=== PATIENT | female | born 1990 | race Caucasian/White ===

== ENCOUNTER 2021-04-03 17:01 | Emergency (ER) | payer OTHER, SELFPAY ==
[2021-04-03 17:04] VITALS: BP 151/86; PULSE 100; RESP 18; TEMP 36.7; O2SAT 99; BMI 49.9
--- NOTE | 2021-04-03 17:24 | ED.DENTAL ---
HPI - Dental/Oral General Chief complaint: Dental/Oral Stated complaint: dental pain Time Seen by Provider: 04/03/21 17:24 Source: patient Mode of arrival: ambulatory Limitations: no limitations History of Present Illness HPI Narrative: right lower dental pain for past 2 days states history of dental caries was advised for extraction awaiting appointment. Denies any jaw swelling, fever, rash, difficulty swallowing but does hurt to chew on the right side. No recent antibiotics or hospitalization. MD Complaint: tooth pain Location: Tooth # (30/31) Onset (ago): day(s) Duration: constant Severity: moderate Severity scale (1-10): 8 Exacerbating factors: nothing Treatment prior to arrival: none Related Data Previous Rx's Medication Instructions Recorded ibuprofen 800 mg PO Q8H PRN #30 tab 04/03/21 penicillin V potassium 1,000 mg PO BID 10 Days #40 tab 04/03/21 Allergies Allergy/AdvReac Type Severity Reaction Status Date / Time No Known Allergies Allergy Verified 04/03/21 17:06 Review of Systems Review of Systems: Constitutional: No Weight loss, No Fever, No Chills, No Night Sweats, No Fatigue, No Malaise ENT/Mouth: No Hearing loss, No Ear Pain, No Nasal Congestion, No Sinus Pain, No Hoarseness, No sore throat, No Rhinorrhea, No Swallowing Difficulty , positive dental pain as noted per HPI Eyes: No Eye Pain, No Swelling, No Redness, No Foreign Body, No Discharge, No Vision Changes Cardiovascular: No Chest Pain, No SOB, No Dyspnea on Exertion, No Orthopnea, No Edema, No Palpitations Respiratory: No Cough, No Sputum, No Wheezing, No Smoke Exposure, No Dyspnea Gastrointestinal: No Nausea, No Vomiting, No Diarrhea, No Constipation, No abdominal Pain, No Hematochezia, No Melena Genitourinary: no irregular bleeding, No Dysuria, No Urinary Frequency, No Hematuria, No Urinary Incontinence, No Urgency, No Flank Pain, No Urinary Flow Changes, No Hesitancy Musculoskeletal: No joint pain, No Myalgias, No Joint Swelling Skin: No Skin Lesions, No rash Neuro: No Weakness, No Numbness, No Paresthesias, No Loss of Consciousness, No Dizziness, No Headache Psych: No Social Issues Heme/Lymph: No Bruising, No Bleeding,No Lymphadenopathy Endocrine: No Polyuria, No Polydipsia, No Temperature Intolerance Yes all other systems are reviewed and are negative [facility] Past Medical History Medical History No known health problems Social History Social History Advance Directives: No Advance Directives Information Provided: No Patient : No Physical Exam Vital Signs: Vital Signs: Last Vital Signs Temp 98.1 F 04/03/21 17:04 Pulse 100 04/03/21 17:04 Resp 18 04/03/21 17:04 BP 151/86 H 04/03/21 17:04 Pulse Ox 99 04/03/21 17:04 Body Mass Index 49.9 reviewed Const: General: cooperative and healthy appearing; No acute distress or intoxicated appearing Nutritional Appearance: average body habitus Orientation/consciousness: patient oriented x3 HENMT: Head: Yes normal to inspection Ears: hearing grossly normal bilaterally Teeth image: 1. tender palpation, no obvious periodontal abscess, mild gingivitis. Eyes: General: appearance normal, both eyes and all related structures Visual Cleaning: normal visual cleaning by confrontation Neck: Neck: Yes normal visual inspection, No positive Brudzinski's sign, No positive Kernig's sign and No tender Thyroid: Thyroid normal Resp: Effort & Inspection: normal respiratory effort Cardio: Jugular venous distension: no JVD : General: Yes no CVA tenderness Back/Spine/Pelvis: Back: no CVA tenderness Skin: General skin exam: no rashes or lesions noted Neuro: General: patient oriented x3 Extrem: General: Yes normal to inspection Discharge Plan Discharge Clinical Impression: Toothache Patient Disposition: Home, Self-Care Instructions: Toothache (ED) Additional Instructions: [place] diet Push fluids Oral mouth rinse Dental care as instructed Topical Orajel as instructed Follow-up with Dental for further evaluation and treatment and follow the recommendation for extraction take her antibiotic for the acute infection that you have Ibuprofen for pain as prescribed Return if any concerns or worsening symptoms Otherwise follow-up as instructed Thank you Prescriptions: New penicillin V potassium 500 mg tablet 1,000 mg PO BID 10 Days Qty: 40 RF: 0 ibuprofen 800 mg tablet 800 mg PO Q8H PRN (Reason: pain) Qty: 30 RF: 0 Referrals: Physician,None [Primary Care Provider] - 1 week
== END 2021-04-03 17:55 | disposition home or self-care (01) ==
PROVIDERS: Emergency Provider Emergency Medicine
DX: K08.89 Other specified disorders of teeth and supporting structures (principal)
CPT/HCPCS: 99283

== ENCOUNTER 2021-04-28 23:04 | Emergency (ER) | payer OTHER, SELFPAY ==
[2021-04-28 23:07] VITALS: BP 152/101; PULSE 110; RESP 18; TEMP 36.9; O2SAT 97; BMI 27.9
[2021-04-28] MEDS: Ibuprofen 600 MG TABLET PO (23:12)
--- NOTE | 2021-04-28 23:30 | ED_ITS ---
HPI - Dental/Oral General Chief complaint: Dental/Oral Stated complaint: tooth pain Time Seen by Provider: 04/28/21 23:30 Source: patient Mode of arrival: ambulatory Limitations: no limitations History of Present Illness HPI Narrative: Tooth pain since January now with increased pain. she is currently seeing her dentist. Onset (ago): month(s) Duration: constant Severity: mild Relieving factors: NSAIDs Exacerbating factors: chewing Related Data Previous Rx's Medication Instructions Recorded ibuprofen 800 mg PO Q8H PRN #30 tab 04/03/21 penicillin V potassium 1,000 mg PO BID 10 Days #40 tab 04/03/21 amoxicillin 875 mg PO BID #20 tab 04/28/21 naproxen [Naprosyn] 500 mg PO BID #20 tab 04/28/21 Allergies Allergy/AdvReac Type Severity Reaction Status Date / Time No Known Allergies Allergy Verified 04/03/21 17:06 Review of Systems Constitutional: Constitutional: Reports no additional constitutional complaints Eyes: Eyes: Reports no additional eye complaints ENT: Denies dizziness Cardiovascular: Cardiovascular: Reports no additional cardiovascular c omplaints Respiratory: Respiratory: Reports as per HPI Gastrointestinal: Gastrointestinal: Reports no additional gastrointestinal complaints Genitourinary: Genitourinary: Reports no additional female genitourinary complaints Musculoskeletal: Musculoskeletal: Reports no additional musculoskeletal complaints Integumentary/Breasts: Skin/Breast: Denies rash Neurologic: Reports system reviewed and no additional complaints, except as documented, Denies dizziness and Denies Sensory deficit (Neuro) Psychiatric: Psychiatric: Denies anxiety PMFSH Past Medical History Medical History No known health problems Social History Social History Advance Directives: No Advance Directives Information Provided: Yes Physical Exam Vital Signs: Vital Signs: Last Vital Signs Temp 98.5 F 04/28/21 23:07 Pulse 110 H 04/28/21 23:07 Resp 18 04/28/21 23:07 BP 152/101 H 04/28/21 23:07 Pulse Ox 97 04/28/21 23:07 Body Mass Index 27.9 Const: Other: anxious screaming Nutritional Appearance: obese Orientation/consciousness: oriented to person and patient oriented x3 Limitations: no limitations HENMT: Other: diffuse dental caries no obvious abscess Head: Yes normal to inspection Ears: external ears normal General nose exam: Normal external nose present Mouth: Normal oral and palatal mucosa present and oropharynx normal Throat: Yes posterior oropharynx normal Eyes: General: appearance normal, both eyes and all related structures Neck: Other: supple Neck: Yes normal visual inspection Chest: Chest palpation & inspection: normal inspection of the chest Resp: Auscultation: clear to auscultation bilaterally Cardio: Jugular venous distension: no JVD Rate: regular rate Rhythm: regular rhythm Heart sounds: S1 normal heart sound present and S2 normal heart sound present GI: Inspection: Yes normal to inspection Palpation (GI): Soft to palpation, nontender and No hepatosplenomegaly present Auscultation: normal bowel sounds : General: Yes no CVA tenderness Back/Spine/Pelvis: Back: no CVA tenderness Skin: General skin exam: no rashes or lesions noted Neuro: General: oriented to person and patient oriented x3 Cranial nerves: Yes CN's II-XII intact bilaterally Motor exam (neuro): 5/5 motor strength present throughout Sensory Exam: No Sensory deficit (Neuro) Extrem: General: Yes normal to inspection Psych: Appearance: grossly normal Course Reevaluation(s) Reevaluation #1: patient with chronic dental caries, very poor dentition will dc on NSAIDS and antibiotics Time: 23:36 Discharge Plan Discharge Clinical Impression: Dental caries Patient Disposition: Home, Self-Care Instructions: Toothache (ED) Prescriptions: New naproxen [Naprosyn] 500 mg tablet 500 mg PO BID Qty: 20 RF: 0 amoxicillin 875 mg tablet 875 mg PO BID Qty: 20 RF: 0 No Action penicillin V potassium 500 mg tablet 1,000 mg PO BID 10 Days Qty: 40 RF: 0 ibuprofen 800 mg tablet 800 mg PO Q8H PRN (Reason: pain) Qty: 30 RF: 0 Referrals: Arron Carr MD [Primary Care Provider] - 1 week
--- NOTE | 2021-04-28 23:49 | PC.NURSE ---
Pt yelling from bed and crying out for a doctor and pain medicine. This RN at bedside multiple times explaining to pt that she cannot be yelling in the ED. Pt advised a provider will see her when able. MD at bedside, plan for Toradol and ABX. When this RN returned to medicate pt and provide her with DC paperwork, pt had fled ED. drying can worker aware.
--- NOTE | 2021-04-28 23:51 | PC.NURSE ---
Unable to medicate pt or provide pt with DC paperwork as she fled ED.
[2021-04-28] MEDS: Amoxicillin 500 MG CAPSULE 1000 MG PO (23:58)
--- NOTE | 2021-04-29 00:03 | PC.NURSE ---
Pt found in Triage, provided with DC paperwork, medicated with ABX.
== END 2021-04-29 00:05 | disposition home or self-care (01) ==
PROVIDERS: Emergency Provider Emergency Medicine; PCP Internal Medicine
DX: K02.9 Dental caries, unspecified (principal)
CPT/HCPCS: 96372; 99283; 99284

== ENCOUNTER 2021-06-08 10:37 | Emergency (ER) | payer OTHER, SELFPAY ==
[2021-06-08 10:52] VITALS: BP 132/66; BP 150/90; PULSE 65; PULSE 80; RESP 16; TEMP 36.9; O2SAT 97; BMI 37.4
--- NOTE | 2021-06-08 10:52 | ECG_ITS ---
Test Reason : ABDOMINAL PAIN Blood Pressure : / mmHG Vent. Rate : 075 BPM Atrial Rate : 075 BPM P-R Int : 176 ms QRS Dur : 092 ms QT Int : 402 ms P-R-T Axes : 008 034 -09 degrees QTc Int : 448 ms Normal sinus rhythm Normal ECG No previous ECGs available Referred By: Nikole Miller Electronically Signed By:GIA GARCIA
--- NOTE | 2021-06-08 10:53 | ED_ITS ---
HPI - Nausea/Vomiting/Diarrhea General Chief complaint: Abdominal Pain Stated complaint: N/V s/p tramadol Time Seen by Provider: 06/08/21 10:52 Source: patient and EMS Mode of arrival: ambulatory Limitations: no limitations History of Present Illness MD elicited complaint: nausea, vomiting and other (dizziness) Pertinent past history: other (took tramadol for dental pain on empty stomach today) Onset (ago): hour(s) Description of vomiting: food contents Associated nausea: Yes Associated abdominal pain: No Location of pain: none Severity: mild Exacerbating factors: eating Relieving factors: none Context: new medication (tramadol on empty stomach) Associated symptoms: nausea/vomiting and other (dizziness) Related Data Previous Rx's Medication Instructions Recorded ibuprofen 800 mg tablet 800 mg PO Q8H PRN #30 tab 04/03/21 penicillin V potassium 500 mg 1,000 mg PO BID 10 Days #40 tab 04/03/21 tablet amoxicillin 875 mg tablet 875 mg PO BID #20 tab 04/28/21 naproxen 500 mg tablet (Naprosyn) 500 mg PO BID #20 tab 04/28/21 Allergies Allergy/AdvReac Type Severity Reaction Status Date / Time No Known Allergies Allergy Verified 04/03/21 17:06 Review of Systems Review of Systems: Constitutional : No Weight loss, No Fever, No Chills ENT/Mouth : No sore throat, No Rhinorrhea Eyes: No Swelling, No Redness Cardiovascular : No Chest Pain, No SOB, NoEdema Respiratory : No Cough, No Sputum, No Wheezing Gastrointestinal : Positive Nausea, Positive Vomiting, no Diarrhea, no abdominal Pain, No Hematochezia, No Melena Genitourinary : No Dysuria, No Urinary Frequency, No Hematuria, No Urgency Musculoskeletal : No joint pain, No Myalgias, No Joint Swelling Skin : No Skin Lesions, No rash Neuro : No Weakness, No Numbness, pos Dizziness, No Headache Psych : No Anxiety/Panic, No Depression Heme/Lymph: No Bruising, No Lymphadenopathy Endocrine : No Polyuria, No Polydipsia All other systems reviewed and are negative. Gastrointestinal: Gastrointestinal: Reports nausea PMFSH Past Medical History Attestation statement: The following information was validated with the patient. Medical History No known health problems Surgical History No history of previous surgery Social History Social History (Updated 06/08/21 @ 11:11 by Nikole Miller DO) Patient Tobacco Use Status: Never used Tobacco Use of substances other than those prescribed or required for medical reasons: No Advance Directives: No Advance Directives Information Provided: No Patient : No (UNKNOWN) Physical Exam Vital Signs: Vital Signs: Last Vital Signs Temp 98.5 F 06/08/21 10:52 Pulse 65 06/08/21 10:52 Resp 16 06/08/21 10:52 BP 132/66 06/08/21 10:52 Pulse Ox 97 06/08/21 10:52 Body Mass Index 37.4 Appearance: Alert. Oriented X3. No acute distress. Eyes: Pupils equal, round and reactive to light. ENT: Pharynx normal. Neck: Normal inspection. Neck supple. CVS: Normal heart rate and rhythm. Pulses normal. Respiratory: No respiratory distress. Breath sounds normal. Abdomen: Soft and non-tender. Skin: Skin warm and dry. Normal skin color. Normal skin turgor. Extremities: No lower extremity edema. No calf ttp Neuro: Oriented X 3. No motor deficit. No sensory deficit. Course Course Course Narrative: EKG has inverted t waves but no CP/SOB if trop negative stable for DC negative chest pain/ sob trop negative, likely persistent juvenile t wave pattern PERC negative, only receives the depo shot MDM - Nausea/Vomiting/Diarrhea MDM Narrative Medical decision making narrative: 31 yo female here with c/o nausea and dizziness after taking prescribed tramadol on an empty stomach for dental pain this AM - she is not toxic appearing will obtain qtc, UA and UPT, treat with zofran and discussed not taking the medication or to take it with food Lab Data Labs: Lab Results 06/08/21 06/08/21 06/08/21 Range/Units 11:13 11:15 11:16 Troponin I High Sens (<3.5-17.0) ng/L Urine Color YELLOW Urine Appearance HAZY Urine pH 5.5 (5.0-8.0) Ur Specific [place] >= 1.030 H (1.005-1.025) Urine Protein 1+ H (NEG-TRACE) MG/DL Urine Glucose (UA) NEG (NEG) MG/DL Urine Ketones NEG (NEG) MG/DL Urine Blood NEG (NEG) Urine Nitrite NEG (NEG) Ur Leukocyte Esterase NEG (NEG) Urine RBC 0-2 (0) /HPF Urine WBC 1-4 (0-4) /HPF Ur Squamous Epith Cells 2+ /LPF Urine Bacteria TRACE /LPF Urine Mucus 1+ /LPF Urine Test NEGATIVE (NEGATIVE) COVID-19 (IQRA) Negative (Negative) COVID-19 [employer] See Note 06/08/21 Range/Units 11:57 Troponin I High Sens < 3.5 (<3.5-17.0) ng/L Urine Color Urine Appearance Urine pH (5.0-8.0) Ur Specific [place] (1.005-1.025) Urine Protein (NEG-TRACE) MG/DL Urine Glucose (UA) (NEG) MG/DL Urine Ketones (NEG) MG/DL Urine Blood (NEG) Urine Nitrite (NEG) Ur Leukocyte Esterase (NEG) Urine RBC (0) /HPF Urine WBC (0-4) /HPF Ur Squamous Epith Cells /LPF Urine Bacteria /LPF Urine Mucus /LPF Urine Test (NEGATIVE) COVID-19 (IQRA) (Negative) COVID-19 [employer] ECG Data Attestation: I personally reviewed and interpreted this ECG as follows: ECG interpretation date: 06/08/21 ECG interpretation time: 11:14 Interpretation: Rate: 75 Rhythm: NSR [place]: normal Normal P waves. Normal KAT. Normal QRS complex. ST T wave : inverted in III, aVF, V1-V3 qTC: normal prior studies: no priors The study has been interpreted contemporaneously by me. . Discharge Plan Discharge Clinical Impression: Adverse effect of tramadol Qualifiers: Encounter type: initial encounter Qualified Code(s): T40.425A - Adverse effect of tramadol, initial encounter Vomiting Qualifiers: Vomiting type: unspecified Vomiting Intractability: non-intractable Nausea presence: with nausea Qualified Code(s): R11.2 - Nausea with vomiting, unspecified Patient Disposition: Home, Self-Care Instructions: Acute Nausea and Vomiting (ED), Adverse Drug Reaction (ED) Additional Instructions: return to ED for any worsening symptoms or concerns never take pain medications on empty stomach i would not take tramadol anymore negative test Prescriptions: No Action penicillin V potassium 500 mg tablet 1,000 mg PO BID 10 Days Qty: 40 RF: 0 ibuprofen 800 mg tablet 800 mg PO Q8H PRN (Reason: pain) Qty: 30 RF: 0 naproxen [Naprosyn] 500 mg tablet 500 mg PO BID Qty: 20 RF: 0 amoxicillin 875 mg tablet 875 mg PO BID Qty: 20 RF: 0 Interventions: ED Discharge Assessment Last Done: 06/08/21 12:51 Discharge Date/Time: 06/08/21 12:52
[2021-06-08] MEDS: Ondansetron ODT 4 MG TAB.RAPDIS TRANSLINGU (10:57)
[2021-06-08 11:26] LABS: Glucose Urine UA NEG (NEG); Leukocyte Esterase Urine NEG (NEG); Nitrite Urine NEG (NEG); PH 5.5 (5.0-8.0); Specific Gravity - Urine >= 1.030 (1.005-1.025); UACC Culture Trigger NO; Urine Blood NEG (NEG); Urine Ketones NEG (NEG); Urine Protein 1+ MG/DL (NEG-TRACE)
[2021-06-08 11:28] LABS: UPreg QC Valid YES; Urine Pregnancy NEGATIVE (NEGATIVE)
[2021-06-08 11:28] LABS: Appearance Urine HAZY; Color Urine YELLOW
[2021-06-08 11:35] LABS: Bacteria Urine TRACE /LPF; Mucus Urine 1+ /LPF; RBC Urine 0-2 /HPF (0); Squamous Epithelial Cell Urine 2+ /LPF
[2021-06-08 11:36] LABS: COVID-19 Test Negative (Negative)
[2021-06-08 12:29] LABS: Troponin-I High Sensitivity < 3.5 ng/L (<3.5-17.0)
== END 2021-06-08 12:52 | disposition home or self-care (01) ==
PROVIDERS: Emergency Provider Emergency Medicine
DX: R11.2 Nausea with vomiting, unspecified (principal); T40.425A Adverse effect of tramadol, initial encounter; Y92.009 Unspecified place in unspecified non-institutional (private) residence as the place of occurrence of the external cause; Z20.822 Contact with and (suspected) exposure to COVID-19
CPT/HCPCS: 36415; 81001; 81025; 84484; 87635; 93005; 99283

== ENCOUNTER 2021-10-19 13:45 | Emergency (ER) | payer OTHER, SELFPAY ==
--- NOTE | ~2021-10-19 | XR_ITS ---
EXAMINATION: XR CHEST CLINICAL INFORMATION: Coughing. COMPARISON: None TECHNIQUE: 2 views of the chest were obtained. FINDINGS: No significant abnormality is noted involving the heart, lungs, mediastinum, bony thorax or soft tissues. XR/XR chest 2V IMPRESSION: Unremarkable chest examination.
[2021-10-19 15:02] VITALS: BP 125/75; PULSE 64; RESP 18; TEMP 36.3; O2SAT 97; BMI 29.9
--- NOTE | 2021-10-19 15:18 | ED.GENADULT ---
HPI - General Adult General Chief complaint: General Medical Stated complaint: sore throat tooth pain Time Seen by Provider: 10/19/21 15:10 Source: patient History of Present Illness HPI narrative: Patient with several complaints. 1. Right posterior molar pain. She states this has been ongoing for months. Worse recently. Also now with a cough and a sore throat. Positive sputum, green. No shortness of breath She has been seen in the past for the dental pain and treated with antibiotics. She has not yet followed up with a dentist. She is requesting ibuprofen for the pain. No fevers or chills. No difficulty swallowing. Related Data Previous Rx's Medication Instructions Recorded ibuprofen 800 mg tablet 800 mg PO Q8H PRN #30 tab 04/03/21 penicillin V potassium 500 mg 1,000 mg PO BID 10 Days #40 tab 04/03/21 tablet amoxicillin 875 mg tablet 875 mg PO BID #20 tab 04/28/21 naproxen 500 mg tablet (Naprosyn) 500 mg PO BID #20 tab 04/28/21 ibuprofen 800 mg tablet 800 mg PO TID PRN #30 tab 10/19/21 penicillin V potassium 500 mg 1,000 mg PO BID #40 tab 10/19/21 tablet Allergies Allergy/AdvReac Type Severity Reaction Status Date / Time No Known Allergies Allergy Verified 04/03/21 17:06 Review of Systems Constitutional: Comments: No fevers or chills ENT: Comments: Dental pain sore throat Respiratory: Comments: Cough with sputum which she states is green and occasionally red Integumentary/Breasts: Comments: Denies rash PMFSH Past Medical History Medical History No known health problems Surgical History No history of previous surgery Social History Social History (Updated 06/08/21 @ 11:11 by Nikole Miller DO) Patient Tobacco Use Status: Never used Tobacco Advance Directives: No Advance Directives Information Provided: Yes Patient : No Physical Exam Vital Signs: Vital Signs: Last Vital Signs Temp 97.4 F 10/19/21 15:02 Pulse 64 10/19/21 15:02 Resp 18 10/19/21 15:02 BP 125/75 10/19/21 15:02 Pulse Ox 97 10/19/21 15:02 BMI result Body Mass Index 29.9 Const: Other: Awake alert no acute distress HENMT: Other: Poor dentition overall. Extensive decay of right posterior lower molar. Tender but no obvious swelling or evidence of abscess. No pharyngeal erythema or exudate. Neck: Other: No meningismus Resp: Other: Clear and equal bilaterally without wheezes rales or rhonchi Cardio: Other: Regular rate and rhythm without murmurs rubs or gallops GI: Other: Soft nontender Skin: Other: Warm pink and dry without rash Neuro: Other: Alert and oriented ambulates without difficulty Course Course Course Narrative: Dental infection without abscess Viral sore throat COVID-19 infection Bronchitis Pneumonia Patient with Pfizer vaccine x2 with her last dose in July. 3:55 p.m.. Chest x-ray is unremarkable. Still awaiting COVID-19 and strep results. 4:20 p.m.. Strep test is negative. COVID test is positive Will treat with antibiotics for dental infection. She is working on getting a dentist for follow-up Medical Decision Making Lab Data Labs: Lab Results 10/19/21 10/19/21 Range/Units 15:57 16:02 COVID-19 (IQRA) Positive A (Negative) COVID-19 Clin Com See Note S. pyogenes GrpA DINAH Negative (Negative) Discharge Plan Discharge Clinical Impression: Dental abscess, COVID-19 Patient Disposition: Home, Self-Care Instructions: Dental Abscess (ED), COVID-19 (Coronavirus Disease 2019) (ED) Additional Instructions: You have COVID-19. I am referring you to [facility] for monoclonal antibodies as you have risk factor for severe disease. Prescriptions: New penicillin V potassium 500 mg tablet 1,000 mg PO BID Qty: 40 RF: 0 ibuprofen 800 mg tablet 800 mg PO TID PRN (Reason: pain) Qty: 30 RF: 0 No Action penicillin V potassium 500 mg tablet 1,000 mg PO BID 10 Days Qty: 40 RF: 0 ibuprofen 800 mg tablet 800 mg PO Q8H PRN (Reason: pain) Qty: 30 RF: 0 naproxen [Naprosyn] 500 mg tablet 500 mg PO BID Qty: 20 RF: 0 amoxicillin 875 mg tablet 875 mg PO BID Qty: 20 RF: 0
[2021-10-19 16:16] LABS: COVID-19 Test Positive (Negative)
[2021-10-19 16:18] LABS: Strep A Nucleic Acid Negative (Negative)
== END 2021-10-19 16:58 | disposition home or self-care (01) ==
PROVIDERS: Emergency Provider Emergency Medicine
DX: U07.1 COVID-19 (principal); K04.7 Periapical abscess without sinus; R05.9 Cough, unspecified; Z79.899 Other long term (current) drug therapy
CPT/HCPCS: 36415; 71046; 87635; 87651; 99283

== ENCOUNTER 2024-05-16 15:14 | Emergency (ER) | payer MEDICAID, SELFPAY ==
[2024-05-16 15:17] VITALS: BP 182/65; PULSE 70; RESP 16; TEMP 36.4; O2SAT 98; BMI 42.6
--- NOTE | 2024-05-16 15:21 | ED_ITS ---
HPI - Dental/Oral General Chief complaint: Dental/Oral Stated complaint: tooth pain Time Seen by Provider: 05/16/24 15:18 Source: patient, RN notes reviewed and old records reviewed Mode of arrival: ambulatory Limitations: no limitations History of Present Illness ED Provider: TYRONE KAYE PA-C HPI Narrative: 54-year-old female with no significant past medical history presents to the ED today for evaluation of dental pain times 24 hours. Reports taking Tylenol/ibuprofen at home without relief. Last dose of this was 2 hours prior to arrival in ED. denies fever, chills, drainage from the area, neck pain or jaw pain, your pain. Receive she did not call her dentist as she does not want to wait for an appointment. MD Complaint: tooth pain Teeth map: 2 1. Onset (ago): day(s) (1) Duration: constant Related Data Previous Rx's ?Medication ?Instructions ?Recorded ibuprofen 800 mg tablet 800 mg PO Q8H PRN pain #30 tabs 04/03/21 penicillin V potassium 500 mg 1,000 mg (2 x 500 mg) PO BID 10 04/03/21 tablet days #40 tabs amoxicillin 875 mg tablet 875 mg PO BID #20 tabs 04/28/21 naproxen 500 mg tablet (Naprosyn) 500 mg PO BID #20 tabs 04/28/21 ibuprofen 800 mg tablet 800 mg PO TID PRN pain #30 tabs 10/19/21 penicillin V potassium 500 mg 1,000 mg (2 x 500 mg) PO BID #40 10/19/21 tablet tabs amoxicillin 875 mg-potassium 1 tab PO BID 7 days #14 tabs 05/16/24 clavulanate 125 mg tablet morphine 15 mg immediate release 15 mg PO Q6H PRN pain (scale score 05/16/24 tablet 4-6) #10 tabs ondansetron 4 mg disintegrating 4 mg PO DAILY PRN nausea and 05/16/24 tablet vomiting 5 days #7 tabs Allergies Allergy/AdvReac Type Severity Reaction Status Date / Time tramadol Allergy Dizziness Verified 05/16/24 15:19 Review of Systems 2 Review of Systems: Constitutional: No fever, chills, fatigue, night sweats, weight changes ENT/Mouth: No ear pain, hearing loss, nasal congestion, sinus pain, rhinorrhea, sore throat, +dental pain Eyes: No eye pain, swelling, redness, vision changes, discharge Cardio: No chest pain, palpitations, PICKETT, orthopnea, peripheral edema Pulm: No SOB, cough, sputum, wheezing, dyspnea, hemoptysis GI: No nausea, vomiting, hematemesis, abdominal pain, diarrhea, constipation, hematochezia, melena : No irregular bleeding, dysuria, frequency, urgency, hesitancy, hematuria, flank pain, urinary flow changes, urinary incontinence or retention MSK: No back pain, neck pain, joint pain, myalgias Skin: No lesions, rashes Neuro: No weakness, numbness, paresthesias, LOC, dizziness, headache Psych: No anxiety/panic, depression, SI/HI, AH/VH All other systems reviewed and are negative. [facility] Past Medical History Attestation statement: The following information was validated with the patient. Source: old records reviewed and nursing notes reviewed Medical History No known health problems Surgical History No history of previous surgery Social History Social History Patient Tobacco Use Status: Never used Tobacco Physical Exam 2 Vital Signs: Vital Signs: Last Vital Signs Temp 97.6 F 05/16/24 15:17 Pulse 70 05/16/24 15:17 Resp 16 05/16/24 15:17 BP 182/65 H 05/16/24 15:17 Pulse Ox 98 05/16/24 15:17 O2 Del Method Room Air 05/16/24 15:17 BMI result Body Mass Index 42.6 Vital signs stable, afebrile. Const: General: cooperative, healthy appearing, comfortable and no acute distress Orientation/consciousness: patient oriented x3 Limitations: no limitations HEENT: Other: + No facial edema. Tongue and lips wnl + multiple dental caries and poor dentit ion. left lower molars with localized periapical swelling to the buccal ginginva. No pointing. No active bleeding/ discharge. TTP. No palpable fluctuance. + No edema to buccal mucosa + Posterior oropharynx without erythema/ edema. Uvula midline. Controlling secretions and speaking in complete sentences + No submandublar or submental LAD + No cervical LAD. no anterior neck swel ling. Head: Yes normal to inspection, Yes No palpable skull fracture present, Yes normocephalic and Yes atraumatic Ears: hearing grossly normal bilaterally, external ears normal, TM's normal bilaterally, EAC's normal, mastoids normal and no periauricular adenopathy Eyes: General: appearance normal, both eyes and all related structures C onjunctivae: conjunctivae normal Sclerae: sclerae normal Pupils: Equal, round and reactive pupils present Neck: Neck: Yes normal visual inspection and Yes no lymphadenopathy Resp: Effort & Inspection: normal respiratory effort and no stridor A uscultation: clear to auscultation bilaterally Cardio: Rate: regular rate Rhythm: regular rhythm Skin: General skin exam: no rashes or lesions noted Neuro: General: patient oriented x3 and gait normal Cranial nerves: Yes Equal, round and reactive pupils present Course Course Course Narrative: 1529-- Patient noted to have dental infection. There is no evidence of abscess that warrants drainage at this time. Will treat patient's pain and patient will be discharged home on Augmentin to ensure there is no worsening infection for follow-up with dentist. Patient advised to follow up with dentist this week. A referral has been provided. Patient has remained stable throughout ED visit today. I discussed worrisome signs and symptoms and when to return to the ED. All questions answered at this time. Patient is agreeable with disposition and stable for discharge. Medical Decision Making Medical Decision Making [facility] Narrative: 54-year-old female with no significant past medical history presents to the ED today for evaluation of dental pain times 24 hours. Patient hypertensive, vitals otherwise WNL. Afebrile. Nontoxic appearing and in no acute distress. On exam, No facial edema. Tongue and lips wnl. multiple dental caries and poor dentition. left lower molars with localized periapical swelling to the buccal ginginva. No pointing. No active bleeding/ discharge. TTP. No palpable fluctuance. No edema to buccal mucosa. Posterior oropharynx without erythema/edema. Uvula midline. Controlling secretions and speaking in complete sentences. No submandublar or submental LAD. No cervical LAD. no anterior neck swelling. b/l EACs and TMs wnl. Differential includes dental/ periapical abscess/infection. Unlikely mono, herpes, sialadenitis, sialolithiasis, MINING SUPPORT WORKER, retropharyngeal abscess, deep neck infection, osteomyelitis, facial cellulitis/ abscess, lymphoma, ludwigs angina. Plan for pain control and discharge home with antibiotics and dentist follow up. Differential Diagnosis Differential Diagnoses: The differential diagnosis associated with the presentation includes as above. Admission/Observation Not indicated. Tests considered The following testing was considered but not selected: I considered obtaining a CT of the soft tissues neck however these is no evidence of ludwigs angina or concern for deep tissue infection. Not warranted at this time. Prescription Management I considered prescription management with: Pain Medication (Morphine) and Antibiotic (Augmentin) Social Determinants Patient?s care significantly limited by Social Determinants of Health including: Other Social Determinant of Health Critical Care Time Critical Care Time Critical Care Time: No Discharge Plan Discharge Clinical Impression: Toothache Patient Disposition: Home, Self-Care Instructions: Toothache (ED) Additional Instructions: You were evaluated in ED today for dental pain. You have a dental infection. Augmentin is an antibiotic that has been sent to your pharmacy for treatment. Take this as prescribed and do not skip any doses. Take this to completion or the infection may persist or worsen. On Augmentin, softer bowel movements are to be expected. Call your provider if you move your bowels more than 4 times a day, your bowel movements are almost all liquid, or you get a rash.? Take tylenol/ motrin at home as needed for pain. Morphine is a pain medication that has been sent to your pharmacy for you to take for break-through pain. Use this with caution. YOU NEED TO FOLLOW UP WITH A DENTIST. You have been provided with a referral to [facility]. They are currently taking new clients. Call them to make an appointment. They will not call you. Return with new or worsening symptoms. In the case of an emergency call [phone]. [facility]: [phone] [facility] [address] Prescriptions: New amoxicillin-pot clavulanate 875-125 mg tablet 1 tab PO BID 7 Days Qty: 14 0RF morphine 15 mg tablet 15 mg PO Q6H PRN (Reason: pain (scale score 4-6)) Qty: 10 0RF Rx Instructions: Partial Fill upon patient request. ondansetron 4 mg tablet,disintegrating 4 mg PO DAILY PRN (Reason: nausea and vomiting) 5 Days Qty: 7 0RF No Action penicillin V potassium 500 mg tablet 1,000 mg PO BID 10 Days Qty: 40 0RF ibuprofen 800 mg tablet 800 mg PO Q8H PRN (Reason: pain) Qty: 30 0RF naproxen [Naprosyn] 500 mg tablet 500 mg PO BID Qty: 20 0RF amoxicillin 875 mg tablet 875 mg PO BID Qty: 20 0RF penicillin V potassium 500 mg tablet 1,000 mg PO BID Qty: 40 0RF ibuprofen 800 mg tablet 800 mg PO TID PRN (Reason: pain) Qty: 30 0RF Stand Alone Forms: Work/School Release Print Language: Togolese
--- OUTSIDE RECORDS SUMMARY | 2024-05-16 15:30 | XMS_ITS | Continuity of Care Document ---
Author Organization [facility] Address [address] [place] [address]- Care Team Providers Care Yarn Comber Name Role Phone Not on Staff, PCP Primary Care Physician Unavail able Encounter [facility] Date(s): 05/18/22 - 05/18/[address] [address]- Discharge Disposition: A-D/C Walkout Attending Physician: Not on Staff, Attending MD Admitting Physician: Not on Staff, Admitting MD Referring Physician: Not on Staff, Referring MD Allergies, Adverse Reactions, Alerts Substance Reaction Severity Status traMADol Active Immunizations Given and Recorded Vaccine Date Status Refusal Reason SARS-CoV-2 (COVID-19) mRNA BNT-162b2 vac 08/02/21 Recorded SARS-CoV-2 (COVID-19) mRNA BNT-162b2 vac 07/12/21 Recorded influenza virus vaccine, inactivated 07/16/20 Give n influenza virus vaccine, inactivated 12/13/17 Give n influenza virus vaccine, inactivated 09/02/13 Give n tetanus/diphtheria/pertussis, acel(Tdap) 03/22/18 Given tetanus/diphtheria/pertussis, acel(Tdap) 02/21/17 Given tetanus/diphtheria/pertussis, acel(Tdap) 02/10/14 Given tetanus/diphtheria/pertussis, acel(Tdap) 1 08/28/12 Given Fluzone (oldterm) 2 07/18/12 Given Human Papillomavirus Vaccine 3 11/13/09 Given Influenza Vaccine (oldterm) 07/15/09 Given 1Admin Note: 11/01/11 VIS Given. 2Admin Note: 04/09/12 VIS Given. 3Admin Note: 11/15/06 VIS Given. Medications acetaminophen 325 mg oral tablet 650 mg, By Mouth, Every 4 hours, PRN, (1-3), may give 325mg per patient preference and re-dose [id number] within 4 hours, if needed. Patient should only receive a total of 650mg of Acetaminophen every 4 hours., # 30 tablet, Refills 0, Tot. Refills 0... Start Date: 10/14/20 Status: Ordered aspirin 81 mg oral delayed release tablet See Instructions, 2 tablet By Mouth Daily at bedtime, # 60 tablet, Refills 8, Tot. Refills 8, Maintenance, 03/03/22 10:23:00 EDT, Instructions Replace Required Details, Route to Pharmacy Electronically, [facility]/pharmacy #[id number], Partial fill upon patient re... Start Date: 03/03/22 Status: Ordered docusate sodium 100 mg oral capsule 100 mg, 1, capsule, By Mouth, 2 times a day, PRN, # 30 capsule, Refills 0, Tot. Refills 0, Maintenance, Constipation, 10/14/20 8:26:00 EST, Route to Pharmacy Electronically, [facility]/pharmacy #[id number], Partial fill upon patient request if the prescription is... Start Date: 10/14/20 Status: Ordered ferrous sulfate 325 mg oral tablet 1 tablet = 325 mg, By Mouth, Daily, # 90 tablet, 3 Refills, Maintenance, 02/10/22 14:01:00 EDT, Tablet, [facility]/pharmacy #[id number], Partial fill upon patient request if the prescription is for a schedule II opioid drug., 162, cm, 02/08/22 20:06:00 EDT, Height... Start Date: 02/10/22 Status: Ordered Heartburn Relief 10 mg oral tablet 1 tablet, By Mouth, 2 times a day, # 60 tablet, 6 Refills, Soft Stop, 05/09/22 11:09:00 EDT, [facility]/pharmacy #[id number], 162, cm, 03/03/22 10:00:00 EDT, Height, 115.5, kg, 02/08/22 19:58:00 EDT, Dry Weight Start Date: 05/09/22 Status: Ordered metoclopramide 5 mg oral tablet 1 tablet, By Mouth, 2 times a day, for 30 days, # 60 tablet, 0 Refills, Physician Stop, [id number], 162, cm, 03/03/22 10:00:00 EDT, Height, 115.5, kg, 02/08/22 19:58:00 EDT, Dry Weight Start Date: 04/25/22 Stop Date: 05/25/22 Status: Ordered metoclopramide 5 mg oral tablet 1 tablet, By Mouth, 2 times a day, for 30 days, # 60 tablet, 0 Refills, Physician Stop 06/08/22 11:09:00 EDT, 05/09/22 11:09:00 EDT, [facility]/pharmacy #[id number], 162, cm, 03/03/22 10:00:00 EDT, Height, 115.5,kg, 02/08/22 19:58:00 EDT, Dry Weight Start Date: 05/09/22 Stop Date: 06/08/22 Status: Ordered Multivitamins with Folic Acid 1 mg oral tablet 1 tablet, By Mouth, Daily, # 90 tablet, 3 Refills, Maintenance, 01/25/22 15:06:00 EDT, Tablet, [facility]/pharmacy #[id number], Partial fill upon patient request if the prescription is for a schedule II opioid drug., 1 tablet By Mouth Daily, 162, cm, 01/20/22 0:10... Start Date: 01/25/22 Status: Ordered Tums 500 mg oral tablet, chewable 500 mg, 1, tablet, Chew, 3 times a day, PRN, # 30 tablet, Refills 0, Tot. Refills 0, Maintenance, for control of stomach acid, 09/16/20 19:17:00 EST, Route to Pharmacy Electronically, [facility]/pharmacy #[id number], Partial fill upon patient request if the prescr... Start Date: 09/16/20 Status: Ordered Unisom 25 mg oral tablet 1 tablet = 25 mg, By Mouth, Daily at bedtime, PRN for sleep, # 32 tablet, 0 Refills, Maintenance, 01/29/22 21:21:00 EDT, Tablet, [facility]/pharmacy #[id number], 162, cm, 01/20/22 0:10:00 EDT, Height, 127.5, kg, 10/11/20 21:21:00 EST, Dry Weight Start Date: 01/29/22 Status: Ordered Vitamin B6 50 mg oral tablet See Instructions, TAKE 3 TIMES PER DAY TO PREVENT NAUSEA IN ., # 90 tablet, Refills 0, Instructions Replace Required Details, Route to Pharmacy Electronically, [id number], 162, cm, 03/03/22 10:00:00 EDT, Height, 115.5, kg, 02/08/22 19:58... Start Date: 05/06/22 Status: Ordered Problem List Condition Effective Dates Status Health Status Inform ant History of suicidal ideation(Confirmed) Active Learning disability(Confirmed) Active Morbid obesity(Confirmed) Active Obesity, Morbid - BMI 47(Confirmed) Active Personality disorder(Confirmed) Active Severe obesity(Confirmed) Active Other social stressor(Confirmed) Active Vital Signs Most recent to oldest [Reference Range]: 1 2 3 Height 165 cm (05/18/22 12:53 PM) 165 cm (05/18/22 12:18 PM) Oxygen Saturation [94-100 %] 100 % (05/18/22:24 PM) 100 % (05/18/22 12:53 PM) 99 % (05/18/22 12:09 PM) Pulse Rate [55-90 bpm] 78 bpm (05/18/22:24 PM) 77 bpm (05/18/22 12:53 PM) 98 bpm *H* (05/18/22 12:09 PM) Blood Pressure [90-138/55-84 mm Hg] 116/57mm Hg (05/18/22 5:24 PM) 118/62mm Hg (05/18/22 12:53 PM) 115/64mm Hg (05/18/22 12:09 PM) Respiratory Rate [16-30 br/min] 18 br/min (05/18/22 12:53 PM) 20 br/min (05/18/22 12:09 PM) Temperature [96.8-100.4 DegF] 98.3 DegF (05/18/22 5:24 PM) 97.6 DegF (05/18/22 12:53 PM) 98.0 DegF (05/18/22 12:09 PM) Mode of Delivery (Oxygen) Room air (05/18/22 5:24 PM) Room air (05/18/22 12:53 PM) Room air (05/18/22 12:09 PM) Blood pressure sites Arm, right (05/18/22 5:24 PM) Arm, right (05/18/22 12:53 PM) Arm, left (05/18/22 12:09 PM) Temperature Route Oral (05/18/22 5:24 PM) Oral (05/18/22 12:53 PM) Oral (05/18/22 12:09 PM) Social History Social History Type Response Smoking Status Never (less than 100 in lifetime) entered on: 04/08/20 Sex
--- OUTSIDE RECORDS SUMMARY | 2024-05-16 15:30 | XMS_ITS | Continuity of Care Document ---
Author Organization [facility] ter Address [address] [place] [id number]- Care Team Providers Care Receivables Specialist Name Role Phone Bruno DOS SANTOS, Arron Dash Primary Care Physician Encounter [facility] Date(s): 08/16/22 - 09/21/[address] [address] Attending Physician: Annmarie Augustin DO Admitting Physician: Annmarie Augustin DO Referring Physician: Sarah Beth Pimentel DO Allergies, Adverse Reactions, Alerts Substance Reaction Severity Status traMADol Active Immunizations Given and Recorded Vaccine Date Status Refusal Reason tetanus/diphtheria/pertussis, acel(Tdap) 08/04/22 Given tetanus/diphtheria/pertussis, acel(Tdap) 03/22/18 Given tetanus/diphtheria/pertussis, acel(Tdap) 02/21/17 Given tetanus/diphtheria/pertussis, acel(Tdap) 02/10/14 Given tetanus/diphtheria/pertussis, acel(Tdap) 1 08/28/12 Given SARS-CoV-2 (COVID-19) mRNA BNT-162b2 vac 08/02/21 Recorded SARS-CoV-2 (COVID-19) mRNA BNT-162b2 vac 07/12/21 Recorded influenza virus vaccine, inactivated 07/16/20 Give n influenza virus vaccine, inactivated 12/13/17 Give n influenza virus vaccine, inactivated 09/02/13 Give n Fluzone (oldterm) 2 07/18/12 Given Human Papillomavirus Vaccine 3 11/13/09 Given Influenza Vaccine (oldterm) 07/15/09 Given 1Admin Note: 11/01/11 VIS Given. 2Admin Note: 04/09/12 VIS Given. 3Admin Note: 11/15/06 VIS Given. Medications docusate sodium 100 mg oral tablet 1 tablet = 100 mg, By Mouth, 3 times a day, PRN for constipation, # 60 tablet, 0 Refills, Maintenance, 08/23/22 19:44:00 EST, Tablet, [facility]/pharmacy #[id number], Partial fill upon patient request if the prescription is for a schedule II opioid drug., 165, cm,... Start Date: 08/23/22 Status: Ordered ibuprofen 600 mg oral tablet 600 mg, 1, tablet, By Mouth, Every 6 hours, # 50 tablet, Refills 0, Tot. Refills 0, Maintenance, 09/07/22 16:36:00 EST, Route to Pharmacy Electronically, [facility]/pharmacy #[id number], Partial fill upon patientrequest if the prescription is for a schedule II op... Start Date: 09/07/22 Status: Ordered MiraLax oral powder for reconstitution = 17 Gm, By Mouth, Daily, dissolve in water before taking, # 255 Gm, 0 Refills, Maintenance, 08/23/22 19:45:00 EST, REC Powder, [facility]/pharmacy #[id number], Partial fill upon patient request if the prescription is for a schedule II opioid drug., 17 Gm By Mouth... Start Date: 08/23/22 Status: Ordered Nexplanon 68 mg subcutaneous implant 1 each = 68 mg, Subcutaneous Infusion, Once, Inserted 08/23/22 Lot [id number] Exp 07/28/24, 0 Refills,Maintenance, 08/23/22 19:16:00 EST, Partial fill upon patient request if the prescription is for a schedule II opioid drug. Start Date: 08/23/22 Status: Ordered oxyCODONE 5 mg oral tablet 5 mg, 1, tablet, By Mouth, Every 6 hours, PRN, # 10 tablet, Refills 0, Tot. Refills 0, Maintenance,as needed for pain, 08/23/22 19:48:00 EST, Route to Pharmacy Electronically, [facility]/pharmacy #[id number], Partial fill upon patient request if the prescription... Start Date: 08/23/22 Status: Ordered simethicone 80 mg oral tablet, chewable 80 mg, 1, tablet, Chew, 4 times a day, PRN, # 36 tablet, Refills 0, Tot. Refills 0, Maintenance, asneeded for gas, 08/23/22 19:44:00 EST, Route to Pharmacy Electronically, [facility]/pharmacy #[id number], Partial fill upon patient request if the prescription is f... Start Date: 08/23/22 Status: Ordered Tylenol 325 mg oral capsule 2 capsule = 650 mg, By Mouth, Every 6 hours, PRN as needed for fever, # 50 capsule, 0 Refills, Maintenance, 09/07/22 16:37:00 EST, Capsule, [facility]/pharmacy #[id number], Partial fill upon patient request if the prescription is for a schedule II opioid drug., 16... Start Date: 09/07/22 Status: Ordered Problem List Condition Confirmation Course Effective Dates Status H ealth Status Informant H/O Anemia in Confirmed Active Dichorionic diamniotic twin gestation Confirmed Active History of suicidal ideation Confirmed Active Learning disability Confirmed Active Morbid obesity Confirmed Active Personality disorder Confirmed Active Severe obesity Confirmed Active Other social stressor Confirmed Active Request for sterilization Confirmed Active Social History Social History Type Response Smoking Status Never (less than 100 in lifetime) entered on: 04/08/20 Sex Patient Care team information Care Team Personnel Name: Triny Son RN Position: [facility] PCO RN Member Role: Primary Care Nurse Name: Jennifer Penny RN Position: [facility] RN Member Role: Primary Care Nurse Name: Wanda Man RN Position: [facility] OB RN Member Role: Primary Care Nurse Name: Aurelio Ravi DO Position: [facility] WOOD FENCE ERECTOR MD Member Role: [employer]etime WOOD FENCE ERECTOR Physician Address: Address: [address] [place] [address] [employer] [place] [address]- Name: Sisi Interiano RN Position: [facility] RN Member Role: Primary Care Nurse Name: Arron Carr MD Position: [facility] Outreach Member Role: PCP Address: Address: [address] [place] [address]- Name: Emeka Chong RN Position: [facility] RN Member Role: Primary Care Nurse Name: Jasmin Mosqueda RN Position: [facility] OB RN Member Role: Primary Care Nurse Name: Jane Palomares RN Position: [facility] OB RN Member Role: Primary Care Nurse Name: Leena Friend RN Position: [facility] OB RN Member Role: Primary Care Nurse Care Team Related Persons Name: FRANCISCA REYES Address: home [address] [place] [address] Name: BERKLEY REYES Address: home [place] Name: LEVAR ZARATE Address: home [address] [place] [address] Name: JUNIOR ELIANA Address: [place] [address] Name: CAROLE CHUNG Address: [address] Address: home [address] [place] [address] [place] Name: TRACY CHUNG Address: [address] Address: home [address] [address] [place] Name: LIS JAMA Address: [address] Address: home [address] [address] [place] Name: AKIRA JAMA Address: [address] Address: home [address] [place] [address] [place] Name: BERKLEY AVENDANO Address: home [address] [address] Name: JENNIFER BEARDEN
--- OUTSIDE RECORDS SUMMARY | 2024-05-16 15:30 | XMS_ITS | Continuity of Care Document ---
Author Organization [facility] Address [address] [place] [address]- Care Team Providers Care Director Speech And Hearing Name Role Phone Not on Staff, PCP Primary Care Physician Unavail able [facility] Date[facility]): [facility] - 05/13/[facility] [address] [place] [address]- [facility] Attending Physician: Rikki Rodriguez Admitting Physician: Rikki Rodriguez Referring Physician: Rikki Rodriguez Allergies, Adverse Reactions, Alerts Substance Reaction Severity Status NKA Active Immunizations Given and Recorded Vaccine Date Status Refusal Reason tetanus/diphtheria/pertussis, acel(Tdap) 03/22/18 Given tetanus/diphtheria/pertussis, acel(Tdap) 02/21/17 Given tetanus/diphtheria/pertussis, acel(Tdap) 02/10/14 Given tetanus/diphtheria/pertussis, acel(Tdap) 1 08/28/12 Given influenza virus vaccine, inactivated 12/13/17 Give n influenza virus vaccine, inactivated 09/02/13 Give n Fluzone (oldterm) 2 07/18/12 Given Human Papillomavirus Vaccine 3 11/13/09 Given Influenza Vaccine (oldterm) 07/15/09 Given 1Admin Note: 11/01/11 VIS Given. 2Admin Note: 04/09/12 VIS Given. 3Admin Note: 11/15/06 VIS Given. Medications doxylamine 25 mg oral tablet 1 tablet = 25 mg, By Mouth, Daily at bedtime, PRN for sleep, # 30 tablet, 1 Refills, Maintenance, 05/03/20 17:34:00 EDT, Tablet, [id number], 165, cm, 04/08/20 8:05:00 EDT, Height, 117, kg, 10/14/19 23:49:00 EST, Dry Weight Start Date: 05/03/20 Status: Ordered metoclopramide 10 mg oral tablet See Instructions, TAKE 1 TABLET 4 TIMES A DAY NEEDED FOR NAUSEA AND VOMITING 30 MINUTES BEFORE MEALS & BEDTIME, # 84 tablet, 0 Refills, Acute, [id number], 165, cm, 04/08/20 8:05:00 EDT, Height, 117, kg, 10/14/19 23:49:00 EST, Dry Weight Start Date: 05/04/20 Status: Ordered Multivitamins with Folic Acid 1 mg oral tablet 1 tablet, By Mouth, Daily, # 30 tablet, 8 Refills, Maintenance, 03/05/20 16:59:00 EDT, Tablet, [facility]/pharmacy #[id number], 1 tablet By Mouth Daily, 165, cm, 02/27/19 7:33:00 EDT, Height, 117, kg, 10/14/19 23:49:00 EST, Dry Weight Start Date: 03/05/20 Status: Ordered promethazine 12.5 mg oral tablet 1 tablet = 12.5 mg, By Mouth, Every 4 hours, PRN for nausea/vomiting, # 30 tablet, 0 Refills, Maintenance, 05/03/20 17:36:00 EDT, Tablet, [facility]/pharmacy #[id number], 165, cm, 04/08/20 8:05:00 EDT, Height, 117, kg, 10/14/19 23:49:00 EST, Dry Weight Start Date: 05/03/20 Status: Ordered Vitamin B6 25 mg oral tablet See Instructions, 1 tablet By Mouth up to 3 times Daily for nausea, # 90 tablet, 1 Refills, Maintenance, 05/03/20 17:34:00 EDT, [facility]/pharmacy #[id number], 165, cm, 04/08/20 8:05:00 EDT, Height, 117, kg, 10/14/19 23:49:00 EST, Dry Weight Start Date: 05/03/20 Status: Ordered Problem List Condition Effective Dates Status Health Status Inform ant Abnormal first trimester screen(Confirmed) Active H/O Anemia in (Confirmed) Active Behavior problem of childhoo d and adolescence(Confirmed)(Stable) 1994 Active Learning disability(Confirmed) Active H/O Lice infestation(Confirmed) Active H/O Noncompliance(Confirmed) Active Obesity, Morbid - BMI 47(Confirmed) Active Recurrent UTI(Confirmed) Active Social History Social History Type Response Smoking Status Never (less than 100 in lifetime) entered on: 04/08/20 Sex
--- OUTSIDE RECORDS SUMMARY | 2024-05-16 15:30 | XMS_ITS | Continuity of Care Document ---
Author Organization [facility] Address [address] [place] [address], [address] [place] [address]- Care Team Providers Care Direct Marketing Analyst Name Role Phone Bruno DOS SANTOS, Arron Dash Primary Care Physician [facility] Date[facility]s): 11/22/22 - 12/22/22 [facility] [address] [facility], [address] [place] [id number] Allergies, Adverse Reactions, Alerts Substance Reaction Severity [...] Given. 3Admin Note: 11/15/06 VIS Given. Medications Nexplanon 68 mg subcutaneous implant 1 each = 68 mg, Subcutaneous Infusion, Once, Inserted 08/23/22 Lot [id number] 07/28/24, 0 Refills,Maintenance, 08/23/22 19:16:00 EST, Partial fill upon patient request if the prescription is for a schedule II opioid drug. Start Date: 08/23/22 Status: Ordered Problem List Condition Confirmation Course Effective Dates Status H ealth Status Informant History of suicidal ideation Confirmed Active Learning disability Confirmed Active Morbid obesity Confirmed Active Personality disorder Confirmed Active Severe obesity Confirmed Active Other social stressor Confirmed Active Request for sterilization Confirmed Active Social History Social History Type Response Smoking Status Never (less than 100 in lifetime) entered on: 04/08/20 Sex Patient Care team information Care Team Personnel Name: Triny Son RN Position: [facility] AMB Nurse Member Role: Primary Care Nurse Name: Jennifer Penny RN Position: [facility] RN Member Role: Primary Care Nurse Name: Wanda Man RN Position: [facility] OB RN Member Role: Primary Care Nurse Name: Aurelio Ravi DO Position: [facility] SAP BW ARCHITECT MD Member Role: Lifetime SAP BW ARCHITECT Physician Address: Address: [address] [place] [address] D[place], [place] [address] Name: Sisi Interiano RN Position: [facility] RN Member Role: Primary Care Nurse Name: Arron Carr MD Position: [facility] Outreach Member Role: PCP Address: Address: [address] [place] [address]- Name: Emeka Chong RN Position: [facility] RN Member Role: Primary Care Nurse Name: Jasmin Mosqueda RN Position: [facility] OB RN Member Role: Primary Care Nurse Name: Jane Palomares RN Position: [facility] OB RN Member Role: Primary Care Nurse Name: Leena Friend RN Position: [facility] OB RN Member Role: Primary Care Nurse Care Team Related Persons Name: FRANCISCA REYES Address: home [address] [place] [address] Name: BERKLEY REYES Address: home [place] Name: SAVITA GIRON Address: Address: home [address] [place] [address] [place] Name: TRACY GIRON Address: Address: home [address] [place] [address] [place] Name: LEVAR ZARATE Address: home [address] [place] [address] Name: JUNIOR ELIANA Address: [place] [address] Name: LIS JAAM Address: [address] Address: home [address] [place] [address] [place] Name: AKIRA JAMA Address: [address] Address: home [address] [place] [address] [place] Name: BERKLEY AVENDANO Address: home [address] [address] Name: JENNIFER BEARDEN
--- OUTSIDE RECORDS SUMMARY | 2024-05-16 15:30 | XMS_ITS | Continuity of Care Document ---
Author Organization [facility] Address [address] [place] [address]- Care Team Providers Care Embroidery Patternmaker Name Role Phone Bruno DOS SANTOS, Arron Dash Primary Care Physician [phone] Encounter [facility] Date(s): 03/14/24 - 04/13/[address] [address] Attending Physician: Rikki Rodriguez Admitting Physician: Rikki Rodriguez Referring Physician: Rikki Rodriguez Referring Physician: Dusty Fajardo MD Allergies, Adverse Reactions, Alerts Substance Reaction [...] mg, Subcutaneous Infusion, Once, Inserted 08/23/22 Lot [id number] Exp 07/28/24, 0 Refills,Maintenance, 08/23/22 19:16:00 EST, [...] 100 in lifetime) entered on: 04/08/20 Sex History and physical note * Felicity Chirinos DO: PERFORM, SIGN, VERIFY Ha DOS SANTOS, Carol Ann Perez: SIGN, MODIFY Ha DOS SANTOS, Carol Ann Perez: MODIFY Event Display: History and Physical Hospital Authored Date: [id number] Patient: JUNIOR MARQUES Age: 28 years Sex: Female : 1990 Associated Diagnoses: None Author: Felicity Chirinos DO Basic Information Summary (Date of Report: 03/20/18) G 6 P 4 (4,0,1,4) Gestation: -- LMP (from pt. history): -- LAZ: 06/14/2018 LAZ/EGA Method: Ultrasound EGA: 27 weeks 5 days History of Present Illness Junior Marques is a 28yo at 27+5wks EGA who presents [facility] with complaint of vaginal itching and discharge. Reports her symptoms began >1 week ago and seem to be worse this evening prompting her presentation to [facility]. She was last seen in [facility] on 02/20 with similar complaints, was diagnosed with BV at that time, reports she did not take the prescribed treatment. She denies vaginal bleeding, cramping/contractions, dysuria, leakage of fluid. She denies any new sexual partners. Reports good movement. Patient has not been seen in [facility] since 12/26, states she has an appointment on 03/22. Histories History (4,0,1,4) # 1 Baby 1 Outcome Date: 04/13/2009 Outcome: Live Outcome or Result: Vaginal Gender: Female Gest Age: 40 weeks Wt: 2977 g Hospital: [facility] Zack Labor: -- Child's Name: Latanya Baby's Father: -- # 2 Baby 1 Outcome Date: 12/29/2012 Outcome: Live Outcome or Result: Vaginal Gender: Male Gest Age: 40 weeks 3 days Wt: 4305 g Hospital: [facility] Zack Labor: -- Child's Name: -- Baby's Father: -- # 3 Baby 1 Outcome Date: 05/04/2014 Outcome: Live Outcome or Result: Vaginal Gender: Male Gest Age: 40 weeks Wt: 3779 g Hospital: -- [facility] Labor: -- Child's Name: -- Baby's Father: -- Anesthesia Type: Epidural # 4 Baby 1 Outcome Date: 05/2016 Outcome: Outcome or Result: Spontaneous Gender: -- Gest Age: 8 weeks Wt: -- Hospital: -- [facility] Labor: -- Child's Name: -- Baby's Father: -- # 5 Baby 1 Outcome Date: 04/20/2017 Outcome: Live Outcome or Result: Vaginal Gender: Male Gest Age: 37 weeks 3 days Wt: 3442 g Hospital: -- [facility] Labor: -- Child's Name: -- Baby's Father: -- . Active and Resolved Problem List Anemia in : (Medical) At risk of sexually transmitted infection: (Medical) Behavior problem of childhood and adolescence: (Medical) (10/09/94) DCF Involvement: (Freetext) Learning disability: (Medical) Obesity, Morbid - BMI 47: (Medical) : (Obstetric) (10/05/17) Home Medications: Home Medications (9) Active ferrous gluconate 325 mg oral tablet 325 mg = 1 tablet, By Mouth, 2 times a day ferrous sulfate 325 mg oral tablet 325 mg = 1 tablet, By Mouth, 2 times a day MetroGel-Vaginal 0.75% vaginal gel with applicator 1 application, Vaginally, Once metroNIDAZOLE 500 mg oral tablet 2,000 mg = 4 tablet, By Mouth, Once metroNIDAZOLE 500 mg oral tablet 500 mg = 1 tablet, By Mouth, Every 12 hours ondansetron 4 mg oral tablet, disintegrating 4 mg = 1 tablet, PRN, By Mouth, Every 8 hours Multivitamins with Folic Acid 1 mg oral tablet 1 tablet, By Mouth, Daily Multivitamins with Folic Acid 1 mg oral tablet 1 tablet, By Mouth, Daily Tylenol 325 mg oral tablet 325 mg = 1 tablet, PRN, By Mouth, Every 4 hours Review of Systems Constitutional: No Fever, No Fatigue. Urinary: No Hematuria, No Dysuria. Gynecology: Symptoms: Vaginal discharge, Itching, Odor. Gastrointestinal: No Diarrhea, No Nausea, No Vomiting, No Constipation. Physical Examination Vital Signs: Vital Signs 03/20/2018 20:58 EDT Temperature 98.1 DegF Temperature Route Oral Respiratory Rate 18 br/min . OB Exam: Cervix: Cervix dilation: 0 cm. Effacement: Cervix effacement: 0 %. Station: -5. Cervical Position: Posterior. Cervical Consistency: Firm. Baby Exam: heart rate: 140 bpm. Variability: Moderate. Contractions: None. Pelvic Exam: Vulva: No erythema or lesions. Vagina: Moderate amount of thin white discharge. Cervix: Within normal limits, Visually closed, L/T/C on exam. Wet mount: Positive whiff test. Clue cells: >20%. Trichamonads: Absent. Yeast: Absent. General: General Assessment: Level of Consciousness ( Alert ), Affect/Behavior ( Calm ). Cardiovascular: Within normal limits. Abdomen/GI: Abdomen Description: Gravid, Soft, Non-tender, Obese. Respiratory: Within normal limits. Impression and Plan Junior Marques is a 28yo at 27+5wks EGA who presents [facility] with complaint of vaginal discharge and vulvar itching. On evaluation vulva is without evidence of erythema or lesions, wet prep consistent with bacterial vaginosis. Cervix is L/T/C, no contractions, and status reassuring. Marlin ent counseled on diagnosis, she prefers pills for treatment. Plan: -Discharge to home with plan for f/u [facility]22 as scheduled -PO Metronidazole sent to patient pharmacy -PTL precautions reviewed -GC/CT collected, will follow up results and treat as clinically indicated -Urine culture sent, will follow up results and treat as clinically indicated d/w Dr Bonner * Ha DOS SANTOSCarol Ann B: PERFORM Event Display: History and Physical Hospital Authored Date: [id number] Attending Attestation: I have seen and evaluated this patient. I have discussed the case and its management with the resident and agree with the findings and plan as documented in the resident???s note. -Carol Ann Bonner MD Patient Care team information Care Team Personnel Name: Triny Son RN Position: [facility] AMB Nurse Member Role: Primary Care Nurse Name: Jennifer Penny RN Position: [facility] RN Member Role: Primary Care Nurse Name: Wanda Man RN Position: [facility] SN RN Member Role: Primary Care Nurse Name: Aurelio Ravi DO Position: [facility] WASTE HANDLING TECHNICIAN MD Member Role: Lifetime WASTE HANDLING TECHNICIAN Physician Address: Address: [address] [place] [address]- [place] Name: Gregory Hassan MD Position: [facility] Outreach Member Role: Lifetime Consulting Physician Address: Address: [address] [place] [address]- [place] Name: Arron Carr MD Position: [facility] Outreach Member Role: PCP Address: Address: [address] [place] [address]- [place] Name: Emeka Chong RN Position: [facility] RN Member Role: Primary Care Nurse Name: Jane Palomares RN Position: [facility] OB RN Member Role: Primary Care Nurse Name: Leena Friend RN Position: [facility] OB RN Member Role: Primary Care Nurse Care Team Related Persons Name: FRANCISCA REYES Address: home [address] [place] [address] Name: BERKLEY REYES Address: home [place] Name: SAVITA GIRON Address: Address: home [address] [place] [address] [place] Name: TRACY GIRON Address: [address] Address: home [address] [place] [address] [place] Name: LEVAR ZARATE Address: home [address] [place] [address] Name: JUNIOR ELIANA Address: [place] [address] Name: LIS JAMA Address: [address] Address: home [address] [address] [place] Name: AKIRA JAMA Address: [address] Address: home [address] [place] [address] [place] Name: BERKLEY AVENDANO Address: [address] [address] Name: JENNIFER BEARDEN
--- OUTSIDE RECORDS SUMMARY | 2024-05-16 15:30 | XMS_ITS | Continuity of Care Document ---
Author Organization [facility] Address [address] [place] [address]- Care Team Providers Care Pit Inspector Name Role Phone Not on Staff, PCP Primary Care Physician Unavail able [facility] Date[facility]): 07/[facility]/20 - 08/14/[address] [address] Allergies, Adverse Reactions, Alerts Substance Reaction Severity Status NKA Active Immunizations Given and Recorded Vaccine Date Status Refusal Reason influenza virus vaccine, inactivated 07/16/20 Give n [...] Given. 3Admin Note: 11/15/06 VIS Given. Medications famotidine 20 mg oral tablet 20 mg, 1, tablet, By Mouth, 2 times a day, # 60 tablet, Refills 0, Tot. Refills 0, Maintenance, 06/17/20 15:15:00 EDT, Route to Pharmacy Electronically, [facility]/pharmacy #[id number], 165, cm, 06/17/20 15:10:00EDT, Height, 117, kg, 10/14/19 23:49:00 EST, Dry We... Start Date: 06/17/20 Stop Date: 07/17/20 Status: Ordered Multivitamins with Folic Acid 1 mg oral tablet 1 tablet, By Mouth, Daily, # 30 tablet, 8 Refills, Maintenance, 03/05/20 16:59:00 EDT, [facility]t, [id number], 1 tablet By Mouth Daily, 165, cm, 02/27/19 7:33:00 EDT, Height, 117, kg, 10/14/19 23:49:00 EST, Dry Weight Start Date: 03/05/20 Status: Ordered Vitamin B6 25 mg oral tablet See Instructions, 1 tablet By Mouth up to 3 times Daily for nausea, # 90 tablet, 1 Refills, Maintenance, 05/20/20 16:24:00 EDT, [id number], 165, cm, 05/20/20 15:09:00 EDT, Height, 117, kg, 10/14/19 23:49:00 EST, Dry Weight Start Date: 05/20/20 Status: Ordered Problem List Condition Effective Dates Status Health Status Inform ant Abnormal first trimester screen(Confirmed) Active History of suicidal ideation(Confirmed) Active Learning disability(Confirmed) Active Morbid obesity(Confirmed) Active Obesity, Morbid - BMI 47(Confirmed) Active Personality disorder(Confirmed) Active Other social stressor(Confirmed) Active Social History Social History Type Response Smoking Status Never (less than 100 in lifetime) entered on: 04/08/20 Sex
--- OUTSIDE RECORDS SUMMARY | 2024-05-16 15:30 | XMS_ITS | Continuity of Care Document ---
Author Organization [facility] Address [address] [place] [address]- Care Team Providers Care Wheel Inspector Name Role Phone Not on Staff, PCP Primary Care Physician Unavail able Encounter [facility] Date(s): 09/04/19 - 11/16/[address] [address]- [facility] Attending Physician: Not on Staff, Attending MD Allergies, Adverse Reactions, Alerts Substance Reaction [...] Given. 3Admin Note: 11/15/06 VIS Given. Medications Ativan 1 mg oral tablet = 1 mg, By Mouth, 3 times a day, PRN Anxiety, 0 Refills, Maintenance, 02/27/19 11:08:31 EDT, Tablet Start Date: 02/27/19 Status: Ordered Benadryl 25 mg oral capsule 1 capsule = 25 mg, By Mouth, 3 times a day, PRN as needed for itching, # 15 capsule, 0 Refills, Maintenance, 09/01/18 2:23:40 EST, Capsule Start Date: 09/01/18 Status: Ordered Calcium Citrate 315 mg + Vitamin D 250IU Tablet 1 tablet = 315 mg, By Mouth, Every 6 hours, 0 Refills, Maintenance, 02/20/19 11:10:35 EDT, Tablet Start Date: 02/20/19 Status: Ordered docusate sodium 100 mg oral capsule 100 mg, 1, capsule, By Mouth, 2 times a day, # 20 capsule, Refills 0, Tot. Refills 0, Maintenance, 02/20/19 10:27:42 EDT, Print Requisition Start Date: 02/20/19 Stop Date: 03/02/19 Status: Ordered Problem List Condition Effective Dates Status Health Status Inform ant Anemia in (Confirmed) Active Behavior problem of childhoo d and adolescence(Confirmed)(Stable) 1994 Active Learning disability(Confirmed) Active Lice infestation(Confirmed) Active Noncompliance(Confirmed) Active Obesity, Morbid - BMI 47(Confirmed) Active Recurrent UTI(Confirmed) Active Social History Social History Type Response Smoking Status Never smoker entered on: 12/08/14 Sex
--- OUTSIDE RECORDS SUMMARY | 2024-05-16 15:30 | XMS_ITS | Continuity of Care Document ---
Author Organization [facility] Address [address] [place] [address]- Care Team Providers Care Beverage Specialist Name Role Phone Not on Staff, PCP Primary Care Physician Unavail able Encounter [facility] Date(s): 09/23/20 - 10/28/20 [facility] [address] [address]- Attending Physician: Not on Staff, Attending MD [...] give 325mg per patient preference and re-dose [id number] within 4 hours, if needed. Patient should only receive a total of 650mg of Acetaminophen every 4 hours., # 30 tablet, Refills 0, Tot. Refills 0... Start Date: 10/14/20 Status: Ordered docusate sodium 100 mg oral capsule 100 mg, 1, capsule, By Mouth, 2 times a day, PRN, # 30 capsule, Refills 0, Tot. Refills 0, Maintenance, Constipation, 10/14/20 8:26:00 EST, Route to Pharmacy Electronically, [facility]/pharmacy #[id number], Partial fill upon patient request if the prescription is... Start Date: 10/14/20 Status: Ordered famotidine 20 mg oral tablet 20 mg, 1, tablet, By Mouth, 2 times a day, # 60 tablet, Refills 0, Tot. Refills 0, Maintenance, 06/17/20 15:15:00 EDT, Route to Pharmacy Electronically, [facility]/pharmacy #[id number], 165, cm, 06/17/20 15:10:00EDT, Height, 117, kg, 10/14/19 23:49:00 EST, Dry We... Start Date: 06/17/20 Stop Date: 07/17/20 Status: Ordered ibuprofen 800 mg oral tablet 800 mg, 1, tablet, By Mouth, Every 8 hours, PRN, (4-6), may give 400mg per patient preference and re-dose with 400mg within 8 hours if needed. Patient should only receive a total of 800mg of Ibuprofen every 8 hours., # 30 tablet, Refills 0, Tot. Ref... Start Date: 10/14/20 Status: Ordered Multivitamins with Folic Acid 1 mg oral tablet 1 tablet, By Mouth, Daily, # 30 tablet, 8 Refills, Maintenance, 03/05/20 16:59:00 EDT, Tablet, [facility]/pharmacy #[id number], 1 tablet By Mouth Daily, 165, cm, 02/27/19 7:33:00 EDT, Height, 117, kg, 10/14/19 23:49:00 EST, Dry Weight Start Date: 03/05/20 Status: Ordered Tums 500 mg oral tablet, chewable 500 mg, 1, tablet, Chew, 3 times a day, PRN, # 30 tablet, Refills 0, Tot. Refills 0, Maintenance, for control of stomach acid, 09/16/20 19:17:00 EST, Route to Pharmacy Electronically, [facility]/pharmacy #[id number], Partial fill upon patient request if the prescr... Start Date: 09/16/20 Status: Ordered Vitamin B6 25 mg oral [...]
--- OUTSIDE RECORDS SUMMARY | 2024-05-16 15:30 | XMS_ITS | Continuity of Care Document ---
Author Organization [facility] Address [address] [place] [address]- Care Team Providers Care Or Director Name Role Phone Not on Staff, PCP Primary Care Physician Unavail able [facility] Date(s): 02/17/21 - 03/19/[address] [address] Attending Physician: Rikki Rodriguez Admitting Physician: AdmtrRikki Referring Physician: Admtr, Rikki Allergies, Adverse Reactions, Alerts Substance Reaction Severity [...] give 325mg per patient preference and re-dose [id number] within 4 hours, if needed. Patient should [...] 10/14/20 8:26:00 EST, [id number] Partial fill upon patient request if the prescription is... Start Date: 10/14/20 Status: Ordered famotidine 20 mg oral tablet 20 mg, 1, tablet, By Mouth, 2 times a day, # 60 tablet, Refills 0, Tot. Refills 0, Maintenance, 06/17/20 15:15:00 EDT, Route to Pharmacy Electronically, [facility]/pharmacy #[id number], 165, cm, 06/17/20 15:10:00EDT, [...] 8 Refills, Maintenance, 03/05/20 16:59:00 EDT, Tablet, [facility]/pharmacy #[id number], 1 tablet By Mouth Daily, 165, cm, 02/27/19 7:33:00 EDT, Height, 117, kg, 10/14/19 23:49:00 EST, Dry Weight Start Date: 03/05/20 Status: Ordered Tums 500 mg oral tablet, chewable 500 mg, 1, tablet, Chew, 3 times a day, PRN, # 30 tablet, Refills 0, Tot. Refills 0, Maintenance, for control of stomach acid, 09/16/20 19:17:00 EST, Route to Pharmacy Electronically, [facility]/pharmacy #[id number], Partial fill upon patient request if the prescr... Start Date: 09/16/20 Status: Ordered Vitamin B6 25 mg oral tablet See Instructions, 1 tablet By Mouth up to 3 times Daily for nausea, # 90 tablet, 1 Refills, Maintenance, 05/20/20 16:24:00 EDT, [facility]/pharmacy #[id number], 165, cm, 05/20/20 15:09:00 EDT, Height, [...]
--- OUTSIDE RECORDS SUMMARY | 2024-05-16 15:30 | XMS_ITS | Continuity of Care Document ---
Author Organization [facility] Address [address] [place] [id number]- Care Team Providers Care Coater Brake Linings Name Role Phone Not on Staff, PCP Primary Care Physician Unavail able Encounter [facility] [place] Date(s): 04/28/22 - 05/28/22 [facility] [address] [address]- Allergies, Adverse Reactions, Alerts Substance Reaction Severity [...] give 325mg per patient preference and re-dose [id number] within 4 hours, if needed. Patient should [...] Replace Required Details, [id number] upon patient re... Start Date: 03/03/22 Status: Ordered docusate sodium 100 mg oral capsule 100 mg, 1, capsule, By Mouth, 2 times a day, PRN, # 30 capsule, Refills 0, Tot. Refills 0, Maintenance, Constipation, 10/14/20 8:26:00 EST, Route to Pharmacy Electronically, [facility]/pharmacy #[id number], Partial fill upon patient request if the prescription is... Start Date: 10/14/20 Status: Ordered ferrous sulfate 325 mg oral tablet 1 tablet = 325 mg, By Mouth, Daily, # 90 tablet, 3 Refills, Maintenance, 02/10/22 14:01:00 EDT, Tablet, [facility]/pharmacy #[id number], Partial fill upon patient request if the prescription is for a schedule II opioid drug., 162, cm, 02/08/22 20:06:00 EDT, Height... Start Date: 02/10/22 Status: Ordered Heartburn Relief 10 mg oral tablet 1 tablet, By Mouth, 2 times a day, # 60 tablet, 6 Refills, Soft Stop, 05/09/22 11:09:00 EDT, [facility]/pharmacy #[id number], 162, cm, 03/03/22 10:00:00 EDT, Height, 115.5, kg, 02/08/22 19:58:00 EDT, Dry Weight Start Date: 05/09/22 Status: Ordered metoclopramide 5 mg oral tablet 1 tablet, By Mouth, 2 times a day, for 30 days, # 60 tablet, 0 Refills, Physician Stop 06/08/22 11:09:00 EDT, 05/09/22 11:09:00 EDT, [facility]/pharmacy #[id number], 162, cm, 03/03/22 10:00:00 EDT, Height, 115.5,kg, 02/08/22 19:58:00 EDT, Dry Weight Start Date: 05/09/22 Stop Date: 06/08/22 Status: Ordered Multivitamins with Folic Acid 1 mg oral tablet 1 tablet, By Mouth, Daily, # 90 tablet, 3 Refills, Maintenance, 01/25/22 15:06:00 EDT, Tablet, [facility]/pharmacy #[id number], Partial fill upon patient request if [...] 09/16/20 19:17:00 EST, [id number] fill upon patient request if the prescr... Start Date: 09/16/20 Status: Ordered Unisom 25 mg oral tablet 1 tablet = 25 mg, By Mouth, Daily at bedtime, PRN for sleep, # 32 tablet, 0 Refills, Maintenance, 01/29/22 21:21:00 EDT, Tablet, [facility]/pharmacy #[id number], 162, cm, 01/20/22 0:10:00 EDT, Height, 127.5, kg, 10/11/20 21:21:00 EST, Dry Weight Start Date: 01/29/22 Status: Ordered Vitamin B6 50 mg oral tablet See Instructions, TAKE 3 TIMES PER DAY TO PREVENT NAUSEA IN ., # 90 tablet, Refills 0, Instructions Replace Required Details, Route to Pharmacy Electronically, [facility] STORE [id number], 162, cm, 03/03/22 10:00:00 EDT, Height, 115.5, kg, 02/08/22 19:58... Start Date: 05/06/22 Status: Ordered Problem List Condition Effective Dates Status Health Status Inform ant History of suicidal ideation(Confirmed) Active Learning disability(Confirmed) Active Morbid obesity(Confirmed) Active Obesity, Morbid - BMI 47(Confirmed) Active Personality disorder(Confirmed) Active Severe obesity(Confirmed) Active Other social stressor(Confirmed) Active Social History Social History Type Response Smoking Status Never (less than 100 in lifetime) entered on: 04/08/20 Sex
--- OUTSIDE RECORDS SUMMARY | 2024-05-16 15:30 | XMS_ITS | Continuity of Care Document ---
Author Organization [facility] Address [address] [place] [address]- Care Team Providers Care Property Staff Accountant Name Role Phone Bruno DOS SANTOS, Arron Dash Primary Care Physician Encounter [facility] [place] Date(s): 08/01/22 - 08/31/[address] [address] Allergies, Adverse Reactions, Alerts Substance Reaction Severity [...] 0 Refills, Maintenance, 08/23/22 19:44:00 EST, Tablet, [facility]/pharmacy #[id number], Partial fill upon patient request if the prescription is for a schedule II opioid drug., 165, cm,... Start Date: 08/23/22 Status: Ordered ibuprofen 600 mg oral tablet 600 mg, 1, tablet, By Mouth, Every 6 hours, # 50 tablet, Refills 0, Tot. Refills 0, Maintenance, 08/23/22 19:48:00 EST, Route to Pharmacy Electronically, [facility]/pharmacy #[id number], Partial fill upon patientrequest if the prescription is for a schedule II op... Start Date: 08/23/22 Status: Ordered MiraLax oral powder for reconstitution = 17 Gm, By Mouth, Daily, dissolve in water before taking, # 255 Gm, 0 Refills, Maintenance, 08/23/22 19:45:00 EST, REC Powder, [facility]/pharmacy #[id number], Partial fill upon patient request if the prescription is for a schedule II opioid drug., 17 Gm By Mouth... Start Date: 08/23/22 Status: Ordered Nexplanon 68 mg subcutaneous implant 1 each = 68 mg, Subcutaneous Infusion, Once, Inserted 08/23/22 Lot [id number] Exp 07/28/24, 0 Refills,Maintenance, 08/23/22 19:16:00 EST, Partial fill upon patient request if the prescription is for a schedule II opioid drug. Start Date: 08/23/22 Status: Ordered oxyCODONE 5 mg oral tablet 5 mg, 1, tablet, By Mouth, Every 6 hours, PRN, # 10 tablet, Refills 0, Tot. Refills 0, Maintenance,as needed for pain, 08/23/22 19:48:00 EST, Route to Pharmacy Electronically, [facility]/pharmacy #[id number], Partial fill upon patient request if the prescription... Start Date: 08/23/22 Status: Ordered simethicone 80 mg oral tablet, chewable 80 mg, 1, tablet, Chew, 4 times a day, PRN, # 36 tablet, Refills 0, Tot. Refills 0, Maintenance, asneeded for gas, 08/23/22 19:44:00 EST, Route to Pharmacy Electronically, [facility]/pharmacy #[id number], Partial fill upon patient request if the prescription is f... Start Date: 08/23/22 Status: Ordered Tylenol 325 mg oral capsule 3 capsule = 975 mg, By Mouth, Every 8 hours, PRN Pain , Moderate, # 50 capsule, 0 Refills, Maintenance, 08/23/22 19:48:00 EST, Capsule, [facility]acy [id number], Partial fill upon patient request if the prescription is for a schedule II opioid drug., 165, c... Start Date: 08/23/22 Status: Ordered Problem List [...] Team Personnel Name: Triny Son RN Position: [facility] PCO RN Member Role: Primary Care Nurse Name: Jennifer Penny RN Position: [facility] RN Member Role: Primary Care Nurse Name: Wanda Man RN Position: [facility] OB RN Member Role: Primary Care Nurse Name: Aurelio Ravi DO Position: [facility] DRAFTER (CAD) ELECTRONIC MD Member Role: Lifetime DRAFTER (CAD) ELECTRONIC Physician Address: Address: [address] [place] [address] Director Of Counterintelligence [place], [place] [address] Name: Sisi Interiano RN Position: [facility] RN Member Role: Primary Care Nurse Name: Arron Carr MD Position: [facility] Outreach Member Role: PCP Address: Address: [address] [place] [id number] Name: Emeka Chong RN Position: [facility] RN Member Role: Primary Care Nurse Name: Jasmin Mosqueda RN Position: [facility] OB RN Member Role: Primary Care Nurse Name: Jane Palomares RN Position: [facility] OB RN Member Role: Primary Care Nurse Name: Leena Friend RN Position: [facility] OB RN Member Role: Primary Care Nurse Care Team Related Persons Name: FRANCISCA REYES Address: home [address] [place] [id number] Name: BERKLEY REYES Address: home [place] Name: LEVAR ZARATE Address: home [address] [place] [address] Name: JUNIOR ELIANA Address: [place] [address] Name: CAROLE CHUNG Address: [address] Address: home [address] [place] [address] [place] Name: TRACY CHUNG Address: [address] Address: home [address] [address] [place] Name: LIS JAMA Address: [address] Address: home [address] [address] [place] Name: AKIRA JAMA Address: [address] Address: home [address] [place] [address] [place] Name: BERKLEY AVENDANO Address: home [address] [address] Name: JENNIFER BEARDEN
--- OUTSIDE RECORDS SUMMARY | 2024-05-16 15:30 | XMS_ITS | Continuity of Care Document ---
Author Organization [facility] Address [address] [place] [address]- Care Team Providers Care Sap Grc Security Name Role Phone Not on Staff, PCP Primary Care Physician Unavail able [place] [facility] [place] 06/[place] [facility] [address] [address]- [facility] Allergies, Adverse Reactions, Alerts Substance Reaction Severity [...] 06/17/20 15:15:00 EDT, Route to Pharmacy Electronically, [facility]/pharmacy #[id number], 165, cm, 06/17/20 15:10:00EDT, Height, 117, kg, 10/14/19 23:49:00 EST, Dry We... Start Date: 06/17/20 Stop Date: 07/17/20 Status: Ordered Multivitamins with Folic Acid 1 mg oral tablet 1 tablet, By Mouth, Daily, # 30 tablet, 8 Refills, Maintenance, 03/05/20 16:59:00 EDT, Tablet, [facility]/pharmacy #[id number], 1 tablet By Mouth Daily, [...] - BMI 47(Confirmed) Active Personality disorder(Confirmed) Active Recurrent UTI(Confirmed) Active Other social stressor(Confirmed) Active Social History Social History Type Response Smoking Status Never (less than 100 in lifetime) entered on: 04/08/20 Sex
--- OUTSIDE RECORDS SUMMARY | 2024-05-16 15:30 | XMS_ITS | Continuity of Care Document ---
Author Organization [facility] Address [address] [place] [address]- Care Team Providers Care Human Capital Analyst Name Role Phone Not on Staff, PCP Primary Care Physician Unavail able Encounter [facility] [place] Date(s): 01/25/22 - 02/24/[address] [address]- Allergies, Adverse Reactions, Alerts Substance Reaction Severity [...] give 325mg per patient preference and re-dose [id number] within 4 hours, if needed. Patient should [...] 10/14/20 8:26:00 EST, [id number] fill upon patient request if the prescription is... Start Date: 10/14/20 Status: Ordered famotidine 20 mg oral tablet 20 mg, 1, tablet, By Mouth, 2 times a day, # 60 tablet, Refills 0, Tot. Refills 0, Maintenance, 02/08/22 20:18:00 EDT, [id number], 162, cm, 02/08/22 20:06:00EDT, Height, 115.5, kg, 02/08/22 19:58:00 EDT, Dry... Start Date: 02/08/22 Stop Date: 03/10/22 Status: Ordered ferrous sulfate 325 mg oral tablet 1 tablet = 325 mg, By Mouth, Daily, # 90 tablet, 3 Refills, Maintenance, 02/10/22 14:01:00 EDT, Tablet, [facility]/pharmacy #[id number], Partial fill upon patient request if the prescription is for a schedule II opioid drug., 162, cm, 02/08/22 20:06:00 EDT, Height... Start Date: 02/10/22 Status: Ordered metoclopramide 5 mg oral tablet 1 tablet, By Mouth, 2 times a day, for 30 days, # 60 tablet, 0 Refills, Physician Stop, [facility] STORE [id number], 162, cm, 02/08/22 20:06:00 EDT, Height, 115.5, kg, 02/08/22 19:58:00 EDT, Dry Weight Start Date: 02/10/22 Stop Date: 03/12/22 Status: Ordered naproxen 500 mg oral delayed release tablet 1 tablet = 500 mg, By Mouth, 2 times a day, # 60 tablet, 0 Refills, Maintenance, 06/14/21 16:52:00 EDT, EC Tablet, [facility]/pharmacy #[id number], Partial fill upon patient request if the prescription is for a schedule II opioid drug., 163, cm, 10/14/20 16:15:00... Start Date: 06/14/21 Status: Ordered Multivitamins with Folic Acid 1 mg oral tablet 1 tablet, By Mouth, Daily, # 90 tablet, 3 Refills, Maintenance, 01/25/22 15:06:00 EDT, Tablet, [facility]/pharmacy #[id number], Partial fill upon patient [...] 09/16/20 19:17:00 EST, Route to Pharmacy Electronically, [facility]/pharmacy #[id number], Partial fill upon patient request if the prescr... Start Date: 09/16/20 Status: Ordered Tylenol Extra Strength 500 mg oral tablet 1 tablet = 500 mg, By Mouth, Every 8 hours, PRN as needed for fever, # 30 tablet, 0 Refills, Maintenance, 06/14/21 16:52:00 EDT, Tablet, [facility]/pharmacy #[id number], Partial fill upon patient request if the prescription is for a schedule II opioid drug., 163,... Start Date: 06/14/21 Status: Ordered Unisom 25 mg oral tablet 1 tablet = 25 mg, By Mouth, Daily at bedtime, PRN for sleep, # 32 tablet, 0 Refills, Maintenance, 01/29/22 21:21:00 EDT, Tablet, [facility]/pharmacy #[id number], 162, cm, 01/20/22 0:10:00 EDT, Height, 127.5, kg, 10/11/20 21:21:00 EST, Dry Weight Start Date: 01/29/22 Status: Ordered Vitamin B6 25 mg oral tablet 1 tablet = 25 mg, By Mouth, 3 times a day, for 30 days, # 90 tablet, 2 Refills, Acute 05/18/22 12:57:00 EDT, 02/17/22 12:57:00 EDT, [id number], Partial fill upon patient request if the prescription is for a schedule II opioid drug., 162, cm, 0... Start Date: 02/17/22 Stop Date: 05/18/22 Status: Ordered Vitamin B6 25 mg oral [...]
--- OUTSIDE RECORDS SUMMARY | 2024-05-16 15:30 | XMS_ITS | Continuity of Care Document ---
Author Organization [facility] Address [address] [place] [address]- Care Team Providers Care Independent Producer Name Role Phone Not on Staff, PCP Primary Care Physician Unavail able Encounter [facility] Date(s): 03/29/22 - 04/28/[address] [address]- Allergies, Adverse Reactions, Alerts Substance Reaction Severity [...] give 325mg per patient preference and re-dose [id number] within 4 hours, if needed. Patient should [...] Replace Required Details, Route to Pharmacy Electronically, [facility]/pharmacy #[id number], Partial fill upon patient re... Start Date: 03/03/22 Status: Ordered docusate sodium 100 mg oral capsule 100 mg, 1, capsule, By Mouth, 2 times a day, PRN, # 30 capsule, Refills 0, Tot. Refills 0, Maintenance, Constipation, 10/14/20 8:26:00 EST, Route to Pharmacy Electronically, [facility]/pharmacy #[id number], Partial fill upon patient request if the prescription is... Start Date: 10/14/20 Status: Ordered famotidine 10 mg oral tablet 1 tablet = 10 mg, By Mouth, 2 times a day, # 60 tablet, 0 Refills, Maintenance, 03/30/22 12:23:00 EDT, Tablet, [facility]/pharmacy #[id number], Partial fill upon patient request if the prescription is for a schedule II opioid drug., 162, cm, 03/03/22 10:00:00 EDT,... Start Date: 03/30/22 Status: Ordered famotidine 20 mg oral tablet 20 mg, 1, tablet, By Mouth, 2 times a day, # 60 tablet, Refills 0, Tot. Refills 0, Maintenance, 02/08/22 20:18:00 EDT, Route to Pharmacy Electronically, [facility]/pharmacy #[id number], 162, cm, 02/08/22 20:06:00EDT, Height, 115.5, kg, 02/08/22 19:58:00 EDT, Dry... Start Date: 02/08/22 Stop Date: 03/10/22 Status: Ordered ferrous sulfate 325 mg oral tablet 1 tablet = 325 mg, By Mouth, Daily, Take daily for anemia, # 90 tablet, 0 Refills, Maintenance, 04/15/22 15:31:00 EDT, Tablet, [facility]/pharmacy #[id number], Partial fill upon patient request if the prescription is for a schedule II opioid drug., 162, cm, ... Start Date: 04/15/22 Status: Ordered ferrous sulfate 325 mg oral tablet 1 tablet = 325 mg, By Mouth, Daily, # 90 tablet, 3 Refills, Maintenance, 02/10/22 14:01:00 EDT, Tablet, [facility]/pharmacy #[id number], Partial fill upon patient request if the prescription is for a schedule II opioid drug., 162, cm, 02/08/22 20:06:00 EDT, Height... Start Date: 02/10/22 Status: Ordered metoclopramide 5 mg oral tablet 1 tablet, By Mouth, 2 times a day, for 30 days, # 60 tablet, 0 Refills, Physician Stop, [facility] STORE [id number], 162, cm, 03/03/22 10:00:00 EDT, Height, 115.5, kg, 02/08/22 19:58:00 EDT, Dry Weight Start Date: 04/25/22 Stop Date: 05/25/22 Status: Ordered naproxen 500 mg oral delayed release tablet 1 tablet = 500 mg, By Mouth, 2 times a day, # 60 tablet, 0 Refills, Maintenance, 06/14/21 16:52:00 EDT, EC Tablet, [facility]/pharmacy #[id number], Partial fill upon patient request if the prescription is for a schedule II opioid drug., 163, cm, 10/14/20 16:15:00... Start Date: 06/14/21 Status: Ordered Multivitamins with Folic Acid 1 mg oral tablet 1 tablet, By Mouth, Daily, # 90 tablet, 3 Refills, Maintenance, 01/25/22 15:06:00 EDT, Tablet, [facility]/pharmacy #[id number], Partial fill upon patient request if [...] 09/16/20 19:17:00 EST, Route to Pharmacy Electronically, [id number], Partial fill upon patient request if the prescr... Start Date: 09/16/20 Status: Ordered Tylenol Extra Strength 500 mg oral tablet 1 tablet = 500 mg, By Mouth, Every 8 hours, PRN as needed for fever, # 30 tablet, 0 Refills, Maintenance, 06/14/21 16:52:00 EDT, Tablet, [facility]/pharmacy #[id number], Partial fill upon patient request if the prescription is for a schedule II opioid drug., 163,... Start Date: 06/14/21 Status: Ordered Unisom 25 mg oral tablet 1 tablet = 25 mg, By Mouth, Daily at bedtime, PRN Nausea & Vomiting, Take nightly to prevent nausea and vomiting in , # 30 tablet, 1 Refills, Maintenance, 04/10/22 14:09:00 EDT, Tablet, [facility]/pharmacy #[id number], Partial fill upon patient request if... Start Date: 04/10/22 Status: Ordered Unisom 25 mg oral tablet 1 tablet = 25 mg, By Mouth, Daily at bedtime, PRN for sleep, # 32 tablet, 0 Refills, Maintenance, 01/29/22 21:21:00 EDT, Tablet, [facility]/pharmacy #[id number], 162, cm, 01/20/22 0:10:00 EDT, Height, 127.5, kg, 10/11/20 21:21:00 EST, Dry Weight Start Date: 01/29/22 Status: Ordered Unisom 25 mg oral tablet 1 tablet = 25 mg, By Mouth, Daily at bedtime, PRN for sleep, Take nightly to prevent nausea in ., # 30 tablet, 0 Refills, Maintenance, 03/25/22 20:11:00 EDT, Tablet, [facility]/pharmacy #[id number], Partial fill upon patient request if the prescription is... Start Date: 03/25/22 Status: Ordered Vitamin B6 25 mg oral tablet 1 tablet = 25 mg, By Mouth, 3 times a day, for 30 days, # 90 tablet, 2 Refills, Acute 05/18/22 12:57:00 EDT, 02/17/22 12:57:00 EDT, [facility]/pharmacy #[id number], Partial fill upon patient request if the prescription is for a schedule II opioid drug., 162, cm, 0... Start Date: 02/17/22 Stop Date: 05/18/22 Status: Ordered Vitamin B6 25 mg oral tablet See Instructions, 1 tablet By Mouth up to 3 times Daily for nausea, # 90 tablet, 1 Refills, Maintenance, 05/20/20 16:24:00 EDT, [facility]/pharmacy #[id number], 165, cm, 05/20/20 15:09:00 EDT, Height, 117, kg, 10/14/19 23:49:00 EST, Dry Weight Start Date: 05/20/20 Status: Ordered Vitamin B6 50 mg oral tablet See Instructions, Take 3 times per day to prevent nausea in ., # 90 tablet, Refills 0, Tot. Refills 0, Maintenance, 03/25/22 20:11:00 EDT, Instructions Replace Required Details, Route to Pharmacy Electronically, [facility]/pharmacy #[id number], Partial fi... Start Date: 03/25/22 Status: Ordered Problem List Condition Effective Dates [...]
--- OUTSIDE RECORDS SUMMARY | 2024-05-16 15:30 | XMS_ITS | Continuity of Care Document ---
Author Organization [facility] Address [address] [place] [address]- Care Team Providers Care Oil Pit Attendant Name Role Phone Not on Staff, PCP Primary Care Physician Unavail able Encounter [facility] [place] Date(s): 02/02/22 - 03/04/[address] [address]- Allergies, Adverse Reactions, Alerts Substance Reaction Severity [...] give 325mg per patient preference and re-dose [id number] within 4 hours, if needed. Patient should [...] [id number] fill upon patient re... Start Date: 03/03/22 Status: Ordered docusate sodium 100 mg oral capsule 100 mg, 1, capsule, By Mouth, 2 times a day, PRN, # 30 capsule, Refills 0, Tot. Refills 0, Maintenance, Constipation, 10/14/20 8:26:00 EST, Route to Pharmacy Electronically, [facility]/pharmacy #[id number], Partial fill upon patient request if the prescription is... Start Date: 10/14/20 Status: Ordered famotidine 20 mg oral tablet 20 mg, 1, tablet, By Mouth, 2 times a day, # 60 tablet, Refills 0, Tot. Refills 0, Maintenance, 02/08/22 20:18:00 EDT, Route to Pharmacy Electronically, [facility]/pharmacy #[id number], 162, cm, 02/08/22 20:06:00EDT, Height, 115.5, kg, 02/08/22 19:58:00 EDT, Dry... Start Date: 02/08/22 Stop Date: 03/10/22 Status: Ordered ferrous sulfate 325 mg oral tablet 1 tablet = 325 mg, By Mouth, Daily, # 90 tablet, 3 Refills, Maintenance, 02/10/22 14:01:00 EDT, Tablet, [facility]/pharmacy #[id number], Partial fill upon patient request if the prescription is for a schedule II opioid drug., 162, cm, 02/08/22 20:06:00 EDT, Height... Start Date: 02/10/22 Status: Ordered metoclopramide 5 mg oral tablet 1 tablet, By Mouth, 2 times a day, for 30 days, # 60 tablet, 0 Refills, Physician Stop, [facility] STORE [id number], 162, cm, 02/08/22 20:06:00 EDT, Height, 115.5, kg, 02/08/22 19:58:00 EDT, Dry Weight Start Date: 02/10/22 Stop Date: 03/12/22 Status: Ordered naproxen 500 mg oral delayed release tablet 1 tablet = 500 mg, By Mouth, 2 times a day, # 60 tablet, 0 Refills, Maintenance, 06/14/21 16:52:00 EDT, EC Tablet, [id number], Partial fill upon patient request if the prescription is for a schedule II opioid drug., 163, cm, 10/14/20 16:15:00... Start Date: 06/14/21 Status: Ordered Multivitamins with Folic Acid 1 mg oral tablet 1 tablet, By Mouth, Daily, # 90 tablet, 3 Refills, Maintenance, 01/25/22 15:06:00 EDT, Tablet, [id number], Partial fill upon patient request if the prescription is for a schedule II opioid drug., 1 tablet By Mouth Daily, 162, cm, 01/20/22 0:10... Start Date: 01/25/22 Status: Ordered Reglan 5 mg oral tablet 1 tablet = 5 mg, By Mouth, Daily, # 30 tablet, 0 Refills, Maintenance, 03/03/22 10:23:00 EDT, [id number], Partial fill upon patient request if the prescription is for a schedule II opioid drug., 162, cm, 03/03/22 10:00:00 EDT, Height, 115.5, k... Start Date: 03/03/22 Status: Ordered Tums 500 mg oral tablet, [...] 0 Refills, Maintenance, 06/14/21 16:52:00 EDT, Tablet, [id number], Partial fill upon patient request if the prescription is for a schedule II opioid drug., 163,... Start Date: 06/14/21 Status: Ordered Unisom 25 mg oral tablet 1 tablet = 25 mg, By Mouth, Daily at bedtime, PRN for sleep, # 32 tablet, 0 Refills, Maintenance, 01/29/22 21:21:00 EDT, Tablet, [id number], 162, cm, 01/20/22 0:10:00 EDT, Height, [...]
--- OUTSIDE RECORDS SUMMARY | 2024-05-16 15:30 | XMS_ITS | Continuity of Care Document ---
Author Organization [facility] Address [address] [place] [address]- Care Team Providers Care Blasting Helper Name Role Phone Not on Staff, PCP Primary Care Physician Unavail able Encounter [facility] Date(s): 05/20/20 - 06/19/20 [facility] [address] [place] [address]- [facility] Allergies, Adverse Reactions, Alerts Substance Reaction Severity [...] 06/17/20 15:15:00 EDT, Route to Pharmacy Electronically, [facility]/pharmacy #[id number], 165, cm, 06/17/20 15:10:00EDT, Height, 117, kg, 10/14/19 23:49:00 EST, Dry We... Start Date: 06/17/20 Stop Date: 07/17/20 Status: Ordered Multivitamins with Folic Acid 1 mg oral tablet 1 tablet, By Mouth, Daily, # 30 tablet, 8 Refills, Maintenance, 03/05/20 16:59:00 EDT, Tablet, [facility]/pharmacy #[id number], 1 tablet By Mouth Daily, 165, [...]
--- OUTSIDE RECORDS SUMMARY | 2024-05-16 15:30 | XMS_ITS | Continuity of Care Document ---
Author Organization [facility] Address [address] [place] [address]- Care Team Providers Care Route Agent Name Role Phone Not on Staff, PCP Primary Care Physician Unavail able Encounter [facility] Date(s): 05/01/20 - 05/31/[address] [facility] [address] [address]- [facility] Allergies, Adverse Reactions, Alerts Substance Reaction Severity [...] Given. 3Admin Note: 11/15/06 VIS Given. Medications Multivitamins with Folic Acid 1 mg oral tablet 1 tablet, By Mouth, Daily, # 30 tablet, 8 Refills, Maintenance, 03/05/20 16:59:00 EDT, Tablet, [id number], 1 tablet By Mouth Daily, 165, cm, [...]
--- OUTSIDE RECORDS SUMMARY | 2024-05-16 15:30 | XMS_ITS | Continuity of Care Document ---
Author Organization [facility] Address Unknown Care Team Providers Care Business Process Analyst Name Role Phone Not on Staff, PCP Primary Care Physician Unavail able Encounter [facility] Date(s): 02/10/22 - 03/12/[facility] Allergies, Adverse Reactions, Alerts Substance Reaction Severity Status traMADol Active Immunizations Given and Recorded Vaccine Date Status Refusal Reason SARS-CoV-2 (COVID-19) mRNA BNT-162b2 vac 08/02/21 Recorded SARS-CoV-2 (COVID-19) mRNA BNT-162g2 vac 07/12/21 Recorded influenza virus vaccine, inactivated [...] give 325mg per patient preference and re-dose [id number] within 4 hours, if needed. Patient should [...] Replace Required Details, Route to Pharmacy Electronically, [facility]/pharmacy #[id number], Partial fill upon patient re... Start Date: 03/03/22 Status: Ordered docusate sodium 100 mg oral capsule 100 mg, 1, capsule, By Mouth, 2 times a day, PRN, # 30 capsule, Refills 0, Tot. Refills 0, Maintenance, Constipation, 10/14/20 8:26:00 EST, Route to Pharmacy Electronically, [facility]/pharmacy #[id number], Partial fill upon patient request if the prescription is... Start Date: 10/14/20 Status: Ordered famotidine 20 mg oral tablet 20 mg, 1, tablet, By Mouth, 2 times a day, # 60 tablet, Refills 0, Tot. Refills 0, Maintenance, 02/08/22 20:18:00 EDT, Route to Pharmacy Electronically, [facility]/pharmacy #[id number], 162, cm, 02/08/22 20:06:00EDT, Height, 115.5, kg, 02/08/22 19:58:00 EDT, Dry... Start Date: 02/08/22 Stop Date: 03/10/22 Status: Ordered ferrous sulfate 325 mg oral tablet 1 tablet = 325 mg, By Mouth, Daily, # 90 tablet, 3 Refills, Maintenance, 02/10/22 14:01:00 EDT, Tablet, [facility]/pharmacy #[id number], Partial fill upon patient request if the prescription is for a schedule II opioid drug., 162, cm, 02/08/22 20:06:00 EDT, Height... Start Date: 02/10/22 Status: Ordered naproxen 500 mg oral delayed release tablet 1 tablet = 500 mg, By Mouth, 2 times a day, # 60 tablet, 0 Refills, Maintenance, 06/14/21 16:52:00 EDT, EC Tablet, [facility]/pharmacy #[id number], Partial fill upon patient request if the prescription is for a schedule II opioid drug., 163, cm, 10/14/20 16:15:00... Start Date: 06/14/21 Status: Ordered Multivitamins with Folic Acid 1 mg oral tablet 1 tablet, By Mouth, Daily, # 90 tablet, 3 Refills, Maintenance, 01/25/22 15:06:00 EDT, Tablet, [facility]/pharmacy #[id number], Partial fill upon patient request [...] 09/16/20 19:17:00 EST, Route to Pharmacy Electronically, [facility]/pharmacy #[id number], Partial fill upon patient request if the prescr... Start Date: 09/16/20 Status: Ordered Tylenol Extra Strength 500 mg oral tablet 1 tablet = 500 mg, By Mouth, Every 8 hours, PRN as needed for fever, # 30 tablet, 0 Refills, Maintenance, 06/14/21 16:52:00 EDT, Tablet, [facility]/pharmacy #[id number], Partial fill upon patient request if the prescription is for a schedule II opioid drug., 163,... Start Date: 06/14/21 Status: Ordered Unisom 25 mg oral tablet 1 tablet = 25 mg, By Mouth, Daily at bedtime, PRN for sleep, # 32 tablet, 0 Refills, Maintenance, 01/29/22 21:21:00 EDT, Tablet, [facility]/pharmacy #[id number], 162, cm, 01/20/22 0:10:00 EDT, Height, 127.5, kg, 10/11/20 21:21:00 EST, Dry Weight Start Date: 01/29/22 Status: Ordered Vitamin B6 25 mg oral tablet 1 tablet = 25 mg, By Mouth, 3 times a day, for 30 days, # 90 tablet, 2 Refills, Acute 05/18/22 12:57:00 EDT, 02/17/22 12:57:00 EDT, [facility]/pharmacy #[id number], Partial fill upon patient request if the prescription is for a schedule II opioid drug., 162, cm, 0... Start Date: 02/17/22 Stop Date: 05/18/22 Status: Ordered Vitamin B6 25 mg oral tablet See Instructions, 1 tablet By Mouth up to 3 times Daily for nausea, # 90 tablet, 1 Refills, Maintenance, 05/20/20 16:24:00 EDT, [facility]/pharmacy #[id number], 165, cm, 05/20/20 15:09:00 EDT, [...]
--- OUTSIDE RECORDS SUMMARY | 2024-05-16 15:30 | XMS_ITS | Continuity of Care Document ---
Author Organization [facility] Address [address] [place] [address]- Care Team Providers Care Gmat Instructor Name Role Phone Bruno DOS SANTOS, Arron Dash Primary Care Physician Encounter [facility] Date(s): 05/09/22 - 08/03/[address] [address]- Attending Physician: Not on Staff, Attending MD [...] give 325mg per patient preference and re-dose [id number] within 4 hours, if needed. Patient should [...] Replace Required Details, Route to Pharmacy Electronically, [facility]/pharmacy #[id number], Partial fill upon patient re... Start Date: 03/03/22 Status: Ordered docusate sodium 100 mg oral capsule 100 mg, 1, capsule, By Mouth, 2 times a day, PRN, # 30 capsule, Refills 0, Tot. Refills 0, Maintenance, Constipation, 10/14/20 8:26:00 EST, Route to Pharmacy Electronically, [facility]/pharmacy #[id number], Partial fill upon patient request if the prescription is... Start Date: 10/14/20 Status: Ordered ferrous sulfate 325 mg oral tablet 1 tablet = 325 mg, By Mouth, Daily, # 90 tablet, 3 Refills, Maintenance, 02/10/22 14:01:00 EDT, Tablet, [facility]/pharmacy #[id number], Partial fill upon patient request if the prescription is for a schedule II opioid drug., 162, cm, 02/08/22 20:06:00 EDT, Height... Start Date: 02/10/22 Status: Ordered Heartburn Relief 10 mg oral tablet 1 tablet, By Mouth, 2 times a day, # 60 tablet, 6 Refills, Soft Stop, 05/09/22 11:09:00 EDT, [facility]/pharmacy #[id number], 162, cm, 03/03/22 10:00:00 EDT, Height, 115.5, kg, 02/08/22 19:58:00 EDT, Dry Weight Start Date: 05/09/22 Status: Ordered Multivitamins with Folic Acid 1 mg oral tablet 1 tablet, By Mouth, Daily, # 90 tablet, 3 Refills, Maintenance, 01/25/22 15:06:00 EDT, Tablet, [facility]/pharmacy #[id number], Partial fill upon patient request if [...] 09/16/20 19:17:00 EST, [id number] Partial fill upon patient request if the prescr... Start Date: 09/16/20 Status: Ordered Unisom 25 mg oral tablet 1 tablet = 25 mg, By Mouth, Daily at bedtime, PRN for sleep, # 32 tablet, 0 Refills, Maintenance, 01/29/22 21:21:00 EDT, Tablet, [facility]/pharmacy #[id number], 162, cm, 01/20/22 0:10:00 EDT, Height, 127.5, kg, 10/11/20 21:21:00 EST, Dry Weight Start Date: 01/29/22 Status: Ordered Vitamin B6 50 mg oral tablet See Instructions, TAKE 3 TIMES PER DAY TO PREVENT NAUSEA IN ., # 90 tablet, Refills 0, Instructions Replace Required Details, Route to Pharmacy Electronically, [id number], 162, cm, 03/03/22 10:00:00 EDT, Height, 115.5, kg, 02/08/22 19:58... Start Date: 05/06/22 Status: Ordered Problem List Condition Confirmation Course Effective Dates Status Health St atus Informant History of suicidal ideation Confirmed Active Learning disability Confirmed Active Morbid obesity Confirmed Active Obesity, Morbid - BMI 47 Confirmed Active Personality disorder Confirmed Active Severe obesity Confirmed Active Other social stressor Confirmed Active Social History Social History Type Response Smoking Status Never (less than 100 in lifetime) entered on: 04/08/20 Sex Patient Care team information Personnel Name: Bruno DOS SANTOS, Arron Dash Address: Address: [address] [place] [address]
--- OUTSIDE RECORDS SUMMARY | 2024-05-16 15:30 | XMS_ITS | Continuity of Care Document ---
Author Organization [facility] Address [address] [facility] [address] [place] [address]- Care Team Providers Care Jacker Name Role Phone Bruno DOS SANTOS, Arron Dash Primary Care Physician [place] [facility] [place] - 09/04/22 [facility] [address] [facility] [place] [address] [place], [place] [address] Attending Physician: Toyin DOS SANTOS, Donovan Andrea Referring Physician: Arron Carr MD Allergies, Adverse Reactions, Alerts Substance Reaction [...] 0 Refills, Maintenance, 08/23/22 19:44:00 EST, Tablet, [id number], Partial fill upon patient request if the prescription is for a schedule II opioid drug., 165, cm,... Start Date: 08/23/22 Status: Ordered ibuprofen 600 mg oral tablet 600 mg, 1, tablet, By Mouth, Every 6 hours, # 50 tablet, Refills 0, Tot. Refills 0, Maintenance, 08/23/22 19:48:00 EST, Route to Pharmacy Electronically, [id number], Partial fill upon patientrequest if the prescription is for a schedule II op... Start Date: 08/23/22 Status: Ordered MiraLax oral powder for reconstitution = 17 Gm, By Mouth, Daily, dissolve in water before taking, # 255 Gm, 0 Refills, Maintenance, 08/23/22 19:45:00 EST, REC Powder, [facility]/pharmacy #[id number], Partial fill upon patient request if the prescription is for a schedule II opioid drug., 17 Gm By Mouth... Start Date: 08/23/22 Status: Ordered Nexplanon 68 mg subcutaneous implant 1 each = 68 mg, Subcutaneous Infusion, Once, Inserted 08/23/22 Lot [id number] Exp 07/28/24, 0 Refills,Maintenance, 08/23/22 19:16:00 EST, Partial fill upon patient request if the prescription is for a schedule II opioid drug. Start Date: 08/23/22 Status: Ordered oxyCODONE 5 mg oral tablet 5 mg, 1, tablet, By Mouth, Every 6 hours, PRN, # 10 tablet, Refills 0, Tot. Refills 0, Maintenance,as needed for pain, 08/23/22 19:48:00 EST, Route to [facility], [id number], [...] Team Personnel Name: Triny Son RN Position: [facility] PCO RN Member Role: Primary Care Nurse Name: Jennifer Penny RN Position: [facility] RN Member Role: Primary Care Nurse Name: Wanda Man RN Position: [facility] OB RN Member Role: Primary Care Nurse Name: Aurelio Ravi DO Position: [facility] KEELER POLYGRAPH OPERATOR MD Member Role: Lifetime KEELER POLYGRAPH OPERATOR Physician Address: Address: [address] [place] [address] [place] [address]- Name: Sisi Interiano RN Position: [facility] RN Member Role: Primary Care Nurse Name: Arron Carr MD Position: [facility] Outreach Member Role: PCP Address: Address: [address] [place] [address]- Name: Emeka Chong RN Position: [facility] RN Member Role: Primary Care Nurse Name: Jasmin Mosqueda RN Position: [facility] OB RN Member Role: Primary Care Nurse Name: Jane Palomares RN Position: [facility] OB RN Member Role: Primary Care Nurse Name: Leena Friend RN Position: [facility] OB RN Member Role: Primary Care Nurse Care Team Related Persons Name: FRANCISCA REYES Address: home [address] [place] [address] Name: BERKLEY REYES Address: home [place] Name: LEVAR ZARATE Address: home [address] [place] [address] Name: JUNIOR ELIANA Address: [place] [address] Name: CAROLE CHUNG Address: [address] Address: home [address] [place] [address] [place] Name: TRACY CHUNG Address: [address] Address: [address] [address] [place] Name: LIS JAMA Address: [address] Address: home [address] [address] [place] Name: AKIRA JAMA Address: [address] Address: home [address] [place] [address] [place] Name: BERKLEY AVENDANO Address: home [address] [address] Name: JENNIFER BEARDEN
--- OUTSIDE RECORDS SUMMARY | 2024-05-16 15:30 | XMS_ITS | Continuity of Care Document ---
Author Organization [facility] [employer]ite [employer] [facility] Address [address] [place] [address], [address] [place] [address]- Care Team Providers Care Gas Dispenser Name Role Phone Bruno DOS SANTOS, Arron Dash Primary Care Physician [place] [facility] [place] [facility] [employer] [facility] [address] [facility] [place], [place] [address] Allergies, Adverse Reactions, Alerts Substance Reaction Severity [...] Refills, Maintenance, 08/23/22 19:45:00 EST, REC Powder, [facility]/pharmacy #[id number], Partial fill upon patient request if the prescription is for a schedule II opioid drug., 17 Gm By Mouth... Start Date: 08/23/22 Status: Ordered Nexplanon 68 mg subcutaneous implant 1 each = 68 mg, Subcutaneous Infusion, Once, Inserted 08/23/22 Lot [id number] Exp 07/28/24, 0 Refills,Maintenance, 08/23/22 19:16:00 EST, [...] 08/23/22 19:44:00 EST, Route to Pharmacy Electronically, [facility]/pharmacy #[id number], Partial fill upon patient request if the prescription is f... Start Date: 08/23/22 Status: Ordered Tylenol 325 mg oral capsule 2 capsule = 650 mg, By Mouth, Every 6 hours, PRN as needed for fever, # 50 capsule, 0 Refills, Maintenance, 09/07/22 16:37:00 EST, Capsule, [id number], Partial fill upon [...] Team Personnel Name: Triny Son RN Position: [facility] PCO RN Member Role: Primary Care Nurse Name: Jennifer Penny RN Position: [facility] RN Member Role: Primary Care Nurse Name: Wanda Man RN Position: [facility] OB RN Member Role: Primary Care Nurse Name: Aurelio Ravi DO Position: [facility] AIR DEFENCE OFFICER MD Member Role: Lifetime AIR DEFENCE OFFICER Physician Address: Address: [address] [place] [address] [place] [address]- Name: Sisi Interiano RN Position: [facility] RN Member Role: Primary Care Nurse Name: Arron Carr MD Position: [facility] Outreach Member Role: PCP Address: Address: [address] [place] [address]- Name: Emeka Chong RN Position: [facility] RN Member Role: Primary Care Nurse Name: Jasmin Mosqueda RN Position: [facility] OB RN Member Role: Primary Care Nurse Name: Jane Palomares RN Position: [facility] OB RN Member Role: Primary Care Nurse Name: Leena Friend RN Position: [facility] OB RN Member Role: Primary Care Nurse Care Team Related Persons Name: FRANCISCA REYES Address: home [address] [place] [address] Name: BERKLEY REYES Address: home [place] Name: LEVAR ZARATE Address: home [address] [place] [address] Name: JUNIOR ELIANA Address: [place] [address] Name: CAROLE CHUNG Address: [address] Address: home [address] [place] [address] [place] Name: TRACY CHUNG Address: [address] Address: [address] [address] [place] Name: LIS JAMA Address: [address] Address: [address] [address] [place] Name: AKIRA JAMA Address: [address] Address: home [address] [place] [address] [place] Name: BERKLEY AVENDANO Address: home [address] [address] Name: JENNIFER BEARDEN
--- OUTSIDE RECORDS SUMMARY | 2024-05-16 15:30 | XMS_ITS | Continuity of Care Document ---
Author Organization [facility] Address [address] [place] [address]- Care Team Providers Care Day Spa Manager Name Role Phone Not on Staff, PCP Primary Care Physician Unavail able [place] [facility] [place] - 04/30/[address] [address]- [facility] Attending Physician: Not on Staff, [...] sleep, # 30 tablet, 1 Refills, Maintenance, 03/04/20 5:59:00 EDT, Tablet, [id number], 165, cm, 02/27/19 7:33:00 EDT, Height, 117, kg, 10/14/19 23:49:00 EST, Dry Weight Start Date: 03/04/20 Status: Ordered Multivitamins with Folic Acid 1 [...] nausea, # 90 tablet, 1 Refills, Maintenance, 03/25/20 17:31:00 EDT, [id number], 165, cm, 02/27/19 7:33:00 EDT, Height, 117, kg, 10/14/19 23:49:00 EST, Dry Weight Start Date: 03/25/20 Status: Ordered Problem List Condition Effective Dates [...]
--- OUTSIDE RECORDS SUMMARY | 2024-05-16 15:30 | XMS_ITS | Continuity of Care Document ---
Author Organization [facility] ter Address [address] [place] [id number]- Care Team Providers Care Machine Veneer Repairer Name Role Phone Arron Carr MD Primary Care Physician [place] [facility] [place](s): 08/20/22 - 08/23/[address] [address] Discharge Disposition: A-D/C Home Attending Physician: Aurelio Ravi DO Admitting Physician: Aurelio Ravi DO Referring Physician: Aurelio Ravi DO Allergies, Adverse Reactions, Alerts Substance Reaction [...] Given. 3Admin Note: 11/15/06 VIS Given. Medications Acetaminophen Tablet 650 mg, Tablet, By Mouth, (1-3), may give 325mg per patient preference and re- dose with 325mg within 4 hours, if needed. Patient should only receive a total of 650mg of Acetaminophen every 4 hours., 08/23/22 13:15:00 EST Start Date: 08/23/22 Stop Date: 08/23/22 Status: Completed Dilaudid 2 mg oral tablet 2 mg, Tablet, By Mouth, Every 4 hours, PRN for Pain , Severe, Routine, 08/23/22 7:28:00 EST Start Date: 08/23/22 Stop Date: 08/30/22 Status: Ordered docusate sodium 100 mg oral tablet 1 tablet = 100 mg, By Mouth, 3 times a day, PRN for constipation, # 60 tablet, 0 Refills, Maintenance, 08/23/22 19:44:00 EST, Tablet, [facility]/pharmacy #[id number], Partial fill upon patient request [...] II op... Start Date: 08/23/22 Status: Ordered Ibuprofen Tablet 800 mg, Tablet, By Mouth, (4-6), may give 400mg per patient preference and re- dose with 400mg within 8 hours, if needed. Patient should only receive a total of 800mg of Ibuprofen every 8 hours., 08/23/22 13:15:00 EST Start Date: 08/23/22 Stop Date: 08/23/22 Status: Completed MiraLax oral powder for reconstitution = 17 Gm, By Mouth, Daily, dissolve in water before taking, # 255 Gm, 0 Refills, Maintenance, 08/23/22 19:45:00 EST, REC Powder, [facility]/pharmacy #[id number], Partial fill upon patient request if the prescription is for a schedule II opioid drug., 17 Gm By Mouth... Start Date: 08/23/22 Status: Ordered Nexplanon 68 mg subcutaneous implant 1 each = 68 mg, Subcutaneous Infusion, Once, Inserted 08/23/22 Lot [id number] Exp 07/28/24, 0 Refills,Maintenance, 08/23/22 19:16:00 EST, Partial fill upon patient request if the prescription is for a schedule II opioid drug. Start Date: 08/23/22 Status: Ordered oxyCODONE 5 mg oral tablet 5 mg, 1, tablet, By Mouth, Every 6 hours, PRN, # 10 tablet, Refills 0, Tot. Refills 0, Maintenance,as needed for pain, 08/23/22 19:48:00 EST, Route to Pharmacy Electronically, [facility]/pharmacy #[id number], Partial fill upon patient request [...] 0 Refills, Maintenance, 08/23/22 19:48:00 EST, Capsule, [facility]/pharmacy #[id number], Partial fill upon patient request [...] Confirmed Active Request for sterilization Confirmed Active Procedures Procedure Date Related Diagnosis Body Site Status delivery only; 08/20/22 C ompleted Vital Signs Most recent to oldest [Reference Range]: 1 2 3 4 Height 165 cm (08/23/22 9:00 AM) 165 cm (08/22/22 5:00 PM) 165 cm (08/22/22 7:44 AM) Weight 126.8 kg (08/20/22 5:53 PM) Oxygen Saturation [94-100 %] 98 % (08/23/22 9:00 AM) 99 % (08/22/22 5:00 PM) 97 % (08/22/22 7:44 AM) Pulse Rate [55-90 bpm] 92 bpm *H* (08/23/22 9:00 AM) 108 bpm *H* (08/22/22 5:00 PM) 81 bpm (08/22/22 7:44 AM) Body Mass Index [18.5-24.99 kg/m2] 46.57 kg/m2 *>HHI* (08/20/22 5:53 PM) Blood Pressure [90-138/55-84 mm Hg] 121/67mm Hg (08/23/22 9:00 AM) 130/76mm Hg (08/22/22 5:00 PM) 112/63mm Hg (08/22/22 7:44 AM) Respiratory Rate [16-30 br/min] 18 br/min (08/23/22 4:56 PM) 18 br/min (08/23/22 1:52 PM) 18 br/min (08/23/22 1:52 PM) 18 br/min (08/23/22 1:52 PM) Temperature [96.8-100.4 DegF] 98.0 DegF (08/23/22 9:00 AM) 98.3 DegF (08/22/22 7:44 AM) 98.7 DegF (08/21/22 4:06 PM) Mode of Delivery (Oxygen) Room air (08/23/22 9:00 AM) Room air (08/21/22 4:06 PM) Room air (08/21/22 9:30 AM) Blood pressure sites Arm, right (08/23/22 9:00 AM) Arm, right (08/21/22 4:06 PM) Arm, right (08/21/22 9:30 AM) Temperature Route Oral (08/23/22 9:00 AM) Oral (08/22/22 7:44 AM) Axillary (08/21/22 4:06 PM) Dry Weight 126.8 kg (08/20/22 5:53 PM) Social History Social History Type Response Smoking Status Never (less than 100 in lifetime) entered on: 04/08/20 Sex History and physical note * Azul Sosa DO M: MODIFY, MODIFY, MODIFY, MODIFY, PERFORM Event Display: History and Physical Hospital Authored Date: Patient: ??MICHELLE CHUNG ? Age:??32 Years?Sex:??Female?:??1990?? LMP/EGA/LAZ Gestational Age (EGA) and LAZ? * Note: EGA calculated as of 08/20/2022 ?? LAZ:??09/26/2022?EGA*:??34 weeks 5 days ? History?(6,0,1,6)?Method:??Ultrasound??(02/10/2022) History of Present Illness 32 year old @ 34+5 with di-di twins who presents with cramping and abdominal tightness since 6 this morning. She also feels vaginal pressure. She denies LOF, VB. She is feeling good movement x2. Review of Systems Physical Exam Vitals & Measurements HR:??93(Monitored)?? RR:??18?? BP:??130/75?? SpO2:??98%?? General: In no acute distress, awake, alert?? Respiratory: Respirations non-labored and non-rapid. Abdomen/GI: Gravid, firm, non-tender Burner Shaft: Normal appearing external genitalia, no gross LOF or VB. No lesions. Extremities: No edema, erythema or tenderness to palpation Psychiatric: Normal affect, answers questions appropriately ?? SVE: 480/-2 on three exams, each 2 hours apart ?? Bedside transabdominal US: Baby A is vertex, Baby B is transverse OB Assessment Baby A baseline 150 bpm, moderate variability, spontaneous accels, no decels Baby??B baseline 135 bpm, moderate variability, spontaneous accels, no decels Assessment/Plan 32 year old @ 34+5 with di-di twins admitted for observation in the setting of contractions. Reactive NST x2 obtained. Cervix unchanged at 4/80/-2 over 3 exams. Given patient with regular contractions??will admit to see if she makes change as she is at an increased risk for labor given she has di-di twins. ?? contractions (O47.00):?? Admit to LDRP CBC, T&S CEFM,?? toco monitoring Reassess as needed? Morbid obesity (E66.01):? BMI >40 ?? Abnormal ultrasound (O28.3):? baby A right renal cyst. renal cyst measuring 1.6 ??x 1.9 x 1.4 cm? Anemia in (O99.019):? - 08/03: H/H 10.4/33.0 [ ] CBC ordered??on admission ?? Dichorionic diamniotic twin gestation (O30.049):? 08/15: concordant growth and normal amniotic fluid x2 Twin A vertex, twin b transverse on today's scan? History of suicidal ideation (Z86.59):? ( ) SW consult on L&D ?? Learning disability (F81.9):? - patient needs repetition of medical information and plans ?? (Z34.90):? reviewed labs blood type A+ last pap 08/2020 NILM - up to date (x) urine GC/CT neg (x) FTS low risk ( ) AFP offer ( ) Level II - significant for SUA baby B and renal cyst baby A (x) 28 week labs - 1hr GTT scheduled, not yet completed ( ) EPDS 28 weeks - not completed (x) tdap 28 wk ( ) GBS 35 weeks ( ) Infant feeding plans: (x) PP control: sterilization consent signed 08/03 ?? Single umbilical artery, maternal, antepartum (O09.899):? Baby B ?? Social problem (Z65.9):? DCF involvement - reports case closed and I don't want to talk about it . will not share name of previous DCF worker. discussed that DCF will likely be involved as they have been in the past patient reports all of her children currently live with her (x) urine tox screen at [facility] all neg patient reports FOB not supportive of ?? Lice: Patient with known and untreated diagnosis of lice ?? Patient d/w Dr. Ravi, attending, and Dr. Javier, PGY-4 ?? OB History History?(6,0,1,6)? # 1 ?Baby 1 ?Outcome Date:??04/13/2009?Outcome or Result:??Vaginal ?Gest Age:??40 weeks ? Outcome:??Live ? Sex:??Female?Wt:?2977 g ?Child's Name:??Kayleani ?Hospital:??[facility] ?? # 2 ?Baby 1 ?Outcome Date:??12/29/2012?Outcome or Result:??Vaginal ?Gest Age:??40 weeks 3 days ? Outcome:??Live ? Sex:??Male?Wt:?4305 g ?[facility] [place] ?? # 3 ?Baby 1 ?Outcome Date:??05/04/2014?Outcome or Result:??Vaginal ?Gest Age:??40 weeks ? Outcome:??Live ? Sex:??Male?Wt:?3779 g ?Anesthesia Type:??Epidural ?? # 4 ?Baby 1 ?Outcome Date:??05/2016 ?Outcome or Result:??Spontaneous ?Gest Age:??8 weeks ? Outcome:? Sex:??-- ?? # 5 ?Baby 1 ?Outcome Date:??04/20/2017?Outcome or Result:??Vaginal ?Gest Age:??37 weeks 3 days ? Outcome:??Live ? Sex:??Male?Wt:?3442 g ?? # 6 ?Baby 1 ?Outcome Date:??06/04/2018?Outcome or Result:??Vaginal ?Gest Age:??38 weeks 4 days ? Outcome:??Live ? Sex:??Female?Wt:?2875 g ? Complications:??patient left AMA ?? # 7 ?Baby 1 ?Outcome Date:??10/12/2020?Outcome or Result:??Vaginal ?Gest Age:??38 weeks 2 days ? Outcome:??Live ? Sex:??Male?Wt:?2535 g ? Complications:??Bruising Labs Labs Labs & Tests Antibody Screen: Negative (08/03/22) Blood Type: A Positive (08/03/22) Chlamydia Trachomatis Amplified Probe: NEGATIVE (08/15/22) Creatinine-Blood: 0.5 mg/dL (03/03/22) Down Syndrome Age Risk FTS: Age Risk: (03/16/22) Down Syndrome Scrn Risk FTS: Screening Risk: (03/16/22) Glucose 50 Gm, +60 Minutes: 109 mg/dL (05/18/22) Hct:??33 %??Low (08/03/22) Hepatitis B Surface Antigen: NEGATIVE (02/10/22) Hepatitis C Ab: NEGATIVE (02/10/22) Hgb:??10.4 Gm/dL??Low (08/03/22) HIV 4th Generation Ab-Ag Result: NEGATIVE (08/03/22) RPR Titer Result: NOT INDICATED (08/03/22) Rubella IgG Ab: POSITIVE (02/10/22) Syphilis Screen by BRIANNA: NEGATIVE (08/03/22) Trisomy 18 Scrn Risk FTS: Screening Risk: (03/16/22) Uric Acid: 3.9 mg/dL (03/03/22) Urine Culture: Urine Culture (08/15/22) Varicella IgG Ab: POSITIVE (02/10/22) Problem List Active Active Problem List DCF Involvement: (Freetext) Dichorionic diamniotic twin gestation: (Medical) H/O Anemia in : (Medical) History of suicidal ideation: (Medical) Learning disability: (Medical) Morbid obesity: (Medical) Other social stressor: (Medical) Personality disorder: (Medical) : (Obstetric) (12/12/21) Request for sterilization: (Medical) Procedure/Surgical History None Dilation and curettage Home Medications Aspirin: See Instructions, 2 tablet By Mouth Daily at bedtime Calcium Carbonate: 500 mg = 1 tablet, Chew, 3 times a day, PRN (for control of stomach acid) Ferrous Sulfate: 325 mg = 1 tablet, By Mouth, Daily Multivitamin, : 1 tablet, By Mouth, Daily Allergies traMADol Social History Alcohol Use: Never., 04/08/2020 Use: Never., 12/08/2014 Electronic Cigarette/Vaping Electronic Cigarette Use: Never., 02/08/2022 Employment/School Status: nothing ., 02/08/2022 Status: Unemployed., 04/08/2020 Exercise Self assessment: Good condition. Regular exercise: No., 04/08/2020 Other: No regular exercise., 12/08/2014 Home/Environment Living situation: Home/Independent. Lives with: Alone. DCF involvement: Current. Other: doesn't want to talk about it - when asked about other children. Feels unsafe at home: No. Smoker in household: No., 02/08/2022 Living situation: Home/Independent. Lives with: Alone., 04/08/2020 Nutrition/Health Diet: Regular., 12/08/2014 Sexual Sexually involved in last 6 months: Yes., 04/08/2020 Sexually involved in last 6 months: Yes., 12/08/2014 Substance Abuse Use: Never., 04/08/2020 Use: pt denies., 05/14/2016 Tobacco Use: Never (less than 100 in lifetime)., 04/08/2020 Never smoker, 12/08/2014 Family History Mat. Grandmother: COPD; HIV Plan OB Plan Circumcision Plan: None (08/20/22) Contraceptives: Immediate tubal ligation (08/20/22) Infant Feeding Plan: Formula (08/20/22) Labor Coping Mechanisms: Other: c/s (08/20/22) Patient Requests: di-di twins.Boy and girl (08/20/22) Hospital Progress note * Sandra Rush RN: PERFORM, SIGN, VERIFY Event Display: Progress Note Hospital Authored Date: Patient: MICHELLE CHUNG Age: 32 years Sex: Female : 1990 Associated Diagnoses: None Author: Victor Manuel MCCOY, Sandra Findings Narrative/Incidental Pt dc from room 2743 at 2009. Pt very insistent that she needed to leave [place], refused to thoroughly go through dc packet. Did express understanding of med schedule and that she would call office if any questions. Left unit via WC with aunt and belongings. . * Benjie Tejeda: SIGN, MODIFY, MODIFY, SIGN, MODIFY, PERFORM, SIGN, VERIFY, SIGN, SIGN, MODIFY Event Display: Progress Note Hospital Authored Date: Patient: MICHELLE CHUNG Age: 32 years Sex: Female : 1990 Associated Diagnoses: None Author: Benjie Tejeda Findings Problem Related to Alteration in Comfort : Alteration in Comfort/new 08/23/2022 8:00 EST Alteration in Comfort Related to Surgery, Other: c/s Goals & Outcomes: Comfort Pt will report acceptable level of comfort & pain control, Pt will state importance of adhering to pain strategy regime, Pt will demonstrate necessary skills to manage pain Interventions Implemented: Comfort Assess pain using appropriate pain scale/tools, Assess aggravating factors & prevent them accordingly, Assess alleviating factors & promote them accordingly BH Goals/Interventions, Comfort Yes Comfort, Problem Start 08/21/2022 0:00 Reviewed plan with, Comfort Patient Patient Progression, Comfort Pt progressing according to plan Comfort, Problem Ongoing Yes . Pt is 3 days s/p c/s. VSS. Fundus is deep -1. Vaginal flow is scant/mild. Steristrips over inc, some loose/peeling off. Blue non sticky pad in place and replaced frequently. Up and voiding. +BS, passing gas, no nausea, eating well. Pain med changed from oxy to dilaudid PO this morning, will monitorresults. +BLE. Pt encouraged to shower this morning and comb through hair again. Will call with anyneeds. Infants in NICU * Benjie Tejeda: PERFORM Event Display: Progress Note Hospital Authored Date: 24 hours after Lice shampooing/shower/combing/hair cut, pt showered and combed nits out of hair, wes and all linen changed. Pt applied vaseline to hair and put a hair net on. Pt cleared by I.D. per [employer] Administrator Nurse Chief Orthoptist, Jess Ritchie. Pt wheeled to [facility] at 1500 today to see twins. Pt c/ohead ache, will medicate when due * Benjie Tejeda: PERFORM Event Display: Progress Note Hospital Authored Date: At 1600 DCF worker came to unit with reinforced ironworker Leslye Lovelace to notify pt DCF took emergencycustody of her twins. Pt visibly upset, on the phone with family. DCF states they will be back tomorrow morning at 10:00 AM to supervise a 1 hours visit with the pt and twins. * Benjie Tejeda: PERFORM Event Display: Progress Note Hospital Authored Date: Pt expressing wanting to leave, I need to go check on my dog, i need to make sure she has food andwater . Reminded pt that DCF is coming in the morning to have a supervised visit with her and the twins at 1000. Pt states she just wants to go home. Paged Azul Sosa. MD's doing sign out and next MD will be up when she can. Nexplanon ordered and ready for MD. * Benjie Tejeda: PERFORM Event Display: Progress Note Hospital Authored Date: MD at pts bedside, nexplanon placed in left arm. MD putting in discharge orders now * Vicky Javier DO: PERFORM Event Display: Progress Note Hospital Authored Date: [id number] Patient: ??MICHELLE CHUNG ? Age:??32 Years?Sex:??Female?:??1990?? Subjective In room to assess patient this AM. Patient doing well. Pain is not controlled with current medications. Would like to try something different. Lochia is??minimal. She is ambulating, voiding spontaneously,??tolerating PO intake without??nausea or vomiting, and??passing flatus. Review of Systems Constitutional: Denies fever or chills HEENT: Denies headache, blurry vision, or changes in vision. Cardiovascular: Denies chest pain or palpitations. Respiratory: Denies shortness of breath Gastrointestinal: Denies nausea or vomiting. VP RESEARCH: Denies excessive bleeding. Physical Exam Vitals & Measurements T:??98.3?F ?? HR:??69(Monitored)?? MN:??108?? RR:??20?? RR:??202?? RR:??20?? BP:??130/76?? SpO2:??99%?? HT:??165??cm?? WT:??2.364??kg?? WT:??2.024??kg?? BMI:??46.57?? Constitutional:??Laying in bed, appears comfortable, no acute distress. Abdomen/GI:??Non-distended, soft, non-tender??no guarding. Incision is clean, dry and intact without surrounding erythema drainage.?? Fundus:??Below umbilicus, firm, non-tender. Extremities:??No edema present in LE bilaterally. Neurological/Psychiatric:??Appearance appropriate, mood and affect stable. Assessment/Plan Assessment:??Postop day??3 from primary section??for labor??with??Di Di twins.??Meeting postoperative milestones, recovering well. No acute events. Changed pain medication to Dilaudid PRN??for better pain control. Anticipate discharge POD4. ?? care following delivery (Z39.2):? Continue routine postoperative care Encouraged ambulation control: Nexplanon prior to discharge ?? History of suicidal ideation (Z86.59):? s/p SW consult ?? Learning disability (F81.9):? Needs repetition of medical information ?? OB Summary : 8 . Baby A - Weight: 2.364 kg Baby A - Date, Time of : 08/20/22 20:35:00 Baby A - Gender: Male Baby A - Complications: Other: Renal Cystt Baby B - Weight: 2.024 kg Baby B - Date, Time of : 08/20/22 20:37:00 Baby B - Gender: Female Baby B - Complications: 2 vessel cord EGA at Documented Date, Time: 34W 5D Weight at Delivery Baby A - Delivery Type: , classical Baby B - Delivery Type: , low transverse OB History History?(6,0,1,6)? # 1 ?Baby 1 ?Outcome Date:??04/13/2009?Outcome or Result:??Vaginal ?Gest Age:??40 weeks ? Outcome:??Live ? Sex:??Female?Wt:?2977 g ?Child's Name:??Kayleani ?Hospital:??[facility] ?? # 2 ?Baby 1 ?Outcome Date:??12/29/2012?Outcome or Result:??Vaginal ?Gest Age:??40 weeks 3 days ? Outcome:??Live ? Sex:??Male?Wt:?4305 g ?Hospital:??[facility] ?? # 3 ?Baby 1 ?Outcome Date:??05/04/2014?Outcome or Result:??Vaginal ?Gest Age:??40 weeks ? Outcome:??Live ? Sex:??Male?Wt:?3779 g ?Anesthesia Type:??Epidural ?? # 4 ?Baby 1 ?Outcome Date:??05/2016 ?Outcome or Result:??Spontaneous ?Gest Age:??8 weeks ? Outcome:? Sex:??-- ?? # 5 ?Baby 1 ?Outcome Date:??04/20/2017?Outcome or Result:??Vaginal ?Gest Age:??37 weeks 3 days ? Outcome:??Live ? Sex:??Male?Wt:?3442 g ?? # 6 ?Baby 1 ?Outcome Date:??06/04/2018?Outcome or Result:??Vaginal ?Gest Age:??38 weeks 4 days ? Outcome:??Live ? Sex:??Female?Wt:?2875 g ? Complications:??patient left AMA ?? # 7 ?Baby 1 ?Outcome Date:??10/12/2020?Outcome or Result:??Vaginal ?Gest Age:??38 weeks 2 days ? Outcome:??Live ? Sex:??Male?Wt:?2535 g ? Complications:??Bruising Active Problem List Active Problem List DCF Involvement: (Freetext) Dichorionic diamniotic twin gestation: (Medical) H/O Anemia in : (Medical) History of suicidal ideation: (Medical) Learning disability: (Medical) Morbid obesity: (Medical) Other social stressor: (Medical) Personality disorder: (Medical) : (Obstetric) (12/12/21) Request for sterilization: (Medical) Severe obesity: (Medical) Home Medications Aspirin: See Instructions, 2 tablet By Mouth Daily at bedtime Calcium Carbonate: 500 mg = 1 tablet, Chew, 3 times a day, PRN (for control of stomach acid) Ferrous Sulfate: 325 mg = 1 tablet, By Mouth, Daily Multivitamin, : 1 tablet, By Mouth, Daily Medications Medications (16) Active SCHEDULED: (7) Acetaminophen 325 mg Tablet (Acetaminophen Tablet) ??650 mg, By Mouth, Every 4 hours Cephalexin Monohydrate 500 mg Capsule (Cephalexin Capsule) ??500 mg, By Mouth, Every 8 hours Docusate Sodium 100 mg Capsule (Docusate Sodium Capsule) ??100 mg 1 capsule, By Mouth, 2 times a day Enoxaparin 40 mg Inj (Enoxaparin Inj) ??40 mg 0.4 mL, Subcutaneous Injection, Daily Ibuprofen 800 mg Tablet (Ibuprofen Tablet) ??800 mg, By Mouth, Every 8 hours Metronidazole 500mg Tablet (Metronidazole Tablet) ??500 mg, By Mouth, Every 8 hours Permethrin 1% Solution (Nix 1% (Shampoo for Lice)) ??1 application, Topically, Once CONTINUOUS: (0) PRN: (9) diphenhydrAMINE 50 mg/mL Inj (DiphenhydrAMINE Inj) ??12.5 mg 0.25 mL, IV Push, Every 2 hours FENTanyl 50 mcg/mL Inj (2 mL) (FENTanyl Inj) ??25 mcg 0.5 mL, IV Push, Every 5 minutes HYDROmorphone 2 mg Tablet (Dilaudid 2 mg oral tablet) ??2 mg, By Mouth, Every 4 hours Metoclopramide 5 mg/mL Inj (2 mL) (Metoclopramide Inj) ??10 mg, IV Push, Every 6 hours Nalbuphine 10 mg Inj (NalBUPHINE Inj) ??2 mg 0.2 mL, IV Push Slowly, Every 2 hours nalOXONE ??400mcg/mL Inj (nalOXONE Inj) ??0.1 mg 0.25 mL, IV Push Slowly, Every 15 minutes Ondansetron 2mg/mL Inj (2mL Vial) (Ondansetron Inj) ??4 mg, IV Push, Once OxyCODONE 5 mg IR Tablet (OxyCODONE IR Tablet) ??5 mg, By Mouth, Once Simethicone 80 mg Chewable Tablet (Simethicone Tablet) ??80 mg, Chew, 3 times a day * Wilver DOS SANTOS [OB], Fidelina Akers: PERFORM Event Display: Progress Note Hospital Authored Date: [id number] ?Attending Attestation:??I have discussed the case and its management with the resident and agree with the findings and plan as documented above in the resident???s note. ? Note * Sandra Rush RN: PERFORM Event Display: Discharge/Transfer Note Hospital Authored Date: [id number] Nursing Discharge Note Entered On: 08/23/2022 21:00 EST Performed On: 08/23/2022 21:00 EST by Sandra Rush RN Nursing Discharge Note 2 Discharge Time : 08/23/2022 20:10 EST Discharge Level of Care at Discharge : Home/Usp/Foster Care Patient Left Unit Via : Wheelchair Patient Accompanied Off Unit with : Responsible adult DC Instructions Provided & Signed by Pt : Yes Patient Understands D/C Instructions : Yes Patient Instructions Discharge Signed : Yes Did Pt have Specialty Bed or Wound Vac : No Sandra Rush RN - 08/23/2022 21:00 EST * Sandra Rush RN: PERFORM Event Display: Discharge/Transfer Note Hospital Authored Date: [id number] Nursing Discharge Note Entered On: 08/23/2022 20:44 EST Performed On: 08/23/2022 20:44 EST by Sandra Rush RN Nursing Discharge Note 2 Discharge Time : 08/23/2022 20:10 EST Discharge Level of Care at Discharge : Home/Usp/Foster Care Patient Left Unit Via : Wheelchair Patient Accompanied Off Unit with : Responsible adult DC Instructions Provided & Signed by Pt : Yes Patient Understands D/C Instructions : Yes Verbalized Understanding of D/C Plan By : Patient Patient Instructions Discharge Signed : Yes Did Pt have Specialty Bed or Wound Vac : No Sandra Rush RN - 08/23/2022 20:44 EST * Choco Gill MD: PERFORM Event Display: Discharge/Transfer Note Hospital Authored Date: [id number] Patient: ??MICHELLE CHUNG ? Age:??32 Years?Sex:??Female?:??1990?? Admit Date Admission Date: 08/20/2022 Discharge Date 08/23/22 OB Reason for Admission OB Reason for Admission Reason for admission: labor [facility] Hospital Course 32yo admitted with di-di twins at 34+5 for labor. She underwent a primary section. course was uncomplicated and she was discharged on POD 3. Objective/Physical Exam on Day of Discharge Vitals & Measurements T:??98.0?F ?? HR:??69(Monitored)?? MN:??92?? RR:??18?? BP:??121/67?? SpO2:??98%?? HT:??165??cm?? WT:??2.364??kg?? WT:??2.024??kg?? BMI:??46.57?? Constitutional:??Laying in bed, appears comfortable, no acute distress. Abdomen/GI:??Non-distended, soft, non-tender??no guarding. Incision is clean, dry and intact without surrounding erythema drainage.?? Fundus:??Below umbilicus, firm, non-tender. Extremities:??No edema present in LE bilaterally. Neurological/Psychiatric:??Appearance appropriate, mood and affect stable. Assessment/Plan/Discharge Diagnosis Assessment:??32yo , postop day 3 from primary section for labor with Di Di twins. Complicated with hemorrhage 1396 mL. Meeting postoperative milestones, recovering well and appropriate for discharge. ?? Off note,??neonates were taken by [facility]. ?? care following delivery (Z39.2):?? Continue routine postoperative care Ibu/tylenol/oxycodone/simethicone/miralax/colace??rx sent home Encouraged ambulation control: Nexplanon??in place ?? History of suicidal ideation (Z86.59):?? s/p SW consult - 2w N follow up ?? Learning disability (F81.9):?? Needs repetition of medical information ?? Care: depression increased risk Future Appointments 2021 11:40 AM EST ?? With: Toyin DOS SANTOS, Donovan Andrea Where: [facility] [address] [place] [address] [place], [place] [address]- Monday 2:40 PM EST ?? With: Estefani Aceves DO Where: [facility] [address] [place] [address]- Delivery Summary Delivery Summary Maternal Information ??Delivery Information ?Gestational Age at Delivery: ??34W 5D ?Blood Loss - Quantitative: ??1396 mL ? Baby A ??Delivery Information ?Delivery Type: ??, classical ?Reason for : ??Elective primary ?Date, Time of : ??08/20/22 20:35:00 ?Delayed Cord Clamping: ??No ?Placenta Delivery Date/Time: ??08/20/22 20:39:00 ??Care Team ?Time NICU Team Called: ??08/20/22 20:28:00 ??Labor Information ? monitoring: ??External monitor ?? Information ? Outcome: ??Live ? Weight: ??2.364 kg ? Score 1 minute: ??8 ? Score 5 minute: ??9 ? Score 10 minute: ??9 ?Transferred To: ??NICU ?Gender: ??Male ? Baby B ??Delivery Information ?Delivery Type: ??, low transverse ?Reason for : ??Breech presentation, Elective primary ?Date, Time of : ??08/20/22 20:37:00 ?Delayed Cord Clamping: ??No ?Placenta Delivery Date/Time: ??08/20/22 20:39:00 ??Care Team ?Time NICU Team Called: ??08/20/22 20:28:00 ??Labor Information ? monitoring: ??External monitor ?? Information ? Outcome: ??Live ? Weight: ??2.024 kg ? Score 1 minute: ??7 ? Score 5 minute: ??9 ? Score 10 minute: ??9 ?Transferred To: ??NICU ?Gender: ??Female ? Procedures Performed Section Primary ? Discharge Medications ???Acetaminophen (Tylenol 325 mg oral capsule)???Docusate (docusate sodium 100 mg oral tablet)???Etonogestrel (Nexplanon 68 mg subcutaneous implant)???Ibuprofen (ibuprofen 600 mg oral tablet)???Oxycodone (oxyCODONE 5 mg oral tablet)???Polyethylene Glycol 3350 (MiraLax oral powder for reconstitution) ???Simethicone (simethicone 80 mg oral tablet, chewable) Stop taking these medications ???Aspirin (aspirin 81 mg oral delayed release tablet)???Calcium Carbonate (Tums 500 mg oral tablet, chewable)???Ferrous Sulfate (ferrous sulfate 325 mg oral tablet)???Multivitamin, ( Multivitamins with Folic Acid 1 mg oral tablet) Immunizations during Hospitalization Vaccine Date Status Commentstetanus/diphtheria/pertussis, acel(Tdap) 08/04/2022 Given SARS-CoV-2 (COVID-19) mRNA BNT-162b2 vac 08/02/2021 Recorded SARS-CoV-2 (COVID-19) mRNA BNT-162b2 vac 07/12/2021 Recorded influenza virus vaccine, inactivated 07/16/2020 Given tetanus/diphtheria/pertussis, acel(Tdap) 03/22/2018 Given influenza virus vaccine, inactivated 12/13/2017 Given tetanus/diphtheria/pertussis, acel(Tdap) 02/21/2017 Given tetanus/diphtheria/pertussis, acel(Tdap) 02/10/2014 Given influenza virus vaccine, inactivated 09/02/2013 Given tetanus/diphtheria/pertussis, acel(Tdap) 08/28/2012 Given 11/01/11 ??VIS Given. Fluzone (oldterm) 07/18/2012 Given 04/09/12 VIS Given. Human Papillomavirus Vaccine 11/13/2009 Given 11/15/06 VIS Given. Influenza Vaccine (oldterm) 07/15/2009 Given Contraception Nexplanon ? Patient Education Titles OB PP Post Warning Signs?? Section ()?? OB PP [facility]- Discharge Instructions?? Patient Instructions Call your doctor if: you note fever of 100.4 or greater, heavy vaginal bleeding, foul-smelling vaginal discharge, difficulty or burning with urination, nausea and vomiting with inability to tolerate food, pain not controlled by your prescribed medications, redness/swelling/drainage at incision(s), shortness of breath or chest pain. ??- Do not drive while taking narcotics. Do not drive until cleared by your doctor. ??- Avoid lifting anything 10bs or greater for 2 weeks/cleared by doctor. ??- Do not put anything in the vagina. No intercourse, tampons, or douching until cleared by doctor. ??- Stairs are OK but avoid multiple trips and go slowly. ??- Walk as often as you are able. ??- Continue your stool softeners (examples: colace/docusate, senna, miralax) until no longer taking narcotics and stools are regular. ??- Shower as usual after 24 hours. Remove Steri-Strips when they start to peel off, or after 5 days. Do not scrub the incision. Pat the skin dry. * TangSandra segal RN: PERFORM Event Display: Patient Education/Instruction Authored Date: Inpatient Adult Discharge Instructions [address] [address] Name: MICHELLE CHUNG : 1990 Visit: 08/20/2022 15:26:00 Current Date: 08/23/2022 19:58 Account: [id number] Inpatient Adult Discharge Instructions We would like to thank you for allowing us to assist you with your healthcare needs. The following includes patient education materials and information regarding your injury/illness. Our entire staffstrives to provide an excellent experience for our patients and their families. PLEASE ENSURE YOU FOLLOW-UP PER THE INSTRUCTIONS BELOW! ?? YOUR OPINION IS IMPORTANT TO US! Please complete the survey you may receive by mail or email. Your feedback will be used to make improvements to the healthcare experiences of our patients and their families. Surveys are administered by [employer] ?? If further treatment with your primary care physician or another doctor is recommended, it is important for you to keep the appointment. Call your primary care physician or return to the Emergency Department immediately if your condition worsens, fails to improve, or new symptoms develop. If you need to find a doctor, you can call [facility] ([employer]) for a referral at [phone] or toll free at [phone] or log in to [email or web address].. ?? You can view and manage your care through the patient portal or by using a health care kelly of your choosing. [employer] is a website that allows you to securely view your medical information including your hospital discharge summary, office visit summaries, medications and follow-up visits. You can also request appointments, renew medications, and request access to your medical information using a health care kelly of your choosing, or just ask a question. You can enroll at [email or web address] or register during your next office visit. You have been discharged from [facility], Patient Care Unit: WIN2. If you have any questions regarding these instructions after you leave, please call us and we will be happy to assist you. [facility] Your Care Team Attending Physician Aurelio Ravi DO Consulting Providers Vicky Javier DO Discharging Providers Choco Gill MD Reason for Admission labor Your Diagnosis contractions care following delivery History of suicidal ideation Learning disability Tests Performed Below is a partial list of the tests performed during your hospitalization. You may have had other tests and procedures not included in this list. Please discuss all test results with your provider. CBC Type and Screen Primary Care Provider Arron Carr MD Advance Directive Health Care Proxy on File Yes - Health Care Proxy No qualifying data available. Discharge Vitals Temperature: 98 DegF Height: 165 cm Pulse Rate:??92 bpm??High Weight: 126.8 kg Respiratory Rate: 18 br/min Body Mass Index:??46.57 kg/m2??Critical Systolic Blood Pressure: 121 mm Hg Body surface area: 2.41 Diastolic Blood Pressure: 67 mm Hg ?? Oxygen Saturation: 98 % ?? Studies Pending All tests and labs ordered during this hospital stay have been completed unless listed below. Please discuss all pending results with your provider listed above in these instructions. ?? COVID-19 (2019 Novel Coronavirus) PCR Pathology Tissue Request () RBCs on Hold What to do next Instructions From Your Doctor Discharge Orders Scheduled Follow-Up Appointments 2021 11:40 AM EST ?? With: Toyin DOS SANTOS, Donovan Andrea Where: [facility] [address] [place] [address] [address] [place] [address]- Monday 2:40 PM EST ?? With: Estefani Aceves DO Where: [facility] [address] [place] [address]- Discharge Medications MICHELLE CHUNG :1990 Visit Date:08/20/2022 Medications: Please continue your medications until treatment is completed or stopped by your provider. Medications not listed below should be discontinued. Discuss any questions related to medications with your provider. What How Much When Instructions Next Dose New Docusate (docusate sodium 100 mg oral tablet) 1 tab(s) Oral 3 times a day as needed for for constipation Pickup at [facility]/pharmacy #[id number] 08/23/ at 9pm New Ibuprofen (ibuprofen 600 mg oral tablet) 1 tab(s) Oral Every 6 hours Pickup at [facility]/pharmacy #[id number] 08/23/ at 9pm New Oxycodone (oxyCODONE 5 mg oral tablet) 1 tab(s) Oral Every 6 hours as needed for as needed for pain Pickup at [facility]/pharmacy #[id number] 08/23/ at 9pm New Polyethylene Glycol 3350 (MiraLax oral powder for reconstitution) 17 gram Oral Daily dissolve in water before taking ?? Pickup at [facility]/pharmacy #[id number] 08/24 at 9an New Simethicone (simethicone 80 mg oral tablet, chewable) 1 tab(s) Chew 4 times a day as needed for as needed for gas [facility] As needed Unchanged Etonogestrel (Nexplanon 68 mg subcutaneous implant) 1 Each Subcutaneous Infusion Once Inserted Lot [id number] Exp ?? [id number] [address] [place] [address] [phone] ?? What How Much When Why Comments Stop Taking Aspirin (aspirin 81 mg oral delayed release tablet) See instructions Obesity in 2 tablet By Mouth Daily at bedtime ?? Stop Taking Calcium Carbonate (Tums 500 mg oral tablet, chewable) 1 tab(s) Chew 3 times a day as needed for for control of stomach acid Stop Taking Ferrous Sulfate (ferrous sulfate 325 mg oral tablet) 1 tab(s) Oral Daily Anemia of Stop Taking Multivitamin, ( Multivitamins with Folic Acid 1 mg oral tablet) 1 tab(s) Oral Daily Test Results Below is a partial list of the most recent Laboratory test results done prior to this discharge. You may have had other tests and procedures not included in this list. Please discuss all test resultswith your provider. RBC Available - RE (08/20/2022) RBC Unit ID - [id number] (08/20/2022) CBC (08/20/2022) ???WBC - 10.6 k/mm3???RBC - 4.06 m/mm3???Hgb - 10.4 Gm/dL???Hct - 33.5 %???MCV - 82.5 femtoliters???MCH - 25.6 pg???MCHC - 31.0 g/dL???Platelet Count - 254 k/mm3???RDW-SD - 43.2 femtoliters???MPV - 12.9 femtoliters???Nucleated RBC (Automated) - 0.0 #/100 WBC'S???Abs. NRBC - 0.0 k/mm3 Type and Screen (08/20/2022) ???Blood Type - A Positive???Antibody Screen - Negative Allergies (NKA means No Known Allergies) traMADol Problems Active Problems??(11) DCF Involvement?? Dichorionic diamniotic twin gestation?? H/O Anemia in ?? History of suicidal ideation?? Learning disability?? Morbid obesity?? Other social stressor?? Personality disorder? Request for sterilization?? Severe obesity?? Education Materials Below is the list of Educational Leaflet Providered with your Discharge Instructions. OB PP [facility]- Discharge Instructions?? Valuables and Belongings I fully understand and agree that [facility] accepts no responsibility for all my personal property including clothing, toilet articles, radios, jewelry, dentures, hearing aids, rings, money, or any other property that is in my possession or is brought to me after admission. I understand certain valuables may be placed in a hospital safe for a short period of time. I understand that the hospital is not liable for loss or damage due to accident, fire, or other natural occurrence while said property is in the safe. I accept full responsibility for any personal property that I keep with me, and will not hold the hospital responsible in case of loss or disappearance. I acknowledge that i have been encouraged to send valuables and belongings home. ?? Review of Valuable and Belonging List: With patient Date for Pt to Sign Valuables/Belongings: 08/20/22 18:25:00 ?? Other Discharge Information ? Pulmonary Rehab Status?? Pulmonary Rehab Discharge Status?? Respiratory Rate: 18 br/min ? Common Emergency Awareness Tips IS IT A STROKE? Act FAST and Check for these signs: FACE Does the face look uneven? ARM Does one arm drift down? SPEECH Does their speech sound strange? TIME Call at any sign of stroke ?? Heart Attack Signs Chest discomfort: Most heart attacks involve discomfort in the center of the chest and lasts more than a few minutes, or goes away and comes back. It can feel like uncomfortable pressure, squeezing, fullness or pain. Discomfort in upper body: Symptoms can include pain or discomfort in one or both arms, back, neck, jaw or stomach. Shortness of breath: With or without discomfort. Other signs: Breaking out in a cold sweat, nausea, or lightheaded. Remember, MINUTES DO MATTER. If you experience any of these heart attack warning signs, call to get immediate medical attention! ?? Smoking can increase your chances of developing chronic health problems and can cause harmful effects to other family members in your house. If you smoke, you are strongly encouraged to quit. Please call [facility] [employer] [facility] at [phone] or [phone] ([phone]) or log in to [email or web address] for referrals to smoking cessation programs. ?? The National Suicide Prevention Hotline is available 01/05 if you or someone you know needs to find a reason to keep living. By calling 2-867-721-[employer] (3494) you'll be connected to a skilled, trained counselor at a crisis center in your area. INPATIENT DISCHARGE INSTRUCTIONS SIGNATURE NATHANIEL MICHELLE CHUNG Location:[facility] Registration Date and Time:08/20/2022 15:26 EST Primary Care Physician: Bruno DOS SANTOS, Arron Dash, Ramón COCO CHUNGMARCIN, have received the above patient education materials/instructions and have verbalized understanding. If ambulance or transport services are being used I further acknowledge being given a choice of service. ?? If you need to contact me, please call me at this number: . Patient/Labor Mediator Name: Patient/Labor Mediator Signature: Relationship to Patient: Witness Name/Signature: Date: * Sandra Rush RN: PERFORM Event Display: Patient Education Leaflets Authored Date: [id number] OB PP Post Warning Signs ?? 221 SAVE YOUR LIFE Get Care for These POST- Warning signs ?? Most women who give recover without problems. But any woman can have complications after the of a baby. Learning to recognize these POST- warning signs and knowing what to do can save your life. ?? Call 911 if you have: ??? Pain in chest ??? Obstructed breathing or shortness of breath ??? Seizures ??? Thoughts of hurting yourself or your baby ?? Call healthcare provider if you have: ??? Bleeding, soaking through one pad/hour, or blood clots, the size of an egg or bigger ??? I ncision that is not healing ??? Red or swollen leg, that is painful or warm to touch ??? Temperature of 100.40??F or higher ??? Headache that does not get better, even after taking medicine, or bad headache with vision changes ?? If you can???t reach your healthcare provider, call 911 or go to an emergency room ? Tell 911 or your healthcare provider ???I had a baby on and ?(Date) I am having ?? . ? (Specific warning signs) ? These post- warning signs can become life-threatening if you don???t receive medical care right away because: ??? Pain in chest, obstructed breathing or shortness of breath (trouble catching your breath) may mean you have a blood clot in your lung or a heart problem ??? Seizures may mean you have a conditioncalled eclampsia ??? Thoughts or feelings of wanting to hurt yourself or your baby may mean you have depression ??? Bleeding (heavy) , soaking more than one pad in an hour or passing an egg-sized clot or bigger may mean you have an obstetric hemorrhage ??? Incision that is not healing, increased redness or any pus from episiotomy or site may mean you have an infection ??? Redness, swelling, warmth, or pain in the calf area of your leg may mean you have a blood clot ??? Minco rature of 100.40??F or higher, bad smelling vaginal blood or discharge may mean you have an infection ??? Headache (very painful), vision changes, or pain in the upper right area of your belly may mean you have high blood pressure or post preeclampsia ?? GET HELP My Healthcare Provider/Clinic: Phone Number Hospital Closest To Id: ? * Sandra Rush RN: PERFORM Event Display: Patient Education Leaflets Authored Date: [id number] Section () ?? [address] Section () A section () is a type of surgery. It's the of a baby through a cut (incision) in the mother???s belly. A may be planned and scheduled. But, in many cases, a is not planned. In any case, it is done to make sure that you and your baby have the safest .?? Before the procedure You will be given antibiotics. This is to reduce any risk of infection. Most C- sections take less than 1 hour. Your healthcare team is ready to take care of you and your . Your partner may be with you for the . ?? During the procedure The surgery will start after you have anesthesia. You will have either regional or general anesthesia. Regional numbs you below the waist. General makes you go to sleep. Incisions are made in your skin and then your uterus. These 2 incisions may differ. Make sure they are noted in your health records. Here is how they may vary: ??? The skin incision. This cut is usually side to side). This is known as transverse. It is done??at the pubic hairline. An up and down (vertical) incision may be used if you???ve had this incision before. Or it may be used if the needs to be done quickly. ??? The uterus incision. This is most often transverse. This type heals very well. It may let you have a future vaginal (). In some cases,??a vertical incision may be made instead.?? Once the incisions are made,??the healthcare provider presses on the top of the uterus. They guide the baby out through the incisions. The cord will be clamped and cut. Then the placenta is lifted out through the incision. Possible sites for a transverse skin incision or a vertical skin incision. ?? After the procedure After your baby???s ,??the uterus incision is closed with stitches. Your skin incision will beclosed with surgical keenan or stitches. A dressing will be put on it. Your healthcare provider will press on your belly. This helps expel blood clots through the vagina. You may be given medicines.These are to help shrink your uterus. They can decrease your bleeding. ?? Your baby's care after Your baby will be placed in an infant warmer. Gentle suction will be used to help remove excess fluid from your baby???s mouth and airways. Then the score will be done. This rates a baby???s: ? Appearance (skin color showing healthy blood flow) ??? Pulse (heart rate) ??? Grimace (muscle reflex) ??? Activity (muscle tone) ??? Respiration ?? Your baby will be wrapped in a blanket and brought to you. Now, for the first time, you???ll see your . ?? Risks of a As with any surgery,??a has risks. Your healthcare provider will discuss the risks with you. They may include: ??? Bleeding ??? Infection ??? Injury to nearby organs ??? Blood clots in the legs, pelvis, or lungs ??? Reaction to anesthesia ?? Last Reviewed Date: 2020 ?? 2809-6820 [employer]. All rights reserved. This information is not intended as a substitute for professional medical care. Always follow your healthcare professional's instructions. ?? * Benjie Tejeda: PERFORM Event Display: Patient Education Leaflets Authored Date: [id number] OB PP [facility]- Discharge Instructions ?? 209 Discharge Care Instructions for the New Mom and Baby Please take a few moments to read through these helpful instructions before you leave the hospital.?? Your nurse will be glad to answer any questions you may have.?? You can also find this and more information throughout the purple Becoming a Family booklet, [facility]???s New Beginnings Guide and the Consultation Services Guide given to you after the of your baby.?? You may also phone our nurses stations if you have further questions.?? [facility]:?? First Floor ([phone]), Second Floor ([phone]).?? Please call your provider if you have any questions or concerns?? before your next appointment. For ongoing support please ???Like?? us on our Facebook page ???[facility]???s New Beginnings?? andsign up for our email newsletter at [email or web address].?? News and information will besent to you until your baby???s third birthday. Instructions for the New Mother Activity: For the next 2 weeks at home ??? no heavy lifting, avoid unnecessary stair climbing, and no driving(especially if you are taking medicine that may make you sleepy or feel that you are sleep deprived).?? For the next 4-6 weeks - no tampons, no douches, no sexual intercourse. Use your agustin bottle to rinse your perineum until your vaginal flow stops.?? If you have stitches in your bottom, they generally dissolve within 7-10 days.?? Apply Tucks/witch kadi pads until your soreness subsides.?? Use your bathroom at home every 3 to 4 hours, rinse, and change your pads. Warm showers feel great on achy muscles, sore backs and sore bottoms. Exercise: Walking is the best form of exercise.?? Wait until your follow up appointment with your provider in4-6 weeks before engaging in more strenuous activity. Diet: Drink plenty of fluids to avoid constipation and to help support your recovery. Eat plenty of iron rich foods such as red meat, iron fortified cereals like Total and Cream of Wheat, raisins, prunes, greens and spinach.?? These will help to build your blood count back up as all women lose some blood after delivery.?? Also add foods rich in Vitamin C such as strawberries, oranges, papayas, kale and mccarthy peppers. Continue to take your vitamins if you are .?? If you are not follow the instructions of your provider.?? If you were prescribed iron supplements such as ferrous sulfate, it is important to continue these until your doctor or customer service attendant tells you to stop. Breast Care for Nursing Mothers: Wear a comfortable fitting, supportive nursing bra.?? An underwire bra is not recommended. Express drops of breast milk and rub over your nipples and areola (brown area) before and after each feeding to protect and heal sensitive skin and then air dry your nipples.?? If you are experiencing any soreness, you may purchase nipple cream such as TenderCare or Lansinoh.?? Use it in the following manner:?? finish your feeding or pumping session, self-express colostrum onto your nipple and air dry, apply the nipple cream to the nipple and areola.?? Use only small amounts for best results. If you are having difficulty getting the baby to latch onto the breast due to swelling of the areola, try applying pressure with your fingers for a couple of minutes above and below your nipple and walk your fingers outward softening the area and pushing the swelling away.?? This technique is knownas reverse pressure softening.?? For demonstrations of this and other techniques such as the [place] Hand Expression technique, please refer to the resources section of the Consultation Services Guide that you received from services. When your milk first comes in, usually within 3 to 5 days after delivery, you may experience engorgement.?? Your breasts may become swollen and very tender.?? Cold compresses work great to help with discomfort and reduce swelling. It will get better in a couple of days.?? Continue to nurse your baby frequently.?? Call [facility]???s Consultation Service at [phone], press 1 to schedule an outpatient appointment or press 3 and a sap consultant will return your call that day or the next if you call after 3pm. Breast Care for Bottle Feeding Mothers: Engorgement may occur within the first week after delivery.?? Your breasts may become hard and verytender.?? A cool compress of cleaned raw green cabbage leaves applied to the breast and changed as leaves wilt has been proven helpful for many women.?? Ice packs or frozen bags of peas also work nicely to ease the discomfort.?? The soreness will only last a couple of days. Keep your back turned to the water while showering to decrease breast stimulation. Wear a snug fitting bra such as a sports bra. Incision Care Following Tubal or Section: You may shower as directed by your doctor or customer service attendant.?? Pat your incision dry with a clean towel.??You will not need a bandage after the first day. Call your doctor or customer service attendant with any signs of infection such as a hard, hot swollen tender incision, especially if the skin around the incision looks pink or red.?? Yellow drainage with an odor may also be a sign of infection to report. Call your doctor or customer service attendant if the incision begins to separate. If you have steri-strips on the incision, they will likely fall off in the first week.?? If they have not fallen off by 10 days after delivery, you may remove them. Control: Your doctor or customer service attendant will discuss control methods with you when you are discharged from thespital or at your checkup.?? Be sure to let your provider know if you are . You had a Paragard IUD placed on .?? This control method is effective for 10 years. You had a Liletta placed on .?? This control method is effective for up to 5 years. You had a Nexplanon placed on .?? This control method is effective for up to 3 years. You received a Depo Provera injection on .?? This control method is effective as longas you repeat it every 3 months.?? Schedule your next dose before . You have a prescription for control pills .?? It is important to take a pill everyday at around the same time of day for effective control protection.?? Pain Management: Cramping after is common and increases in strength with each baby you have.?? If you experience painful cramps, and have no allergies to acetaminophen (Tylenol) or ibuprofen (Motrin), you may continue to take these medications as you did in the hospital.?? Ibuprofen is also helpful with back aches following epidurals, perineal pain following a vaginal delivery, and moderate incisional pain after a section or a tubal ligation.?? If you experience gas distention, especially after surgery, you may take an over the counter medication called simethicone.?? Take these chewable tablets 4 times a day as needed and directed on the package.?? Keep moving.?? Walking or rocking in a chair, will help to move the gas along.?? Yaniv tea made with heated yaniv teri (instead of water) and a tea bag, stirred to dissolve carbonation (bubbles) is a helpful drink to soothe a gassy stomach. Warning Signs of a Problem to Notify Your Doctor or Cad Specialist of: Heavy vaginal bleeding ??? which is soaking a pad every hour with bright red blood. Passing blood clots the size of an egg or larger. An incision that is not healing. A temperature greater than or equal to 100.4 especially if accompanied by any of the following symptoms ??? painful, frequent urination; extreme back or flank pain; lower belly pain with a foul smellto your vaginal flow; a red hard hot area on your breast.?? Severe headache that does not go away after taking acetaminophen or ibuprofen.?? A headache that changes your vision, including seeing spots or blurring. Right sided upper abdominal pain along the rib cage area. Pain in your legs that is warm and tender to the touch. depression signs may include ??? loss of interest in your baby, weepiness, difficulty focusing, weight loss with no appetite, exhaustion, feeling overwhelmed or anxious, feelings of despair, or thoughts of harming yourself or your baby.?? These symptoms are important and should be discussed with your doctor or customer service attendant. depression may develop over a period of time and needs prompt medical attention.?? Do not suffer in silence.?? In both the Becoming a Family booklet and [facility] Guide there is a screening tool used to identify women at risk, called the [place] Scale which you have taken in the office prior to delivery and again during your hospital s mukesh.?? Three to four weeks after your delivery, and before your check with your provider, take this test and share your results with your provider.?? Be sure to mention any score of 10 or more.?? Many women, and even some partners, may experience the ???baby blues?? .?? This is a state of feeling overwhelmed and weepy.?? Discomfort from childbirth, hormonal changes, exhaustion, changes to your body and lifestyle are a few of the things that contribute to the highs and lows new parents go through.?? Don???t be afraid to ask your partner or family and friends for some help at home so you can get some rest and a few minutes to yourself.?? The blues will quickly pass. Personal Safety: Every person has the right to feel safe at home and live free from physical or emotional harm.?? Ifyou have suffered mental or physical abuse at home, you are not alone.?? There is help.?? Please call HOTLINE or the [employer] Program at [phone]. CARE Bathing: Give your baby a sponge bath until the cord falls off in about 1-3 weeks.?? It is not necessary to bathe your baby every day, usually every few days is sufficient. ??Keep the cord area dry.?? Some baby girls will have a small bloody vaginal discharge. No need to worry as this is normal. It is not necessary to use lotions on the baby???s skin.?? Powders and oils are not recommended.?? Babies often get rash on their skin which comes and goes quickly and does not require any special care.?? Diaper rash can be treated with a zinc oxide preparation such as Desitin or Balmex diaper cream. Circumcision Care: Your nurse will teach you how to care for your baby???s circumcision depending on the type of circumcision your doctor or customer service attendant performed.?? Most circumcisions require A&& ointment for about 4-5 days.?? Be generous with the amount of A&& used as this will prevent the diaper from sticking when you go to change it. If a plastibell circumcision was done, the plastic ring around the penis will fall off in a week orso. Diapers: After the 1st??few days, the baby will start wetting more often.?? A breast fed baby will wet about6-8 times a day once mom???s milk comes in ??? usually day 4 or 5.?? This is a good sign that the baby is getting plenty to eat.?? You may notice an orangey-pink stain in the diaper which is normal for the first few days. The baby???s first bowel movements are sticky, black and tarry.?? As the baby starts to feed more often over the next couple of days, the stool will change to a seedy yellowish green color and eventually a loose mustard like stool for a breast fed baby and a more formed yellow stool for a bottle fed baby. your Baby: ??Congratulations on deciding to breastfeed your baby! You are providing your baby with the most nourishing food source on the planet, your breast milk.?? Cues such as rooting, suckling, licking and fussing may be telling you that your baby is ready to eat ??? and it is time to offer your breasts. The first weeks following the are a time for you and your baby to learn.?? The baby may be sleepy the first day after with 8 to 12 attempts ??? including 2 to 4 good feedings.?? Over the next couple of days the baby will become more wakeful, feed 8 to 12 times a day and have more wet and poopy diapers.?? Cluster feeding, especially during the evening/night time, is normal. ?? Listen for swallowing sounds and watch the baby as they become more relaxed at the breast ??? both good signs that the baby is getting a good amount of milk.?? Refrain from smoking or eating edible marijuana while you are . Even though marijuana is legal in the state of [place],??it is harmful for your baby.??It stays in breast milk for along period of time and THC can be found in the baby's urine for up to 3 weeks. Second hand smoke can also increase the risk??of Sudden Syndrome / SIDS. ?? Nursing is wonderful but many moms and babies have some degree of difficulty with at first. Don???t give up!?? There are many resources available to help you overcome these temporary problems. Your glass polisher wants to hear from you if you are having difficulties and can offermany helpful suggestions.?? Some offices have consultants on staff. [facility]???s Consultation Service is available 7 days a week, 8am to 3pm at [phone].?? Press 1 to schedule an outpatient appointment.?? Press 3 to leave a message for the account consultant, a sap consultant will return your call that day or the next if you call after 3pm. Support Groups ??? [facility] offers free gatherings for moms and babies weekly.?? All groups meet at the [facility]???s 2nd??floor, typically in the [facility] Conference Room, Monday???s 1 to 2 pm.?? [employer] is a worldwide organization with local community support, mother to mother support.?? Information can be found at https://www.lllusa.org Formula Feeding your Baby: Formula fed babies should eat every 3 to 4 hours.?? Look for cues that your baby is ready ??? such as rooting and sucking, licking and fussing.?? At the baby???s stomach is small and may take 10-15ml of formula.?? Over the next few days the baby will become more wakeful and feed more frequently, gradually increasing the amounts of formula taken at a feeding.?? Your glass polisher will provideinstructions on how to increase the amount.?? Refer to packaging for formula preparation directions, depending on the type of formula you purchase ??? powder, concentrate or ready to feed. Infant Safety: ALWAYS REMEMBER - BACK TO SLEEP! Babies sleep safest on their backs.?? Every sleep.?? Every time.?? Every nap. Babies need a firm sleep surface with a tight fitting bottom sheet.?? NO loose bedding.?? NO pillows.?? NO bumper pads or rolls.?? NO heavy or fluffy blankets. NO stuffed toys. It is not safe for your baby to sleep in your bed, in a chair, or on a sofa.?? Your baby should notsleep with you or anyone else. Car Seat: Always place your baby in a rear facing car seat in the backseat of the car. Car seat inserts that come with the car seat can be used as they are crash tested with the seat.?? You should not buy additional inserts.?? Dress the baby in a weather appropriate outfit.?? Avoid bulky clothing such as snowsuits or jackets as the baby may squirm in the seat, loosening the shoulder straps and come out of the top of the harness if you need to brake hard or are in an accident.?? Once the baby issecured in the seat you can cover your little one with a blanket if needed.?? If your baby was bornprematurely, follow the directions given to you.?? If you have not already done so, check to make sure your car seat is installed correctly. Check with your local Fire and Police Department to see if they offer car seat inspections at a location close to you. Babies Can Move: ?? Never leave your baby unattended on any surface, raised or flat, or while bathing.?? They can squirm, fall or hurt themselves.?? Always fasten the safety belt when using an infantseat or swing ??? as they may lean forward and fall. Good Handwashing is the number one way you can protect the baby from too?? many germs and prevent infection.?? When family and friends visit ask that they wash their hands before holding your baby.??Also avoid crowds the first month of your baby???s life to protect from colds and flus. Shaking a baby out of frustration can cause severe and lasting damage, even to a baby.?? If you feel you are becoming angry or overwhelmed, place the baby in a safe place and walk away.?? Call a friend or family member.?? If they are not able to offer immediate help call the Parental Stress Hotline at?? , an anonymous 01/05 source of help. Warning Signs to notify your glass polisher of: Most babies develop a small amount of jaundice (a yellowish skin color) in the face and upper chest, by about 3 days of age.?? If the yellow color extends below the baby???s belly or if the baby is very sleepy and not feeding well, call your glass polisher. A rectal temperature of 100.4F as it could be a sign of infection. Projectile vomiting that continues with each feeding could indicate reflux or a problem with the formula. Extreme sleepiness or very fussy. Cold symptoms with nasal stuffiness, especially if the baby is having difficulty feeding. Constipation with hard stools. Blue or dusky color, call 911. If Your Baby Needs to Remain in the Hospital: Please leave your baby???s ID bracelets on if your baby needs to remain in the hospital after you are discharged home. The phone number to NICU is [phone]. The phone number to [facility] is [phone]. The phone number to Ma[facility] 2 is [phone]. moms should pump every 2-3 hours or 8-12 times in 24 hours.?? If unable to place the baby to breast, if you are having difficulty getting the baby to latch on, or if the baby remains inthe hospital after you are discharged ??? bring the pumped milk to the hospital, labeled with name,date and time.?? Carry it in a small cooler or diaper bag with an ice pack and bring it the next time you visit your baby.?? Consultation Services is available if you need to rent or purchase a pump or products.?? Call and leave a message at [phone] ??? press 3 and a sap consultant will return your call that day or the next if you call after 3pm. ? Patient Care team information Care Team Personnel Name: Triny Son RN Position: [facility] PCO RN Member Role: Primary Care Nurse Name: Jennifer Penny RN Position: [facility] RN Member Role: Primary Care Nurse Name: Wanda Man RN Position: [facility] OB RN Member Role: Primary Care Nurse Name: Aurelio Ravi DO Position: [facility] BUSINESS OBJECTS DEVELOPER MD Member Role: Lif[employer] BUSINESS OBJECTS DEVELOPER Physician Address: Address: [address] [place] [address] [place] [address]- Name: Sisi Interiano RN Position: [facility] RN Member Role: Primary Care Nurse Name: Arron Carr MD Position: [facility] Outreach Member Role: PCP Address: Address: [address] [place] [id number] Name: Emeka Chong RN Position: [facility] RN Member Role: Primary Care Nurse Name: Jasmin Mosqueda RN Position: [facility] OB RN Member Role: Primary Care Nurse Name: Jane Palomares RN Position: [facility] OB RN Member Role: Primary Care Nurse Name: Leena Friend RN Position: [facility] OB RN Member Role: Primary Care Nurse Name: Jyoti Macdonald RN Position: [facility] OB RN Member Role: Patient Care Provider Care Team Related Persons Name: FRANCISCA REYES Address: home [address] [place] [address] Name: BERKLEY REYES Address: home [place] Name: LEVAR ZARATE Address: home [address] [place] [address] Name: JUNIOR ELIANA Address: [place] [address] Name: JULIET MICHELLE BOY A Address: [address] Address: home [address] [place] [address] [place] Name: COCO CHUNGMARCIN GIRL B Address: [address] Address: home [address] [place] [address] [place] Name: LIS JAMA Address: [address] Address: home [address] [address] [place] Name: AKIRA JAMA Address: [address] Address: home [address] [place] [address] [place] Name: BERKLEY AVENDANO Address: home [facility] [address] [address] Name: JENNIFER BEARDEN
--- OUTSIDE RECORDS SUMMARY | 2024-05-16 15:30 | XMS_ITS | Continuity of Care Document ---
Author Organization [facility] Address [address] [place] [id number]- Care Team Providers Care Pipe Stem Repairer Name Role Phone Not on Staff, PCP Primary Care Physician Unavail able Encounter [facility] Date(s): 05/04/20 - 06/03/20 [facility] [address] [address]- [facility] Allergies, Adverse Reactions, Alerts Substance Reaction Severity [...] 1 Refills, Maintenance, 05/20/20 16:24:00 EDT, [id number], 165, cm, 05/20/20 15:09:00 EDT, Height, 117, [...]
--- OUTSIDE RECORDS SUMMARY | 2024-05-16 15:30 | XMS_ITS | Continuity of Care Document ---
Author Organization [facility] ter Address [address] [place] [id number]- Care Team Providers Care Clinical Trials Nurse Name Role Phone Not on Staff, PCP Primary Care Physician Unavail able Encounter [facility] Date(s): 02/08/22 - 02/08/[address] [address] Discharge Disposition: A-D/C Home Attending Physician: Annmarie Augustin DO Admitting Physician: Annmarie Augustin DO Referring Physician: Annmarie Augustin DO Allergies, Adverse Reactions, Alerts Substance Reaction [...] give 325mg per patient preference and re-dose [id number] within 4 hours, if needed. Patient should [...] 10/14/20 8:26:00 EST, Route to Pharmacy Electronically, [facility]/pharmacy #[id number], Partial fill upon patient request if the prescription is... Start Date: 10/14/20 Status: Ordered famotidine 20 mg oral tablet 20 mg, 1, tablet, By Mouth, 2 times a day, # 60 tablet, Refills 0, Tot. Refills 0, Maintenance, 02/08/22 20:18:00 EDT, Route to Pharmacy Electronically, [facility]/pharmacy #[id number], 162, cm, 02/08/22 20:06:00EDT, Height, 115.5, kg, 02/08/22 19:58:00 EDT, Dry... Start Date: 02/08/22 Stop Date: 03/10/22 Status: Ordered naproxen 500 mg oral delayed release tablet 1 tablet = 500 mg, By Mouth, 2 times a day, # 60 tablet, 0 Refills, Maintenance, 06/14/21 16:52:00 EDT, EC Tablet, [facility]/pharmacy #[id number], Partial fill upon patient request if the prescription is for a schedule II opioid drug., 163, cm, 10/14/20 16:15:00... Start Date: 06/14/21 Status: Ordered Multivitamins with Folic Acid 1 mg oral tablet 1 tablet, By Mouth, Daily, # 90 tablet, 3 Refills, Maintenance, 01/25/22 15:06:00 EDT, Tablet, [facility]/pharmacy #[id number], Partial fill upon patient request if the prescription is for a schedule II opioid drug., 1 tablet By Mouth Daily, 162, cm, 01/20/22 0:10... Start Date: 01/25/22 Status: Ordered Reglan 5 mg oral tablet 1 tablet = 5 mg, By Mouth, 2 times a day, for 30 days, # 60 tablet, 0 Refills, Acute 03/05/22 12:27:00 EDT, 02/03/22 12:27:00 EDT, Tablet, [facility]/pharmacy #[id number], Partial fill upon patient request if theprescription is for a schedule II opioid drug., 162... Start Date: 02/03/22 Stop Date: 03/05/22 Status: Ordered Tums 500 mg oral tablet, chewable 500 mg, 1, tablet, Chew, 3 times a day, PRN, # 30 tablet, Refills 0, Tot. Refills 0, Maintenance, for control of stomach acid, 09/16/20 19:17:00 EST, Route to Pharmacy Electronically, [facility]/pharmacy #[id number], Partial fill upon patient request if the prescr... Start Date: 09/16/20 Status: Ordered Tylenol Extra Strength 500 mg oral tablet 1 tablet = 500 mg, By Mouth, Every 8 hours, PRN as needed for fever, # 30 tablet, 0 Refills, Maintenance, 06/14/21 16:52:00 EDT, Tablet, [facility]/pharmacy #[id number], Partial fill upon patient request if the prescription is for a schedule II opioid drug., 163,... Start Date: 06/14/21 Status: Ordered Unisom 25 mg oral tablet 1 tablet = 25 mg, By Mouth, Daily at bedtime, PRN for sleep, # 32 tablet, 0 Refills, Maintenance, 01/29/22 21:21:00 EDT, Tablet, [facility]/pharmacy #[id number], 162, cm, 01/20/22 0:10:00 [...] Most recent to oldest [Reference Range]: 1 Height 162 cm (02/08/22 8:06 PM) Weight 115.5 kg (02/08/22 7:58 PM) Oxygen Saturation [94-100 %] 98 % (02/08/22 8:06 PM) Pulse Rate [55-90 bpm] 78 bpm (02/08/22 8:06 PM) Blood Pressure [90-138/55-84 mm Hg] 117/ 58mm Hg (02/08/22 8:06 PM) Respiratory Rate [16-30 br/min] 19 br/mi n (02/08/22 8:06 PM) Temperature [96.8-100.4 DegF] 99.1 DegF (02/08/22 8:06 PM) Mode of Delivery (Oxygen) Room air (02/08/22 8:06 PM) Blood pressure sites Arm, left (02/08/22 8:06 PM) Temperature Route Oral (02/08/22 8:06 PM) Dry Weight 115.5 kg (02/08/22 7:58 PM) Weight Obtained Via Standing scale (02/08/22 7:58 PM) Social History Social History Type Response Smoking Status Never (less than 100 in lifetime) entered on: 04/08/20 Sex
--- OUTSIDE RECORDS SUMMARY | 2024-05-16 15:30 | XMS_ITS | Continuity of Care Document ---
Author Organization [facility] Address [address] [place] [id number]- Care Team Providers Care Registered Radiation Therapist Name Role Phone Bruno DOS SANTOS, Arron Dash Primary Care Physician Encounter [facility] Date(s): 08/08/22 - 09/07/[address] [address] Allergies, Adverse Reactions, Alerts Substance Reaction [...] Refills, Maintenance, 08/23/22 19:44:00 EST, Tablet, [facility]/pharmacy #[id number], Partial fill upon patient request if the prescription is for a schedule II opioid drug., 165, cm,... Start Date: 08/23/22 Status: Ordered ibuprofen 600 mg oral tablet 600 mg, 1, tablet, By Mouth, Every 6 hours, # 50 tablet, Refills 0, Tot. Refills 0, Maintenance, 09/07/22 16:36:00 EST, Route to Pharmacy Electronically, [facility]/pharmacy #[id number], Partial fill upon patientrequest if the prescription is for a schedule II op... Start Date: 09/07/22 Status: Ordered MiraLax oral powder for reconstitution = 17 Gm, By Mouth, Daily, dissolve in water before taking, # 255 Gm, 0 Refills, Maintenance, 08/23/22 19:45:00 EST, REC Powder, [facility]/pharmacy #[id number], Partial fill upon patient request if the prescription is for a schedule II opioid drug., 17 Gm By Mouth... Start Date: 08/23/22 Status: Ordered Nexplanon 68 mg subcutaneous implant 1 each = 68 mg, Subcutaneous Infusion, Once, Inserted 08/23/22 Lot [id number] Exp 07/28/24, 0 Refills,Maintenance, 08/23/22 19:16:00 EST, Partial fill upon patient request if the prescription is for a schedule II opioid drug. Start Date: 08/23/22 Status: Ordered oxyCODONE 5 mg oral tablet 5 mg, 1, tablet, By Mouth, Every 6 hours, PRN, # 10 tablet, Refills 0, Tot. Refills 0, Maintenance,as needed for pain, 08/23/22 19:48:00 EST, Route to Pharmacy Electronically, [facility]/pharmacy #[id number], Partial fill upon [...] Team Personnel Name: Triny Son RN Position: [facility] PCO RN Member Role: Primary Care Nurse Name: Jennifer Penny RN Position: [facility] RN Member Role: Primary Care Nurse Name: Wanda Man RN Position: [facility] OB RN Member Role: Primary Care Nurse Name: Aurelio Ravi DO Position: [facility] FIRE CHIEF DEPUTY MD Member Role: Lifetime FIRE CHIEF DEPUTY Physician Address: Address: [address] [place] [address] Retail Salesperson [place], [place] [address] Name: Sisi Interiano RN Position: [facility] RN Member Role: Primary Care Nurse Name: Arron Carr MD Position: [facility] Outreach Member Role: PCP Address: Address: [address] [place] [id number] Name: Emeka Chong RN Position: [facility] RN Member Role: Primary Care Nurse Name: Jasmin Mosqueda RN Position: [facility] OB RN Member Role: Primary Care Nurse Name: Jane Palomares RN Position: [facility] OB RN Member Role: Primary Care Nurse Name: Leena Friend RN Position: [facility] OB RN Member Role: Primary Care Nurse Care Team Related Persons Name: FRANCISCA REYES Address: home [address] [place] [address] Name: BERKLEY REYES Address: [facility] Name: LEVAR ZARATE Address: home [address] [place] [address] Name: JUNIOR ELIANA Address: [place] [address] Name: CAROLE CHUNG Address: [address] Address: home [address] [place] [address] [place] Name: TRACY CHUNG Address: [address] Address: [address] [address] [place] Name: LIS JAMA Address: [address] Address: home [address] [address] [place] Name: AKIRA JAMA Address: [address] Address: home [address] [place] [address] [place] Name: BERKLEY AVENDANO Address: home [address] [address] Name: JENNIFER BEARDEN
--- OUTSIDE RECORDS SUMMARY | 2024-05-16 15:30 | XMS_ITS | Continuity of Care Document ---
Author Organization [facility] ter Address [address] [place] [address]- Care Team Providers Care Wholesale Agronomist Name Role Phone Bruno DOS SANTOS, Arron Dash Primary Care Physician Encounter [facility] Date(s): 07/26/22 - 08/31/[address] [address] Attending Physician: Annmarie Augustin DO Admitting Physician: [...] 0 Refills, Maintenance, 08/23/22 19:44:00 EST, Tablet, [facility]/pharmacy #[id number], [...] mg, Subcutaneous Infusion, Once, Inserted 08/23/22 Lot [id number] Exp 07/28/24, 0 Refills,Maintenance, 08/23/22 19:16:00 EST, Partial fill upon patient request if the prescription is for a schedule II opioid drug. Start Date: 08/23/22 Status: Ordered oxyCODONE 5 mg oral tablet 5 mg, 1, tablet, By Mouth, Every 6 hours, PRN, # 10 tablet, Refills 0, Tot. Refills 0, Maintenance,as needed for pain, 08/23/22 19:48:00 EST, [facility] Team Personnel Name: Triny Son RN Position: [facility] PCO RN Member Role: Primary Care Nurse Name: Jennifer Penny RN Position: [facility] RN Member Role: Primary Care Nurse Name: Wanda Man RN Position: [facility] OB RN Member Role: Primary Care Nurse Name: Aurelio Ravi DO Position: [facility] SSIS DEVELOPER MD Member Role: Lifetime SSIS DEVELOPER Physician Address: Address: [address] [place] [address] [place] [address]- Name: Sisi Interiano RN Position: [facility] RN Member Role: Primary Care Nurse Name: Arron Carr MD Position: [facility] Outreach Member Role: PCP Address: Address: [address] [place] [address]- Name: Emeka Chong RN Position: [facility] RN Member Role: Primary Care Nurse Name: Jasmin Mosqueda RN Position: [facility] OB RN Member Role: Primary Care Nurse Name: Jane Palomares RN Position: [facility] OB RN Member Role: Primary Care Nurse Name: Leena Friend RN Position: [facility] OB RN Member Role: Primary Care Nurse Care Team Related Persons Name: AMY FRANCISCA Address: home [address] [place] [address] Name: BERKLEY REYES Address: home [place] Name: LEVAR ZARATE Address: home [address] [place] [address] Name: JUNIOR ELIANA Address: [place] [address] Name: CAROLE CHUNG Address: [address] Address: home [address] [place] [address] [place] Name: TRACY CHUNG Address: [address] Address: home [address] [address] [place] Name: LIS JAMA Address: [address] Address: home [address] [address] [place] Name: AKIRA JAMA Address: [address] Address: home [address] [place] [address] [place] Name: BERKLEY AVENDANO Address: home [address] [address] Name: JENNIFER BEARDEN
--- OUTSIDE RECORDS SUMMARY | 2024-05-16 15:30 | XMS_ITS | Continuity of Care Document ---
Author Organization [facility] n[facility] Address [address] [place] [address]- Care Team Providers Care Ramp Flight Attendant Name Role Phone Not on Staff, PCP Primary Care Physician Unavail able Encounter [facility] [place] Date(s): 01/19/22 - 02/20/22 [facility] [address] [address]- Attending Physician: Not on Staff, Attending MD [...] give 325mg per patient preference and re-dose [id number] within 4 hours, if needed. Patient should [...] 10/14/20 8:26:00 EST, [id number] Partial fill upon patient request if the prescription is... Start Date: 10/14/20 Status: Ordered famotidine 20 mg oral tablet 20 mg, 1, tablet, By Mouth, 2 times a day, # 60 tablet, Refills 0, Tot. Refills 0, Maintenance, 02/08/22 20:18:00 EDT, [id number], 162, cm, 02/08/22 20:06:00EDT, Height, 115.5, kg, 02/08/22 19:58:00 EDT, Dry... Start Date: 02/08/22 Stop Date: 03/10/22 Status: Ordered ferrous sulfate 325 mg oral tablet 1 tablet = 325 mg, By Mouth, Daily, # 90 tablet, 3 Refills, Maintenance, 02/10/22 14:01:00 EDT, Tablet, [facility]/pharmacy #[id number], Partial fill upon patient request if the prescription is for a schedule II opioid drug., 162, cm, 02/08/22 20:06:00 EDT, Height... Start Date: 02/10/22 Status: Ordered metoclopramide 5 mg oral tablet 1 tablet, By Mouth, 2 times a day, for 30 days, # 60 tablet, 0 Refills, Physician Stop, [id number], 162, cm, 02/08/22 20:06:00 EDT, Height, 115.5, kg, 02/08/22 19:58:00 EDT, Dry Weight Start Date: 02/10/22 Stop Date: 03/12/22 Status: Ordered naproxen 500 mg oral delayed release tablet 1 tablet = 500 mg, By Mouth, 2 times a day, # 60 tablet, 0 Refills, Maintenance, 06/14/21 16:52:00 EDT, EC Tablet, [facility]/pharmacy #[id number], Partial fill upon patient request if the prescription is for a schedule II opioid drug., 163, cm, 10/14/20 16:15:00... Start Date: 06/14/21 Status: Ordered Multivitamins with Folic Acid 1 mg oral tablet 1 tablet, By Mouth, Daily, # 90 tablet, 3 Refills, Maintenance, 01/25/22 15:06:00 EDT, Tablet, [facility]/pharmacy #[id number], Partial fill upon patient request if [...] 09/16/20 19:17:00 EST, Route to Pharmacy Electronically, [facility]/pharmacy #[id number], Partial fill upon patient request if the prescr... Start Date: 09/16/20 Status: Ordered Tylenol Extra Strength 500 mg oral tablet 1 tablet = 500 mg, By Mouth, Every 8 hours, PRN as needed for fever, # 30 tablet, 0 Refills, Maintenance, 06/14/21 16:52:00 EDT, Tablet, [facility]/pharmacy #[id number], Partial fill upon patient request if the prescription is for a schedule II opioid drug., 163,... Start Date: 06/14/21 Status: Ordered Unisom 25 mg oral tablet 1 tablet = 25 mg, By Mouth, Daily at bedtime, PRN for sleep, # 32 tablet, 0 Refills, Maintenance, 01/29/22 21:21:00 EDT, Tablet, [facility]/pharmacy #[id number], 162, cm, 01/20/22 0:10:00 EDT, Height, 127.5, kg, 10/11/20 21:21:00 EST, Dry Weight Start Date: 01/29/22 Status: Ordered Vitamin B6 25 mg oral tablet 1 tablet = 25 mg, By Mouth, 3 times a day, for 30 days, # 90 tablet, 2 Refills, Acute 05/18/22 12:57:00 EDT, 02/17/22 12:57:00 EDT, [facility]/pharmacy #[id number], Partial fill upon patient request if the prescription is for a schedule II opioid drug., 162, cm, 0... Start Date: 02/17/22 Stop Date: 05/18/22 Status: Ordered Vitamin B6 25 mg oral tablet See Instructions, 1 tablet By Mouth up to 3 times Daily for nausea, # 90 tablet, 1 Refills, Maintenance, 05/20/20 16:24:00 EDT, [facility]/pharmacy #[id number], 165, cm, 05/20/20 15:09:00 EDT, Height, [...]
--- OUTSIDE RECORDS SUMMARY | 2024-05-16 15:30 | XMS_ITS | Continuity of Care Document ---
Author Organization [facility] Address [address] [place] [address]- Care Team Providers Care Dust Brush Assembler Name Role Phone Bruno DOS SANTOS, Arron aDsh Primary Care Physician [phone] Encounter [facility] [place] [place] Date(s): 08/09/22 - 09/08/[address] [address] Allergies, Adverse Reactions, Alerts Substance Reaction [...] 0 Refills, Maintenance, 08/23/22 19:44:00 EST, Tablet, [facility]/pharmacy #[id number], Partial fill upon patient request if the prescription is for a schedule II opioid drug., 165, cm,... Start Date: 08/23/22 Status: Ordered ibuprofen 600 mg oral tablet 600 mg, 1, tablet, By Mouth, Every 6 hours, # 50 tablet, Refills 0, Tot. Refills 0, Maintenance, 09/07/22 16:36:00 EST, Route to Pharmacy Electronically, [facility]/pharmacy #[id number], Partial fill upon patientrequest if the prescription is for a schedule II op... Start Date: 09/07/22 Status: Ordered MiraLax oral powder for reconstitution = 17 Gm, By Mouth, Daily, dissolve in water before taking, # 255 Gm, 0 Refills, Maintenance, 08/23/22 19:45:00 EST, REC Powder, [facility]/pharmacy #[id number], Partial fill upon patient request if the prescription is for a schedule II opioid drug., 17 Gm By Mouth... Start Date: 08/23/22 Status: Ordered Nexplanon 68 mg subcutaneous implant 1 each = 68 mg, Subcutaneous Infusion, Once, Inserted 08/23/22 Lot [id number] 07/28/24, 0 Refills,Maintenance, 08/23/22 19:16:00 EST, Partial fill upon patient request if the prescription is for a schedule II opioid drug. Start Date: 08/23/22 Status: Ordered oxyCODONE 5 mg oral tablet 5 mg, 1, tablet, By Mouth, Every 6 hours, PRN, # 10 tablet, Refills 0, Tot. Refills 0, Maintenance,as needed for pain, 08/23/22 19:48:00 EST, Route to Pharmacy Electronically, [facility]/pharmacy #[id number], Partial fill upon patient request if [...] Team Personnel Name: Triny Son RN Position: [facility] PCO RN Member Role: Primary Care Nurse Name: Jennifer Penny RN Position: [facility] RN Member Role: Primary Care Nurse Name: Wanda Man RN Position: [facility] OB RN Member Role: Primary Care Nurse Name: Aurelio Ravi DO Position: [facility] FOLLOW UP REP MD Member Role: Lifetime FOLLOW UP REP Physician Address: Address: [address] [place] [address] Instrumentation Chemist [place], [place] [address] Name: Sisi Interiano RN Position: [facility] RN Member Role: Primary Care Nurse Name: Arron Carr MD Position: [facility] Outreach Member Role: PCP Address: Address: [address] [place] [id number] Name: Emeka Chong RN Position: [facility] RN Member Role: Primary Care Nurse Name: Jasmin Mosqueda RN Position: [facility] OB RN Member Role: Primary Care Nurse Name: Jane Palomares RN Position: [facility] OB RN Member Role: Primary Care Nurse Name: Leena Friend RN Position: [facility] OB RN Member Role: Primary Care Nurse Care Team Related Persons Name: FRANCISCA REYES Address: home [address] [place] [address] Name: BERKLEY REYES Address: [facility] Name: LEVAR ZARATE Address: home [address] [place] [address] Name: JUNIOR ELIANA Address: [place] [address] Name: CAROLE CHUNG Address: [address] Address: home [address] [place] [address] [place] Name: TRACY CHUNG Address: [address] Address: [address] [address] [place] Name: LIS JAMA Address: [address] Address: home [address] [address] [place] Name: AKIRA JAMA Address: [address] Address: home [address] [place] [address] [place] Name: BERKLEY AVENDANO Address: home [address] [address] Name: JENNIFER BEARDEN
--- OUTSIDE RECORDS SUMMARY | 2024-05-16 15:31 | XMS_ITS | Continuity of Care Document ---
Author Organization [facility] Address [address] [place] [address]- Care Team Providers Care Edge Blacker Name Role Phone Not on Staff, PCP Primary Care Physician Unavail able Encounter [facility] Date(s): 04/08/20 - 05/20/20 [facility] [address] [address]- [facility] Attending Physician: Not on Staff, Attending MD [...] Refills, Maintenance, 03/05/20 16:59:00 EDT, Tablet, [id number], 1 tablet By Mouth Daily, 165, cm, [...]
--- OUTSIDE RECORDS SUMMARY | 2024-05-16 15:31 | XMS_ITS | Continuity of Care Document ---
Author Organization [facility] n[facility] Address [address] [place] [address]- Care Team Providers Care Respiratory Technician Name Role Phone Not on Staff, PCP Primary Care Physician Unavail able Encounter [facility] Date(s): 10/13/20 - 12/23/20 [facility] [address] [address]- Attending Physician: Not on Staff, Attending MD Referring Physician: Sabina Harrington MD Allergies, Adverse Reactions, Alerts Substance Reaction [...] give 325mg per patient preference and re-dose [id number] within 4 hours, if needed. Patient should [...] 10/14/20 8:26:00 EST, [id number] Partial fill upon patient request if the prescription is... Start Date: 10/14/20 Status: Ordered famotidine 20 mg oral tablet 20 mg, 1, tablet, By Mouth, 2 times a day, # 60 tablet, Refills 0, Tot. Refills 0, Maintenance, 06/17/20 15:15:00 EDT, Route to Pharmacy Electronically, [facility]/pharmacy #[id number], 165, cm, 06/17/20 15:10:00EDT, Height, 117, [...] 8 Refills, Maintenance, 03/05/20 16:59:00 EDT, Tablet, [facility]/pharmacy #[id number], 1 tablet By Mouth Daily, 165, cm, 02/27/19 7:33:00 EDT, Height, 117, kg, 10/14/19 23:49:00 EST, Dry Weight Start Date: 03/05/20 Status: Ordered Tums 500 mg oral tablet, chewable 500 mg, 1, tablet, Chew, 3 times a day, PRN, # 30 tablet, Refills 0, Tot. Refills 0, Maintenance, for control of stomach acid, 09/16/20 19:17:00 EST, [facility] [...]
--- OUTSIDE RECORDS SUMMARY | 2024-05-16 15:31 | XMS_ITS | Continuity of Care Document ---
Author Organization [facility] Address [address] [place] [address]- Care Team Providers Care Traffic Operations Engineer Name Role Phone Bruno DOS SANTOS, Arron Dash Primary Care Physician Encounter [facility] [place] Date(s): 08/05/22 - 09/10/[address] [address] Attending Physician: Annmarie Augustin DO Admitting Physician: [...] 0 Refills, Maintenance, 08/23/22 19:44:00 EST, Tablet, [facility]/pharmacy #[id number], Partial fill upon patient request [...] Refills, Maintenance, 08/23/22 19:45:00 EST, REC Powder, [facility]/pharmacy #[id number], Partial fill upon patient request if the prescription is for a schedule II opioid drug., 17 Gm By Mouth... Start Date: 08/23/22 Status: Ordered Nexplanon 68 mg subcutaneous implant 1 each = 68 mg, Subcutaneous Infusion, Once, Inserted 08/23/22 Lot [id number] Exp 07/28/24, 0 Refills,Maintenance, 08/23/22 19:16:00 EST, [...] 08/23/22 19:44:00 EST, Route to Pharmacy Electronically, [facility]/pharmacy #[id number], Partial fill upon patient request if the prescription is f... Start Date: 08/23/22 Status: Ordered Tylenol 325 mg oral capsule 2 capsule = 650 mg, By Mouth, Every 6 hours, PRN as needed for fever, # 50 capsule, 0 Refills, Maintenance, 09/07/22 16:37:00 EST, Capsule, [facility]/pharmacy #[id number], Partial fill upon patient request [...] Team Personnel Name: Triny Son RN Position: [facility] PCO RN Member Role: Primary Care Nurse Name: Jennifer Penny RN Position: [facility] RN Member Role: Primary Care Nurse Name: Wanda Man RN Position: [facility] OB RN Member Role: Primary Care Nurse Name: Aurelio Ravi DO Position: [facility] SEASONER HAND MD Member Role: Lifetime SEASONER HAND Physician Address: Address: [address] [place] [address]'s [facility] [place] [address]- Name: Sisi Interiano RN Position: [facility] RN Member Role: Primary Care Nurse Name: Arron Carr MD Position: [facility] Outreach Member Role: PCP Address: Address: [address] [place] [address]- Name: Emeka Chong RN Position: [facility] RN Member Role: Primary Care Nurse Name: Jasmin Mosqueda RN Position: [facility] OB RN Member Role: Primary Care Nurse Name: Jane Palomares RN Position: [facility] OB RN Member Role: Primary Care Nurse Name: Leena Friend RN Position: [facility] OB RN Member Role: Primary Care Nurse Care Team Related Persons Name: FRANCISCA REYES Address: home [address] [facility] [place] [address] Name: BERKLEY REYES Address: home [place] Name: LEVAR ZARATE Address: home [address] [place] [address] Name: JUNIOR ELIANA Address: [place] [address] Name: CAROLE CHUNG Address: [address] Address: home [address] [place] [address] [place] Name: TRACY CHUNG Address: [address] Address: home [address] [address] [place] Name: LIS JAMA Address: [address] Address: home [address] [address] [place] Name: AKIRA JAMA Address: [address] Address: home [address] [place] [address] [place] Name: BREKLEY AVENDANO Address: home [address] [address] Name: JENNIFER BEARDEN
--- OUTSIDE RECORDS SUMMARY | 2024-05-16 15:31 | XMS_ITS | Continuity of Care Document ---
Author Organization [facility] Address [address] [place] [address]- Care Team Providers Care Blood Or Blood Bank Technician Name Role Phone Bruno DOS SANTOS, Arron Dash Primary Care Physician [phone] Encounter [facility] Date(s): 07/18/22 - 08/17/[address] [address] Allergies, Adverse Reactions, Alerts Substance Reaction [...] Given. 3Admin Note: 11/15/06 VIS Given. Medications aspirin 81 mg oral delayed release tablet See Instructions, 2 tablet By Mouth Daily at bedtime, # 60 tablet, Refills 8, Tot. Refills 8, Maintenance, 03/03/22 10:23:00 EDT, Instructions Replace Required Details, Route to Pharmacy Electronically, [facility]/pharmacy #[id number], Partial fill upon patient re... Start Date: 03/03/22 Status: Ordered ferrous sulfate 325 mg oral tablet 1 tablet = 325 mg, By Mouth, Daily, # 90 tablet, 3 Refills, Maintenance, 02/10/22 14:01:00 EDT, Tablet, [facility]/pharmacy #[id number], Partial fill upon patient request if the prescription is for a schedule II opioid drug., 162, cm, 02/08/22 20:06:00 EDT, Height... Start Date: 02/10/22 Status: Ordered Multivitamins with Folic Acid 1 mg oral tablet 1 tablet, By Mouth, Daily, # 90 tablet, 3 Refills, Maintenance, 01/25/22 15:06:00 EDT, Tablet, [facility]/pharmacy #[id number], Partial fill upon patient [...] 09/16/20 19:17:00 EST, Route to Pharmacy Electronically, [facility]/pharmacy #[id number], Partial fill upon patient request if the prescr... Start Date: 09/16/20 Status: Ordered Problem List Condition Confirmation Course Effective Dates Status H ealth Status Informant H/O Anemia in Confirmed Active Dichorionic diamniotic twin gestation Confirmed Active History of suicidal ideation Confirmed Active Learning disability Confirmed Active Morbid obesity Confirmed Active Personality disorder Confirmed Active Other social stressor Confirmed Active Request for sterilization Confirmed Active Social History Social History Type Response Smoking Status Never (less than 100 in lifetime) entered on: 04/08/20 Sex Patient Care team information Care Team Personnel Name: Triny Son RN Position: [facility] PCO RN Member Role: Primary Care Nurse Name: Jennifer Penny RN Position: S RN Member Role: Primary Care Nurse Name: Wanda Man RN Position: [facility] OB RN Member Role: Primary Care Nurse Name: Aurelio Ravi DO Position: [facility] CRAB STEAMER MD Member Role: Lifetime CRAB STEAMER Physician Address: Address: [address] [place] [address] [facility] Past [place] [address]- [place] Name: Sisi Interiano RN Position: [facility] RN Member Role: Primary Care Nurse Name: Arron Carr MD Position: [facility] Outreach Member Role: PCP Address: Address: [address] [place] [address]- [place] Name: Emeka Chong RN Position: [facility] RN Member Role: Primary Care Nurse Name: Jasmin Mosqueda RN Position: [facility] OB RN Member Role: Primary Care Nurse Name: Jane Palomares RN Position: [facility] OB RN Member Role: Primary Care Nurse Name: Leena Friend RN Position: [facility] OB RN Member Role: Primary Care Nurse Care Team Related Persons Name: FRANCISCA REYES Address: home [address] [place] [address] Name: BERKLEY REYES Address: home [place] Name: LEVAR ZARATE Address: home [address] [place] [address] Name: JUNIOR ELIANA Address: [place] [address] Name: LIS JAMA Address: [address] Address: home [address] [address] [place] Name: AKIRA JAMA Address: [address] Address: home [address] [place] [address] [place] Name: BERKLEY AVENDANO Address: home [address] [address] Name: JENNIFER BEARDEN
--- OUTSIDE RECORDS SUMMARY | 2024-05-16 15:31 | XMS_ITS | Continuity of Care Document ---
Author Organization [facility] Address [address] [place] [id number]- Care Team Providers Care Boat Outfitter Name Role Phone Not on Staff, PCP Primary Care Physician Unavail able Encounter [facility] [place](s): 04/06/22 - 05/06/[address] [address]- Allergies, Adverse Reactions, Alerts Substance Reaction Severity [...] give 325mg per patient preference and re-dose [id number] within 4 hours, if needed. Patient should [...] Replace Required Details, Route to Pharmacy Electronically, [facility]/pharmacy #[id number], Partial fill upon patient re... Start Date: 03/03/22 Status: Ordered docusate sodium 100 mg oral capsule 100 mg, 1, capsule, By Mouth, 2 times a day, PRN, # 30 capsule, Refills 0, Tot. Refills 0, Maintenance, Constipation, 10/14/20 8:26:00 EST, Route to Pharmacy Electronically, [facility]/pharmacy #[id number], Partial fill upon patient request if the prescription is... Start Date: 10/14/20 Status: Ordered ferrous sulfate 325 mg oral tablet 1 tablet = 325 mg, By Mouth, Daily, Take daily for anemia, # 90 tablet, 0 Refills, Maintenance, 04/15/22 15:31:00 EDT, Tablet, [facility]/pharmacy #[id number], Partial fill upon patient request if the prescription is for a schedule II opioid drug., 162, cm, ... Start Date: 04/15/22 Status: Ordered ferrous sulfate 325 mg oral tablet 1 tablet = 325 mg, By Mouth, Daily, # 90 tablet, 3 Refills, Maintenance, 02/10/22 14:01:00 EDT, Tablet, [facility]/pharmacy #[id number], Partial fill upon patient request if the prescription is for a schedule II opioid drug., 162, cm, 02/08/22 20:06:00 EDT, Height... Start Date: 02/10/22 Status: Ordered Heartburn Relief 10 mg oral tablet 1 tablet, By Mouth, 2 times a day, # 60 tablet, 6 Refills, Soft Stop, 05/06/22 9:40:00 EDT, [facility]/pharmacy #[id number], 162, cm, 03/03/22 10:00:00 EDT, Height, 115.5, kg, 02/08/22 19:58:00 EDT, Dry Weight Start Date: 05/06/22 Status: Ordered metoclopramide 5 mg oral tablet 1 tablet, By Mouth, 2 times a day, for 30 days, # 60 tablet, 0 Refills, Physician Stop, [id number], 162, cm, 03/03/22 10:00:00 EDT, Height, 115.5, kg, 02/08/22 19:58:00 EDT, Dry Weight Start Date: 04/25/22 Stop Date: 05/25/22 Status: Ordered naproxen 500 mg oral delayed release tablet 1 tablet = 500 mg, By Mouth, 2 times a day, # 60 tablet, 0 Refills, Maintenance, 06/14/21 16:52:00 EDT, EC Tablet, [facility]/pharmacy #[id number], Partial fill upon patient request if the prescription is for a schedule II opioid drug., 163, cm, 10/14/20 16:15:00... Start Date: 06/14/21 Status: Ordered Multivitamins with Folic Acid 1 mg oral tablet 1 tablet, By Mouth, Daily, # 90 tablet, 3 Refills, Maintenance, 01/25/22 15:06:00 EDT, Tablet, [facility]/pharmacy #[id number], Partial fill [...] 09/16/20 19:17:00 EST, Route to Pharmacy Electronically, [facility]/pharmacy #[id number], Partial fill upon patient request if the prescr... Start Date: 09/16/20 Status: Ordered Tylenol Extra Strength 500 mg oral tablet 1 tablet = 500 mg, By Mouth, Every 8 hours, PRN as needed for fever, # 30 tablet, 0 Refills, Maintenance, 06/14/21 16:52:00 EDT, Tablet, [facility]/pharmacy #[id number], Partial fill [...] 1 Refills, Maintenance, 04/10/22 14:09:00 EDT, Tablet, [facility]/pharmacy #[id number], Partial fill upon patient request if... Start Date: 04/10/22 Status: Ordered Unisom 25 mg oral tablet 1 tablet = 25 mg, By Mouth, Daily at bedtime, PRN for sleep, # 32 tablet, 0 Refills, Maintenance, 01/29/22 21:21:00 EDT, Tablet, [facility]/pharmacy #[id number], 162, cm, 01/20/22 0:10:00 EDT, Height, 127.5, kg, 10/11/20 21:21:00 EST, Dry Weight Start Date: 01/29/22 Status: Ordered Unisom 25 mg oral tablet 1 tablet = 25 mg, By Mouth, Daily at bedtime, PRN for sleep, Take nightly to prevent nausea in ., # 30 tablet, 0 Refills, Maintenance, 03/25/22 20:11:00 EDT, Tablet, [facility]/pharmacy #[id number], Partial fill upon patient request if the prescription is... Start Date: 03/25/22 Status: Ordered Vitamin B6 50 mg oral tablet See Instructions, TAKE 3 TIMES PER DAY TO PREVENT NAUSEA IN ., # 90 tablet, Refills 0, Instructions Replace Required Details, Route to Pharmacy Electronically, [id number], 162, cm, 03/03/22 10:00:00 EDT, Height, 115.5, [...]
--- OUTSIDE RECORDS SUMMARY | 2024-05-16 15:31 | XMS_ITS | Continuity of Care Document ---
Author Organization [facility] Address [address] [place] [address]- Care Team Providers Care Cadworx Piping Designer Name Role Phone Not on Staff, PCP Primary Care Physician Unavail able Encounter [facility] [place] Date(s): 09/22/20 - 11/04/20 [facility] [address] [address]- Attending Physician: Not on Staff, Attending MD [...] give 325mg per patient preference and re-dose [id number] within 4 hours, if needed. Patient should [...] 10/14/20 8:26:00 EST, Route to Pharmacy Electronically, [facility]/pharmacy #[id number], Partial fill upon patient request if the prescription is... Start Date: 10/14/20 Status: Ordered famotidine 20 mg oral tablet 20 mg, 1, tablet, By Mouth, 2 times a day, # 60 tablet, Refills 0, Tot. Refills 0, Maintenance, 06/17/20 15:15:00 EDT, Route to Pharmacy Electronically, [facility]/pharmacy #[id number], 165, cm, 06/17/20 15:10:00EDT, Height, 117, [...] 8 Refills, Maintenance, 03/05/20 16:59:00 EDT, Tablet, [facility]/pharmacy #[id number], 1 tablet By Mouth Daily, 165, cm, 02/27/19 7:33:00 EDT, Height, 117, kg, 10/14/19 23:49:00 EST, Dry Weight Start Date: 03/05/20 Status: Ordered Tums 500 mg oral tablet, chewable 500 mg, 1, tablet, Chew, 3 times a day, PRN, # 30 tablet, Refills 0, Tot. Refills 0, Maintenance, for control of stomach acid, 09/16/20 19:17:00 EST, Route to Pharmacy Electronically, [facility]/pharmacy #[id number], Partial fill upon patient [...]
--- OUTSIDE RECORDS SUMMARY | 2024-05-16 15:31 | XMS_ITS | Continuity of Care Document ---
Author Organization [facility] Address [address] [place] [address]- Care Team Providers Care Target Aircraft Technician Name Role Phone Not on Staff, PCP Primary Care Physician Unavail able [place] [facility] [place] 08/21/20 - 09/20/20 [facility] [address] [place] [address]- Attending Physician: Rikki Rodriguez Admitting Physician: Rikki [...] 15:15:00 EDT, Route to Pharmacy Electronically, [facility]/pharmacy #[id number], 165, cm, 06/17/20 15:10:00EDT, Height, 117, kg, 10/14/19 23:49:00 EST, Dry We... Start Date: 06/17/20 Stop Date: 07/17/20 Status: Ordered Multivitamins with Folic Acid 1 mg oral tablet 1 tablet, By Mouth, Daily, # 30 tablet, 8 Refills, Maintenance, 03/05/20 16:59:00 EDT, Tablet, [facility]/pharmacy #[id number], 1 tablet By Mouth Daily, 165, cm, 02/27/19 7:33:00 EDT, Height, 117, kg, 10/14/19 23:49:00 EST, Dry Weight Start Date: 03/05/20 Status: Ordered Tums 500 mg oral tablet, chewable 500 mg, 1, tablet, Chew, 3 times a day, PRN, # 30 tablet, Refills 0, Tot. Refills 0, Maintenance, for control of stomach acid, 09/16/20 19:17:00 EST, Route to Pharmacy Electronically, [facility]/pharmacy #[id number], Partial fill upon patient request if the prescr... Start Date: 09/16/20 Status: Ordered Vitamin B6 25 mg oral tablet See Instructions, 1 tablet By Mouth up to 3 times Daily for nausea, # 90 tablet, 1 Refills, Maintenance, 05/20/20 16:24:00 EDT, [facility]/pharmacy #[id number], 165, cm, 05/20/20 15:09:00 EDT, [...]
--- OUTSIDE RECORDS SUMMARY | 2024-05-16 15:31 | XMS_ITS | Continuity of Care Document ---
Author Organization [facility] Address [address] [place] [address]- Care Team Providers Care Theater Manager Name Role Phone Not on Staff, PCP Primary Care Physician Unavail able Encounter [facility] Date(s): 03/30/22 - 04/29/[address] [address]- Allergies, Adverse Reactions, Alerts Substance Reaction Severity [...] give 325mg per patient preference and re-dose [id number] within 4 hours, if needed. Patient should [...] Replace Required Details, Route to Pharmacy Electronically, [facility]/pharmacy #[id number], Partial fill upon patient re... Start Date: 03/03/22 Status: Ordered docusate sodium 100 mg oral capsule 100 mg, 1, capsule, By Mouth, 2 times a day, PRN, # 30 capsule, Refills 0, Tot. Refills 0, Maintenance, Constipation, 10/14/20 8:26:00 EST, Route to Pharmacy Electronically, [facility]/pharmacy #[id number], Partial fill upon patient request if the prescription is... Start Date: 10/14/20 Status: Ordered famotidine 10 mg oral tablet 1 tablet = 10 mg, By Mouth, 2 times a day, # 60 tablet, 0 Refills, Maintenance, 03/30/22 12:23:00 EDT, Tablet, [facility]/pharmacy #[id number], Partial fill upon patient request if the prescription is for a schedule II opioid drug., 162, cm, 03/03/22 10:00:00 EDT,... Start Date: 03/30/22 Status: Ordered famotidine 20 mg oral tablet 20 mg, 1, tablet, By Mouth, 2 times a day, # 60 tablet, Refills 0, Tot. Refills 0, Maintenance, 02/08/22 20:18:00 EDT, Route to Pharmacy Electronically, [facility]/pharmacy #[id number], 162, cm, 02/08/22 20:06:00EDT, Height, 115.5, kg, 02/08/22 19:58:00 EDT, Dry... Start Date: 02/08/22 Stop Date: 03/10/22 Status: Ordered ferrous sulfate 325 mg oral tablet 1 tablet = 325 mg, By Mouth, Daily, Take daily for anemia, # 90 tablet, 0 Refills, Maintenance, 04/15/22 15:31:00 EDT, Tablet, [facility]/pharmacy #[id number], Partial fill upon patient request if the prescription is for a schedule II opioid drug., 162, cm, ... Start Date: 04/15/22 Status: Ordered ferrous sulfate 325 mg oral tablet 1 tablet = 325 mg, By Mouth, Daily, # 90 tablet, 3 Refills, Maintenance, 02/10/22 14:01:00 EDT, Tablet, [facility]/pharmacy #[id number], Partial fill upon patient request if the prescription is for a schedule II opioid drug., 162, cm, 02/08/22 20:06:00 EDT, Height... Start Date: 02/10/22 Status: Ordered metoclopramide 5 mg oral tablet 1 tablet, By Mouth, 2 times a day, for 30 days, # 60 tablet, 0 Refills, Physician Stop, [id number], 162, cm, 03/03/22 10:00:00 EDT, Height, 115.5, kg, 02/08/22 19:58:00 EDT, Dry Weight Start Date: 04/25/22 Stop Date: 05/25/22 Status: Ordered naproxen 500 mg oral delayed release tablet 1 tablet = 500 mg, By Mouth, 2 times a day, # 60 tablet, 0 Refills, Maintenance, 06/14/21 16:52:00 EDT, EC Tablet, [facility]/pharmacy #[id number], Partial fill upon patient request if the prescription is for a schedule II opioid drug., 163, cm, 10/14/20 16:15:00... Start Date: 06/14/21 Status: Ordered Multivitamins with Folic Acid 1 mg oral tablet 1 tablet, By Mouth, Daily, # 90 tablet, 3 Refills, Maintenance, 01/25/22 15:06:00 EDT, Tablet, [facility]/pharmacy #[id number], Partial fill upon patient request [...] 0 Refills, Maintenance, 06/14/21 16:52:00 EDT, Tablet, [facility]/pharmacy #[id number], Partial fill upon patient request if the prescription is for a schedule II opioid drug., 163,... Start Date: 06/14/21 Status: Ordered Unisom 25 mg oral tablet 1 tablet = 25 mg, By Mouth, Daily at bedtime, PRN Nausea & Vomiting, Take nightly to prevent nausea and vomiting in , # 30 tablet, 1 Refills, Maintenance, 04/10/22 14:09:00 EDT, Tablet, [facility]/pharmacy #[id number], Partial fill upon patient request if... Start Date: 04/10/22 Status: Ordered Unisom 25 mg oral tablet 1 tablet = 25 mg, By Mouth, Daily at bedtime, PRN for sleep, # 32 tablet, 0 Refills, Maintenance, 01/29/22 21:21:00 EDT, Tablet, [facility]/pharmacy #[id number], 162, cm, 01/20/22 0:10:00 EDT, Height, 127.5, kg, 10/11/20 21:21:00 EST, Dry Weight Start Date: 01/29/22 Status: Ordered Unisom 25 mg oral tablet 1 tablet = 25 mg, By Mouth, Daily at bedtime, PRN for sleep, Take nightly to prevent nausea in ., # 30 tablet, 0 Refills, Maintenance, 03/25/22 20:11:00 EDT, Tablet, [facility]/pharmacy #[id number], Partial fill upon patient request if the prescription is... Start Date: 03/25/22 Status: Ordered Vitamin B6 25 mg oral tablet 1 tablet = 25 mg, By Mouth, 3 times a day, for 30 days, # 90 tablet, 2 Refills, Acute 05/18/22 12:57:00 EDT, 02/17/22 12:57:00 EDT, [facility]/pharmacy #[id number], Partial fill upon patient request if the prescription is for a schedule II opioid drug., 162, cm, 0... Start Date: 02/17/22 Stop Date: 05/18/22 Status: Ordered Vitamin B6 25 mg oral tablet See Instructions, 1 tablet By Mouth up to 3 times Daily for nausea, # 90 tablet, 1 Refills, Maintenance, 05/20/20 16:24:00 EDT, [facility]/pharmacy #[id number], 165, cm, 05/20/20 15:09:00 EDT, Height, 117, kg, 10/14/19 23:49:00 EST, Dry Weight Start Date: 05/20/20 Status: Ordered Vitamin B6 50 mg oral tablet See Instructions, Take 3 times per day to prevent nausea in ., # 90 tablet, Refills 0, Tot. Refills 0, Maintenance, 03/25/22 20:11:00 EDT, Instructions Replace Required Details, Route to Pharmacy Electronically, [facility]/pharmacy #[id number], Partial fi... Start Date: 03/25/22 Status: [...]
--- OUTSIDE RECORDS SUMMARY | 2024-05-16 15:31 | XMS_ITS | Continuity of Care Document ---
Author Organization [facility] Address [address] [place] [address]- Care Team Providers Care Chiropractic Physician Name Role Phone Not on Staff, PCP Primary Care Physician Unavail able Encounter [facility] [place] Date(s): 06/14/21 - 06/14/[address] [address]- Encounter Diagnosis Pain, dental(Final) - 06/14/21 Discharge Disposition: A-D/C Home Attending Physician: Lacie Reeves MD Admitting Physician: Lacie Reeves MD Referring Physician: Not on Staff, Referring [...] give 325mg per patient preference and re-dose [id number] within 4 hours, if needed. Patient should [...] 10/14/20 8:26:00 EST, [id number] Partial fill upon patient request if the prescription is... Start Date: 10/14/20 Status: Ordered famotidine 20 mg oral tablet 20 mg, 1, tablet, By Mouth, 2 times a day, # 60 tablet, Refills 0, Tot. Refills 0, Maintenance, 06/17/20 15:15:00 EDT, Route to Pharmacy Electronically, [facility]/pharmacy #[id number], 165, cm, 06/17/20 15:10:00EDT, Height, [...] Tot. Ref... Start Date: 10/14/20 Status: Ordered naproxen 500 mg oral delayed release tablet 1 tablet = 500 mg, By Mouth, 2 times a day, # 60 tablet, 0 Refills, Maintenance, 06/14/21 16:52:00 EDT, EC Tablet, [facility]/pharmacy #[id number], Partial fill upon patient request if the prescription is for a schedule II opioid drug., 163, cm, 10/14/20 16:15:00... Start Date: 06/14/21 Status: Ordered Multivitamins with Folic Acid 1 mg oral tablet 1 tablet, By Mouth, Daily, # 30 tablet, 8 Refills, Maintenance, 03/05/20 16:59:00 EDT, Tablet, [facility]/pharmacy #[id number], 1 tablet By Mouth Daily, 165, cm, 02/27/19 7:33:00 EDT, Height, 117, kg, 10/14/19 23:49:00 EST, Dry Weight Start Date: 03/05/20 Status: Ordered Tums 500 mg oral tablet, chewable 500 mg, 1, tablet, Chew, 3 times a day, PRN, # 30 tablet, Refills 0, Tot. Refills 0, Maintenance, for control of stomach acid, 09/16/20 19:17:00 EST, Route to Pharmacy Electronically, [facility]/pharmacy #[id number], Partial fill upon patient request if the prescr... Start Date: 09/16/20 Status: Ordered Tylenol Extra Strength 500 mg oral tablet 1 tablet = 500 mg, By Mouth, Every 8 hours, PRN as needed for fever, # 30 tablet, 0 Refills, Maintenance, 06/14/21 16:52:00 EDT, Tablet, [facility]/pharmacy #[id number], Partial fill upon patient request if the prescription is for a schedule II opioid drug., 163,... Start Date: 06/14/21 Status: Ordered Vitamin B6 25 mg oral tablet See Instructions, 1 tablet By Mouth up to 3 times Daily for nausea, # 90 tablet, 1 Refills, Maintenance, 05/20/20 16:24:00 EDT, [facility]/pharmacy #[id number], 165, cm, 05/20/20 15:09:00 EDT, Height, 117, kg, 10/14/19 23:49:00 EST, Dry Weight Start Date: 05/20/20 Status: Ordered Problem List Condition Effective Dates Status Health Status Inform ant Abnormal first trimester screen(Confirmed) Active History of suicidal ideation(Confirmed) Active Learning disability(Confirmed) Active Morbid obesity(Confirmed) Active Obesity, Morbid - BMI 47(Confirmed) Active Personality disorder(Confirmed) Active Other social stressor(Confirmed) Active Vital Signs Most recent to oldest [Reference Range]: 1 2 Oxygen Saturation [94-100 %] 99 % (06/14/21 12:32 PM) 98 % (06/14/21 12:30 PM) Pulse Rate [55-90 bpm] 85 bpm (06/14/21 12:32 PM) 92 bpm *H* (06/14/21 12:30 PM) Blood Pressure [90-138/55-84 mm Hg] 114/ 71mm Hg (06/14/21 12:32 PM) Respiratory Rate [16-30 br/min] 19 br/mi n (9/6/21 12:32 PM) Temperature [96.8-100.4 DegF] 98.5 DegF (06/14/21 12:32 PM) Liters per Minute 0 L/min (06/14/21 12:32 PM) Mode of Delivery (Oxygen) Room air (06/14/21 12:32 PM) Room air (06/14/21 12:30 PM) Blood pressure sites Arm, right (06/14/21 12:32 PM) Temperature Route Oral (06/14/21 12:32 PM) Social History Social History Type Response Smoking Status Never (less than 100 in lifetime) entered on: 04/08/20 Sex
--- OUTSIDE RECORDS SUMMARY | 2024-05-16 15:31 | XMS_ITS | Continuity of Care Document ---
Author Organization [facility] Address [address] [place] [phone]- Care Team Providers Care Water Aerobics Instructor Name Role Phone Not on Staff, PCP Primary Care Physician Unavail able [place] [facility] [place] 03[place] [facility] [address] [address]- Allergies, Adverse Reactions, Alerts Substance Reaction Severity [...] give 325mg per patient preference and re-dose [id number] within 4 hours, if needed. Patient should [...] Replace Required Details, Route to Pharmacy Electronically, [facility]/pharmacy #[id number], Partial fill upon patient re... Start Date: 03/03/22 Status: Ordered docusate sodium 100 mg oral capsule 100 mg, 1, capsule, By Mouth, 2 times a day, PRN, # 30 capsule, Refills 0, Tot. Refills 0, Maintenance, Constipation, 10/14/20 8:26:00 EST, Route to Pharmacy Electronically, [facility]/pharmacy #[id number], Partial fill upon patient request if the prescription is... Start Date: 10/14/20 Status: Ordered famotidine 20 mg oral tablet 20 mg, 1, tablet, By Mouth, 2 times a day, # 60 tablet, Refills 0, Tot. Refills 0, Maintenance, 02/08/22 20:18:00 EDT, Route to Pharmacy Electronically, [facility]/pharmacy #[id number], 162, cm, 02/08/22 20:06:00EDT, Height, 115.5, kg, 02/08/22 19:58:00 EDT, Dry... Start Date: 02/08/22 Stop Date: 03/10/22 Status: Ordered ferrous sulfate 325 mg oral tablet 1 tablet = 325 mg, By Mouth, Daily, # 90 tablet, 3 Refills, Maintenance, 02/10/22 14:01:00 EDT, Tablet, [facility]/pharmacy #[id number], Partial fill upon patient request if the prescription is for a schedule II opioid drug., 162, cm, 02/08/22 20:06:00 EDT, Height... Start Date: 02/10/22 Status: Ordered naproxen 500 mg oral delayed release tablet 1 tablet = 500 mg, By Mouth, 2 times a day, # 60 tablet, 0 Refills, Maintenance, 06/14/21 16:52:00 EDT, EC Tablet, [facility]/pharmacy #[id number], Partial fill upon patient request if the prescription is for a schedule II opioid drug., 163, cm, 10/14/20 16:15:00... Start Date: 06/14/21 Status: Ordered Multivitamins with Folic Acid 1 mg oral tablet 1 tablet, By Mouth, Daily, # 90 tablet, 3 Refills, Maintenance, 01/25/22 15:06:00 EDT, Tablet, [facility]/pharmacy #[id number], Partial fill upon patient request if the prescription is for a schedule II opioid drug., 1 tablet By Mouth Daily, 162, cm, 01/20/22 0:10... Start Date: 01/25/22 Status: Ordered Reglan 5 mg oral tablet 1 tablet = 5 mg, By Mouth, Daily, # 30 tablet, 0 Refills, Maintenance, 03/03/22 10:23:00 EDT, [facility]/pharmacy #[id number], Partial fill upon patient request [...] 19:17:00 EST, Route to Pharmacy Electronically, [facility]/pharmacy #[id number], Partial fill upon patient request if the prescr... Start Date: 09/16/20 Status: Ordered Tylenol Extra Strength 500 mg oral tablet 1 tablet = 500 mg, By Mouth, Every 8 hours, PRN as needed for fever, # 30 tablet, 0 Refills, Maintenance, 06/14/21 16:52:00 EDT, Tablet, [facility]/pharmacy #[id number], Partial fill upon patient request [...] Acute 05/18/22 12:57:00 EDT, 02/17/22 12:57:00 EDT, [facility]/pharmacy #[id number], Partial fill upon patient request if the prescription is for a schedule II opioid drug., 162, cm, 0... Start Date: 02/17/22 Stop Date: 05/18/22 Status: Ordered Vitamin B6 25 mg oral tablet See Instructions, 1 tablet By Mouth up to 3 times Daily for nausea, # 90 tablet, 1 Refills, Maintenance, 05/20/20 16:24:00 EDT, [facility]/pharmacy #[id number], 165, cm, 05/20/20 15:09:00 EDT, [...]
--- OUTSIDE RECORDS SUMMARY | 2024-05-16 15:31 | XMS_ITS | Continuity of Care Document ---
Author Organization [facility] Address [address] [place] [address]- Care Team Providers Care Dry Kiln Burner Name Role Phone Bruno DOS SANTOS, Arron Dash Primary Care Physician [place] [facility] [place] - 09/04/[address] [address] Allergies, Adverse Reactions, Alerts Substance [...] Refills, Maintenance, 08/23/22 19:45:00 EST, REC Powder, [facility]/pharmacy #[id number], Partial fill upon patient request if the prescription is for a schedule II opioid drug., 17 Gm By Mouth... Start Date: 08/23/22 Status: Ordered Nexplanon 68 mg subcutaneous implant 1 each = 68 mg, Subcutaneous Infusion, Once, Inserted 08/23/22 Lot [id number] Exp 07/28/24, 0 Refills,Maintenance, 08/23/22 19:16:00 EST, Partial fill upon patient request if the prescription is for a schedule II opioid drug. Start Date: 08/23/22 Status: Ordered oxyCODONE 5 mg oral tablet 5 mg, 1, tablet, By Mouth, Every 6 hours, PRN, # 10 tablet, Refills 0, Tot. Refills 0, Maintenance,as needed for pain, 08/23/22 19:48:00 EST, Route to Pharmacy Electronically, [facility]/pharmacy #[id number], Partial fill upon patient request if the prescription... Start Date: 08/23/22 Status: Ordered simethicone 80 mg oral tablet, chewable 80 mg, 1, tablet, Chew, 4 times a day, PRN, # 36 tablet, Refills 0, Tot. Refills 0, Maintenance, asneeded for gas, 08/23/22 19:44:00 EST, Route to Pharmacy Electronically, [facility]/pharmacy #[id number], Partial fill upon patient request [...] Team Personnel Name: Triny Son RN Position: [facility] PCO RN Member Role: Primary Care Nurse Name: Jennifer Penny RN Position: [facility] RN Member Role: Primary Care Nurse Name: Wanda Man RN Position: [facility] OB RN Member Role: Primary Care Nurse Name: Aurelio Ravi DO Position: [facility] YARN WORKER MD Member Role: Lifetime YARN WORKER Physician Address: Address: [address] [place] [address] [place], [place] [address] Name: Sisi Interiano RN Position: [facility] RN Member Role: Primary Care Nurse Name: Arron Carr MD Position: [facility] Outreach Member Role: PCP Address: Address: [address] [place] [id number] Name: Emeka Chong RN Position: [facility] RN Member Role: Primary Care Nurse Name: Jasmin Mosqueda RN Position: [facility] OB RN Member Role: Primary Care Nurse Name: Jane Palomares RN Position: [facility] OB RN Member Role: Primary Care Nurse Name: Leena Friend RN Position: [facility] OB RN Member Role: Primary Care Nurse Care Team Related Persons Name: FRANCISCA REYES Address: home [address] [place] [address] Name: BERKLEY REYES Address: [facility] Name: LEVAR ZARATE Address: home [address] [place] [address] Name: JUNIOR ELIANA Address: [place] [address] Name: CAROLE CHUNG Address: [address] Address: home [address] [place] [address] [place] Name: TRACY CHUNG Address: [address] Address: home [address] [address] [place] Name: LIS JAMA Address: [address] Address: [address] [address] [place] Name: AKIRA JAMA Address: [address] Address: home [address] [place] [address] [place] Name: BERKLEY AVENDANO Address: home [address] [address] Name: JENNIFER BEARDEN
--- OUTSIDE RECORDS SUMMARY | 2024-05-16 15:31 | XMS_ITS | Continuity of Care Document ---
Author Organization [facility] Address [address] [place] [address]- Care Team Providers Care Acrylic Fabricator Name Role Phone Not on Staff, PCP Primary Care Physician Unavail able Encounter [facility] [place] Date(s): 02/09/22 - 03/11/22 [facility] [address] [address]- Allergies, Adverse Reactions, Alerts Substance Reaction Severity [...] give 325mg per patient preference and re-dose [id number] within 4 hours, if needed. Patient should [...] Replace Required Details, [id number] fill upon patient re... Start Date: 03/03/22 Status: Ordered docusate sodium 100 mg oral capsule 100 mg, 1, capsule, By Mouth, 2 times a day, PRN, # 30 capsule, Refills 0, Tot. Refills 0, Maintenance, Constipation, 10/14/20 8:26:00 EST, Route to Pharmacy Electronically, [facility]/pharmacy #[id number], Partial fill upon patient request if the prescription is... Start Date: 10/14/20 Status: Ordered famotidine 20 mg oral tablet 20 mg, 1, tablet, By Mouth, 2 times a day, # 60 tablet, Refills 0, Tot. Refills 0, Maintenance, 02/08/22 20:18:00 EDT, Route to Pharmacy Electronically, [facility]/pharmacy #[id number], 162, cm, 02/08/22 20:06:00EDT, Height, 115.5, kg, 02/08/22 19:58:00 EDT, Dry... Start Date: 02/08/22 Stop Date: 03/10/22 Status: Ordered ferrous sulfate 325 mg oral tablet 1 tablet = 325 mg, By Mouth, Daily, # 90 tablet, 3 Refills, Maintenance, 02/10/22 14:01:00 EDT, Tablet, [facility]/pharmacy #[id number], Partial fill upon patient request if the prescription is for a schedule II opioid drug., 162, cm, 02/08/22 20:06:00 EDT, Height... Start Date: 02/10/22 Status: Ordered metoclopramide 5 mg oral tablet 1 tablet, By Mouth, 2 times a day, for 30 days, # 60 tablet, 0 Refills, Physician Stop, [facility] STORE [id number], 162, cm, 02/08/22 20:06:00 EDT, Height, 115.5, [...]
--- OUTSIDE RECORDS SUMMARY | 2024-05-16 15:31 | XMS_ITS | Continuity of Care Document ---
Author Organization [facility] Address [address] [place] [address]- Care Team Providers Care Wood Bucker Name Role Phone Not on Staff, PCP Primary Care Physician Unavail able En[place] [facility] [place] Date(s): 05/24/22 - 06/23/22 [facility] [address] [address]- Allergies, Adverse Reactions, Alerts Substance Reaction Severity [...] give 325mg per patient preference and re-dose [id number] within 4 hours, if needed. Patient should [...] Replace Required Details, [id number] fill upon patient re... Start [...] 6 Refills, Soft Stop, 05/09/22 11:09:00 EDT, [facility]/pharmacy #[id number], 162, cm, 03/03/22 10:00:00 EDT, [...] Refills, Maintenance, 01/29/22 21:21:00 EDT, Tablet, [facility]/pharmacy #[id number], 162, cm, 01/20/22 0:10:00 EDT, Height, 127.5, kg, 10/11/20 21:21:00 EST, Dry Weight Start Date: 01/29/22 Status: Ordered Vitamin B6 50 mg oral tablet See Instructions, TAKE 3 TIMES PER DAY TO PREVENT NAUSEA IN ., # 90 tablet, Refills 0, Instructions Replace Required Details, Route to Pharmacy Electronically, [facility] STORE [id number], 162, cm, 03/03/22 10:00:00 EDT, Height, 115.5, [...] 100 in lifetime) entered on: 04/08/20 Sex Care Team Personnel Name: Not on Staff, PCP
--- OUTSIDE RECORDS SUMMARY | 2024-05-16 15:31 | XMS_ITS | Continuity of Care Document ---
Author Organization [facility] Address [address] [place] [address]- Care Team Providers Care Chemistry Physics Teacher Name Role Phone Lorri Segundo Primary Care Physician [phone] Encounter [facility] [place] Date(s): 05/31/22 - 05/31/[address] [address]- Encounter Diagnosis (Final) - 05/31/22 Discharge Disposition: Transferred to an intermediate care faci Attending Physician: Jaguar Bland MD Admitting Physician: Jaguar Bland MD Referring Physician: Not on Staff, Referring [...] give 325mg per patient preference and re-dose [id number] within 4 hours, if needed. Patient should [...] Required Details, Route to Pharmacy Electronically, [facility]/pharmacy #[id number], Partial fill upon patient re... Start Date: 03/03/22 Status: Ordered docusate sodium 100 mg oral capsule 100 mg, 1, capsule, By Mouth, 2 times a day, PRN, # 30 capsule, Refills 0, Tot. Refills 0, Maintenance, Constipation, 10/14/20 8:26:00 EST, Route to Pharmacy Electronically, [facility]/pharmacy #[id number], Partial fill upon patient request if the prescription is... Start Date: 10/14/20 Status: Ordered ferrous sulfate 325 mg oral tablet 1 tablet = 325 mg, By Mouth, Daily, # 90 tablet, 3 Refills, Maintenance, 02/10/22 14:01:00 EDT, Tablet, [facility]/pharmacy #[id number], Partial fill upon patient request if the prescription is for a schedule II opioid drug., 162, cm, 02/08/22 20:06:00 EDT, Height... Start Date: 02/10/22 Status: Ordered Heartburn Relief 10 mg oral tablet 1 tablet, By Mouth, 2 times a day, # 60 tablet, 6 Refills, Soft Stop, 05/09/22 11:09:00 EDT, [facility]/pharmacy #[id number], 162, cm, 03/03/22 10:00:00 EDT, Height, 115.5, kg, 02/08/22 19:58:00 EDT, Dry Weight Start Date: 05/09/22 Status: Ordered metoclopramide 5 mg oral tablet 1 tablet, By Mouth, 2 times a day, for 30 days, # 60 tablet, 0 Refills, Physician Stop 06/08/22 11:09:00 EDT, 05/09/22 11:09:00 EDT, [id number], 162, cm, 03/03/22 10:00:00 EDT, Height, 115.5,kg, 02/08/22 19:58:00 EDT, Dry Weight Start Date: 05/09/22 Stop Date: 06/08/22 Status: Ordered Multivitamins with Folic Acid 1 mg oral tablet 1 tablet, By Mouth, Daily, # 90 tablet, 3 Refills, Maintenance, 01/25/22 15:06:00 EDT, Tablet, [facility]/pharmacy #[id number], Partial fill upon patient request if [...] 09/16/20 19:17:00 EST, [id number] Partial fill upon patient request if the prescr... Start Date: 09/16/20 Status: Ordered Unisom 25 mg oral tablet 1 tablet = 25 mg, By Mouth, Daily at bedtime, PRN for sleep, # 32 tablet, 0 Refills, Maintenance, 01/29/22 21:21:00 EDT, Tablet, [facility]/pharmacy #[id number], 162, cm, 01/20/22 0:10:00 EDT, Height, 127.5, kg, 10/11/20 21:21:00 EST, Dry Weight Start Date: 01/29/22 Status: Ordered Vitamin B6 50 mg oral tablet See Instructions, TAKE 3 TIMES PER DAY TO PREVENT NAUSEA IN ., # 90 tablet, Refills 0, Instructions Replace Required Details, Route to Pharmacy Electronically, [facility] STORE [id number], 162, cm, 03/03/22 10:00:00 EDT, Height, 115.5, kg, 02/08/22 19:58... Start Date: 05/06/22 Status: Ordered Problem List Condition Effective Dates Status Health Status Inform ant History of suicidal ideation(Confirmed) Active Learning disability(Confirmed) Active Morbid obesity(Confirmed) Active Obesity, Morbid - BMI 47(Confirmed) Active Personality disorder(Confirmed) Active Severe obesity(Confirmed) Active Other social stressor(Confirmed) Active Vital Signs Most recent to oldest [Reference Range]: 1 Oxygen Saturation [94-100 %] 100 % (05/31/22 6:40 PM) Pulse Rate [55-90 bpm] 80 bpm (05/31/22 6:40 PM) Blood Pressure [90-138/55-84 mm Hg] 130/ 77mm Hg (05/31/22 6:40 PM) Respiratory Rate [16-30 br/min] 18 br/mi n (05/31/22 6:40 PM) Temperature [96.8-100.4 DegF] 98.0 DegF (05/31/22 6:40 PM) Mode of Delivery (Oxygen) Room air (05/31/22 6:40 PM) Temperature Route Oral (05/31/22 6:40 PM) Social History Social History Type Response Smoking Status Never (less than 100 in lifetime) entered on: 04/08/20 Sex
--- OUTSIDE RECORDS SUMMARY | 2024-05-16 15:31 | XMS_ITS | Continuity of Care Document ---
Author Organization [facility] Address [address] [place] [address]- Care Team Providers Care Director Asset Name Role Phone Bruno DOS SANTOS, Arron Dash Primary Care Physician En[place] [facility] [place] Date(s): 07/14/22 - 08/19/22 [facility] [address] [place] [address]- Attending Physician: Toyin DOS SANTOS, Donovan Andrea Referring Physician: Concepcion Miller MD Allergies, Adverse Reactions, Alerts Substance Reaction [...] Replace Required Details, Route to Pharmacy Electronically, [facility]/pharmacy #[id number], Partial fill upon patient re... Start Date: 03/03/22 Status: Ordered ferrous sulfate 325 mg oral tablet 1 tablet = 325 mg, By Mouth, Daily, # 90 tablet, 3 Refills, Maintenance, 02/10/22 14:01:00 EDT, Tablet, [facility]/pharmacy #[id number], Partial fill upon patient request if the prescription is for a schedule II opioid drug., 162, cm, 02/08/22 20:06:00 EDT, Height... Start Date: 02/10/22 Status: Ordered Multivitamins with Folic Acid 1 mg oral tablet 1 tablet, By Mouth, Daily, # 90 tablet, 3 Refills, Maintenance, 01/25/22 15:06:00 EDT, Tablet, [facility]/pharmacy #[id number], Partial fill upon patient request if [...] 19:17:00 EST, Route to Pharmacy Electronically, [facility]/pharmacy #[id number], Partial fill upon patient request if [...] Team Personnel Name: Triny Son RN Position: [facility] RIPO RN Member Role: Primary Care Nurse Name: Jennifer Penny RN Position: [facility] RN Member Role: Primary Care Nurse Name: Wanda Man RN Position: [facility] OB RN Member Role: Primary Care Nurse Name: Aurelio Ravi DO Position: [facility] RN HOUSE SUPERVISOR MD Member Role: Lifetime RN HOUSE SUPERVISOR Physician Address: Address: [address] [facility] [address] [facility] [place] [facility] Chief Nursing Executive [place] [address]- [place] Name: Sisi Interiano RN Position: [facility] RN Member Role: Primary Care Nurse Name: Arron Carr MD Position: [facility] Outreach Member Role: PCP Address: Address: [address] [place] [address]- [place] Name: Emeka Chong RN Position: [facility] RN Member Role: Primary Care Nurse Name: Jasmin Mosqueda RN Position: [facility] OB RN Member Role: Primary Care Nurse Name: Jane Palomares RN Position: [facility] OB RN Member Role: Primary Care Nurse Name: Leena Friend RN Position: [facility] OB RN Member Role: Primary Care Nurse Care Team Related Persons Name: FRANCISCA REYES Address: home [address] [place] [address] Name: BERKLEY REYES Address: home [place] Name: LEVAR ZARATE Address: home [address] [place] [address] Name: JUNIOR ELIANA Address: [place] [address] Name: LIS JAMA Address: [address] Address: [address] [address] [place] Name: AKIRA JAMA Address: [address] Address: home [address] [place] [address] [place] Name: BERKLEY AVENDANO Address: home [address] [address] Name: JENNIFER BEARDEN
--- OUTSIDE RECORDS SUMMARY | 2024-05-16 15:31 | XMS_ITS | Continuity of Care Document ---
Author Organization [facility] Address [address] [place] [address]- Care Team Providers Care Head Baggage Porter Name Role Phone Not on Staff, PCP Primary Care Physician Unavail able Encounter [facility] Date(s): 02/03/22 - 03/05/[address] [address] Referring Physician: Anne Marie Bach Allergies, Adverse Reactions, Alerts Substance Reaction Severity [...] give 325mg per patient preference and re-dose [id number] within 4 hours, if needed. Patient should [...] Replace Required Details, Route to Pharmacy Electronically, [facility]/pharmacy #[id number], Partial fill upon patient re... Start Date: 03/03/22 Status: Ordered docusate sodium 100 mg oral capsule 100 mg, 1, capsule, By Mouth, 2 times a day, PRN, # 30 capsule, Refills 0, Tot. Refills 0, Maintenance, Constipation, 10/14/20 8:26:00 EST, Route to Pharmacy Electronically, [facility]/pharmacy #[id number], Partial fill upon patient request if the prescription is... Start Date: 10/14/20 Status: Ordered famotidine 20 mg oral tablet 20 mg, 1, tablet, By Mouth, 2 times a day, # 60 tablet, Refills 0, Tot. Refills 0, Maintenance, 02/08/22 20:18:00 EDT, Route to Pharmacy Electronically, [facility]/pharmacy #[id number], 162, cm, 02/08/22 20:06:00EDT, Height, 115.5, kg, 02/08/22 19:58:00 EDT, Dry... Start Date: 02/08/22 Stop Date: 03/10/22 Status: Ordered ferrous sulfate 325 mg oral tablet 1 tablet = 325 mg, By Mouth, Daily, # 90 tablet, 3 Refills, Maintenance, 02/10/22 14:01:00 EDT, Tablet, [facility]/pharmacy #[id number], Partial fill upon patient request if the prescription is for a schedule II opioid drug., 162, cm, 02/08/22 20:06:00 EDT, Height... Start Date: 02/10/22 Status: Ordered metoclopramide 5 mg oral tablet 1 tablet, By Mouth, 2 times a day, for 30 days, # 60 tablet, 0 Refills, Physician Stop, [facility] STORE [id number], 162, cm, 02/08/22 20:06:00 EDT, Height, 115.5, kg, 02/08/22 19:58:00 EDT, Dry Weight Start Date: 02/10/22 Stop Date: 03/12/22 Status: Ordered naproxen 500 mg oral delayed release tablet 1 tablet = 500 mg, By Mouth, 2 times a day, # 60 tablet, 0 Refills, Maintenance, 06/14/21 16:52:00 EDT, EC Tablet, [facility]/pharmacy #[id number], Partial fill upon patient request if the prescription is for a schedule II opioid drug., 163, cm, 10/14/20 16:15:00... Start Date: 06/14/21 Status: Ordered Multivitamins with Folic Acid 1 mg oral tablet 1 tablet, By Mouth, Daily, # 90 tablet, 3 Refills, Maintenance, 01/25/22 15:06:00 EDT, Tablet, [facility]/pharmacy #[id number], Partial fill upon patient [...] 09/16/20 19:17:00 EST, Route to Pharmacy Electronically, [facility]/pharmacy #[id number], Partial fill upon patient [...]
--- OUTSIDE RECORDS SUMMARY | 2024-05-16 15:31 | XMS_ITS | Continuity of Care Document ---
Author Organization [facility] Address [address] [place] [address]- Care Team Providers Care Monument Letterer Name Role Phone Not on Staff, PCP Primary Care Physician Unavail able Encounter [facility] Date(s): 05/04/20 - 06/03/20 [facility] [address] [address] [facility] Allergies, Adverse Reactions, Alerts [...] Refills, Maintenance, 03/05/20 16:59:00 EDT, Tablet, [id number], 1 tablet By Mouth Daily, 165, cm, [...]
--- OUTSIDE RECORDS SUMMARY | 2024-05-16 15:31 | XMS_ITS | Continuity of Care Document ---
Author Organization [facility] Address [address] [place] [address]- Care Team Providers Care Customer Pricing Manager Name Role Phone Not on Staff, PCP Primary Care Physician Unavail able [place] [facility] [place]/03/[place] - 12/16/[address] [address] Attending Physician: Not on Staff, Attending MD [...] give 325mg per patient preference and re-dose [id number] within 4 hours, if needed. Patient should [...] 10/14/20 8:26:00 EST, Route to Pharmacy Electronically, [facility]/pharmacy #[id number], Partial fill upon patient request if the prescription is... Start Date: 10/14/20 Status: Ordered famotidine 20 mg oral tablet 20 mg, 1, tablet, By Mouth, 2 times a day, # 60 tablet, Refills 0, Tot. Refills 0, Maintenance, 06/17/20 15:15:00 EDT, Route to Pharmacy Electronically, [facility]/pharmacy #[id number], 165, cm, 06/17/20 15:10:00EDT, Height, 117, [...] Refills, Maintenance, 06/14/21 16:52:00 EDT, EC Tablet, [facility]/pharmacy #[id number], Partial fill upon patient request if the prescription is for a schedule II opioid drug., 163, cm, 10/14/20 16:15:00... Start Date: 06/14/21 Status: Ordered Multivitamins with Folic Acid 1 mg oral tablet 1 tablet, By Mouth, Daily, # 30 tablet, 8 Refills, Maintenance, 03/05/20 16:59:00 EDT, Tablet, [facility]/pharmacy #[id number], 1 tablet By Mouth Daily, 165, cm, 02/27/19 7:33:00 EDT, Height, 117, kg, 10/14/19 23:49:00 EST, Dry Weight Start Date: 03/05/20 Status: Ordered Tums 500 mg oral tablet, chewable 500 mg, 1, tablet, Chew, 3 times a day, PRN, # 30 tablet, Refills 0, Tot. Refills 0, Maintenance, for control of stomach acid, 09/16/20 19:17:00 EST, Route to Pharmacy Electronically, [facility]/pharmacy #[id number], Partial fill upon patient request if the prescr... Start Date: 09/16/20 Status: Ordered Tylenol Extra Strength 500 mg oral tablet 1 tablet = 500 mg, By Mouth, Every 8 hours, PRN as needed for fever, # 30 tablet, 0 Refills, Maintenance, 06/14/21 16:52:00 EDT, Tablet, [facility]/pharmacy #[id number], Partial fill upon patient request if the prescription is for a schedule II opioid drug., 163,... Start Date: 06/14/21 Status: Ordered Vitamin B6 25 mg oral tablet See Instructions, 1 tablet By Mouth up to 3 times Daily for nausea, # 90 tablet, 1 Refills, Maintenance, 05/20/20 16:24:00 EDT, [facility]/pharmacy #[id number], 165, cm, 05/20/20 15:09:00 EDT, Height, [...]
--- OUTSIDE RECORDS SUMMARY | 2024-05-16 15:31 | XMS_ITS | Continuity of Care Document ---
Author Organization [facility] Address [address] [place] [address]- Care Team Providers Care Relay Engineer Name Role Phone Not on Staff, PCP Primary Care Physician Unavail able Encounter [facility] Date(s): 04/30/20 - 05/30/20 [facility] [address] [address]- [facility] Allergies, Adverse Reactions, Alerts Substance [...] 1 Refills, Maintenance, 05/20/20 16:24:00 EDT, [id number], 165, cm, 05/20/20 15:09:00 EDT, Height, 117, [...]
--- OUTSIDE RECORDS SUMMARY | 2024-05-16 15:31 | XMS_ITS | Continuity of Care Document ---
Author Organization [facility] Address [address] [place] [address]- Care Team Providers Care Radio Electronics Officer Name Role Phone Not on Staff, PCP Primary Care Physician Unavail able Encounter [facility] Date(s): 02/10/21 - 03/19/[address] [address] Attending Physician: Not on Staff, Attending MD [...] give 325mg per patient preference and re-dose [id number] within 4 hours, if needed. Patient should [...]
--- OUTSIDE RECORDS SUMMARY | 2024-05-16 15:31 | XMS_ITS | Continuity of Care Document ---
Author Organization [facility] Address [address] [place] [address]- Care Team Providers Care Warehouse Unloader Name Role Phone Not on Staff, PCP Primary Care Physician Unavail able Encounter [facility] Date(s): 09/24/20 - 10/30/20 [facility] [address] [address]- Attending Physician: Aurelio Ravi DO Admitting Physician: Aurelio Ravi DO Referring Physician: Wanda Ferguson DO Allergies, Adverse Reactions, Alerts Substance Reaction [...] give 325mg per patient preference and re-dose [id number] within 4 hours, if needed. Patient should [...] 10/14/20 8:26:00 EST, Route to Pharmacy Electronically, [facility]/pharmacy #[id number], Partial fill upon patient request if the prescription is... Start Date: 10/14/20 Status: Ordered famotidine 20 mg oral tablet 20 mg, 1, tablet, By Mouth, 2 times a day, # 60 tablet, Refills 0, Tot. Refills 0, Maintenance, 06/17/20 15:15:00 EDT, Route to Pharmacy Electronically, [facility]/pharmacy #[id number], 165, cm, 06/17/20 15:10:00EDT, Height, [...] 8 Refills, Maintenance, 03/05/20 16:59:00 EDT, Tablet, [facility]/pharmacy #[id number], 1 tablet By Mouth Daily, 165, cm, 02/27/19 7:33:00 EDT, Height, 117, kg, 10/14/19 23:49:00 EST, Dry Weight Start Date: 03/05/20 Status: Ordered Tums 500 mg oral tablet, chewable 500 mg, 1, tablet, Chew, 3 times a day, PRN, # 30 tablet, Refills 0, Tot. Refills 0, Maintenance, for control of stomach acid, 09/16/20 19:17:00 EST, Route to Pharmacy Electronically, [facility]/pharmacy #[id number], Partial fill upon patient request [...]
--- OUTSIDE RECORDS SUMMARY | 2024-05-16 15:32 | XMS_ITS | Continuity of Care Document ---
Author Organization [facility] Address [address] [place] [address]- Care Team Providers Care Admissions Recruiter Name Role Phone Not on Staff, PCP Primary Care Physician Unavail able [facility]counter [facility] Date[facility]): 05/18[facility] - 06/17/[facility] [address] [place] [id number] Attending Physician: Rikki Rodriguez Admitting Physician: Rikki [...] give 325mg per patient preference and re-dose [id number] within 4 hours, if needed. Patient should [...] Required Details, Route to Pharmacy Electronically, [facility]/pharmacy #[id number], Partial fill upon patient re... Start Date: 03/03/22 Status: Ordered docusate sodium 100 mg oral capsule 100 mg, 1, capsule, By Mouth, 2 times a day, PRN, # 30 capsule, Refills 0, Tot. Refills 0, Maintenance, Constipation, 10/14/20 8:26:00 EST, Route to Pharmacy Electronically, [facility]/pharmacy #[id number], Partial fill upon patient request if the prescription is... Start Date: 10/14/20 Status: Ordered ferrous sulfate 325 mg oral tablet 1 tablet = 325 mg, By Mouth, Daily, # 90 tablet, 3 Refills, Maintenance, 02/10/22 14:01:00 EDT, Tablet, [facility]/pharmacy #[id number], Partial fill upon patient request if the prescription is for a schedule II opioid drug., 162, cm, 02/08/22 20:06:00 EDT, Height... Start Date: 02/10/22 Status: Ordered Heartburn Relief 10 mg oral tablet 1 tablet, By Mouth, 2 times a day, # 60 tablet, 6 Refills, Soft Stop, 05/09/22 11:09:00 EDT, [facility]/pharmacy #[id number], 162, cm, 03/03/22 10:00:00 EDT, Height, 115.5, kg, 02/08/22 19:58:00 EDT, Dry Weight Start Date: 05/09/22 Status: Ordered Multivitamins with Folic Acid 1 mg oral tablet 1 tablet, By Mouth, Daily, # 90 tablet, 3 Refills, Maintenance, 01/25/22 15:06:00 EDT, Tablet, [facility]/pharmacy #[id number], Partial fill upon patient [...] 09/16/20 19:17:00 EST, [id number] Partial fill upon patient request if the prescr... Start Date: 09/16/20 Status: Ordered Unisom 25 mg oral tablet 1 tablet = 25 mg, By Mouth, Daily at bedtime, PRN for sleep, # 32 tablet, 0 Refills, Maintenance, 01/29/22 21:21:00 EDT, Tablet, [facility]/pharmacy #[id number], 162, cm, 01/20/22 0:10:00 EDT, Height, 127.5, kg, 10/11/20 21:21:00 EST, Dry Weight Start Date: 01/29/22 Status: Ordered Vitamin B6 50 mg oral tablet See Instructions, TAKE 3 TIMES PER DAY TO PREVENT NAUSEA IN ., # 90 tablet, Refills 0, Instructions Replace Required Details, Route to Pharmacy Electronically, [facility] STORE [id number], 162, cm, 03/03/22 10:00:00 EDT, Height, 115.5, [...]
--- OUTSIDE RECORDS SUMMARY | 2024-05-16 15:32 | XMS_ITS | Continuity of Care Document ---
Author Organization [facility] Address [address] [place] [address]- Care Team Providers Care Hydrologist Name Role Phone Not on Staff, PCP Primary Care Physician Unavail able [facility] Date[facility]): 07/10/20 - 08/09/[address] [address]- [facility] Allergies, Adverse Reactions, Alerts Substance Reaction [...] EDT, Route to Pharmacy Electronically, [facility]/pharmacy #[id number], 165, cm, 06/17/20 15:10:00EDT, [...]
--- OUTSIDE RECORDS SUMMARY | 2024-05-16 15:32 | XMS_ITS | Continuity of Care Document ---
Author Organization [facility] Address [address] [place] [address]- Care Team Providers Care Back Filler Operator Name Role Phone Bruno DOS SANTOS, Arron Dash Primary Care Physician [phone] Encounter [facility] Date(s): 12/21/23 - 04/13/24 [facility] [address] [address] Attending Physician: Not on Staff, Attending MD [...] mg, Subcutaneous Infusion, Once, Inserted 08/23/22 Lot [id number] Exp 07/28/24, 0 Refills,Maintenance, 08/23/22 19:16:00 EST, [...] Team Personnel Name: Triny Son RN Position: [facility] AMB Nurse Member Role: Primary Care Nurse Name: Jennifer Penny RN Position: [facility] RN Member Role: Primary Care Nurse Name: Wanda Man RN Position: [facility] SN RN Member Role: Primary Care Nurse Name: Aurelio Ravi DO Position: [facility] COOKIE MIXER HELPER MD Member Role: Lifetime COOKIE MIXER HELPER Physician Address: Address: [address] [place] [phone]- [place] Name: Gregory Hassan MD Position: [facility] Outreach Member Role: Lifetime Consulting Physician Address: Address: [address] [place] [phone]- [place] Name: Arron Carr MD Position: [facility] Outreach Member Role: PCP Address: Address: [address] [place] [address]- Name: Emeka Chong RN Position: [facility] RN Member Role: Primary Care Nurse Name: Jane Palomares RN Position: [facility] OB RN Member Role: Primary Care Nurse Name: Leena Friend RN Position: [facility] OB RN Member Role: Primary Care Nurse Care Team Related Persons Name: FRANCISCA REYES Address: home [address] [place] [address] Name: BERKLEY REYES Address: [facility] Name: SAVITA GIRON Address: Address: home [address] [place] [address] [place] Name: TRACY GIRON Address: Address: home [address] [place] [address] [place] Name: LEVAR ZARATE Address: home [address] [place] [address] Name: JUNIOR ELIANA Address: [place] [address] Name: LIS JAMA Address: [address] Address: home [address] [address] Name: AKIRA JAMA Address: [address] Address: home [address] [place] [address] Name: BERKLEY AVENDANO Address: home [address] [address] Name: JENNIFER BEARDEN
--- OUTSIDE RECORDS SUMMARY | 2024-05-16 15:32 | XMS_ITS | Continuity of Care Document ---
Author Organization [facility] Address [address] [place] [address]- Care Team Providers Care Construction Or Leak Gang Laborer Name Role Phone Not on Staff, PCP Primary Care Physician Unavail able [place] [facility] Date[place]s): 02/17/22 - 03/19/22 [facility] [address] [address]- Allergies, Adverse Reactions, Alerts Substance Reaction Severity [...] give 325mg per patient preference and re-dose [id number] within 4 hours, if needed. Patient should [...] Replace Required Details, Route to Pharmacy Electronically, [facility]/pharmacy #[id number], Partial fill upon patient re... Start Date: 03/03/22 Status: Ordered docusate sodium 100 mg oral capsule 100 mg, 1, capsule, By Mouth, 2 times a day, PRN, # 30 capsule, Refills 0, Tot. Refills 0, Maintenance, Constipation, 10/14/20 8:26:00 EST, Route to Pharmacy Electronically, [facility]/pharmacy #[id number], Partial fill upon patient request if the prescription is... Start Date: 10/14/20 Status: Ordered famotidine 20 mg oral tablet 20 mg, 1, tablet, By Mouth, 2 times a day, # 60 tablet, Refills 0, Tot. Refills 0, Maintenance, 02/08/22 20:18:00 EDT, Route to Pharmacy Electronically, [facility]/pharmacy #[id number], 162, cm, 02/08/22 20:06:00EDT, Height, 115.5, kg, 02/08/22 19:58:00 EDT, Dry... Start Date: 02/08/22 Stop Date: 03/10/22 Status: Ordered ferrous sulfate 325 mg oral tablet 1 tablet = 325 mg, By Mouth, Daily, # 90 tablet, 3 Refills, Maintenance, 02/10/22 14:01:00 EDT, Tablet, [facility]/pharmacy #[id number], Partial fill upon patient request if the prescription is for a schedule II opioid drug., 162, cm, 02/08/22 20:06:00 EDT, Height... Start Date: 02/10/22 Status: Ordered naproxen 500 mg oral delayed release tablet 1 tablet = 500 mg, By Mouth, 2 times a day, # 60 tablet, 0 Refills, Maintenance, 06/14/21 16:52:00 EDT, EC Tablet, [facility]/pharmacy #[id number], Partial fill upon patient request if the prescription is for a schedule II opioid drug., 163, cm, 10/14/20 16:15:00... Start Date: 06/14/21 Status: Ordered Multivitamins with Folic Acid 1 mg oral tablet 1 tablet, By Mouth, Daily, # 90 tablet, 3 Refills, Maintenance, 01/25/22 15:06:00 EDT, Tablet, [facility]/pharmacy #[id number], Partial fill upon patient request if the prescription is for a schedule II opioid drug., 1 tablet By Mouth Daily, 162, cm, 01/20/22 0:10... Start Date: 01/25/22 Status: Ordered Reglan 5 mg oral tablet 1 tablet = 5 mg, By Mouth, Daily, # 30 tablet, 0 Refills, Maintenance, 03/03/22 10:23:00 EDT, [facility]/pharmacy #[id number], Partial fill upon patient request [...] 09/16/20 19:17:00 EST, Route to Pharmacy Electronically, [facility]/pharmacy #[id number], Partial fill upon patient request if the prescr... Start Date: 09/16/20 Status: Ordered Tylenol Extra Strength 500 mg oral tablet 1 tablet = 500 mg, By Mouth, Every 8 hours, PRN as needed for fever, # 30 tablet, 0 Refills, Maintenance, 06/14/21 16:52:00 EDT, Tablet, [facility]/pharmacy #[id number], Partial fill upon patient request if the prescription is for a schedule II opioid drug., 163,... Start Date: 06/14/21 Status: Ordered Unisom 25 mg oral tablet 1 tablet = 25 mg, By Mouth, Daily at bedtime, PRN for sleep, # 32 tablet, 0 Refills, Maintenance, 01/29/22 21:21:00 EDT, Tablet, [facility]/pharmacy #[id number], 162, cm, 01/20/22 0:10:00 EDT, Height, 127.5, kg, 10/11/20 21:21:00 EST, Dry Weight Start Date: 01/29/22 Status: Ordered Vitamin B6 25 mg oral tablet 1 tablet = 25 mg, By Mouth, 3 times a day, for 30 days, # 90 tablet, 2 Refills, Acute 05/18/22 12:57:00 EDT, 02/17/22 12:57:00 EDT, [facility]/pharmacy #[id number], Partial fill upon patient request if the prescription is for a schedule II opioid drug., 162, cm, 0... Start Date: 02/17/22 Stop Date: 05/18/22 Status: Ordered Vitamin B6 25 mg oral tablet See Instructions, 1 tablet By Mouth up to 3 times Daily for nausea, # 90 tablet, 1 Refills, Maintenance, 05/20/20 16:24:00 EDT, [facility]/pharmacy #[id number], 165, cm, 05/20/20 15:09:00 EDT, [...]
--- OUTSIDE RECORDS SUMMARY | 2024-05-16 15:32 | XMS_ITS | Continuity of Care Document ---
Author Organization [facility] Address [address] [place] [address]- Care Team Providers Care New Car Inspector Name Role Phone Not on Staff, PCP Primary Care Physician Unavail able [place] [facility] [place] 01/19/22 - 01/20/[address] [address]- Discharge Disposition: A-D/C Walkout Attending Physician: Not [...] give 325mg per patient preference and re-dose [id number] within 4 hours, if needed. Patient should [...] 10/14/20 8:26:00 EST, [id number] fill upon patient request if the prescription is... Start Date: 10/14/20 Status: Ordered famotidine 20 mg oral tablet 20 mg, 1, tablet, By Mouth, 2 times a day, # 60 tablet, Refills 0, Tot. Refills 0, Maintenance, 06/17/20 15:15:00 EDT, Route to Pharmacy Electronically, [facility]/pharmacy #[id number], 165, cm, 06/17/20 15:10:00EDT, [...] Refills, Maintenance, 06/14/21 16:52:00 EDT, EC Tablet, [facility]/pharmacy #[id number], Partial fill upon patient request if the prescription is for a schedule II opioid drug., 163, cm, 10/14/20 16:15:00... Start Date: 06/14/21 Status: Ordered Multivitamins with Folic Acid 1 mg oral tablet 1 tablet, By Mouth, Daily, # 30 tablet, 8 Refills, Maintenance, 03/05/20 16:59:00 EDT, Tablet, [facility]/pharmacy #[id number], 1 tablet By Mouth Daily, 165, cm, 02/27/19 7:33:00 EDT, Height, 117, kg, 10/14/19 23:49:00 EST, Dry Weight Start Date: 03/05/20 Status: Ordered Tums 500 mg oral tablet, chewable 500 mg, 1, tablet, Chew, 3 times a day, PRN, # 30 tablet, Refills 0, Tot. Refills 0, Maintenance, for control of stomach acid, 09/16/20 19:17:00 EST, Route to Pharmacy Electronically, [facility]/pharmacy #[id number], Partial fill upon patient request if the prescr... Start Date: 09/16/20 Status: Ordered Tylenol Extra Strength 500 mg oral tablet 1 tablet = 500 mg, By Mouth, Every 8 hours, PRN as needed for fever, # 30 tablet, 0 Refills, Maintenance, 06/14/21 16:52:00 EDT, Tablet, [facility]/pharmacy #[id number], Partial fill upon patient request if the prescription is for a schedule II opioid drug., 163,... Start Date: 06/14/21 Status: Ordered Vitamin B6 25 mg oral tablet See Instructions, 1 tablet By Mouth up to 3 times Daily for nausea, # 90 tablet, 1 Refills, Maintenance, 05/20/20 16:24:00 EDT, [facility]/pharmacy #[id number], 165, cm, 05/20/20 15:09:00 [...] oldest [Reference Range]: 1 2 3 Height 162 cm (01/20/22 12:10 AM) 162 cm (01/19/22 11:04 PM) Oxygen Saturation [94-100 %] 99 % (01/20/22 1:02 AM) 99 % (01/19/22 11:04 PM) 98 % (01/19/22 10:43 PM) Pulse Rate [55-90 bpm] 86 bpm (01/20/22 1:02 AM) 88 bpm (01/19/22 11:04 PM) 104 bpm *H* (01/19/22 10:43 PM) Blood Pressure [90-138/55-84 mm Hg] 131/76mm Hg (01/20/22 1:02 AM) 126/75mm Hg (01/19/22 11:04 PM) Respiratory Rate [16-30 br/min] 18 br/min (01/19/22 11:04 PM) Temperature [96.8-100.4 DegF] 98.1 DegF (01/20/22 1:02 AM) 98.6 DegF (01/19/22 11:04 PM) Mode of Delivery (Oxygen) Room air (01/19/22 11:04 PM) Blood pressure sites Arm, left (01/20/22 1:02 AM) Temperature Route Oral (01/20/22 1:02 AM) Oral (01/19/22 11:04 PM) Social History Social History Type Response Smoking Status Never (less than 100 in lifetime) entered on: 04/08/20 Sex
--- OUTSIDE RECORDS SUMMARY | 2024-05-16 15:32 | XMS_ITS | Continuity of Care Document ---
Author Organization [facility] Address [address] [place] [address]- Care Team Providers Care Pan Pusher Name Role Phone Bruno DOS SANTOS, Arron Dash Primary Care Physician [facility] Date[facility]s): 09[facility]22 - 10/06/[address] [address] Allergies, Adverse Reactions, Alerts Substance Reaction [...] mg, Subcutaneous Infusion, Once, Inserted 08/23/22 Lot [id number] Exp 07/28/24, 0 Refills,Maintenance, 08/23/22 19:16:00 EST, [...] Team Personnel Name: Triny Son RN Position: [facility] PCO RN Member Role: Primary Care Nurse Name: Jennifer Penny RN Position: [facility] RN Member Role: Primary Care Nurse Name: Wanda Man RN Position: [facility] OB RN Member Role: Primary Care Nurse Name: Aurelio Ravi DO Position: [facility] BALL RACKER MD Member Role: Lifetime BALL RACKER Physician Address: Address: [address] [place] [address] Production Control Clerk [place], [place] [address] Name: Sisi Interiano RN Position: [facility] RN Member Role: Primary Care Nurse Name: Arron Carr MD Position: [facility] Outreach Member Role: PCP Address: Address: [address] [place] [address]- Name: Emeka Chong RN Position: [facility] RN Member Role: Primary Care Nurse Name: Jasmin Mosqueda RN Position: [facility] OB RN Member Role: Primary Care Nurse Name: Jane Palomares RN Position: [facility] OB RN Member Role: Primary Care Nurse Name: Leena Friend RN Position: [facility] OB RN Member Role: Primary Care Nurse Care Team Related Persons Name: FRANCISCA REYES Address: home [address] [place] [address] Name: BERKLEY REYES Address: home [place] Name: LEVAR ZARATE Address: home [address] [place] [address] Name: JUNIOR ELIANA Address: [place] [address] Name: CAROLE CHUNG Address: [address] Address: home [address] [place] [address] [place] Name: TRACY CHUNG Address: [address] Address: home [address] [facility] [address] [place] [address] [place] Name: LIS JAMA Address: [address] Address: home [address] [address] [place] Name: AKIRA JAMA Address: Address: home [address] [place] [address] [place] Name: BERKLEY AVENDANO Address: home [address] [address] Name: JENNIFER BEARDEN
--- OUTSIDE RECORDS SUMMARY | 2024-05-16 15:32 | XMS_ITS | Continuity of Care Document ---
Author Organization [facility] Address [address] [place] [address]- Care Team Providers Care Parking Meter Mechanic Name Role Phone Not on Staff, PCP Primary Care Physician Unavail able [facility] Date[facility]): 03/[facility]22 - 04/21/[address] [address] Allergies, Adverse Reactions, Alerts Substance Reaction [...] give 325mg per patient preference and re-dose [id number] within 4 hours, if needed. Patient should [...] Replace Required Details, Route to Pharmacy Electronically, [facility]/pharmacy #[id number], Partial fill upon patient re... Start Date: 03/03/22 Status: Ordered docusate sodium 100 mg oral capsule 100 mg, 1, capsule, By Mouth, 2 times a day, PRN, # 30 capsule, Refills 0, Tot. Refills 0, Maintenance, Constipation, 10/14/20 8:26:00 EST, Route to Pharmacy Electronically, [facility]/pharmacy #[id number], Partial fill upon patient request if the prescription is... Start Date: 10/14/20 Status: Ordered famotidine 10 mg oral tablet 1 tablet = 10 mg, By Mouth, 2 times a day, # 60 tablet, 0 Refills, Maintenance, 03/30/22 12:23:00 EDT, Tablet, [facility]/pharmacy #[id number], Partial fill upon patient request if the prescription is for a schedule II opioid drug., 162, cm, 03/03/22 10:00:00 EDT,... Start Date: 03/30/22 Status: Ordered famotidine 20 mg oral tablet 20 mg, 1, tablet, By Mouth, 2 times a day, # 60 tablet, Refills 0, Tot. Refills 0, Maintenance, 02/08/22 20:18:00 EDT, Route to Pharmacy Electronically, [facility]/pharmacy #[id number], 162, cm, 02/08/22 20:06:00EDT, Height, 115.5, kg, 02/08/22 19:58:00 EDT, Dry... Start Date: 02/08/22 Stop Date: 03/10/22 Status: Ordered ferrous sulfate 325 mg oral tablet 1 tablet = 325 mg, By Mouth, Daily, Take daily for anemia, # 90 tablet, 0 Refills, Maintenance, 04/15/22 15:31:00 EDT, Tablet, [facility]/pharmacy #[id number], Partial fill upon patient request if the prescription is for a schedule II opioid drug., 162, cm, ... Start Date: 04/15/22 Status: Ordered ferrous sulfate 325 mg oral tablet 1 tablet = 325 mg, By Mouth, Daily, # 90 tablet, 3 Refills, Maintenance, 02/10/22 14:01:00 EDT, Tablet, [facility]/pharmacy #[id number], Partial fill upon patient request if the prescription is for a schedule II opioid drug., 162, cm, 02/08/22 20:06:00 EDT, Height... Start Date: 02/10/22 Status: Ordered naproxen 500 mg oral delayed release tablet 1 tablet = 500 mg, By Mouth, 2 times a day, # 60 tablet, 0 Refills, Maintenance, 06/14/21 16:52:00 EDT, EC Tablet, [facility]/pharmacy #[id number], Partial fill upon patient request if the prescription is for a schedule II opioid drug., 163, cm, 10/14/20 16:15:00... Start Date: 06/14/21 Status: Ordered Multivitamins with Folic Acid 1 mg oral tablet 1 tablet, By Mouth, Daily, # 90 tablet, 3 Refills, Maintenance, 01/25/22 15:06:00 EDT, Tablet, [facility]/pharmacy #[id number], Partial fill upon patient request if the prescription is for a schedule II opioid drug., 1 tablet By Mouth Daily, 162, cm, 01/20/22 0:10... Start Date: 01/25/22 Status: Ordered Reglan 5 mg oral tablet 1 tablet = 5 mg, By Mouth, Daily, # 30 tablet, 0 Refills, Maintenance, 04/15/22 15:31:00 EDT, [facility]/pharmacy #[id number], Partial fill upon patient request if the prescription is for a schedule II opioid drug., 162, cm, 03/03/22 10:00:00 EDT, Height, 115.5, k... Start Date: 04/15/22 Status: Ordered Tums 500 mg oral tablet, chewable 500 mg, 1, tablet, Chew, 3 times a day, PRN, # 30 tablet, Refills 0, Tot. Refills 0, Maintenance, for control of stomach acid, 09/16/20 19:17:00 EST, Route to Pharmacy Electronically, [facility]/pharmacy #[id number], Partial fill upon patient request if the prescr... Start Date: 09/16/20 Status: Ordered Tylenol Extra Strength 500 mg oral tablet 1 tablet = 500 mg, By Mouth, Every 8 hours, PRN as needed for fever, # 30 tablet, 0 Refills, Maintenance, 06/14/21 16:52:00 EDT, Tablet, [facility]/pharmacy #[id number], Partial fill upon patient request if the prescription is for a schedule II opioid drug., 163,... Start Date: 06/14/21 Status: Ordered Unisom 25 mg oral tablet 1 tablet = 25 mg, By Mouth, Daily at bedtime, PRN Nausea & Vomiting, Take nightly to prevent nausea and vomiting in , # 30 tablet, 1 Refills, Maintenance, 04/10/22 14:09:00 EDT, Tablet, [facility]/pharmacy #[id number], Partial fill upon patient request if... Start Date: 04/10/22 Status: Ordered Unisom 25 mg oral tablet 1 tablet = 25 mg, By Mouth, Daily at bedtime, PRN for sleep, # 32 tablet, 0 Refills, Maintenance, 01/29/22 21:21:00 EDT, Tablet, [facility]/pharmacy #[id number], 162, cm, 01/20/22 0:10:00 EDT, Height, 127.5, kg, 10/11/20 21:21:00 EST, Dry Weight Start Date: 01/29/22 Status: Ordered Unisom 25 mg oral tablet 1 tablet = 25 mg, By Mouth, Daily at bedtime, PRN for sleep, Take nightly to prevent nausea in ., # 30 tablet, 0 Refills, Maintenance, 03/25/22 20:11:00 EDT, Tablet, [facility]/pharmacy #[id number], Partial fill upon patient request if the prescription is... Start Date: 03/25/22 Status: Ordered Vitamin B6 25 mg oral tablet 1 tablet = 25 mg, By Mouth, 3 times a day, for 30 days, # 90 tablet, 2 Refills, Acute 05/18/22 12:57:00 EDT, 02/17/22 12:57:00 EDT, [facility]/pharmacy #[id number], Partial fill upon patient request if the prescription is for a schedule II opioid drug., 162, cm, 0... Start Date: 02/17/22 Stop Date: 05/18/22 Status: Ordered Vitamin B6 25 mg oral tablet See Instructions, 1 tablet By Mouth up to 3 times Daily for nausea, # 90 tablet, 1 Refills, Maintenance, 05/20/20 16:24:00 EDT, [facility]/pharmacy #[id number], 165, cm, 05/20/20 15:09:00 EDT, Height, 117, kg, 10/14/19 23:49:00 EST, Dry Weight Start Date: 05/20/20 Status: Ordered Vitamin B6 50 mg oral tablet See Instructions, Take 3 times per day to prevent nausea in ., # 90 tablet, Refills 0, Tot. Refills 0, Maintenance, 03/25/22 20:11:00 EDT, Instructions Replace Required Details, Route to Pharmacy Electronically, [facility]/pharmacy #[id number], Partial fi... Start Date: 03/25/22 Status: [...]
--- OUTSIDE RECORDS SUMMARY | 2024-05-16 15:32 | XMS_ITS | Continuity of Care Document ---
Author Organization [facility] ter Address [address] [place] [address]- Care Team Providers Care Parent Aide Name Role Phone Arron Carr MD Primary Care Physician [place] [facility] [place] - 08/15/[address] [address] Discharge Disposition: A-D/C Home Attending Physician: Annmarei Augustin DO Admitting Physician: Annmarie Augustin DO [...] Required Details, Route to Pharmacy Electronically, [facility]/pharmacy #[id number], Partial fill upon patient re... Start Date: 03/03/22 Status: Ordered ferrous sulfate 325 mg oral tablet 1 tablet = 325 mg, By Mouth, Daily, # 90 tablet, 3 Refills, Maintenance, 02/10/22 14:01:00 EDT, Tablet, [facility]/pharmacy #[id number], Partial fill upon patient request if the prescription is for a schedule II opioid drug., 162, cm, 02/08/22 20:06:00 EDT, Height... Start Date: 02/10/22 Status: Ordered Multivitamins with Folic Acid 1 mg oral tablet 1 tablet, By Mouth, Daily, # 90 tablet, 3 Refills, Maintenance, 01/25/22 15:06:00 EDT, Tablet, [facility]/pharmacy #[id number], Partial fill upon patient [...] 19:17:00 EST, Route to Pharmacy Electronically, [facility]/pharmacy #[id number], Partial fill upon patient [...] 100 in lifetime) entered on: 04/08/20 Sex Note * Event Display: PDC Biophysical Profile * Event Display: PDC Biophysical Profile Authored Date: [id number] OBSTETRICS REPORT PATIENT INFO: CMRN: [id number] BMRN: [id number] : [birth year] (32 yrs)(F) Name: MICHELLE CHUNG Visit Date: 08/15/2022 01:10 pm PERFORMED BY: Performed By: Alicia Coto RDMS Attending: Araceli Garcia MD Referred By: Annmarie Augustin DO [facility] INDICATIONS: Dichorionic diamniotic twin gestation O30.049 M - BMI O99.21_ 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 Tone: Observed F. Movement: Observed Score: 8/8 F. Breathing: Observed BIOMETRY (FETUS A): BPD: 85.9 mm G.Age: 34w 4d 66 % HC: 316.9 mm G.Age: 35w 4d 56 % AC: 299.3 mm G.Age: 33w 6d 51 % FL: 64.4 mm G.Age: 33w 2d 21 % CI: 74.09 % 70 - 86 FL/HC: 20.3 % 19.4 - 21.8 HC/AC: 1.06 0.96 - 1.11 FL/BPD: 75.0 % 71 - 87 FL/AC: 21.5 % 20 - 24 Est. FW: 2316 gm 5 lb 2 oz 42 % FW Discordancy: 0 \ 5 % GESTATIONAL AGE (FETUS A): U/S Today: 34w 2d LAZ: 09/24/22 Best: 34w 0d Det. By: Hardy Lea LAZ: 09/26/22 (02/10/22) EVALUATION (FETUS B): Num Of Fetuses: 2 Heart Rate(bpm): 151 Cardiac Activity: Present Lie: UpperFetus Presentation: Transverse Placenta: Anterior Membrane Desc: Dichorionic, diamniotic Amniotic Fluid STEVEN FV: Within normal limits Largest Pocket(cm) 3.7 BIOPHYSICAL EVALUATION (FETUS B): Amniotic F.V: Within normal limits F. Tone: Observed F. Movement: Observed Score: 05/16 F. Breathing: Observed BIOMETRY (FETUS B): BPD: 80.1 mm G.Age: 32w 1d 7 % HC: 298.7 mm G.Age: 33w 1d 5 % AC: 291.3 mm G.Age: 33w 1d 28 % FL: 67.2 mm G.Age: 34w 4d 56 % CI: 72.72 % 70 - 86 FL/HC: 22.5 % 19.4 - 21.8 HC/AC: 1.03 0.96 - 1.11 FL/BPD: 83.9 % 71 - 87 FL/AC: 23.1 % 20 - 24 Est. FW: 2197 gm 4 lb 13 oz 27 % FW Discordancy: 5 % GESTATIONAL AGE (FETUS B): U/S Today: 33w 2d LAZ: 10/01/22 Best: 34w 0d Det. By: Hardy Lea LAZ: 09/26/22 (02/10/22) CERVIX UTERUS ADNEXA: Cervix Not well seen COMMENTS: Diamniotic dichorionic twin gestation with concordant growth and normal amniotic fluid x2. TWIN AA (male): Known right renal cyst measuring 1.6 x 1.9 x 1.4 cm today. BPP=05/16 TWIN BB (female): BPP=05/16 Araceli Garcia MD Electronically Signed Final Report 08/15/2022 01:29 pm * Event Display: PDC Biophysical Profile Authored Date: Please click on pdf link to open report Patient Care team information Care Team Personnel Name: Triny Son RN Position: [facility] PCO RN Member Role: Primary Care Nurse Name: Jennifer Penny RN Position: S RN Member Role: Primary Care Nurse Name: Wanda Man RN Position: [facility] OB RN Member Role: Primary Care Nurse Name: Aurelio Ravi DO Position: [facility] MANAGER OF CASE MD Member Role: Lifetime MANAGER OF CASE Physician Address: Address: [address] [place] [address] [place] [address]- Name: Sisi Interiano RN Position: [facility] RN Member Role: Primary Care Nurse Name: Arron Carr MD Position: [facility] Outreach Member Role: PCP Address: Address: [address] [place] [address]- Name: Emeka Chong RN Position: [facility] RN Member Role: Primary Care Nurse Name: Jasmin Mosqueda RN Position: [facility] OB RN Member Role: Primary Care Nurse Name: Jane Palomares RN Position: [facility] OB RN Member Role: Primary Care Nurse Name: Leena Friend RN Position: [facility] OB RN Member Role: Primary Care Nurse Name: Annmarie Ramirez RN Position: [facility] OB RN Member Role: OB RN Care Team Related Persons Name: FRANCISCA REYES Address: home [address] [place] [address] Name: BERKLEY REYES Address: [facility] Name: LEVAR ZARATE Address: home [address] [place] [address] Name: JUNIOR ELIANA Address: [place] [address] Name: LIS JAMA Address: [address] Address: home [address] [address] [place] Name: AKIRA JAMA Address: [address] Address: home [address] [place] [address] [place] Name: BERKLEY AVENDANO Address: home [address] [address] Name: JENNIFER BEARDEN
--- OUTSIDE RECORDS SUMMARY | 2024-05-16 15:32 | XMS_ITS | Continuity of Care Document ---
Author Organization [facility] ter Address [address] [place] [address]- Care Team Providers Care Spent Grain Dryer Name Role Phone Bruno DOS SANTOS, Arron Dash Primary Care Physician Encounter [facility] [place] Date(s): 08/02/22 - 09/07/[address] [address] Attending Physician: Annmarie Augustin DO Admitting [...] 0 Refills, Maintenance, 08/23/22 19:44:00 EST, Tablet, [facility]/pharmacy #[id number], Partial fill upon patient request [...] Refills, Maintenance, 08/23/22 19:45:00 EST, REC Powder, [facility]/pharmacy #[id number], Partial fill upon patient request if the prescription is for a schedule II opioid drug., 17 Gm By Mouth... Start Date: 08/23/22 Status: Ordered Nexplanon 68 mg subcutaneous implant 1 each = 68 mg, Subcutaneous Infusion, Once, Inserted 08/23/22 Lot [id number] Exp 07/28/24, 0 Refills,Maintenance, 08/23/22 19:16:00 EST, Partial fill upon patient request if the prescription is for a schedule II opioid drug. Start Date: 08/23/22 Status: Ordered oxyCODONE 5 mg oral tablet 5 mg, 1, tablet, By Mouth, Every 6 hours, PRN, # 10 tablet, Refills 0, Tot. Refills 0, Maintenance,as needed for pain, 08/23/22 19:48:00 EST, Route to Pharmacy Electronically, [facility]/pharmacy #[id number], Partial fill upon patient request if the prescription... Start Date: 08/23/22 Status: Ordered simethicone 80 mg oral tablet, chewable 80 mg, 1, tablet, Chew, 4 times a day, PRN, # 36 tablet, Refills 0, Tot. Refills 0, Maintenance, asneeded for gas, 08/23/22 19:44:00 EST, Route to Pharmacy Electronically, [facility]/pharmacy #[id number], Partial fill upon patient request if the prescription is f... Start Date: 08/23/22 Status: Ordered Tylenol 325 mg oral capsule 2 capsule = 650 mg, By Mouth, Every 6 hours, PRN as needed for fever, # 50 capsule, 0 Refills, Maintenance, 09/07/22 16:37:00 EST, Capsule, [facility]/pharmacy #[id number], Partial fill upon patient request [...] Team Personnel Name: Triny Son RN Position: [facility] PCO RN Member Role: Primary Care Nurse Name: Jennifer Penny RN Position: [facility] RN Member Role: Primary Care Nurse Name: Wanda Man RN Position: [facility] OB RN Member Role: Primary Care Nurse Name: Aurelio Ravi DO Position: [facility] SEWER MAINTENANCE SUPERVISOR MD Member Role: Lifetime SEWER MAINTENANCE SUPERVISOR Physician Address: Address: [address] [place] [address] [place] [address]- Name: Sisi Interiano RN Position: [facility] RN Member Role: Primary Care Nurse Name: Arron Carr MD Position: [facility] Outreach Member Role: PCP Address: Address: [address] [place] [address]- Name: Emeka Chong RN Position: [facility] RN Member Role: Primary Care Nurse Name: Jasmin Mosqueda RN Position: [facility] OB RN Member Role: Primary Care Nurse Name: Jane Palomares RN Position: [facility] OB RN Member Role: Primary Care Nurse Name: Leena Friend RN Position: [facility] OB RN Member Role: Primary Care Nurse Care Team Related Persons Name: FRANCISCA REYES Address: home [address] [place] [address] Name: BERKLEY REYES Address: home [place] Name: LEVAR ZARATE Address: home [address] [place] [address] Name: JUNIOR ELIANA Address: [place] [address] Name: CAROLE CHUNG Address: [address] Address: home [address] [place] [address] [place] Name: TRACY CHUNG Address: [address] Address: [address] [address] [place] Name: LIS JAMA Address: [address] Address: home [address] [address] [place] Name: AKIRA JAMA Address: [address] Address: home [address] [place] [address] [place] Name: BERKLEY AVENDANO Address: home [address] [address] Name: JENNIFER BEARDEN
--- OUTSIDE RECORDS SUMMARY | 2024-05-16 15:32 | XMS_ITS | Continuity of Care Document ---
Author Organization [facility] Address Unknown Care Team Providers Care Pharmacometrician Name Role Phone Not on Staff, PCP Primary Care Physician Unavail able Encounter [facility] [place] Date(s): 02/10/22 - 03/12/22 [facility] Allergies, Adverse Reactions, Alerts Substance Reaction Severity Status traMADol Active Immunizations Given and Recorded Vaccine Date Status Refusal Reason SARS-CoV-2 (COVID-19) mRNA BNT-162b2 vac 08/02/21 Recorded SARS-CoV-2 (COVID-19) mRNA BNT-162k1 vac 07/12/21 Recorded influenza virus vaccine, inactivated [...] give 325mg per patient preference and re-dose [id number] within 4 hours, if needed. Patient should [...] Details, Route to Pharmacy Electronically, [facility]/pharmacy #[id number], Partial fill upon patient re... Start Date: 03/03/22 Status: Ordered docusate sodium 100 mg oral capsule 100 mg, 1, capsule, By Mouth, 2 times a day, PRN, # 30 capsule, Refills 0, Tot. Refills 0, Maintenance, Constipation, 10/14/20 8:26:00 EST, Route to Pharmacy Electronically, [facility]/pharmacy #[id number], Partial fill upon patient request if the prescription is... Start Date: 10/14/20 Status: Ordered famotidine 20 mg oral tablet 20 mg, 1, tablet, By Mouth, 2 times a day, # 60 tablet, Refills 0, Tot. Refills 0, Maintenance, 02/08/22 20:18:00 EDT, Route to Pharmacy Electronically, [facility]/pharmacy #[id number], 162, cm, 02/08/22 20:06:00EDT, Height, 115.5, kg, 02/08/22 19:58:00 EDT, Dry... Start Date: 02/08/22 Stop Date: 03/10/22 Status: Ordered ferrous sulfate 325 mg oral tablet 1 tablet = 325 mg, By Mouth, Daily, # 90 tablet, 3 Refills, Maintenance, 02/10/22 14:01:00 EDT, Tablet, [facility]/pharmacy #[id number], Partial fill upon patient request if the prescription is for a schedule II opioid drug., 162, cm, 02/08/22 20:06:00 EDT, Height... Start Date: 02/10/22 Status: Ordered naproxen 500 mg oral delayed release tablet 1 tablet = 500 mg, By Mouth, 2 times a day, # 60 tablet, 0 Refills, Maintenance, 06/14/21 16:52:00 EDT, EC Tablet, [facility]/pharmacy #[id number], Partial fill upon patient request if the prescription is for a schedule II opioid drug., 163, cm, 10/14/20 16:15:00... Start Date: 06/14/21 Status: Ordered Multivitamins with Folic Acid 1 mg oral tablet 1 tablet, By Mouth, Daily, # 90 tablet, 3 Refills, Maintenance, 01/25/22 15:06:00 EDT, Tablet, [facility]/pharmacy #[id number], Partial fill upon patient request [...] 09/16/20 19:17:00 EST, Route to Pharmacy Electronically, [facility]/pharmacy #[id number], Partial fill upon patient request if the prescr... Start Date: 09/16/20 Status: Ordered Tylenol Extra Strength 500 mg oral tablet 1 tablet = 500 mg, By Mouth, Every 8 hours, PRN as needed for fever, # 30 tablet, 0 Refills, Maintenance, 06/14/21 16:52:00 EDT, Tablet, [facility]/pharmacy #[id number], Partial fill upon patient request if the prescription is for a schedule II opioid drug., 163,... Start Date: 06/14/21 Status: Ordered Unisom 25 mg oral tablet 1 tablet = 25 mg, By Mouth, Daily at bedtime, PRN for sleep, # 32 tablet, 0 Refills, Maintenance, 01/29/22 21:21:00 EDT, Tablet, [facility]/pharmacy #[id number], 162, cm, 01/20/22 0:10:00 EDT, Height, 127.5, kg, 10/11/20 21:21:00 EST, Dry Weight Start Date: 01/29/22 Status: Ordered Vitamin B6 25 mg oral tablet 1 tablet = 25 mg, By Mouth, 3 times a day, for 30 days, # 90 tablet, 2 Refills, Acute 05/18/22 12:57:00 EDT, 02/17/22 12:57:00 EDT, [facility]/pharmacy #[id number], Partial fill upon patient request if the prescription is for a schedule II opioid drug., 162, cm, 0... Start Date: 02/17/22 Stop Date: 05/18/22 Status: Ordered Vitamin B6 25 mg oral tablet See Instructions, 1 tablet By Mouth up to 3 times Daily for nausea, # 90 tablet, 1 Refills, Maintenance, 05/20/20 16:24:00 EDT, [facility]/pharmacy #[id number], 165, cm, 05/20/20 15:09:00 EDT, [...]
--- OUTSIDE RECORDS SUMMARY | 2024-05-16 15:32 | XMS_ITS | Continuity of Care Document ---
Author Organization [facility] Address [address] [place] [address]- Care Team Providers Care Database Engineer Name Role Phone Not on Staff, PCP Primary Care Physician Unavail able Encounter [facility] [place] [facility] Date(s): 02/21/22 - 03/23/22 [facility] [address] [address]- Allergies, Adverse Reactions, Alerts Substance Reaction Severity [...] give 325mg per patient preference and re-dose [id number] within 4 hours, if needed. Patient should [...] Details, Route to Pharmacy Electronically, [facility]/pharmacy #[id number], Partial fill upon patient re... Start Date: 03/03/22 Status: Ordered docusate sodium 100 mg oral capsule 100 mg, 1, capsule, By Mouth, 2 times a day, PRN, # 30 capsule, Refills 0, Tot. Refills 0, Maintenance, Constipation, 10/14/20 8:26:00 EST, Route to Pharmacy Electronically, [facility]/pharmacy #[id number], Partial fill upon patient request if the prescription is... Start Date: 10/14/20 Status: Ordered famotidine 20 mg oral tablet 20 mg, 1, tablet, By Mouth, 2 times a day, # 60 tablet, Refills 0, Tot. Refills 0, Maintenance, 02/08/22 20:18:00 EDT, Route to Pharmacy Electronically, [facility]/pharmacy #[id number], 162, cm, 02/08/22 20:06:00EDT, Height, 115.5, kg, 02/08/22 19:58:00 EDT, Dry... Start Date: 02/08/22 Stop Date: 03/10/22 Status: Ordered ferrous sulfate 325 mg oral tablet 1 tablet = 325 mg, By Mouth, Daily, # 90 tablet, 3 Refills, Maintenance, 02/10/22 14:01:00 EDT, Tablet, [facility]/pharmacy #[id number], Partial fill upon patient request if the prescription is for a schedule II opioid drug., 162, cm, 02/08/22 20:06:00 EDT, Height... Start Date: 02/10/22 Status: Ordered naproxen 500 mg oral delayed release tablet 1 tablet = 500 mg, By Mouth, 2 times a day, # 60 tablet, 0 Refills, Maintenance, 06/14/21 16:52:00 EDT, EC Tablet, [facility]/pharmacy #[id number], Partial fill upon patient request if the prescription is for a schedule II opioid drug., 163, cm, 10/14/20 16:15:00... Start Date: 06/14/21 Status: Ordered Multivitamins with Folic Acid 1 mg oral tablet 1 tablet, By Mouth, Daily, # 90 tablet, 3 Refills, Maintenance, 01/25/22 15:06:00 EDT, Tablet, [facility]/pharmacy #[id number], Partial fill upon patient request if the prescription is for a schedule II opioid drug., 1 tablet By Mouth Daily, 162, cm, 01/20/22 0:10... Start Date: 01/25/22 Status: Ordered Reglan 5 mg oral tablet 1 tablet = 5 mg, By Mouth, Daily, # 30 tablet, 0 Refills, Maintenance, 03/03/22 10:23:00 EDT, [facility]/pharmacy #[id number], Partial fill upon patient [...] 19:17:00 EST, Route to Pharmacy Electronically, [facility]/pharmacy #[id number], Partial fill upon patient request if the prescr... Start Date: 09/16/20 Status: Ordered Tylenol Extra Strength 500 mg oral tablet 1 tablet = 500 mg, By Mouth, Every 8 hours, PRN as needed for fever, # 30 tablet, 0 Refills, Maintenance, 06/14/21 16:52:00 EDT, Tablet, [facility]/pharmacy #[id number], Partial fill upon patient request if the prescription is for a schedule II opioid drug., 163,... Start Date: 06/14/21 Status: Ordered Unisom 25 mg oral tablet 1 tablet = 25 mg, By Mouth, Daily at bedtime, PRN for sleep, # 32 tablet, 0 Refills, Maintenance, 01/29/22 21:21:00 EDT, Tablet, [facility]/pharmacy #[id number], 162, cm, 01/20/22 0:10:00 EDT, Height, 127.5, kg, 10/11/20 21:21:00 EST, Dry Weight Start Date: 01/29/22 Status: Ordered Vitamin B6 25 mg oral tablet 1 tablet = 25 mg, By Mouth, 3 times a day, for 30 days, # 90 tablet, 2 Refills, Acute 05/18/22 12:57:00 EDT, 02/17/22 12:57:00 EDT, [facility]/pharmacy #[id number], Partial fill upon patient request if the prescription is for a schedule II opioid drug., 162, cm, 0... Start Date: 02/17/22 Stop Date: 05/18/22 Status: Ordered Vitamin B6 25 mg oral tablet See Instructions, 1 tablet By Mouth up to 3 times Daily for nausea, # 90 tablet, 1 Refills, Maintenance, 05/20/20 16:24:00 EDT, [facility]/pharmacy #[id number], 165, cm, 05/20/20 15:09:00 EDT, Height, [...]
--- OUTSIDE RECORDS SUMMARY | 2024-05-16 15:32 | XMS_ITS | Continuity of Care Document ---
Author Organization [facility] Address [address] [place] [address]- Care Team Providers Care Cotton Farmworker Name Role Phone Not on Staff, PCP Primary Care Physician Unavail able Encounter [facility] [place] Date(s): 09/23/21 - 11/27/[address] [address] Attending Physician: Not on Staff, Attending [...] give 325mg per patient preference and re-dose [id number] within 4 hours, if needed. Patient should [...] 10/14/20 8:26:00 EST, Route to Pharmacy Electronically, [facility]/pharmacy #[id number], Partial fill upon patient request if the prescription is... Start Date: 10/14/20 Status: Ordered famotidine 20 mg oral tablet 20 mg, 1, tablet, By Mouth, 2 times a day, # 60 tablet, Refills 0, Tot. Refills 0, Maintenance, 06/17/20 15:15:00 EDT, Route to Pharmacy Electronically, [facility]/pharmacy #[id number], 165, cm, 06/17/20 15:10:00EDT, Height, [...] Refills, Maintenance, 06/14/21 16:52:00 EDT, EC Tablet, [facility]/pharmacy #[id number], Partial fill upon patient request if the prescription is for a schedule II opioid drug., 163, cm, 10/14/20 16:15:00... Start Date: 06/14/21 Status: Ordered Multivitamins with Folic Acid 1 mg oral tablet 1 tablet, By Mouth, Daily, # 30 tablet, 8 Refills, Maintenance, 03/05/20 16:59:00 EDT, Tablet, [facility]/pharmacy #[id number], 1 tablet By Mouth Daily, 165, cm, 02/27/19 7:33:00 EDT, Height, 117, kg, 10/14/19 23:49:00 EST, Dry Weight Start Date: 03/05/20 Status: Ordered Tums 500 mg oral tablet, chewable 500 mg, 1, tablet, Chew, 3 times a day, PRN, # 30 tablet, Refills 0, Tot. Refills 0, Maintenance, for control of stomach acid, 09/16/20 19:17:00 EST, Route to Pharmacy Electronically, [facility]/pharmacy #[id number], Partial fill upon patient request if the prescr... Start Date: 09/16/20 Status: Ordered Tylenol Extra Strength 500 mg oral tablet 1 tablet = 500 mg, By Mouth, Every 8 hours, PRN as needed for fever, # 30 tablet, 0 Refills, Maintenance, 06/14/21 16:52:00 EDT, Tablet, [facility]/pharmacy #[id number], Partial fill upon patient request if the prescription is for a schedule II opioid drug., 163,... Start Date: 06/14/21 Status: Ordered Vitamin B6 25 mg oral tablet See Instructions, 1 tablet By Mouth up to 3 times Daily for nausea, # 90 tablet, 1 Refills, Maintenance, 05/20/20 16:24:00 EDT, [facility]/pharmacy #[id number], 165, cm, 05/20/20 15:09:00 EDT, [...]
--- OUTSIDE RECORDS SUMMARY | 2024-05-16 15:32 | XMS_ITS | Continuity of Care Document ---
Author Organization [facility] Address [address] [place] [address]- Care Team Providers Care Electronic Assembly Name Role Phone Not on Staff, PCP Primary Care Physician Unavail able Encounter [facility] Date(s): 01/25/22 - 02/24/[address] [address]- Allergies, Adverse Reactions, Alerts Substance Reaction Severity [...] give 325mg per patient preference and re-dose [id number] within 4 hours, if needed. Patient should [...] 10/14/20 8:26:00 EST, [id number] Partial fill upon patient request if the prescription is... Start Date: 10/14/20 Status: Ordered famotidine 20 mg oral tablet 20 mg, 1, tablet, By Mouth, 2 times a day, # 60 tablet, Refills 0, Tot. Refills 0, Maintenance, 02/08/22 20:18:00 EDT, [id number], 162, cm, 02/08/22 20:06:00EDT, Height, 115.5, kg, 02/08/22 19:58:00 EDT, Dry... Start Date: 02/08/22 Stop Date: 03/10/22 Status: Ordered ferrous sulfate 325 mg oral tablet 1 tablet = 325 mg, By Mouth, Daily, # 90 tablet, 3 Refills, Maintenance, 02/10/22 14:01:00 EDT, Tablet, [facility]/pharmacy #[id number], Partial fill upon patient request if the prescription is for a schedule II opioid drug., 162, cm, 02/08/22 20:06:00 EDT, Height... Start Date: 02/10/22 Status: Ordered metoclopramide 5 mg oral tablet 1 tablet, By Mouth, 2 times a day, for 30 days, # 60 tablet, 0 Refills, Physician Stop, [facility] [id number], 162, cm, 02/08/22 20:06:00 EDT, Height, 115.5, kg, 02/08/22 19:58:00 EDT, Dry Weight Start Date: 02/10/22 Stop Date: 03/12/22 Status: Ordered naproxen 500 mg oral delayed release tablet 1 tablet = 500 mg, By Mouth, 2 times a day, # 60 tablet, 0 Refills, Maintenance, 06/14/21 16:52:00 EDT, EC Tablet, [facility]/pharmacy #[id number], Partial fill upon patient request if the prescription is for a schedule II opioid drug., 163, cm, 10/14/20 16:15:00... Start Date: 06/14/21 Status: Ordered Multivitamins with Folic Acid 1 mg oral tablet 1 tablet, By Mouth, Daily, # 90 tablet, 3 Refills, Maintenance, 01/25/22 15:06:00 EDT, Tablet, [facility]/pharmacy #[id number], Partial fill upon patient request if [...] 09/16/20 19:17:00 EST, Route to Pharmacy Electronically, [facility]/pharmacy #[id number], Partial fill upon patient request if the prescr... Start Date: 09/16/20 Status: Ordered Tylenol Extra Strength 500 mg oral tablet 1 tablet = 500 mg, By Mouth, Every 8 hours, PRN as needed for fever, # 30 tablet, 0 Refills, Maintenance, 06/14/21 16:52:00 EDT, Tablet, [facility]/pharmacy #[id number], Partial fill upon patient request if the prescription is for a schedule II opioid drug., 163,... Start Date: 06/14/21 Status: Ordered Unisom 25 mg oral tablet 1 tablet = 25 mg, By Mouth, Daily at bedtime, PRN for sleep, # 32 tablet, 0 Refills, Maintenance, 01/29/22 21:21:00 EDT, Tablet, [facility]/pharmacy #[id number], 162, cm, 01/20/22 0:10:00 EDT, Height, [...]
--- OUTSIDE RECORDS SUMMARY | 2024-05-16 15:32 | XMS_ITS | Continuity of Care Document ---
Author Organization [facility] Address [address] [place] [address]- Care Team Providers Care Ad Copy Writer Name Role Phone Not on Staff, PCP Primary Care Physician Unavail able Encounter [facility] Date(s): 03/08/22 - 07/06/[address] [address]- Attending Physician: Not on Staff, Attending MD [...] give 325mg per patient preference and re-dose [id number] within 4 hours, if needed. Patient should [...] Replace Required Details, Route to Pharmacy Electronically, [facility]/pharmacy #[id number], Partial fill upon patient re... Start Date: 03/03/22 Status: Ordered docusate sodium 100 mg oral capsule 100 mg, 1, capsule, By Mouth, 2 times a day, PRN, # 30 capsule, Refills 0, Tot. Refills 0, Maintenance, Constipation, 10/14/20 8:26:00 EST, Route to Pharmacy Electronically, [facility]/pharmacy #[id number], Partial fill upon patient request if the prescription is... Start Date: 10/14/20 Status: Ordered ferrous sulfate 325 mg oral tablet 1 tablet = 325 mg, By Mouth, Daily, # 90 tablet, 3 Refills, Maintenance, 02/10/22 14:01:00 EDT, Tablet, [facility]/pharmacy #[id number], Partial fill upon patient request if the prescription is for a schedule II opioid drug., 162, cm, 02/08/22 20:06:00 EDT, Height... Start Date: 02/10/22 Status: Ordered Heartburn Relief 10 mg oral tablet 1 tablet, By Mouth, 2 times a day, # 60 tablet, 6 Refills, Soft Stop, 05/09/22 11:09:00 EDT, [facility]/pharmacy #[id number], 162, cm, 03/03/22 10:00:00 EDT, Height, 115.5, kg, 02/08/22 19:58:00 EDT, Dry Weight Start Date: 05/09/22 Status: Ordered Multivitamins with Folic Acid 1 mg oral tablet 1 tablet, By Mouth, Daily, # 90 tablet, 3 Refills, Maintenance, 01/25/22 15:06:00 EDT, Tablet, [facility]/pharmacy #[id number], Partial fill upon [...] 09/16/20 19:17:00 EST, [id number] Partial fill upon patient request if the prescr... Start Date: 09/16/20 Status: Ordered Unisom 25 mg oral tablet 1 tablet = 25 mg, By Mouth, Daily at bedtime, PRN for sleep, # 32 tablet, 0 Refills, Maintenance, 01/29/22 21:21:00 EDT, Tablet, [facility]/pharmacy #[id number], 162, cm, 01/20/22 0:10:00 EDT, Height, 127.5, kg, 10/11/20 21:21:00 EST, Dry Weight Start Date: 01/29/22 Status: Ordered Vitamin B6 50 mg oral tablet See Instructions, TAKE 3 TIMES PER DAY TO PREVENT NAUSEA IN ., # 90 tablet, Refills 0, Instructions Replace Required Details, Route to Pharmacy Electronically, [facility] [id number], 162, cm, 03/03/22 10:00:00 EDT, Height, 115.5, [...] Sex Patient Care team information Personnel Name: Not on Staff, PCP
--- OUTSIDE RECORDS SUMMARY | 2024-05-16 15:32 | XMS_ITS | Continuity of Care Document ---
Author Organization [facility] Address [address] [place] [address]- Care Team Providers Care Salesperson Jewelry Name Role Phone Not on Staff, PCP Primary Care Physician Unavail able Encounter [facility] Date(s): 07/01/20 - 07/31/[address] [address]- [facility] Allergies, Adverse Reactions, [...] 06/17/20 15:15:00 EDT, Route to Pharmacy Electronically, [facility]/pharmacy #[id number], 165, cm, 06/17/20 [...]
--- OUTSIDE RECORDS SUMMARY | 2024-05-16 15:32 | XMS_ITS | Continuity of Care Document ---
Author Organization [facility] Address [address] [place] [address]- Care Team Providers Care Quality Control Tech Name Role Phone Not on Staff, PCP Primary Care Physician Unavail able Encounter [facility] Date(s): 05/18/22 - 06/17/22 [facility] [address] [place] [id number] Allergies, Adverse Reactions, Alerts Substance Reaction [...] give 325mg per patient preference and re-dose [id number] within 4 hours, if needed. Patient should [...] Required Details, [id number] fill upon patient re... Start Date: 03/03/22 Status: Ordered docusate sodium 100 mg oral capsule 100 mg, 1, capsule, By Mouth, 2 times a day, PRN, # 30 capsule, Refills 0, Tot. Refills 0, Maintenance, Constipation, 10/14/20 8:26:00 EST, Route to Pharmacy Electronically, [facility]/pharmacy #[id number], Partial fill upon patient request if the prescription is... Start Date: 10/14/20 Status: Ordered ferrous sulfate 325 mg oral tablet 1 tablet = 325 mg, By Mouth, Daily, # 90 tablet, 3 Refills, Maintenance, 02/10/22 14:01:00 EDT, Tablet, [facility]/pharmacy #[id number], Partial fill upon patient request if the prescription is for a schedule II opioid drug., 162, cm, 02/08/22 20:06:00 EDT, Height... Start Date: 02/10/22 Status: Ordered Heartburn Relief 10 mg oral tablet 1 tablet, By Mouth, 2 times a day, # 60 tablet, 6 Refills, Soft Stop, 05/09/22 11:09:00 EDT, [facility]/pharmacy #[id number], 162, cm, 03/03/22 10:00:00 EDT, Height, 115.5, kg, 02/08/22 19:58:00 EDT, Dry Weight Start Date: 05/09/22 Status: Ordered Multivitamins with Folic Acid 1 mg oral tablet 1 tablet, By Mouth, Daily, # 90 tablet, 3 Refills, Maintenance, 01/25/22 15:06:00 EDT, Tablet, [facility]/pharmacy #[id number], Partial fill upon patient [...] 19:17:00 EST, [id number] Partial fill upon patient request if the prescr... Start Date: 09/16/20 Status: Ordered Unisom 25 mg oral tablet 1 tablet = 25 mg, By Mouth, Daily at bedtime, PRN for sleep, # 32 tablet, 0 Refills, Maintenance, 01/29/22 21:21:00 EDT, Tablet, [facility]/pharmacy #[id number], 162, cm, 01/20/22 0:10:00 EDT, Height, 127.5, kg, 10/11/20 21:21:00 EST, Dry Weight Start Date: 01/29/22 Status: Ordered Vitamin B6 50 mg oral tablet See Instructions, TAKE 3 TIMES PER DAY TO PREVENT NAUSEA IN ., # 90 tablet, Refills 0, Instructions Replace Required Details, Route to Pharmacy Electronically, [facility] [id number], 162, cm, 03/03/22 10:00:00 EDT, Height, 115.5, [...]
--- OUTSIDE RECORDS SUMMARY | 2024-05-16 15:32 | XMS_ITS | Continuity of Care Document ---
Author Organization [facility] Address [address] [place] [address]- Care Team Providers Care Junior Assistant Manager Name Role Phone Not on Staff, PCP Primary Care Physician Unavail able [place] [facility]): 01/17/22 - 02/16/22 [facility] [address] [address]- Allergies, Adverse Reactions, Alerts Substance Reaction Severity [...] give 325mg per patient preference and re-dose [id number] within 4 hours, if needed. Patient should [...] 10/14/20 8:26:00 EST, [id number] fill upon patient request if the prescription is... Start Date: 10/14/20 Status: Ordered famotidine 20 mg oral tablet 20 mg, 1, tablet, By Mouth, 2 times a day, # 60 tablet, Refills 0, Tot. Refills 0, Maintenance, 02/08/22 20:18:00 EDT, [id number], 162, cm, 02/08/22 20:06:00EDT, Height, 115.5, kg, 02/08/22 19:58:00 EDT, Dry... Start Date: 02/08/22 Stop Date: 03/10/22 Status: Ordered ferrous sulfate 325 mg oral tablet 1 tablet = 325 mg, By Mouth, Daily, # 90 tablet, 3 Refills, Maintenance, 02/10/22 14:01:00 EDT, Tablet, [facility]/pharmacy #[id number], Partial fill upon patient request if the prescription is for a schedule II opioid drug., 162, cm, 02/08/22 20:06:00 EDT, Height... Start Date: 02/10/22 Status: Ordered metoclopramide 5 mg oral tablet 1 tablet, By Mouth, 2 times a day, for 30 days, # 60 tablet, 0 Refills, Physician Stop, [facility] [id number], 162, cm, 02/08/22 20:06:00 EDT, Height, 115.5, kg, 02/08/22 19:58:00 EDT, Dry Weight Start Date: 02/10/22 Stop Date: 03/12/22 Status: Ordered naproxen 500 mg oral delayed release tablet 1 tablet = 500 mg, By Mouth, 2 times a day, # 60 tablet, 0 Refills, Maintenance, 06/14/21 16:52:00 EDT, EC Tablet, [facility]/pharmacy #[id number], Partial fill upon patient request if the prescription is for a schedule II opioid drug., 163, cm, 10/14/20 16:15:00... Start Date: 06/14/21 Status: Ordered Multivitamins with Folic Acid 1 mg oral tablet 1 tablet, By Mouth, Daily, # 90 tablet, 3 Refills, Maintenance, 01/25/22 15:06:00 EDT, Tablet, [facility]/pharmacy #[id number], [...] 09/16/20 19:17:00 EST, Route to Pharmacy Electronically, [facility]/pharmacy #[id number], Partial fill upon patient request if the prescr... Start Date: 09/16/20 Status: Ordered Tylenol Extra Strength 500 mg oral tablet 1 tablet = 500 mg, By Mouth, Every 8 hours, PRN as needed for fever, # 30 tablet, 0 Refills, Maintenance, 06/14/21 16:52:00 EDT, Tablet, [facility]/pharmacy #[id number], [...]
--- OUTSIDE RECORDS SUMMARY | 2024-05-16 15:32 | XMS_ITS | Continuity of Care Document ---
Author Organization [facility] Address [address] [place] [address]- Care Team Providers Care Civil Engineering Manager Name Role Phone Not on Staff, PCP Primary Care Physician Unavail able En[facility] [place] Date(s): 04/14/22 - [facility] [address] [address]- Attending Physician: Not on Staff, Attending MD [...] give 325mg per patient preference and re-dose [id number] within 4 hours, if needed. Patient should [...] Required Details, Route to Pharmacy Electronically, [facility]/pharmacy #[id number], Partial fill upon patient re... Start Date: 03/03/22 Status: Ordered docusate sodium 100 mg oral capsule 100 mg, 1, capsule, By Mouth, 2 times a day, PRN, # 30 capsule, Refills 0, Tot. Refills 0, Maintenance, Constipation, 10/14/20 8:26:00 EST, Route to Pharmacy Electronically, [facility]/pharmacy #[id number], Partial fill upon patient request if the prescription is... Start Date: 10/14/20 Status: Ordered ferrous sulfate 325 mg oral tablet 1 tablet = 325 mg, By Mouth, Daily, # 90 tablet, 3 Refills, Maintenance, 02/10/22 14:01:00 EDT, Tablet, [facility]/pharmacy #[id number], Partial fill upon patient request if the prescription is for a schedule II opioid drug., 162, cm, 02/08/22 20:06:00 EDT, Height... Start Date: 02/10/22 Status: Ordered Heartburn Relief 10 mg oral tablet 1 tablet, By Mouth, 2 times a day, # 60 tablet, 6 Refills, Soft Stop, 05/09/22 11:09:00 EDT, [facility]/pharmacy #[id number], 162, cm, 03/03/22 10:00:00 EDT, Height, 115.5, kg, 02/08/22 19:58:00 EDT, Dry Weight Start Date: 05/09/22 Status: Ordered metoclopramide 5 mg oral tablet 1 tablet, By Mouth, 2 times a day, for 30 days, # 60 tablet, 0 Refills, Physician Stop 06/08/22 11:09:00 EDT, 05/09/22 11:09:00 EDT, [facility]/pharmacy #[id number], 162, cm, 03/03/22 10:00:00 EDT, Height, 115.5,kg, 02/08/22 19:58:00 EDT, Dry Weight Start Date: 05/09/22 Stop Date: 06/08/22 Status: Ordered Multivitamins with Folic Acid 1 mg oral tablet 1 tablet, By Mouth, Daily, # 90 tablet, 3 Refills, Maintenance, 01/25/22 15:06:00 EDT, Tablet, [facility]/pharmacy #[id number], Partial [...] Refills, Maintenance, 01/29/22 21:21:00 EDT, Tablet, [facility]/pharmacy #[id number], 162, cm, 01/20/22 0:10:00 EDT, Height, 127.5, kg, 10/11/20 21:21:00 EST, Dry Weight Start Date: 01/29/22 Status: Ordered Vitamin B6 50 mg oral tablet See Instructions, TAKE 3 TIMES PER DAY TO PREVENT NAUSEA IN ., # 90 tablet, Refills 0, Instructions Replace Required Details, Route to Pharmacy Electronically, [facility] [id number], 162, cm, 03/03/22 10:00:00 EDT, Height, 115.5, [...]
--- OUTSIDE RECORDS SUMMARY | 2024-05-16 15:32 | XMS_ITS | Continuity of Care Document ---
Author Organization [facility] Address [address] [place] [address]- Care Team Providers Care Bread Pan Greaser Name Role Phone Bruno DOS SANTOS, Arron Dash Primary Care Physician Encounter [facility] Date(s): 06/06/22 - 08/31/[address] [address] Attending Physician: Not on [...] Refills, Maintenance, 08/23/22 19:45:00 EST, REC Powder, [facility]/pharmacy #[id number], Partial fill upon patient request if the prescription is for a schedule II opioid drug., 17 Gm By Mouth... Start Date: 08/23/22 Status: Ordered Nexplanon 68 mg subcutaneous implant 1 each = 68 mg, Subcutaneous Infusion, Once, Inserted 08/23/22 Lot [id number] Exp 07/28/24, 0 Refills,Maintenance, 08/23/22 19:16:00 EST, [...] Team Personnel Name: Triny Son RN Position: [facility] PCO RN Member Role: Primary Care Nurse Name: Jennifer Penny RN Position: [facility] RN Member Role: Primary Care Nurse Name: Wanda Man RN Position: [facility] OB RN Member Role: Primary Care Nurse Name: Aurelio Ravi DO Position: [facility] BUSINESS EXCELLENCE LEADER MD Member Role: [employer] BUSINESS EXCELLENCE LEADER Physician Address: Address: [address] [place] [address] [place] [address]- Name: Sisi Interiano RN Position: [facility] RN Member Role: Primary Care Nurse Name: Arron Carr MD Position: [facility] Outreach Member Role: PCP Address: Address: [address] [place] [address]- Name: Emeka Chong RN Position: [facility] RN Member Role: Primary Care Nurse Name: Jasmin Mosqueda RN Position: [facility] OB RN Member Role: Primary Care Nurse Name: Jane Palomares RN Position: [facility] OB RN Member Role: Primary Care Nurse Name: Leena Friend RN Position: [facility] OB RN Member Role: Primary Care Nurse Care Team Related Persons Name: FRANCISCA REYES Address: home [address] [place] [address] Name: BERKLEY REYES Address: home [place] Name: LEVAR ZARATE Address: home [address] [place] [address] Name: JUNIOR ELIANA Address: [place] [address] Name: CAROLE CHUNG Address: [address] Address: home [address] [place] [address] [place] Name: TRACY CHUNG Address: [address] Address: home [address] [address] [place] Name: LIS JAMA Address: [address] Address: home [address] [address] [place] Name: AKIRA JAMA Address: [address] Address: home [address] [place] [address] [place] Name: BERKLEY AVENDANO Address: home [address] [address] Name: JENNIFER BEARDEN
--- OUTSIDE RECORDS SUMMARY | 2024-05-16 15:32 | XMS_ITS | Continuity of Care Document ---
Author Organization [facility] Address [address] [place] [address]- Care Team Providers Care Business Services Administrator Name Role Phone Not on Staff, PCP Primary Care Physician Unavail able En[place] [facility] [place] Date(s): 09/22/20 - 09/22/[address] [address] Discharge Disposition: A-D/C Home Attending Physician: Duong Ralph MD Admitting Physician: Duong Ralph MD Referring Physician: Duong Ralph MD Allergies, Adverse Reactions, Alerts Substance Reaction [...] 06/17/20 15:15:00 EDT, Route to Pharmacy Electronically, [facility]/pharmacy #[id number], 165, cm, 06/17/20 15:10:00EDT, Height, 117, kg, 10/14/19 23:49:00 EST, Dry We... Start Date: 06/17/20 Stop Date: 07/17/20 Status: Ordered Multivitamins with Folic Acid 1 mg oral tablet 1 tablet, By Mouth, Daily, # 30 tablet, 8 Refills, Maintenance, 03/05/20 16:59:00 EDT, Tablet, [facility]/pharmacy #[id number], 1 tablet By Mouth Daily, 165, cm, 02/27/19 7:33:00 EDT, Height, 117, kg, 10/14/19 23:49:00 EST, Dry Weight Start Date: 03/05/20 Status: Ordered Tums 500 mg oral tablet, chewable 500 mg, 1, tablet, Chew, 3 times a day, PRN, # 30 tablet, Refills 0, Tot. Refills 0, Maintenance, for control of stomach acid, 09/16/20 19:17:00 EST, Route to Pharmacy Electronically, [facility]/pharmacy #[id number], Partial fill upon patient request if the prescr... Start Date: 09/16/20 Status: Ordered Vitamin B6 25 mg oral tablet See Instructions, 1 tablet By Mouth up to 3 times Daily for nausea, # 90 tablet, 1 Refills, Maintenance, 05/20/20 16:24:00 EDT, [facility]/pharmacy #[id number], 165, cm, 05/20/20 15:09:00 EDT, Height, [...] Most recent to oldest [Reference Range]: 1 Weight 126.2 kg (09/22/20 10:19 PM) Pulse Rate [55-90 bpm] 88 bpm (09/22/20 10:30 PM) Blood Pressure [90-138/55-84 mm Hg] 92/5 4mm Hg (09/22/20 10:30 PM) Respiratory Rate [16-30 br/min] 18 br/mi n (09/22/20 10:30 PM) Blood pressure sites Arm, right (09/22/20 10:30 PM) Dry Weight 126.2 kg (09/22/20 10:19 PM) Weight Obtained Via Standing scale (09/22/20 10:19 PM) Social History Social History Type Response Smoking Status Never (less than 100 in lifetime) entered on: 04/08/20 Sex
--- OUTSIDE RECORDS SUMMARY | 2024-05-16 15:32 | XMS_ITS | Continuity of Care Document ---
Author Organization [facility] Address [address] [place] [address]- Care Team Providers Care Postdoctoral Research Fellow Name Role Phone Bruno DOS SANTOS, Arron Dash Primary Care Physician Encounter [facility] [place] Date(s): 07/22/22 - 08/25/[address] [address] Attending Physician: Not on Staff, Attending [...] 0 Refills, Maintenance, 08/23/22 19:44:00 EST, Tablet, [facility]/pharmacy #[id number], Partial fill upon patient request if the prescription is for a schedule II opioid drug., 165, cm,... Start Date: 08/23/22 Status: Ordered ibuprofen 600 mg oral tablet 600 mg, 1, tablet, By Mouth, Every 6 hours, # 50 tablet, Refills 0, Tot. Refills 0, Maintenance, 08/23/22 19:48:00 EST, Route to Pharmacy Electronically, [facility]/pharmacy #[id number], Partial fill upon patientrequest if the prescription is for a schedule II op... Start Date: 08/23/22 Status: Ordered MiraLax oral powder for reconstitution = 17 Gm, By Mouth, Daily, dissolve in water before taking, # 255 Gm, 0 Refills, Maintenance, 08/23/22 19:45:00 EST, REC Powder, [facility]/pharmacy #[id number], Partial fill upon patient request if the prescription is for a schedule II opioid drug., 17 Gm By Mouth... Start Date: 08/23/22 Status: Ordered Nexplanon 68 mg subcutaneous implant 1 each = 68 mg, Subcutaneous Infusion, Once, Inserted 08/23/22 Lot [id number] 07/28/24, 0 Refills,Maintenance, 08/23/22 19:16:00 EST, Partial fill upon patient request if the prescription is for a schedule II opioid drug. Start Date: 08/23/22 Status: Ordered oxyCODONE 5 mg oral tablet 5 mg, 1, tablet, By Mouth, Every 6 hours, PRN, # 10 tablet, Refills 0, Tot. Refills 0, Acute 08/26/22 23:16:00 EST, as needed for pain, 08/24/22 23:16:00 EST, Route to Pharmacy Electronically, [facility]/pharmacy #[id number], Partial fill upon patient request if t... Start Date: 08/24/22 Stop Date: 08/26/22 Status: Ordered oxyCODONE 5 mg oral tablet [...] Team Personnel Name: Triny Son RN Position: [facility] PCO RN Member Role: Primary Care Nurse Name: Jennifer Penny RN Position: [facility] RN Member Role: Primary Care Nurse Name: Wanda Man RN Position: [facility] OB RN Member Role: Primary Care Nurse Name: Aurelio Ravi DO Position: [facility] YOUTH AGENT MD Member Role: Lifetime YOUTH AGENT Physician Address: Address: [address] [place], [place] [address]s [facility] [place] [address]- Name: Sisi Interiano RN Position: [facility] RN Member Role: Primary Care Nurse Name: Arron Carr MD Position: [facility] Outreach Member Role: PCP Address: Address: [address] [place] [address]- [place] Name: Emeka Chong RN Position: S RN Member Role: Primary Care Nurse Name: Jasmin Mosqueda RN Position: S OB RN Member Role: Primary Care Nurse Name: Jane Palomares RN Position: [facility] OB RN Member Role: Primary Care Nurse Name: Leena Friend RN Position: [facility] OB RN Member Role: Primary Care Nurse Care Team Related Persons Name: FRANCISCA REYES Address: home [address] [place] [address] Name: BERKLEY REYES Address: home [place] Name: LEVAR ZARATE Address: home [address] [place] [address] Name: JUNIOR ELIANA Address: [place] [address] Name: MICHELLE CHUNG BOY A Address: [address] Address: home [address] [place] [address] [place] Name: MICHELLE CHUNG GIRL B Address: [address] Address: home [address] [place] [address] [place] Name: LIS JAMA Address: [address] Address: home [address] [address] [place] Name: AKIRA JAMA Address: [address] Address: [address] [place] [address] [place] Name: BERKLEY AVENDANO Address: home [address] [address] Name: JENNIFER BEARDEN
--- OUTSIDE RECORDS SUMMARY | 2024-05-16 15:32 | XMS_ITS | Continuity of Care Document ---
Author Organization [facility] n's [facility] Address [address] [place] [address]- Care Team Providers Care Carpenter Rough Name Role Phone Not on Staff, PCP Primary Care Physician Unavail able Encounter [facility] Date(s): 04/06/20 - 05/06/20 [facility] [address] [address] Allergies, Adverse Reactions, Alerts Substance Reaction Severity [...] Refills, Maintenance, 05/03/20 17:34:00 EDT, Tablet, [id number], 165, cm, 04/08/20 8:05:00 EDT, Height, 117, kg, 10/14/19 23:49:00 EST, Dry Weight Start Date: 05/03/20 Status: Ordered metoclopramide 10 mg oral tablet See Instructions, TAKE 1 TABLET 4 TIMES A DAY NEEDED FOR NAUSEA AND VOMITING 30 MINUTES BEFORE MEALS & BEDTIME, # 84 tablet, 0 Refills, Acute, [id number], 165, cm, 04/08/20 8:05:00 EDT, Height, 117, kg, 10/14/19 23:49:00 EST, Dry Weight Start Date: 05/04/20 Status: Ordered Multivitamins with Folic Acid 1 mg oral tablet 1 tablet, By Mouth, Daily, # 30 tablet, 8 Refills, Maintenance, 03/05/20 16:59:00 EDT, Tablet, [facility]/pharmacy #[id number], 1 tablet By Mouth Daily, 165, cm, 02/27/19 7:33:00 EDT, Height, 117, kg, 10/14/19 23:49:00 EST, Dry Weight Start Date: 03/05/20 Status: Ordered promethazine 12.5 mg oral tablet 1 tablet = 12.5 mg, By Mouth, Every 4 hours, PRN for nausea/vomiting, # 30 tablet, 0 Refills, Maintenance, 05/03/20 17:36:00 EDT, Tablet, [facility]/pharmacy #[id number], 165, cm, 04/08/20 8:05:00 EDT, Height, 117, kg, 10/14/19 23:49:00 EST, Dry Weight Start Date: 05/03/20 Status: Ordered Vitamin B6 25 mg oral tablet See Instructions, 1 tablet By Mouth up to 3 times Daily for nausea, # 90 tablet, 1 Refills, Maintenance, 05/03/20 17:34:00 EDT, [facility]/pharmacy #[id number], 165, cm, 04/08/20 8:05:00 EDT, Height, [...]
--- OUTSIDE RECORDS SUMMARY | 2024-05-16 15:32 | XMS_ITS | Continuity of Care Document ---
Author Organization [facility] Address [address] [place] [address]- Care Team Providers Care Transformer Maker Name Role Phone Not on Staff, PCP Primary Care Physician Unavail able [place] [facility] [place] 05/26/22 - 06/25/22 [facility] [address] [address]- Allergies, Adverse Reactions, Alerts Substance Reaction Severity [...] give 325mg per patient preference and re-dose [id number] within 4 hours, if needed. Patient should [...] Replace Required Details, [id number] upon patient re... Start Date: 03/03/22 Status: Ordered docusate sodium 100 mg oral capsule 100 mg, 1, capsule, By Mouth, 2 times a day, PRN, # 30 capsule, Refills 0, Tot. Refills 0, Maintenance, Constipation, 10/14/20 8:26:00 EST, Route to Pharmacy Electronically, [facility]/pharmacy #[id number], Partial fill upon patient request if the prescription is... Start Date: 10/14/20 Status: Ordered ferrous sulfate 325 mg oral tablet 1 tablet = 325 mg, By Mouth, Daily, # 90 tablet, 3 Refills, Maintenance, 02/10/22 14:01:00 EDT, Tablet, [facility]/pharmacy #[id number], Partial fill upon patient request if the prescription is for a schedule II opioid drug., 162, cm, 02/08/22 20:06:00 EDT, Height... Start Date: 02/10/22 Status: Ordered Heartburn Relief 10 mg oral tablet 1 tablet, By Mouth, 2 times a day, # 60 tablet, 6 Refills, Soft Stop, 05/09/22 11:09:00 EDT, [facility]/pharmacy #[id number], 162, cm, 03/03/22 10:00:00 EDT, Height, 115.5, kg, 02/08/22 19:58:00 EDT, Dry Weight Start Date: 05/09/22 Status: Ordered Multivitamins with Folic Acid 1 mg oral tablet 1 tablet, By Mouth, Daily, # 90 tablet, 3 Refills, Maintenance, 01/25/22 15:06:00 EDT, Tablet, [facility]/pharmacy #[id number], Partial fill upon patient request [...] 09/16/20 19:17:00 EST, [id number] Partial fill upon patient request if the prescr... Start Date: 09/16/20 Status: Ordered Unisom 25 mg oral tablet 1 tablet = 25 mg, By Mouth, Daily at bedtime, PRN for sleep, # 32 tablet, 0 Refills, Maintenance, 01/29/22 21:21:00 EDT, Tablet, [facility]/pharmacy #[id number], 162, cm, 01/20/22 0:10:00 EDT, Height, 127.5, kg, 10/11/20 21:21:00 EST, Dry Weight Start Date: 01/29/22 Status: Ordered Vitamin B6 50 mg oral tablet See Instructions, TAKE 3 TIMES PER DAY TO PREVENT NAUSEA IN ., # 90 tablet, Refills 0, Instructions Replace Required Details, Route to Pharmacy Electronically, [id number], 162, cm, 03/03/22 10:00:00 EDT, Height, 115.5, [...]
--- OUTSIDE RECORDS SUMMARY | 2024-05-16 15:32 | XMS_ITS | Continuity of Care Document ---
Author Organization [facility] Address [address] [place] [address]- Care Team Providers Care Electrical Electronics Technician Name Role Phone Bruno DOS SANTOS, Arron Dash Primary Care Physician [phone] Encounter [facility] Date(s): 08/31/22 - 09/30/[address] [address] Allergies, Adverse Reactions, Alerts Substance Reaction [...] mg, Subcutaneous Infusion, Once, Inserted 08/23/22 Lot [id number] Exp 07/28/24, 0 Refills,Maintenance, 08/23/22 19:16:00 EST, [...] Team Personnel Name: Triny Son RN Position: [facility] PCO RN Member Role: Primary Care Nurse Name: Jennifer Penny RN Position: [facility] RN Member Role: Primary Care Nurse Name: Wanda Man RN Position: [facility] OB RN Member Role: Primary Care Nurse Name: Aurelio Ravi DO Position: [facility] CORN DETASSELER MD Member Role: Lifetime CORN DETASSELER Physician Address: Address: [address] [place] [address] Train Control Technician [place], [place] [address] Name: Sisi Interaino RN Position: [facility] RN Member Role: Primary Care Nurse Name: Arron Carr MD Position: [facility] Outreach Member Role: PCP Address: Address: [address] [place] [address]- Name: Emeka Chong RN Position: [facility] RN Member Role: Primary Care Nurse Name: Jasmin Mosqueda RN Position: [facility] OB RN Member Role: Primary Care Nurse Name: Jane Palomares RN Position: [facility] OB RN Member Role: Primary Care Nurse Name: Leena Friend RN Position: [facility] OB RN Member Role: Primary Care Nurse Care Team Related Persons Name: FRANCISCA REYES Address: home [address] [place] [address] Name: BERKLEY REYES Address: home [place] Name: LEVAR ZARATE Address: home [address] [place] [address] Name: JUNIOR ELIANA Address: [place] [address] Name: CAROLE CHUNG Address: [address] Address: home [address] [place] [address] [place] Name: TRACY CHUNG Address: [address] Address: home [address] [place] [address] [place] Name: LIS JAMA Address: [address] Address: home [address] [address] [place] Name: AKIRA JAMA Address: Address: home [address] [place] [address] [place] Name: BERKLEY AVENDANO Address: home [address] [address] Name: JENNIFER BEARDEN
--- OUTSIDE RECORDS SUMMARY | 2024-05-16 15:32 | XMS_ITS | Continuity of Care Document ---
Author Organization [facility] Address [address] [facility] [address] [place] [address]- Care Team Providers Care Photography Spotter Name Role Phone Arron Carr MD Primary Care Physician Encounter [facility] Date(s): 08/25/22 - 09/24/22 [facility] [address] [facility] [address] [place], [place] [address] Attending Physician: Rikki Rodriguez Admitting Physician: AdmtrRikki Referring Physician: Admtr, Ar8 Allergies, Adverse Reactions, Alerts Substance Reaction Severity [...] Refills, Maintenance, 08/23/22 19:45:00 EST, REC Powder, [facility]/pharmacy #[id number], Partial fill upon patient request if the prescription is for a schedule II opioid drug., 17 Gm By Mouth... Start Date: 08/23/22 Status: Ordered Nexplanon 68 mg subcutaneous implant 1 each = 68 mg, Subcutaneous Infusion, Once, Inserted 08/23/22 Lot [id number] Exp 07/28/24, 0 Refills,Maintenance, 08/23/22 19:16:00 EST, Partial fill upon patient request if the prescription is for a schedule II opioid drug. Start Date: 08/23/22 Status: Ordered oxyCODONE 5 mg oral tablet 5 mg, 1, tablet, By Mouth, Every 6 hours, PRN, # 10 tablet, Refills 0, Tot. Refills 0, Maintenance,as needed for pain, 08/23/22 19:48:00 EST, Route to Pharmacy Electronically, [facility]/pharmacy #[id number], Partial fill upon patient request [...] Team Personnel Name: Triny Son RN Position: [facility] PCO RN Member Role: Primary Care Nurse Name: Jennifer Penny RN Position: [facility] RN Member Role: Primary Care Nurse Name: Wanda Man RN Position: [facility] OB RN Member Role: Primary Care Nurse Name: Aurelio Raiv DO Position: [facility] SUPERVISOR RECORD PRESS MD Member Role: Lifetime SUPERVISOR RECORD PRESS Physician Address: Address: [address] [place] [address] Road [place] [address]- Name: Sisi Interiano RN Position: [facility] RN Member Role: Primary Care Nurse Name: Arron Carr MD Position: [facility] Outreach Member Role: PCP Address: Address: [address] [place] [address]- Name: Emeka Chong RN Position: [facility] RN Member Role: Primary Care Nurse Name: Jasmin Mosqueda RN Position: [facility] OB RN Member Role: Primary Care Nurse Name: Jane Palomares RN Position: [facility] OB RN Member Role: Primary Care Nurse Name: Leena Friend RN Position: [facility] OB RN Member Role: Primary Care Nurse Care Team Related Persons Name: FRANCISCA REYES Address: home [address] [place] [address] Name: BERKLEY REYES Address: home [place] Name: LEVAR ZARATE Address: home [address] [place] [address] Name: JUNIOR ELIANA Address: [place] [address] Name: CAROLE CHUNG Address: [address] Address: home [address] [place] [address] [place] Name: TRACY CHUNG Address: [address] Address: [address] [address] [place] Name: LIS JAMA Address: [address] Address: [address] [address] [place] Name: AKIRA JAMA Address: [address] Address: home [address] [place] [address] [place] Name: BERKLEY AVENDANO Address: home [address] [address] Name: JENNIFER BEARDEN
--- OUTSIDE RECORDS SUMMARY | 2024-05-16 15:32 | XMS_ITS | Continuity of Care Document ---
Author Organization [facility] Address [address] [place] [address]- Care Team Providers Care Vice President Talent Management Name Role Phone Not on Staff, PCP Primary Care Physician Unavail able Encounter [facility] Date(s): 03/30/22 - 04/29/[address] [address]- Allergies, Adverse Reactions, Alerts Substance Reaction Severity [...] give 325mg per patient preference and re-dose [id number] within 4 hours, if needed. Patient should [...] Required Details, Route to Pharmacy Electronically, [facility]/pharmacy #[id number], Partial fill upon patient re... Start Date: 03/03/22 Status: Ordered docusate sodium 100 mg oral capsule 100 mg, 1, capsule, By Mouth, 2 times a day, PRN, # 30 capsule, Refills 0, Tot. Refills 0, Maintenance, Constipation, 10/14/20 8:26:00 EST, Route to Pharmacy Electronically, [facility]/pharmacy #[id number], Partial fill upon patient request if the prescription is... Start Date: 10/14/20 Status: Ordered famotidine 10 mg oral tablet 1 tablet = 10 mg, By Mouth, 2 times a day, # 60 tablet, 0 Refills, Maintenance, 03/30/22 12:23:00 EDT, Tablet, [facility]/pharmacy #[id number], Partial fill upon patient request if the prescription is for a schedule II opioid drug., 162, cm, 03/03/22 10:00:00 EDT,... Start Date: 03/30/22 Status: Ordered famotidine 20 mg oral tablet 20 mg, 1, tablet, By Mouth, 2 times a day, # 60 tablet, Refills 0, Tot. Refills 0, Maintenance, 02/08/22 20:18:00 EDT, Route to Pharmacy Electronically, [facility]/pharmacy #[id number], 162, cm, 02/08/22 20:06:00EDT, Height, 115.5, kg, 02/08/22 19:58:00 EDT, Dry... Start Date: 02/08/22 Stop Date: 03/10/22 Status: Ordered ferrous sulfate 325 mg oral tablet 1 tablet = 325 mg, By Mouth, Daily, Take daily for anemia, # 90 tablet, 0 Refills, Maintenance, 04/15/22 15:31:00 EDT, Tablet, [facility]/pharmacy #[id number], Partial fill upon patient request if the prescription is for a schedule II opioid drug., 162, cm, ... Start Date: 04/15/22 Status: Ordered ferrous sulfate 325 mg oral tablet 1 tablet = 325 mg, By Mouth, Daily, # 90 tablet, 3 Refills, Maintenance, 02/10/22 14:01:00 EDT, Tablet, [facility]/pharmacy #[id number], Partial fill upon patient request if the prescription is for a schedule II opioid drug., 162, cm, 02/08/22 20:06:00 EDT, Height... Start Date: 02/10/22 Status: Ordered metoclopramide 5 mg oral tablet 1 tablet, By Mouth, 2 times a day, for 30 days, # 60 tablet, 0 Refills, Physician Stop, [facility] STORE 12654, 162, cm, 03/03/22 10:00:00 EDT, Height, 115.5, kg, 02/08/22 19:58:00 EDT, Dry Weight Start Date: 04/25/22 Stop Date: 05/25/22 Status: Ordered naproxen 500 mg oral delayed release tablet 1 tablet = 500 mg, By Mouth, 2 times a day, # 60 tablet, 0 Refills, Maintenance, 06/14/21 16:52:00 EDT, EC Tablet, [facility]/pharmacy #[id number], Partial fill upon patient request if the prescription is for a schedule II opioid drug., 163, cm, 10/14/20 16:15:00... Start Date: 06/14/21 Status: Ordered Multivitamins with Folic Acid 1 mg oral tablet 1 tablet, By Mouth, Daily, # 90 tablet, 3 Refills, Maintenance, 01/25/22 15:06:00 EDT, Tablet, [facility]/pharmacy #[id number], Partial fill upon patient [...] Refills, Maintenance, 06/14/21 16:52:00 EDT, Tablet, [facility]/pharmacy #[id number], Partial fill upon patient request if the prescription is for a schedule II opioid drug., 163,... Start Date: 06/14/21 Status: Ordered Unisom 25 mg oral tablet 1 tablet = 25 mg, By Mouth, Daily at bedtime, PRN Nausea & Vomiting, Take nightly to prevent nausea and vomiting in , # 30 tablet, 1 Refills, Maintenance, 04/10/22 14:09:00 EDT, Tablet, [facility]/pharmacy #[id number], Partial fill upon patient request if... Start Date: 04/10/22 Status: Ordered Unisom 25 mg oral tablet 1 tablet = 25 mg, By Mouth, Daily at bedtime, PRN for sleep, # 32 tablet, 0 Refills, Maintenance, 01/29/22 21:21:00 EDT, Tablet, [facility]/pharmacy #[id number], 162, cm, 01/20/22 0:10:00 EDT, Height, 127.5, kg, 10/11/20 21:21:00 EST, Dry Weight Start Date: 01/29/22 Status: Ordered Unisom 25 mg oral tablet 1 tablet = 25 mg, By Mouth, Daily at bedtime, PRN for sleep, Take nightly to prevent nausea in ., # 30 tablet, 0 Refills, Maintenance, 03/25/22 20:11:00 EDT, Tablet, [facility]/pharmacy #[id number], Partial fill upon patient request if the prescription is... Start Date: 03/25/22 Status: Ordered Vitamin B6 25 mg oral tablet 1 tablet = 25 mg, By Mouth, 3 times a day, for 30 days, # 90 tablet, 2 Refills, Acute 05/18/22 12:57:00 EDT, 02/17/22 12:57:00 EDT, [facility]/pharmacy #[id number], Partial fill upon patient request if the prescription is for a schedule II opioid drug., 162, cm, 0... Start Date: 02/17/22 Stop Date: 05/18/22 Status: Ordered Vitamin B6 25 mg oral tablet See Instructions, 1 tablet By Mouth up to 3 times Daily for nausea, # 90 tablet, 1 Refills, Maintenance, 05/20/20 16:24:00 EDT, [facility]/pharmacy #[id number], 165, cm, 05/20/20 15:09:00 EDT, Height, 117, kg, 10/14/19 23:49:00 EST, Dry Weight Start Date: 05/20/20 Status: Ordered Vitamin B6 50 mg oral tablet See Instructions, Take 3 times per day to prevent nausea in ., # 90 tablet, Refills 0, Tot. Refills 0, Maintenance, 03/25/22 20:11:00 EDT, Instructions Replace Required Details, Route to Pharmacy Electronically, [facility]/pharmacy #[id number], Partial fi... Start Date: [...]
--- OUTSIDE RECORDS SUMMARY | 2024-05-16 15:32 | XMS_ITS | Continuity of Care Document ---
Author Organization [facility] Address [address] [place] [address]- Care Team Providers Care Saw Grinder Name Role Phone Not on Staff, PCP Primary Care Physician Unavail able [place] [facility] [place] 04/10/22 - 05/10/22 [facility] [address] [address]- Allergies, Adverse Reactions, Alerts Substance Reaction Severity [...] give 325mg per patient preference and re-dose [id number] within 4 hours, if needed. Patient should [...] Replace Required Details, [id number] fill upon patient re... Start Date: 03/03/22 Status: Ordered docusate sodium 100 mg oral capsule 100 mg, 1, capsule, By Mouth, 2 times a day, PRN, # 30 capsule, Refills 0, Tot. Refills 0, Maintenance, Constipation, 10/14/20 8:26:00 EST, [id number] Partial fill upon patient request if the prescription is... Start Date: 10/14/20 Status: Ordered ferrous sulfate 325 mg oral tablet 1 tablet = 325 mg, By Mouth, Daily, # 90 tablet, 3 Refills, Maintenance, 02/10/22 14:01:00 EDT, Tablet, [id number] Partial fill upon patient request if the prescription is for a schedule II opioid drug., 162, cm, 02/08/22 20:06:00 EDT, Height... Start Date: 02/10/22 Status: Ordered Heartburn Relief 10 mg oral tablet 1 tablet, By Mouth, 2 times a day, # 60 tablet, 6 Refills, Soft Stop, 05/09/22 11:09:00 EDT, [facility]/pharmacy #[id number], 162, cm, 03/03/22 10:00:00 EDT, Height, 115.5, kg, 02/08/22 19:58:00 EDT, Dry Weight Start Date: 05/09/22 Status: Ordered metoclopramide 5 mg oral tablet 1 tablet, By Mouth, 2 times a day, for 30 days, # 60 tablet, 0 Refills, Physician Stop, [facility] STORE [id number], 162, cm, 03/03/22 10:00:00 EDT, Height, 115.5, kg, 02/08/22 19:58:00 EDT, Dry Weight Start Date: 04/25/22 Stop Date: 05/25/22 Status: Ordered metoclopramide 5 mg oral tablet 1 tablet, By Mouth, 2 times a day, for 30 days, # 60 tablet, 0 Refills, Physician Stop 06/08/22 11:09:00 EDT, 05/09/22 11:09:00 EDT, [facility]/pharmacy #[id number], 162, cm, 03/03/22 10:00:00 EDT, Height, 115.5,kg, 02/08/22 19:58:00 EDT, Dry Weight Start Date: 05/09/22 Stop Date: 06/08/22 Status: Ordered Multivitamins with Folic Acid 1 mg oral tablet 1 tablet, By Mouth, Daily, # 90 tablet, 3 Refills, Maintenance, 01/25/22 15:06:00 EDT, Tablet, [facility]/pharmacy #[id number], Partial fill upon patient request if [...] 09/16/20 19:17:00 EST, Route to Pharmacy Electronically, [facility]/pharmacy #[id number], Partial fill upon patient request if the prescr... Start Date: 09/16/20 Status: Ordered Unisom 25 mg oral tablet 1 tablet = 25 mg, By Mouth, Daily at bedtime, PRN for sleep, # 32 tablet, 0 Refills, Maintenance, 01/29/22 21:21:00 EDT, Tablet, [facility]/pharmacy #[id number], 162, cm, 01/20/22 0:10:00 EDT, Height, 127.5, kg, 10/11/20 21:21:00 EST, Dry Weight Start Date: 01/29/22 Status: Ordered Vitamin B6 50 mg oral tablet See Instructions, TAKE 3 TIMES PER DAY TO PREVENT NAUSEA IN ., # 90 tablet, Refills 0, Instructions Replace Required Details, Route to Pharmacy Electronically, [facility] [id number], 162, cm, 03/03/22 10:00:00 EDT, Height, 115.5, [...]
[2024-05-16 15:33] VITALS: BP 182/65; PULSE 70; RESP 16; TEMP 36.4; O2SAT 98
--- OUTSIDE RECORDS SUMMARY | 2024-05-16 15:33 | XMS_ITS | Continuity of Care Document ---
Author Organization [facility] Address [address] [place] [address]- Care Team Providers Care Earth Boring Machine Operator Name Role Phone Not on Staff, PCP Primary Care Physician Unavail able Encounter [facility] Date(s): 10/28/21 - 11/27/[address] [address]- Allergies, Adverse Reactions, Alerts Substance Reaction Severity [...] give 325mg per patient preference and re-dose [id number] within 4 hours, if needed. Patient should [...] 10/14/20 8:26:00 EST, [id number] upon patient [...]
--- OUTSIDE RECORDS SUMMARY | 2024-05-16 15:33 | XMS_ITS | Continuity of Care Document ---
Author Organization [facility] Address [address] [place] [address]- Care Team Providers Care Laminator Printed Circuit Boards Name Role Phone Not on Staff, PCP Primary Care Physician Unavail able Encounter [facility] Date(s): 11/23/20 - 12/23/[address] [address]- Attending Physician: Rikki Rodriguez Admitting Physician: AdmtrRikki Referring Physician: AdmtrRikki Allergies, Adverse Reactions, Alerts Substance Reaction Severity [...] give 325mg per patient preference and re-dose [id number] within 4 hours, if needed. Patient should [...] EST, Route to Pharmacy Electronically, [facility]/pharmacy #[id number], Partial fill upon patient request if the prescription is... Start Date: 10/14/20 Status: Ordered famotidine 20 mg oral tablet 20 mg, 1, tablet, By Mouth, 2 times a day, # 60 tablet, Refills 0, Tot. Refills 0, Maintenance, 06/17/20 15:15:00 EDT, Route to Pharmacy Electronically, [facility]/pharmacy #[id number], 165, cm, 06/17/20 15:10:00EDT, Height, 117, [...] 8 Refills, Maintenance, 03/05/20 16:59:00 EDT, Tablet, [facility]/pharmacy #[id number], 1 tablet By Mouth Daily, 165, cm, 02/27/19 7:33:00 EDT, Height, 117, kg, 10/14/19 23:49:00 EST, Dry Weight Start Date: 03/05/20 Status: Ordered Tums 500 mg oral tablet, chewable 500 mg, 1, tablet, Chew, 3 times a day, PRN, # 30 tablet, Refills 0, Tot. Refills 0, Maintenance, for control of stomach acid, 09/16/20 19:17:00 EST, Route to Pharmacy Electronically, [facility]/pharmacy #[id number], Partial fill upon patient request if [...]
--- OUTSIDE RECORDS SUMMARY | 2024-05-16 15:33 | XMS_ITS | Continuity of Care Document ---
Author Organization [facility] Address [address] [place] [address]- Care Team Providers Care Washer Repairman Name Role Phone Not on Staff, PCP Primary Care Physician Unavail able Encounter [facility] Date(s): 07/02/20 - 08/01/[address] [address]- [facility] Allergies, Adverse Reactions, Alerts [...]
--- OUTSIDE RECORDS SUMMARY | 2024-05-16 15:33 | XMS_ITS | Continuity of Care Document ---
Author Organization [facility] ter Address [address] [place] [address]- Care Team Providers Care Speaker Wirer Name Role Phone Not on Staff, PCP Primary Care Physician Unavail able Encounter [facility] Date(s): 09/22/20 - 09/22/[address] [address]- Discharge Disposition: Transferred to an intermediate care faci Attending Physician: Debra Briggs MD Admitting Physician: Debra Briggs MD Referring Physician: Not on Staff, Referring [...] 15:15:00 EDT, Route to Pharmacy Electronically, [facility]/pharmacy #[id number], 165, cm, 06/17/20 15:10:00EDT, Height, 117, kg, 10/14/19 23:49:00 EST, Dry We... Start Date: 06/17/20 Stop Date: 07/17/20 Status: Ordered Multivitamins with Folic Acid 1 mg oral tablet 1 tablet, By Mouth, Daily, # 30 tablet, 8 Refills, Maintenance, 03/05/20 16:59:00 EDT, Tablet, [facility]/pharmacy #[id number], 1 tablet By Mouth Daily, 165, cm, 02/27/19 7:33:00 EDT, Height, 117, kg, 10/14/19 23:49:00 EST, Dry Weight Start Date: 03/05/20 Status: Ordered Tums 500 mg oral tablet, chewable 500 mg, 1, tablet, Chew, 3 times a day, PRN, # 30 tablet, Refills 0, Tot. Refills 0, Maintenance, for control of stomach acid, 09/16/20 19:17:00 EST, Route to Pharmacy Electronically, [facility]/pharmacy #[id number], Partial fill upon patient request if the prescr... Start Date: 09/16/20 Status: Ordered Vitamin B6 25 mg oral tablet See Instructions, 1 tablet By Mouth up to 3 times Daily for nausea, # 90 tablet, 1 Refills, Maintenance, 05/20/20 16:24:00 EDT, [facility]/pharmacy #[id number], 165, cm, 05/20/20 15:09:00 EDT, [...] [Reference Range]: 1 Oxygen Saturation [94-100 %] 99 % (09/22/20 7:52 PM) Pulse Rate [55-90 bpm] 85 bpm (09/22/20 7:52 PM) Blood Pressure [90-138/55-84 mm Hg] 123/ 85mm Hg (09/22/20 7:52 PM) Respiratory Rate [16-30 br/min] 18 br/mi n (09/22/20 7:52 PM) Temperature [96.8-100.4 DegF] 98.2 DegF (09/22/20 7:52 PM) Mode of Delivery (Oxygen) Room air (09/22/20 7:52 PM) Blood pressure sites Arm, right (09/22/20 7:52 PM) Temperature Route Oral (09/22/20 7:52 PM) Social History Social History Type Response Smoking Status Never (less than 100 in lifetime) entered on: 04/08/20 Sex
--- OUTSIDE RECORDS SUMMARY | 2024-05-16 15:33 | XMS_ITS | Continuity of Care Document ---
Author Organization [facility] n[facility] Address [address] [place] [address]- Care Team Providers Care Sourcing Consultant Name Role Phone Not on Staff, PCP Primary Care Physician Unavail able Encounter [facility] Date(s): 11/16/21 - 01/27/22 [facility] [address] [address] Attending Physician: Not on Staff, Attending MD [...] give 325mg per patient preference and re-dose [id number] within 4 hours, if needed. Patient should [...] 10/14/20 8:26:00 EST, Route to Pharmacy Electronically, [facility]/pharmacy #[id number], Partial fill upon patient request if the prescription is... Start Date: 10/14/20 Status: Ordered famotidine 20 mg oral tablet 20 mg, 1, tablet, By Mouth, 2 times a day, # 60 tablet, Refills 0, Tot. Refills 0, Maintenance, 06/17/20 15:15:00 EDT, Route to Pharmacy Electronically, [facility]/pharmacy #[id number], 165, cm, 06/17/20 15:10:00EDT, Height, [...] Refills, Maintenance, 06/14/21 16:52:00 EDT, EC Tablet, [facility]/pharmacy #[id number], Partial fill upon patient request if the prescription is for a schedule II opioid drug., 163, cm, 10/14/20 16:15:00... Start Date: 06/14/21 Status: Ordered Multivitamins with Folic Acid 1 mg oral tablet 1 tablet, By Mouth, Daily, # 30 tablet, 8 Refills, Maintenance, 03/05/20 16:59:00 EDT, Tablet, [facility]/pharmacy #[id number], 1 tablet By Mouth Daily, 165, cm, 02/27/19 7:33:00 EDT, Height, 117, kg, 10/14/19 23:49:00 EST, Dry Weight Start Date: 03/05/20 Status: Ordered Multivitamins with Folic Acid 1 mg oral tablet 1 tablet, By Mouth, Daily, # 90 tablet, 3 Refills, Maintenance, 01/25/22 15:06:00 EDT, Tablet, [facility]/pharmacy #[id number], Partial fill upon patient request [...] 09/16/20 19:17:00 EST, Route to Pharmacy Electronically, [facility]/pharmacy #[id number], Partial fill upon patient request if the prescr... Start Date: 09/16/20 Status: Ordered Tylenol Extra Strength 500 mg oral tablet 1 tablet = 500 mg, By Mouth, Every 8 hours, PRN as needed for fever, # 30 tablet, 0 Refills, Maintenance, 06/14/21 16:52:00 EDT, Tablet, [facility]/pharmacy #[id number], Partial fill upon patient request if the prescription is for a schedule II opioid drug., 163,... Start Date: 06/14/21 Status: Ordered Vitamin B6 25 mg oral tablet See Instructions, 1 tablet By Mouth up to 3 times Daily for nausea, # 90 tablet, 1 Refills, Maintenance, 05/20/20 16:24:00 EDT, [facility]/pharmacy #[id number], 165, cm, 05/20/20 15:09:00 EDT, [...]
--- OUTSIDE RECORDS SUMMARY | 2024-05-16 15:33 | XMS_ITS | Continuity of Care Document ---
Author Organization [facility] ter Address [address] [place] [address]- Care Team Providers Care Administrative Underwriter Name Role Phone Not on Staff, PCP Primary Care Physician Unavail able Encounter [facility] Date(s): 06/24/20 - 06/24/[address] [address]- [facility] Discharge Disposition: A-D/C Home Attending Physician: Jus DOS SANTOS, Sharron Admitting Physician: Sharron Luu MD Referring Physician: Sharron Luu MD Allergies, Adverse Reactions, Alerts Substance Reaction [...] 15:15:00 EDT, Route to Pharmacy Electronically, [facility]/pharmacy #[id number], 165, cm, 06/17/20 15:10:00EDT, Height, [...] Recurrent UTI(Confirmed) Active Other social stressor(Confirmed) Active Vital Signs Most recent to oldest [Reference Range]: 1 Oxygen Saturation [94-100 %] 100 % (06/24/20 3:48 PM) Pulse Rate [55-90 bpm] 85 bpm (06/24/20 3:48 PM) Blood Pressure [90-138/55-84 mm Hg] 123/ 55mm Hg (06/24/20 3:48 PM) Respiratory Rate [16-30 br/min] 16 br/mi n (06/24/20 3:48 PM) Temperature [96.8-100.4 DegF] 98.4 DegF (06/24/20 3:48 PM) Mode of Delivery (Oxygen) Room air (06/24/20 3:48 PM) Temperature Route Oral (06/24/20 3:48 PM) Social History Social History Type Response Smoking Status Never (less than 100 in lifetime) entered on: 04/08/20 Sex
--- OUTSIDE RECORDS SUMMARY | 2024-05-16 15:33 | XMS_ITS | Continuity of Care Document ---
Author Organization [facility] Address [address] [place] [address]- Care Team Providers Care Poker Room Manager Name Role Phone Not on Staff, PCP Primary Care Physician Unavail able Encounter [facility] Date(s): 03/04/20 - 04/24/[address] [address]- [facility] Attending Physician: Not on Staff, Attending MD [...] Dry Weight Start Date: 03/05/20 Status: Ordered Reglan 10 mg oral tablet 1 tablet = 10 mg, By Mouth, 4 times a day, PRN Nausea & Vomiting, for 21 days, 30 minutes before meals and at bedtime, # 84 tablet, 0 Refills, Acute 04/30/20 8:11:00 EDT, 04/09/20 8:11:00 EDT, Tablet, [id number], 165, cm, 04/08/20 8:05:00 EDT,... Start Date: 04/09/20 Stop Date: 04/30/20 Status: Ordered Vitamin B6 25 mg oral [...]
--- OUTSIDE RECORDS SUMMARY | 2024-05-16 15:33 | XMS_ITS | Continuity of Care Document ---
Author Organization [facility] Address [address] [place] [address]- Care Team Providers Care Acting Instructor Name Role Phone Bruno DOS SANTOS, Arron Dash Primary Care Physician [phone] Encounter [facility] Date(s): 07/18/22 - 08/17/[address] [address] Allergies, Adverse Reactions, Alerts Substance [...] Replace Required Details, Route to Pharmacy Electronically, [facility]/pharmacy #[id number], Partial fill upon patient re... Start Date: 03/03/22 Status: Ordered ferrous sulfate 325 mg oral tablet 1 tablet = 325 mg, By Mouth, Daily, # 90 tablet, 3 Refills, Maintenance, 02/10/22 14:01:00 EDT, Tablet, [facility]/pharmacy #[id number], Partial fill upon patient request if the prescription is for a schedule II opioid drug., 162, cm, 02/08/22 20:06:00 EDT, Height... Start Date: 02/10/22 Status: Ordered Multivitamins with Folic Acid 1 mg oral tablet 1 tablet, By Mouth, Daily, # 90 tablet, 3 Refills, Maintenance, 01/25/22 15:06:00 EDT, Tablet, [facility]/pharmacy #[id number], [...] Team Personnel Name: Triny Son RN Position: [facility] PCO RN Member Role: Primary Care Nurse Name: Jennifer Penny RN Position: S RN Member Role: Primary Care Nurse Name: Wanda Man RN Position: [facility] OB RN Member Role: Primary Care Nurse Name: Aurelio Ravi DO Position: [facility] DOCUMENTATION WRITER MD Member Role: Lifetime DOCUMENTATION WRITER Physician Address: Address: [address] [place] [address] [facility] [place] [address]- [place] Name: Sisi Interiano RN Position: [facility] RN Member Role: Primary Care Nurse Name: Arron Carr MD Position: [facility] Outreach Member Role: PCP Address: Address: [address] [place] [address]- [place] Name: Emeka Chong RN Position: [facility] RN Member Role: Primary Care Nurse Name: Jasmin Mosqueda RN Position: [facility] OB RN Member Role: Primary Care Nurse Name: Jane Palomares RN Position: [facility] OB RN Member Role: Primary Care Nurse Name: Leena Friend RN Position: [facility] OB RN Member Role: Primary Care Nurse Care Team Related Persons Name: FRANCISCA REYES Address: home [address] [place] [address] Name: BERKLEY REYES Address: home [place] Name: LEVAR ZARATE Address: home [address] [place] [address] Name: JUNIOR ELIANA Address: [place] [address] Name: LIS JAMA Address: [address] Address: home [address] [address] [place] Name: AKIRA JAMA Address: [address] Address: home [address] [place] [address] [place] Name: BERKLEY AVENDANO Address: home [address] [address] Name: JENNIFER BEARDEN
--- OUTSIDE RECORDS SUMMARY | 2024-05-16 15:33 | XMS_ITS | Continuity of Care Document ---
Author Organization [facility] Address [address] [place] [address]- Care Team Providers Care Dry Cans Back Tender Name Role Phone Not on Staff, PCP Primary Care Physician Unavail able En[place] [facility] Date(s): 10/17/19 - [facility] [address] [address]- [facility] Attending Physician: Rikki Rodriguez Admitting Physician: AdmRikki mckeon Referring Physician: Admtr, ArDaniel Allergies, Adverse Reactions, Alerts Substance Reaction Severity [...]
--- OUTSIDE RECORDS SUMMARY | 2024-05-16 15:33 | XMS_ITS | Continuity of Care Document ---
Author Organization [facility] Address [address] [place] [address]- Care Team Providers Care Hair Or Beauty Salon Manager Name Role Phone Not on Staff, PCP Primary Care Physician Unavail able Encounter [facility] Date(s): 05/26/20 - 06/25/20 [facility] [address] [address]- [facility] Allergies, Adverse Reactions, Alerts Substance Reaction [...] 06/17/20 15:15:00 EDT, Route to Pharmacy Electronically, [facility]/pharmacy #[id number], 165, cm, 06/17/20 15:10:00EDT, Height, 117, kg, 10/14/19 23:49:00 EST, Dry We... Start Date: 06/17/20 Stop Date: 07/17/20 Status: Ordered Multivitamins with Folic Acid 1 mg oral tablet 1 tablet, By Mouth, Daily, # 30 tablet, 8 Refills, Maintenance, 03/05/20 16:59:00 EDT, Tablet, [facility]/pharmacy #[id number], 1 tablet By Mouth Daily, 165, [...]
--- OUTSIDE RECORDS SUMMARY | 2024-05-16 15:33 | XMS_ITS | Continuity of Care Document ---
Author Organization [facility] ter Address [address] [place] [address]- Care Team Providers Care Actuarial Manager Name Role Phone Not on Staff, PCP Primary Care Physician Unavail able Encounter [facility] Date(s): 05/11/20 - 05/11/[address] [address]- [facility] Discharge Disposition: A-D/C Home Attending Physician: Jus DOS SANTOS, Sharron Admitting Physician: Jus DOS SANTOS, Sharron Referring Physician: Sharron Luu MD Allergies, Adverse [...] Refills, Maintenance, 05/03/20 17:34:00 EDT, Tablet, [id number], 165, cm, 04/08/20 8:05:00 EDT, Height, 117, kg, 10/14/19 23:49:00 EST, Dry Weight Start Date: 05/03/20 Status: Ordered metoclopramide 10 mg oral tablet See Instructions, TAKE 1 TABLET 4 TIMES A DAY NEEDED FOR NAUSEA AND VOMITING 30 MINUTES BEFORE MEALS & BEDTIME, # 84 tablet, 0 Refills, Acute, [id number], 165, cm, 04/08/20 8:05:00 EDT, Height, 117, [...] 0 Refills, Maintenance, 05/03/20 17:36:00 EDT, Tablet, [facility]/pharmacy #[id number], 165, cm, 04/08/20 8:05:00 EDT, Height, 117, kg, 10/14/19 23:49:00 EST, Dry Weight Start Date: 05/03/20 Status: Ordered Vitamin B6 25 mg oral tablet See Instructions, 1 tablet By Mouth up to 3 times Daily for nausea, # 90 tablet, 1 Refills, Maintenance, 05/03/20 17:34:00 EDT, [facility]/pharmacy #[id number], 165, cm, 04/08/20 8:05:00 EDT, [...] - BMI 47(Confirmed) Active Recurrent UTI(Confirmed) Active Vital Signs Most recent to oldest [Reference Range]: 1 Oxygen Saturation [94-100 %] 100 % (05/11/20 4:12 PM) Blood Pressure [90-138/55-84 mm Hg] 130/ 86mm Hg (05/11/20 4:12 PM) Respiratory Rate [16-30 br/min] 18 br/mi n (05/11/20 4:12 PM) Temperature [96.8-100.4 DegF] 98.0 DegF (05/11/20 4:12 PM) Mode of Delivery (Oxygen) Room air (05/11/20 4:12 PM) Blood pressure sites Arm, right (05/11/20 4:12 PM) Temperature Route Oral (05/11/20 4:12 PM) Social History Social History Type Response Smoking Status Never (less than 100 in lifetime) entered on: 04/08/20 Sex
--- OUTSIDE RECORDS SUMMARY | 2024-05-16 15:33 | XMS_ITS | Continuity of Care Document ---
Author Organization [facility] n[facility] Address [address] [place] [address]- Care Team Providers Care Shopping Centre Manager Name Role Phone Not on Staff, PCP Primary Care Physician Unavail able Encounter [facility] Date(s): 10/01/20 - 11/06/20 [facility] [address] [address]- Attending Physician: Aurelio Ravi DO Admitting Physician: [...] give 325mg per patient preference and re-dose [id number] within 4 hours, if needed. Patient should [...] 10/14/20 8:26:00 EST, Route to Pharmacy Electronically, [facility]/pharmacy #[id number], Partial fill upon patient request if the prescription is... Start Date: 10/14/20 Status: Ordered famotidine 20 mg oral tablet 20 mg, 1, tablet, By Mouth, 2 times a day, # 60 tablet, Refills 0, Tot. Refills 0, Maintenance, 06/17/20 15:15:00 EDT, Route to Pharmacy Electronically, [facility]/pharmacy #[id number], 165, cm, 06/17/20 15:10:00EDT, Height, [...] Refills, Maintenance, 03/05/20 16:59:00 EDT, Tablet, [facility]/pharmacy #[id number], 1 tablet By Mouth Daily, 165, cm, 02/27/19 7:33:00 EDT, Height, 117, kg, 10/14/19 23:49:00 EST, Dry Weight Start Date: 03/05/20 Status: Ordered Tums 500 mg oral tablet, chewable 500 mg, 1, tablet, Chew, 3 times a day, PRN, # 30 tablet, Refills 0, Tot. Refills 0, Maintenance, for control of stomach acid, 09/16/20 19:17:00 EST, Route to Pharmacy Electronically, [facility]/pharmacy #[id number], Partial fill upon patient [...]
--- OUTSIDE RECORDS SUMMARY | 2024-05-16 15:33 | XMS_ITS | Continuity of Care Document ---
Author Organization [facility] Address [address] [place] [address]- Care Team Providers Care Facility Maintenance Technician Name Role Phone Not on Staff, PCP Primary Care Physician Unavail able Encounter [facility] Date(s): 06/02/20 - 07/02/20 [facility] [address] [place] [address]- [facility] Attending Physician: Rikki Rodriguez Admitting Physician: Rikki [...] 06/17/20 15:15:00 EDT, Route to Pharmacy Electronically, [facility]/pharmacy #[id number], 165, cm, 06/17/20 15:10:00EDT, Height, 117, kg, 10/14/19 23:49:00 EST, Dry We... Start Date: 06/17/20 Stop Date: 07/17/20 Status: Ordered Multivitamins with Folic Acid 1 mg oral tablet 1 tablet, By Mouth, Daily, # 30 tablet, 8 Refills, Maintenance, 03/05/20 16:59:00 EDT, Tablet, [facility]/pharmacy #[id number], 1 tablet By [...]
--- OUTSIDE RECORDS SUMMARY | 2024-05-16 15:33 | XMS_ITS | Continuity of Care Document ---
Author Organization [facility] Address [address] [place] [address]- Care Team Providers Care Senior Clinician Name Role Phone Not on Staff, PCP Primary Care Physician Unavail able Encounter [facility] Date(s): 04/08/20 - 06/11/20 [facility] [address] [address]- [facility] Attending Physician: Not on Staff, Attending MD Referring Physician: Not on Staff, Referring [...] Refills, Maintenance, 03/05/20 16:59:00 EDT, Tablet, [id number], 1 tablet By Mouth Daily, 165, cm, [...]
--- OUTSIDE RECORDS SUMMARY | 2024-05-16 15:33 | XMS_ITS | Continuity of Care Document ---
Author Organization [facility] Address [address] [place] [address]- Care Team Providers Care Contact Center Team Lead Name Role Phone Not on Staff, PCP Primary Care Physician Unavail able [place] [facility] [place] 01/18/22 - 02/17/22 [facility] [address] [address]- Allergies, Adverse Reactions, Alerts Substance Reaction Severity [...] give 325mg per patient preference and re-dose [id number] within 4 hours, if needed. Patient should [...] [id number] Partial fill upon patient request if the prescription is... Start Date: 10/14/20 Status: Ordered famotidine 20 mg oral tablet 20 mg, 1, tablet, By Mouth, 2 times a day, # 60 tablet, Refills 0, Tot. Refills 0, Maintenance, 02/08/22 20:18:00 EDT, [id number], 162, cm, 02/08/22 20:06:00EDT, Height, 115.5, kg, 02/08/22 19:58:00 EDT, Dry... Start Date: 02/08/22 Stop Date: 03/10/22 Status: Ordered ferrous sulfate 325 mg oral tablet 1 tablet = 325 mg, By Mouth, Daily, # 90 tablet, 3 Refills, Maintenance, 02/10/22 14:01:00 EDT, Tablet, [facility]/pharmacy #[id number], Partial fill upon patient request if the prescription is for a schedule II opioid drug., 162, cm, 02/08/22 20:06:00 EDT, Height... Start Date: 02/10/22 Status: Ordered metoclopramide 5 mg oral tablet 1 tablet, By Mouth, 2 times a day, for 30 days, # 60 tablet, 0 Refills, Physician Stop, [facility]ORE [id number], 162, cm, 02/08/22 20:06:00 EDT, Height, 115.5, kg, 02/08/22 19:58:00 EDT, Dry Weight Start Date: 02/10/22 Stop Date: 03/12/22 Status: Ordered naproxen 500 mg oral delayed release tablet 1 tablet = 500 mg, By Mouth, 2 times a day, # 60 tablet, 0 Refills, Maintenance, 06/14/21 16:52:00 EDT, EC Tablet, [facility]/pharmacy #[id number], Partial fill upon patient request if the prescription is for a schedule II opioid drug., 163, cm, 10/14/20 16:15:00... Start Date: 06/14/21 Status: Ordered Multivitamins with Folic Acid 1 mg oral tablet 1 tablet, By Mouth, Daily, # 90 tablet, 3 Refills, Maintenance, 01/25/22 15:06:00 EDT, Tablet, [facility]/pharmacy #[id number], Partial fill upon patient request if [...] Route to Pharmacy Electronically, [facility]/pharmacy #[id number], Partial fill upon patient request if the prescr... Start Date: 09/16/20 Status: Ordered Tylenol Extra Strength 500 mg oral tablet 1 tablet = 500 mg, By Mouth, Every 8 hours, PRN as needed for fever, # 30 tablet, 0 Refills, Maintenance, 06/14/21 16:52:00 EDT, Tablet, [facility]/pharmacy #[id number], Partial fill upon patient request if the prescription is for a schedule II opioid drug., 163,... Start Date: 06/14/21 Status: Ordered Unisom 25 mg oral tablet 1 tablet = 25 mg, By Mouth, Daily at bedtime, PRN for sleep, # 32 tablet, 0 Refills, Maintenance, 01/29/22 21:21:00 EDT, Tablet, [facility]/pharmacy #[id number], 162, cm, 01/20/22 0:10:00 EDT, Height, [...]
--- OUTSIDE RECORDS SUMMARY | 2024-05-16 15:33 | XMS_ITS | Continuity of Care Document ---
Author Organization [facility] Address [address] [place] [address]- Care Team Providers Care Inspector Agricultural Commodities Name Role Phone Not on Staff, PCP Primary Care Physician Unavail able Encounter [facility] Date(s): 05/25/20 - 06/24/20 [facility] [address] [address]- [facility] Allergies, Adverse Reactions, Alerts Substance Reaction [...] 06/17/20 15:15:00 EDT, Route to Pharmacy Electronically, [facility]/pharmacy #[id number], 165, cm, 06/17/20 15:10:00EDT, Height, 117, kg, 10/14/19 23:49:00 EST, Dry We... Start Date: 06/17/20 Stop Date: 07/17/20 Status: Ordered Multivitamins with Folic Acid 1 mg oral tablet 1 tablet, By Mouth, Daily, # 30 tablet, 8 Refills, Maintenance, 03/05/20 16:59:00 EDT, Tablet, [facility]/pharmacy #[id number], 1 tablet By Mouth [...]
--- OUTSIDE RECORDS SUMMARY | 2024-05-16 15:33 | XMS_ITS | Continuity of Care Document ---
Author Organization [facility] ter Address [address] [place] [address]- Care Team Providers Care Trimming Cutter Name Role Phone Bruno DOS SANTOS, Arron Dash Primary Care Physician Encounter [facility] Date(s): 08/16/22 - 09/21/[address] [address] Attending Physician: Jacqui Dillon MD Referring Physician: Jacqui Dillon MD Allergies, Adverse Reactions, Alerts Substance Reaction [...] Refills, Maintenance, 08/23/22 19:45:00 EST, REC Powder, [facility]/pharmacy #[id number], Partial fill upon patient request if the prescription is for a schedule II opioid drug., 17 Gm By Mouth... Start Date: 08/23/22 Status: Ordered Nexplanon 68 mg subcutaneous implant 1 each = 68 mg, Subcutaneous Infusion, Once, Inserted 08/23/22 Lot [id number] Exp 07/28/24, 0 Refills,Maintenance, 08/23/22 19:16:00 EST, [...] Team Personnel Name: Triny Son RN Position: [facility] PCO RN Member Role: Primary Care Nurse Name: Jennifer Penny RN Position: [facility] RN Member Role: Primary Care Nurse Name: Wanda Man RN Position: [facility] OB RN Member Role: Primary Care Nurse Name: Aurelio Ravi DO Position: [facility] DIETARY MANAGER MD Member Role: Lifetime DIETARY MANAGER Physician Address: Address: [address] [place] [address] Repair Technician [place], [place] [address] Name: Sisi Interiano RN Position: [facility] RN Member Role: Primary Care Nurse Name: Arron Carr MD Position: [facility] Outreach Member Role: PCP Address: Address: [address] [place] [address] Name: Emeka Chong RN Position: [facility] RN Member Role: Primary Care Nurse Name: Jasmin Mosqueda RN Position: [facility] OB RN Member Role: Primary Care Nurse Name: Jane Palomares RN Position: [facility] OB RN Member Role: Primary Care Nurse Name: Leena Friend RN Position: [facility] OB RN Member Role: Primary Care Nurse Care Team Related Persons Name: FRANCISCA REYES Address: home [address] [place] [address] Name: BERKLEY REYES Address: home [place] Name: LEVAR ZARATE Address: home [address] [place] [address] Name: JUNIOR ELIANA Address: [place] [address] Name: CAROLE CHUNG Address: [address] Address: home [address] [place] [address] [place] Name: TRACY CHUNG Address: [address] Address: home [address] [address] [place] Name: LIS JAMA Address: [address] Address: home [address] [address] [place] Name: AKIRA JAMA Address: [address] Address: home [address] [place] [address] [place] Name: BERKLEY AVENDANO Address: home [address] [address] Name: JENNIFER BEARDEN
--- OUTSIDE RECORDS SUMMARY | 2024-05-16 15:33 | XMS_ITS | Continuity of Care Document ---
Author Organization [facility] ter Address [address] [place] [address]- Care Team Providers Care Limnology Teacher Name Role Phone Not on Staff, PCP Primary Care Physician Unavail able [facility]counter [facility] Date(s): 10/14/19 - 10/15/[address] [address]- [facility] Discharge Disposition: A-D/C Walkout Attending Physician: Not [...] recent to oldest [Reference Range]: 1 Weight 117 kg (10/14/19 11:49 PM) Oxygen Saturation [94-100 %] 100 % (10/14/19 11:49 PM) Pulse Rate [55-90 bpm] 77 bpm (10/14/19 11:49 PM) Blood Pressure [90-138/55-84 mm Hg] 135/ 67mm Hg (10/14/19 11:49 PM) Respiratory Rate [16-30 br/min] 16 br/mi n (10/14/19 11:49 PM) Temperature [96.8-100.4 DegF] 98.2 DegF (10/14/19 11:49 PM) Mode of Delivery (Oxygen) Room air (10/14/19 11:49 PM) Blood pressure sites Arm, left (10/14/19 11:49 PM) Temperature Route Oral (10/14/19 11:49 PM) Dry Weight 117 kg (10/14/19 11:49 PM) Social History Social History Type Response Smoking Status Never smoker entered on: 12/08/14 Sex
--- OUTSIDE RECORDS SUMMARY | 2024-05-16 15:33 | XMS_ITS | Continuity of Care Document ---
Author Organization [facility] Address [address] [place] [address]- Care Team Providers Care Estate Planning Paralegal Name Role Phone Bruno DOS SANTOS, Arron Dash Primary Care Physician Encounter [facility] Date(s): 08/05/22 - 09/04/[address] [address] Allergies, Adverse Reactions, Alerts Substance Reaction [...] 0 Refills, Maintenance, 08/23/22 19:44:00 EST, Tablet, [facility]/pharmacy #[id number], Partial fill upon patient request if the prescription is for a schedule II opioid drug., 165, cm,... Start Date: 08/23/22 Status: Ordered ibuprofen 600 mg oral tablet 600 mg, 1, tablet, By Mouth, Every 6 hours, # 50 tablet, Refills 0, Tot. Refills 0, Maintenance, 08/23/22 19:48:00 EST, Route to Pharmacy Electronically, [facility]/pharmacy #[id number], Partial fill upon patientrequest if the prescription is for a schedule II op... Start Date: 08/23/22 Status: Ordered MiraLax oral powder for reconstitution = 17 Gm, By Mouth, Daily, dissolve in water before taking, # 255 Gm, 0 Refills, Maintenance, 08/23/22 19:45:00 EST, REC Powder, [facility]/pharmacy #[id number], Partial fill upon patient request if the prescription is for a schedule II opioid drug., 17 Gm By Mouth... Start Date: 08/23/22 Status: Ordered Nexplanon 68 mg subcutaneous implant 1 each = 68 mg, Subcutaneous Infusion, Once, Inserted 08/23/22 Lot [id number] Exp 07/28/24, 0 Refills,Maintenance, 08/23/22 19:16:00 EST, Partial fill upon patient request if the prescription is for a schedule II opioid drug. Start Date: 08/23/22 Status: Ordered oxyCODONE 5 mg oral tablet 5 mg, 1, tablet, By Mouth, Every 6 hours, PRN, # 10 tablet, Refills 0, Tot. Refills 0, Maintenance,as needed for pain, 08/23/22 19:48:00 EST, Route to Pharmacy Electronically, [facility]/pharmacy #[id number], Partial fill upon patient [...] Team Personnel Name: Triny Son RN Position: [facility] PCO RN Member Role: Primary Care Nurse Name: Jennifer Penny RN Position: [facility] RN Member Role: Primary Care Nurse Name: Wanda Man RN Position: [facility] OB RN Member Role: Primary Care Nurse Name: Aurelio Ravi DO Position: [facility] CARAMEL CANDY MAKER HELPER MD Member Role: Lifetime CARAMEL CANDY MAKER HELPER Physician Address: Address: [address] [place] [address] Assistant Professor Of [place], [place] [address] Name: Sisi Interiano RN Position: [facility] RN Member Role: Primary Care Nurse Name: Arron Carr MD Position: [facility] Outreach Member Role: PCP Address: Address: [address] [place] [address] Name: Emeka Chong RN Position: [facility] RN Member Role: Primary Care Nurse Name: Jasmin Mosqueda RN Position: [facility] OB RN Member Role: Primary Care Nurse Name: Jane Palomares RN Position: [facility] OB RN Member Role: Primary Care Nurse Name: Leena Friend RN Position: [facility] OB RN Member Role: Primary Care Nurse Care Team Related Persons Name: FRANCISCA REYES Address: home [address] [place] [address] Name: BERKLEY REYES Address: home [place] Name: LEVAR ZARATE Address: home [address] [place] [address] Name: JUNIOR ELIANA Address: home [place] [address] Name: CAROLE CHUNG Address: [address] Address: home [address] [place] [address] [place] Name: TRACY CHUNG Address: [address] Address: home [address] [address] [place] Name: LIS JAMA Address: [address] Address: home [address] [address] [place] Name: AKIRA JAMA Address: [address] Address: home [address] [place] [address] [place] Name: BERKLEY AVENDANO Address: home [address] [address] Name: JENNIFER BEARDEN
--- OUTSIDE RECORDS SUMMARY | 2024-05-16 15:33 | XMS_ITS | Continuity of Care Document ---
Author Organization [facility] n's [facility] Address [address] [place] [address]- Care Team Providers Care Tension Machine Operator Name Role Phone Not on Staff, PCP Primary Care Physician Unavail able Encounter [facility] Date(s): 10/08/20 - 11/13/20 [facility] [address] [address]- Attending Physician: Aurelio Ravi DO Admitting Physician: [...] give 325mg per patient preference and re-dose [id number] within 4 hours, if needed. Patient should [...] 10/14/20 8:26:00 EST, Route to Pharmacy Electronically, [facility]/pharmacy #[id number], Partial fill upon patient request if the prescription is... Start Date: 10/14/20 Status: Ordered famotidine 20 mg oral tablet 20 mg, 1, tablet, By Mouth, 2 times a day, # 60 tablet, Refills 0, Tot. Refills 0, Maintenance, 06/17/20 15:15:00 EDT, Route to Pharmacy Electronically, [facility]/pharmacy #[id number], 165, cm, 06/17/20 15:10:00EDT, Height, [...] 8 Refills, Maintenance, 03/05/20 16:59:00 EDT, Tablet, [facility]/pharmacy #[id number], 1 tablet By Mouth Daily, 165, cm, 02/27/19 7:33:00 EDT, Height, 117, kg, 10/14/19 23:49:00 EST, Dry Weight Start Date: 03/05/20 Status: Ordered Tums 500 mg oral tablet, chewable 500 mg, 1, tablet, Chew, 3 times a day, PRN, # 30 tablet, Refills 0, Tot. Refills 0, Maintenance, for control of stomach acid, 09/16/20 19:17:00 EST, Route to Pharmacy Electronically, [facility]/pharmacy #[id number], Partial fill upon patient request [...]
--- OUTSIDE RECORDS SUMMARY | 2024-05-16 15:34 | XMS_ITS | Continuity of Care Document ---
Author Organization [facility] ter Address [address] [place] [address]- Care Team Providers Care Programming Manager Name Role Phone Not on Staff, PCP Primary Care Physician Unavail able [facility]counter [facility] Date(s): 03/02/20 - 03/03/[address] [address]- [facility] Discharge Disposition: A-D/C Home Attending Physician: Jacqui Dillon MD Admitting Physician: Jacqui Dillon MD Referring Physician: Jacqui [...] Most recent to oldest [Reference Range]: 1 Pulse Rate [55-90 bpm] 91 bpm *H* (03/02/20 8:58 PM) Blood Pressure [90-138/55-84 mm Hg] 128/ 80mm Hg (03/02/20 8:58 PM) Temperature [96.8-100.4 DegF] 98.5 DegF (03/02/20 8:58 PM) Blood pressure sites Leg, right (03/02/20 8:58 PM) Temperature Route Oral (03/02/20 8:58 PM) Social History Social History Type Response Smoking Status Never smoker entered on: 12/08/14 Sex
--- OUTSIDE RECORDS SUMMARY | 2024-05-16 15:34 | XMS_ITS | Continuity of Care Document ---
Author Organization [facility] ter Address [address] [place] [address]- Care Team Providers Care Carpenter'S Helper Name Role Phone Not on Staff, PCP Primary Care Physician Unavail able En[facility] Date(s): 01/29/21 - 01/29/[address] [address]- Discharge Disposition: A-D/C Walkout Attending Physician: Not [...] give 325mg per patient preference and re-dose [id number] within 4 hours, if needed. Patient should [...] 10/14/20 8:26:00 EST, [id number] fill upon patient request if [...] Refills, Maintenance, 03/05/20 16:59:00 EDT, Tablet, [facility]/pharmacy #[id number], 1 tablet By Mouth Daily, [...] EST, Route to Pharmacy Electronically, [facility]/pharmacy #[id number], Partial fill upon patient request [...]
--- OUTSIDE RECORDS SUMMARY | 2024-05-16 15:34 | XMS_ITS | Continuity of Care Document ---
Author Organization [facility] Address [address] [place] [address]- Care Team Providers Care Home Appliance Tech Name Role Phone Not on Staff, PCP Primary Care Physician Unavail able Encounter [facility] Date(s): 03/03/22 - 05/14/22 [facility] [address] [address] Attending Physician: Not on Staff, Attending MD [...] give 325mg per patient preference and re-dose [id number] within 4 hours, if needed. Patient should [...] Required Details, Route to Pharmacy Electronically, [facility]/pharmacy #[id number], Partial fill upon patient re... Start Date: 03/03/22 Status: Ordered docusate sodium 100 mg oral capsule 100 mg, 1, capsule, By Mouth, 2 times a day, PRN, # 30 capsule, Refills 0, Tot. Refills 0, Maintenance, Constipation, 10/14/20 8:26:00 EST, Route to Pharmacy Electronically, [facility]/pharmacy #[id number], Partial fill upon patient request if the prescription is... Start Date: 10/14/20 Status: Ordered ferrous sulfate 325 mg oral tablet 1 tablet = 325 mg, By Mouth, Daily, # 90 tablet, 3 Refills, Maintenance, 02/10/22 14:01:00 EDT, Tablet, [facility]/pharmacy #[id number], Partial fill upon patient request if the prescription is for a schedule II opioid drug., 162, cm, 02/08/22 20:06:00 EDT, Height... Start Date: 02/10/22 Status: Ordered Heartburn Relief 10 mg oral tablet 1 tablet, By Mouth, 2 times a day, # 60 tablet, 6 Refills, Soft Stop, 05/09/22 11:09:00 EDT, [facility]/pharmacy #[id number], 162, cm, 03/03/22 10:00:00 EDT, Height, 115.5, kg, 02/08/22 19:58:00 EDT, Dry Weight Start Date: 05/09/22 Status: Ordered metoclopramide 5 mg oral tablet 1 tablet, By Mouth, 2 times a day, for 30 days, # 60 tablet, 0 Refills, Physician Stop, [facility] STORE [id number], 162, cm, 03/03/22 10:00:00 EDT, Height, 115.5, kg, 02/08/22 19:58:00 EDT, Dry Weight Start Date: 04/25/22 Stop Date: 05/25/22 Status: Ordered metoclopramide 5 mg oral tablet 1 tablet, By Mouth, 2 times a day, for 30 days, # 60 tablet, 0 Refills, Physician Stop 06/08/22 11:09:00 EDT, 05/09/22 11:09:00 EDT, [facility]/pharmacy #[id number], 162, cm, 03/03/22 10:00:00 EDT, Height, 115.5,kg, 02/08/22 19:58:00 EDT, Dry Weight Start Date: 05/09/22 Stop Date: 06/08/22 Status: Ordered Multivitamins with Folic Acid 1 mg oral tablet 1 tablet, By Mouth, Daily, # 90 tablet, 3 Refills, Maintenance, 01/25/22 15:06:00 EDT, Tablet, [facility]/pharmacy #[id number], Partial fill upon patient request if [...] 09/16/20 19:17:00 EST, [id number] Partial fill upon patient request if the prescr... Start Date: 09/16/20 Status: Ordered Unisom 25 mg oral tablet 1 tablet = 25 mg, By Mouth, Daily at bedtime, PRN for sleep, # 32 tablet, 0 Refills, Maintenance, 01/29/22 21:21:00 EDT, Tablet, [facility]/pharmacy #[id number], 162, cm, 01/20/22 0:10:00 EDT, Height, 127.5, kg, 10/11/20 21:21:00 EST, Dry Weight Start Date: 01/29/22 Status: Ordered Vitamin B6 50 mg oral tablet See Instructions, TAKE 3 TIMES PER DAY TO PREVENT NAUSEA IN ., # 90 tablet, Refills 0, Instructions Replace Required Details, Route to Pharmacy Electronically, [facility]ORE [id number], 162, cm, 03/03/22 10:00:00 EDT, Height, 115.5, [...]
--- OUTSIDE RECORDS SUMMARY | 2024-05-16 15:34 | XMS_ITS | Continuity of Care Document ---
Author Organization [facility] Address [address] [place] [address]- Care Team Providers Care Dental Technician Instructor Name Role Phone Bruno DOS SANTOS, Arron Dash Primary Care Physician [phone] Encounter [facility] Date(s): 08/31/22 - 09/30/[address] [address] Allergies, Adverse Reactions, Alerts Substance Reaction [...] mg, Subcutaneous Infusion, Once, Inserted 08/23/22 Lot [id number] 07/28/24, 0 Refills,Maintenance, 08/23/22 19:16:00 EST, [...] DO Position: [facility] WELFARE CENTRE MANAGER MD Member Role: Lifetime WELFARE CENTRE MANAGER Physician Address: Address: [address] [place] [address] Pump Servicer Helper [place], [place] [address] Name: Sisi Interiano RN Position: [facility] RN Member Role: Primary Care Nurse Name: Arron Carr MD Position: [facility] Outreach Member Role: PCP Address: Address: [address] [place] [address]- Name: Emeka Chong RN Position: [facility] [...] REYES Address: home [address] [place] [address] Name: BERKLEY REYES Address: home [place] Name: LEVAR ZARATE Address: home [address] [place] [address] Name: JUNIOR ELIANA Address: [place] [address] Name: CAROLE CHUNG Address: [address] Address: home [address] [place] [address] [place] Name: TRACY CHUNG Address: [address] Address: home [address] [facility] [address] [place] [address] [place] Name: LIS JAMA Address: [address] Address: home [address] [address] [place] Name: AKIRA JAMA Address: Address: home [address] [place] [address] [place] Name: BERKLEY AVENDANO Address: home [address] [address] Name: JENNIFER BEARDEN
--- OUTSIDE RECORDS SUMMARY | 2024-05-16 15:34 | XMS_ITS | Continuity of Care Document ---
Author Organization [facility] n's [facility] Address [address] [place] [address]- Care Team Providers Care Carpentry Instructor Name Role Phone Not on Staff, PCP Primary Care Physician Unavail able Encounter [facility] Date(s): 01/13/22 - 02/13/22 [facility] [address] [email or web address] Attending Physician: Not on Staff, Attending MD [...] give 325mg per patient preference and re-dose [id number] within 4 hours, if needed. Patient should [...] EST, [id number] Partial fill upon patient request if the prescription is... Start Date: 10/14/20 Status: Ordered famotidine 20 mg oral tablet 20 mg, 1, tablet, By Mouth, 2 times a day, # 60 tablet, Refills 0, Tot. Refills 0, Maintenance, 02/08/22 20:18:00 EDT, [facility], [id number], 162, cm, 02/08/22 20:06:00EDT, Height, 115.5, kg, 02/08/22 19:58:00 EDT, Dry... Start Date: 02/08/22 Stop Date: 03/10/22 Status: Ordered ferrous sulfate 325 mg oral tablet 1 tablet = 325 mg, By Mouth, Daily, # 90 tablet, 3 Refills, Maintenance, 02/10/22 14:01:00 EDT, Tablet, [facility]/pharmacy #[id number], Partial fill upon patient request if the prescription is for a schedule II opioid drug., 162, cm, 02/08/22 20:06:00 EDT, Height... Start Date: 02/10/22 Status: Ordered metoclopramide 5 mg oral tablet 1 tablet, By Mouth, 2 times a day, for 30 days, # 60 tablet, 0 Refills, Physician Stop, [id number], 162, cm, 02/08/22 20:06:00 EDT, Height, 115.5, kg, 02/08/22 19:58:00 EDT, Dry Weight Start Date: 02/10/22 Stop Date: 03/12/22 Status: Ordered naproxen 500 mg oral delayed release tablet 1 tablet = 500 mg, By Mouth, 2 times a day, # 60 tablet, 0 Refills, Maintenance, 06/14/21 16:52:00 EDT, EC Tablet, [facility]/pharmacy #[id number], Partial fill upon patient request if the prescription is for a schedule II opioid drug., 163, cm, 10/14/20 16:15:00... Start Date: 06/14/21 Status: Ordered Multivitamins with Folic Acid 1 mg oral tablet 1 tablet, By Mouth, Daily, # 90 tablet, 3 Refills, Maintenance, 01/25/22 15:06:00 EDT, Tablet, [facility]/pharmacy #[id number], Partial fill upon [...] Route to Pharmacy Electronically, [facility]/pharmacy #[id number], Partial fill upon patient request if the prescr... Start Date: 09/16/20 Status: Ordered Tylenol Extra Strength 500 mg oral tablet 1 tablet = 500 mg, By Mouth, Every 8 hours, PRN as needed for fever, # 30 tablet, 0 Refills, Maintenance, 06/14/21 16:52:00 EDT, Tablet, [facility]/pharmacy #[id number], Partial fill upon patient request if the prescription is for a schedule II opioid drug., 163,... Start Date: 06/14/21 Status: Ordered Unisom 25 mg oral tablet 1 tablet = 25 mg, By Mouth, Daily at bedtime, PRN for sleep, # 32 tablet, 0 Refills, Maintenance, 01/29/22 21:21:00 EDT, Tablet, [facility]/pharmacy #[id number], 162, cm, 01/20/22 [...]
--- OUTSIDE RECORDS SUMMARY | 2024-05-16 15:34 | XMS_ITS | Continuity of Care Document ---
Author Organization [facility] Address [address] [place] [address]- Care Team Providers Care Airborne Operations Name Role Phone Bruno DOS SANTOS, Arron Dash Primary Care Physician Encounter [facility] Date(s): 06/06/22 - 08/17/[address] [address] Attending Physician: Not on Staff, Attending [...] 19:17:00 EST, [facility], [facility] Team Personnel Name: Triny Son RN Position: [facility] RIPO RN Member Role: Primary Care Nurse Name: Jennifer Penny RN Position: [facility] RN Member Role: Primary Care Nurse Name: Wanda Man RN Position: [facility] OB RN Member Role: Primary Care Nurse Name: Aurelio Ravi DO Position: [facility] TIMBER INSPECTOR MD Member Role: Lifetime TIMBER INSPECTOR Physician Address: Address: [address] [facility] Program [place] [address]- [place] Name: Sisi Interiano RN Position: [facility] RN Member Role: Primary Care Nurse Name: Arron Carr MD Position: [facility] Outreach Member Role: PCP Address: Address: [address] [place] [address]- [place] Name: Emeka Chong RN Position: [facility] RN Member Role: Primary Care Nurse Name: Jasmin Moqsueda RN Position: [facility] OB RN Member Role: Primary Care Nurse Name: Jane Palomares RN Position: [facility] OB RN Member Role: Primary Care Nurse Name: Leena Friend RN Position: [facility] OB RN Member Role: Primary Care Nurse Care Team Related Persons Name: FRANCISCA REYES Address: home [address] [place] [address] Name: BERKLEY REYES Address: home [place] Name: LEVAR ZARATE Address: home [address] [place] [address] Name: JUNIOR ELIANA Address: [place] [address] Name: LIS JAMA Address: [address] Address: [address] [address] [place] Name: AKIRA JAMA Address: [address] Address: home [address] [place] [address] [place] Name: BERKLEY AVENDANO Address: home [address] [address] Name: JENNIFER BEARDEN
--- OUTSIDE RECORDS SUMMARY | 2024-05-16 15:34 | XMS_ITS | Continuity of Care Document ---
Author Organization [facility] Address [address] [place] [address]- Care Team Providers Care Brine Room Laborer Name Role Phone Not on Staff, PCP Primary Care Physician Unavail able Encounter [facility] Date(s): 05/09/22 - 06/08/22 [facility] [address] [address]- Allergies, Adverse Reactions, Alerts Substance Reaction Severity [...] give 325mg per patient preference and re-dose [id number] within 4 hours, if needed. Patient should [...] Replace Required Details, [id number] fill upon patient re... Start Date: 03/03/22 Status: Ordered docusate sodium 100 mg oral capsule 100 mg, 1, capsule, By Mouth, 2 times a day, PRN, # 30 capsule, Refills 0, Tot. Refills 0, Maintenance, Constipation, 10/14/20 8:26:00 EST, Route to Pharmacy Electronically, [facility]/pharmacy [...] 6 Refills, Soft Stop, 05/09/22 11:09:00 EDT, [facility]/pharmacy #[id number], 162, cm, 03/03/22 10:00:00 EDT, Height, [...] 09/16/20 19:17:00 EST, [facility], [facility] [...] Replace Required Details, Route to Pharmacy Electronically, [facility] [id number], 162, cm, 03/03/22 10:00:00 EDT, Height, 115.5, [...]
--- OUTSIDE RECORDS SUMMARY | 2024-05-16 15:34 | XMS_ITS | Continuity of Care Document ---
Author Organization [facility] Address [address] [place] [address]- Care Team Providers Care Supervisor Soldering Name Role Phone Not on Staff, PCP Primary Care Physician Unavail able [place] [facility] [place]s): 01/29/22 - [facility]/28/[facility] [address] [address]- Allergies, Adverse Reactions, Alerts Substance Reaction Severity [...] give 325mg per patient preference and re-dose [id number] within 4 hours, if needed. Patient should [...] 10/14/20 8:26:00 EST, [id number] Partial fill upon patient request if the prescription is... Start Date: 10/14/20 Status: Ordered famotidine 20 mg oral tablet 20 mg, 1, tablet, By Mouth, 2 times a day, # 60 tablet, Refills 0, Tot. Refills 0, Maintenance, 02/08/22 20:18:00 EDT, [facility], [id number], 162, cm, 02/08/22 20:06:00EDT, Height, 115.5, kg, 02/08/22 19:58:00 EDT, Dry... Start Date: 02/08/22 Stop Date: 03/10/22 Status: Ordered ferrous sulfate 325 mg oral tablet 1 tablet = 325 mg, By Mouth, Daily, # 90 tablet, 3 Refills, Maintenance, 02/10/22 14:01:00 EDT, Tablet, [facility] #[id number], Partial fill upon patient request if the prescription is for a schedule II opioid drug., 162, cm, 02/08/22 20:06:00 EDT, Height... Start Date: 02/10/22 Status: Ordered metoclopramide 5 mg oral tablet 1 tablet, By Mouth, 2 times a day, for 30 days, # 60 tablet, 0 Refills, Physician Stop, [facility] STORE [id number], 162, cm, 02/08/22 20:06:00 EDT, Height, 115.5, kg, 02/08/22 19:58:00 EDT, Dry Weight Start Date: 02/10/22 Stop Date: 03/12/22 Status: Ordered naproxen 500 mg oral delayed release tablet 1 tablet = 500 mg, By Mouth, 2 times a day, # 60 tablet, 0 Refills, Maintenance, 06/14/21 16:52:00 EDT, EC Tablet, [facility]/pharmacy #[id number], Partial fill upon patient request if the prescription is for a schedule II opioid drug., 163, cm, 10/14/20 16:15:00... Start Date: 06/14/21 Status: Ordered Multivitamins with Folic Acid 1 mg oral tablet 1 tablet, By Mouth, Daily, # 90 tablet, 3 Refills, Maintenance, 01/25/22 15:06:00 EDT, Tablet, [facility]/pharmacy #[id number], Partial fill upon patient request [...] 09/16/20 19:17:00 EST, Route to Pharmacy Electronically, [facility]/pharmacy #[id number], Partial fill upon patient request if the prescr... Start Date: 09/16/20 Status: Ordered Tylenol Extra Strength 500 mg oral tablet 1 tablet = 500 mg, By Mouth, Every 8 hours, PRN as needed for fever, # 30 tablet, 0 Refills, Maintenance, 06/14/21 16:52:00 EDT, Tablet, [facility]/pharmacy #[id number], Partial fill upon patient request if the prescription is for a schedule II opioid drug., 163,... Start Date: 06/14/21 Status: Ordered Unisom 25 mg oral tablet 1 tablet = 25 mg, By Mouth, Daily at bedtime, PRN for sleep, # 32 tablet, 0 Refills, Maintenance, 01/29/22 21:21:00 EDT, Tablet, [facility]/pharmacy #[id number], 162, cm, 01/20/22 0:10:00 EDT, [...]
--- OUTSIDE RECORDS SUMMARY | 2024-05-16 15:34 | XMS_ITS | Continuity of Care Document ---
Author Organization [facility] Address [address] [place] [address]- Care Team Providers Care Skilled Helper Name Role Phone Not on Staff, PCP Primary Care Physician Unavail able [facility]counter [facility] Date(s): 05/12/20 - 06/11/20 [facility] [address] [address]- [facility] Allergies, Adverse Reactions, Alerts Substance Reaction [...] 1 Refills, Maintenance, 05/20/20 16:24:00 EDT, [id number], 165, cm, 05/20/20 15:09:00 EDT, Height, 117, [...]
--- OUTSIDE RECORDS SUMMARY | 2024-05-16 15:34 | XMS_ITS | Continuity of Care Document ---
Author Organization [facility] Address [address] [place] [address]- Care Team Providers Care House Officer Name Role Phone Not on Staff, PCP Primary Care Physician Unavail able [place] [facility] [place] 02/11/22 [facility] [address] [address]- Allergies, Adverse Reactions, Alerts Substance Reaction Severity [...] give 325mg per patient preference and re-dose [id number] within 4 hours, if needed. Patient should [...] EST, [id number] fill upon patient request if the prescription is... Start Date: 10/14/20 Status: Ordered famotidine 20 mg oral tablet 20 mg, 1, tablet, By Mouth, 2 times a day, # 60 tablet, Refills 0, Tot. Refills 0, Maintenance, 02/08/22 20:18:00 EDT, [id number], 162, cm, 02/08/22 20:06:00EDT, [...] # 60 tablet, 0 Refills, Physician Stop, [facility] STORE [id number], 162, cm, 02/08/22 20:06:00 EDT, Height, 115.5, kg, 02/08/22 19:58:00 EDT, Dry Weight Start Date: 02/10/22 Stop Date: 03/12/22 Status: Ordered naproxen 500 mg oral delayed release tablet 1 tablet = 500 mg, By Mouth, 2 times a day, # 60 tablet, 0 Refills, Maintenance, 06/14/21 16:52:00 EDT, EC Tablet, [facility]/pharmacy #[id number], Partial [...] 09/16/20 19:17:00 EST, Route to Pharmacy Electronically, [facility]/pharmacy #[id number], Partial fill upon patient request if the prescr... Start Date: 09/16/20 Status: Ordered Tylenol Extra Strength 500 mg oral tablet 1 tablet = 500 mg, By Mouth, Every 8 hours, PRN as needed for fever, # 30 tablet, 0 Refills, Maintenance, 06/14/21 16:52:00 EDT, Tablet, [facility]/pharmacy #[id number], [...]
--- OUTSIDE RECORDS SUMMARY | 2024-05-16 15:34 | XMS_ITS | Continuity of Care Document ---
Author Organization [facility] Address [address] [place] [address]- Care Team Providers Care Corporate Job Titles Name Role Phone Bruno DOS SANTOS, Arron Dash Primary Care Physician Encounter [facility] [place] Date(s): 06/28/22 - 07/28/[address] [address] Allergies, Adverse Reactions, Alerts Substance [...] give 325mg per patient preference and re-dose [id number] within 4 hours, if needed. Patient should [...] Details, Route to Pharmacy Electronically, [facility]/pharmacy #[id number], Partial fill upon patient re... Start Date: 03/03/22 Status: Ordered docusate sodium 100 mg oral capsule 100 mg, 1, capsule, By Mouth, 2 times a day, PRN, # 30 capsule, Refills 0, Tot. Refills 0, Maintenance, Constipation, 10/14/20 8:26:00 EST, Route to Pharmacy Electronically, [facility]/pharmacy #[id number], Partial fill upon patient request if the prescription is... Start Date: 10/14/20 Status: Ordered ferrous sulfate 325 mg oral tablet 1 tablet = 325 mg, By Mouth, Daily, # 90 tablet, 3 Refills, Maintenance, 02/10/22 14:01:00 EDT, Tablet, [facility]/pharmacy #[id number], Partial fill upon patient request if the prescription is for a schedule II opioid drug., 162, cm, 02/08/22 20:06:00 EDT, Height... Start Date: 02/10/22 Status: Ordered Heartburn Relief 10 mg oral tablet 1 tablet, By Mouth, 2 times a day, # 60 tablet, 6 Refills, Soft Stop, 05/09/22 11:09:00 EDT, [id number], 162, cm, 03/03/22 10:00:00 EDT, Height, 115.5, kg, 02/08/22 19:58:00 EDT, Dry Weight Start Date: 05/09/22 Status: Ordered Multivitamins with Folic Acid 1 mg oral tablet 1 tablet, By Mouth, Daily, # 90 tablet, 3 Refills, Maintenance, 01/25/22 15:06:00 EDT, Tablet, [facility]/pharmacy #[id number], Partial fill upon patient request if [...] EST, [id number] fill upon patient request if the prescr... Start Date: 09/16/20 Status: Ordered Unisom 25 mg oral tablet 1 tablet = 25 mg, By Mouth, Daily at bedtime, PRN for sleep, # 32 tablet, 0 Refills, Maintenance, 01/29/22 21:21:00 EDT, Tablet, [facility]/pharmacy #[id number], 162, cm, 01/20/22 0:10:00 EDT, Height, 127.5, kg, 10/11/20 21:21:00 EST, Dry Weight Start Date: 01/29/22 Status: Ordered Vitamin B6 50 mg oral tablet See Instructions, TAKE 3 TIMES PER DAY TO PREVENT NAUSEA IN ., # 90 tablet, Refills 0, Instructions Replace Required Details, Route to Pharmacy Electronically, [facility] STORE [id number], 162, cm, 03/03/22 10:00:00 EDT, Height, 115.5, [...] Bruno DOS SANTOS, Arron Dash Address: Address: [address] [place] [address]
--- OUTSIDE RECORDS SUMMARY | 2024-05-16 15:34 | XMS_ITS | Continuity of Care Document ---
Author Organization [facility] Address [address] [place] [address]- Care Team Providers Care Metals Sales Representative Name Role Phone Bruno DOS SANTOS, Arron Dash Primary Care Physician [place] [facility] [place] 09/26/22 - 10/26/[address] [address] Attending Physician: Admtr, Rikki Admitting Physician: Admtr, ArDaniel Referring Physician: Admtr, Ar8 Allergies, Adverse Reactions, [...] mg, Subcutaneous Infusion, Once, Inserted 08/23/22 Lot [id number] Exp 07/28/24, 0 Refills,Maintenance, 08/23/22 19:16:00 EST, [...] * Felicity Chirinos DO: PERFORM, SIGN, VERIFY Carol Ann Bonner MD: SIGN, MODIFY Carol Ann Bonner MD: MODIFY Event Display: History and Physical Hospital Authored Date: [id number] Patient: JUNIOR MARQUES Age: 28 years Sex: [...] Age: 40 weeks Wt: 2977 g Hospital: [facility] Zack Labor: -- Child's Name: Latanya Baby's Father: -- # 2 Baby 1 Outcome Date: 12/29/2012 Outcome: Live Outcome or Result: Vaginal Gender: Male Gest Age: 40 weeks 3 days Wt: 4305 g Hospital: [facility] Zack Labor: -- Child's Name: -- Baby's [...] indicated d/w Dr Bonner * Ha DOS SANTOS, Carol Ann Perez: PERFORM Event Display: History and Physical Hospital Authored Date: Attending Attestation: I have seen and evaluated this patient. I have discussed the case and its management with the resident and agree with the findings and plan as documented in the resident???s note. -Carol Ann Bonner MD Patient Care team information Care Team Personnel Name: Triny Son RN Position: [facility] PCO RN Member Role: Primary Care Nurse Name: Jennifer Penny RN Position: [facility] RN Member Role: Primary Care Nurse Name: Wanda Man RN Position: [facility] OB RN Member Role: Primary Care Nurse Name: Aurelio Ravi DO Position: [facility] POWERHOUSE HELPER MD Member Role: Lifetime POWERHOUSE HELPER Physician Address: Address: [address] [place] [address] [place] [address]- [place] Name: Sisi Interiano RN Position: [facility] RN Member Role: Primary Care Nurse Name: Arron Carr MD Position: [facility] Outreach Member Role: PCP Address: Address: [address] [place] [phone]- [place] Name: Emeka Chong RN Position: [facility] RN Member Role: Primary Care Nurse Name: Jasmin Mosqueda RN Position: [facility] OB RN Member Role: Primary Care Nurse Name: Jane Palomares RN Position: [facility] OB RN Member Role: Primary Care Nurse Name: Leena Friend RN Position: [facility] OB RN Member Role: Primary Care Nurse Care Team Related Persons Name: FRANCISCA REYES Address: home [address] [place] [address] Name: BERKLEY REYES Address: home [place] Name: SAVITA GIRON Address: [address] Address: home [address] [place] [address] [place] Name: TRACY GIRON Address: [address] Address: home [address] [address] [place] Name: LEVAR ZARATE Address: home [address] [place] [address] Name: JUNIOR ELIANA Address: [place] [address] Name: LIS JAMA Address: [address] Address: [address] [address] [place] Name: AKIRA JAMA Address: [address] Address: home [address] [place] [address] [place] Name: BERKLEY AVENDANO Address: home [address] [place] [address] Name: JENNIFER BEARDEN
--- OUTSIDE RECORDS SUMMARY | 2024-05-16 15:34 | XMS_ITS | Continuity of Care Document ---
Author Organization [facility] Address [address] [place] [address]- Care Team Providers Care Software Design Manager Name Role Phone Not on Staff, PCP Primary Care Physician Unavail able Encounter [facility] Date(s): 03/22/22 - 04/21/[address] [address]- Allergies, Adverse Reactions, Alerts Substance Reaction Severity [...] give 325mg per patient preference and re-dose [id number] within 4 hours, if needed. Patient should [...] Refills, Maintenance, 03/30/22 12:23:00 EDT, Tablet, [facility]/pharmacy #[id number], Partial fill upon patient request if the prescription is for a schedule II opioid drug., 162, cm, 03/03/22 10:00:00 EDT,... Start Date: 03/30/22 Status: Ordered famotidine 20 mg oral tablet 20 mg, 1, tablet, By Mouth, 2 times a day, # 60 tablet, Refills 0, Tot. Refills 0, Maintenance, 02/08/22 20:18:00 EDT, Route to Pharmacy Electronically, [facility]/pharmacy #[id number], 162, cm, 02/08/22 20:06:00EDT, Height, 115.5, kg, 02/08/22 19:58:00 EDT, Dry... Start Date: 02/08/22 Stop Date: 03/10/22 Status: Ordered ferrous sulfate 325 mg oral tablet 1 tablet = 325 mg, By Mouth, Daily, Take daily for anemia, # 90 tablet, 0 Refills, Maintenance, 04/15/22 15:31:00 EDT, Tablet, [facility]/pharmacy #[id number], Partial [...] tablet, 0 Refills, Maintenance, 04/15/22 15:31:00 EDT, [facility]/pharmacy #[id number], Partial fill upon [...] Refills, Maintenance, 04/10/22 14:09:00 EDT, Tablet, [facility]/pharmacy #[id number], Partial [...] Refills, Maintenance, 03/25/22 20:11:00 EDT, Tablet, [facility]/pharmacy #[id number], Partial fill upon patient request if the prescription is... Start Date: 03/25/22 Status: Ordered Vitamin B6 25 mg oral tablet 1 tablet = 25 mg, By Mouth, 3 times a day, for 30 days, # 90 tablet, 2 Refills, Acute 05/18/22 12:57:00 EDT, 02/17/22 12:57:00 EDT, [facility]/pharmacy #[id number], Partial fill upon [...] Pharmacy Electronically, [facility]/pharmacy #[id number], Partial fi... Start Date: 03/25/22 Status: [...]
--- OUTSIDE RECORDS SUMMARY | 2024-05-16 15:34 | XMS_ITS | Continuity of Care Document ---
Author Organization [facility] Address [address] [place] [address]- Care Team Providers Care Operater Name Role Phone Not on Staff, PCP Primary Care Physician Unavail able [facility] Date(s): 09/15/20 - 10/15/20 [facility] [address] [address]- Allergies, Adverse Reactions, Alerts Substance Reaction Severity [...] give 325mg per patient preference and re-dose [id number] within 4 hours, if needed. Patient should [...] 8:26:00 EST, [id number] fill upon patient request if the prescription is... Start Date: 10/14/20 Status: Ordered famotidine 20 mg oral tablet 20 mg, 1, tablet, By Mouth, 2 times a day, # 60 tablet, Refills 0, Tot. Refills 0, Maintenance, 06/17/20 15:15:00 EDT, Route to Pharmacy Electronically, [facility]/pharmacy #[id number], 165, cm, 06/17/20 15:10:00EDT, [...] 8 Refills, Maintenance, 03/05/20 16:59:00 EDT, Tablet, [facility]/pharmacy #[id number], 1 tablet By Mouth Daily, 165, cm, 02/27/19 7:33:00 EDT, Height, 117, kg, 10/14/19 23:49:00 EST, Dry Weight Start Date: 03/05/20 Status: Ordered Tums 500 mg oral tablet, chewable 500 mg, 1, tablet, Chew, 3 times a day, PRN, # 30 tablet, Refills 0, Tot. Refills 0, Maintenance, for control of stomach acid, 09/16/20 19:17:00 EST, Route to Pharmacy Electronically, [facility]/pharmacy #[id number], Partial fill upon patient request if the prescr... Start Date: 09/16/20 Status: Ordered Vitamin B6 25 mg oral tablet See Instructions, 1 tablet By Mouth up to 3 times Daily for nausea, # 90 tablet, 1 Refills, Maintenance, 05/20/20 16:24:00 EDT, [id number], 165, cm, 05/20/20 15:09:00 EDT, Height, 117, [...]
--- OUTSIDE RECORDS SUMMARY | 2024-05-16 15:34 | XMS_ITS | Continuity of Care Document ---
Author Organization [facility] Address [address] [place] [address]- Care Team Providers Care Mini Lab Operator Name Role Phone Not on Staff, PCP Primary Care Physician Unavail able [place] [facility] [place]08[place]20 - 07/08/20 [facility] [address] [address] [facility] Allergies, Adverse Reactions, Alerts Substance Reaction Severity [...] EDT, Route to Pharmacy Electronically, [facility]/pharmacy #[id number], 165, cm, 06/17/20 15:10:00EDT, Height, 117, kg, 10/14/19 23:49:00 EST, Dry We... Start Date: 06/17/20 Stop Date: 07/17/20 Status: Ordered Multivitamins with Folic Acid 1 mg oral tablet 1 tablet, By Mouth, Daily, # 30 tablet, 8 Refills, Maintenance, 03/05/20 16:59:00 EDT, Tablet, [facility]/pharmacy #[id number], 1 tablet By Mouth Daily, 165, [...]
--- OUTSIDE RECORDS SUMMARY | 2024-05-16 15:34 | XMS_ITS | Continuity of Care Document ---
Author Organization [facility] Address [address] [place] [address]- Care Team Providers Care Care Nurse Rn Name Role Phone Bruno DOS SANTOS, Arron Dash Primary Care Physician [phone] Encounter [facility] [place] Date(s): 08/05/22 - 09/04/[address] [address] Allergies, Adverse Reactions, Alerts Substance [...] 0 Refills, Maintenance, 08/23/22 19:44:00 EST, Tablet, [facility]/pharmacy #[id number], Partial fill upon patient request if the prescription is for a schedule II opioid drug., 165, cm,... Start Date: 08/23/22 Status: Ordered ibuprofen 600 mg oral tablet 600 mg, 1, tablet, By Mouth, Every 6 hours, # 50 tablet, Refills 0, Tot. Refills 0, Maintenance, 08/23/22 19:48:00 EST, Route to Pharmacy Electronically, [facility]/pharmacy #[id number], Partial fill upon patientrequest if the prescription is for a schedule II op... Start Date: 08/23/22 Status: Ordered MiraLax oral powder for reconstitution = 17 Gm, By Mouth, Daily, dissolve in water before taking, # 255 Gm, 0 Refills, Maintenance, 08/23/22 19:45:00 EST, REC Powder, [facility]/pharmacy #[id number], Partial fill upon patient request if the prescription is for a schedule II opioid drug., 17 Gm By Mouth... Start Date: 08/23/22 Status: Ordered Nexplanon 68 mg subcutaneous implant 1 each = 68 mg, Subcutaneous Infusion, Once, Inserted 08/23/22 Lot [id number] 07/28/24, 0 Refills,Maintenance, 08/23/22 19:16:00 EST, Partial fill upon patient request if the prescription is for a schedule II opioid drug. Start Date: 08/23/22 Status: Ordered oxyCODONE 5 mg oral tablet 5 mg, 1, tablet, By Mouth, Every 6 hours, PRN, # 10 tablet, Refills 0, Tot. Refills 0, Maintenance,as needed for pain, 08/23/22 19:48:00 EST, Route to Pharmacy Electronically, [facility]/pharmacy #[id number], Partial fill upon [...] Team Personnel Name: Triny Son RN Position: [facility] PCO RN Member Role: Primary Care Nurse Name: Jennifer Penny RN Position: [facility] RN Member Role: Primary Care Nurse Name: Wanda Mna RN Position: [facility] OB RN Member Role: Primary Care Nurse Name: Aurelio Ravi DO Position: [facility] ROENTGENOLOGIST MD Member Role: Lifetime ROENTGENOLOGIST Physician Address: Address: [address] [place] [address] [employer] [place], [place] [address] Name: Sisi Interiano RN Position: [facility] RN Member Role: Primary Care Nurse Name: Arron Carr MD Position: [facility] Outreach Member Role: PCP Address: Address: [address] [place] [id number] Name: Emeka Chong RN Position: [facility] RN Member Role: Primary Care Nurse Name: Jasmin Mosqueda RN Position: [facility] OB RN Member Role: Primary Care Nurse Name: Jane Palomares RN Position: [facility] OB RN Member Role: Primary Care Nurse Name: Leena Friend RN Position: [facility] OB RN Member Role: Primary Care Nurse Care Team Related Persons Name: FRANCISCA REYES Address: home [address] [place] [address] Name: BERKLEY REYES Address: home [place] Name: LEVAR ZARATE Address: home [address] [place] [address] Name: JUNIOR ELIANA Address: [place] [address] Name: CAROLE CHUNG Address: [address] Address: home [address] [place] [address] [place] Name: TRACY CHUNG Address: [address] Address: [address] [address] [place] Name: LIS JAMA Address: [address] Address: home [address] [address] [place] Name: AKIRA JAMA Address: [address] Address: home [address] [place] [address] [place] Name: BERKLEY AVENDANO Address: home [address] [address] Name: JENNIFER BEARDEN
--- OUTSIDE RECORDS SUMMARY | 2024-05-16 15:34 | XMS_ITS | Continuity of Care Document ---
Author Organization [facility] Address [address] [place] [address]- Care Team Providers Care Weaver Dobby Loom Name Role Phone Not on Staff, PCP Primary Care Physician Unavail able [place] [facility] [place] 01/01/21 - 01/01/[address] [address]- Discharge Disposition: A-D/C Walkout Attending Physician: Not [...] give 325mg per patient preference and re-dose [id number] within 4 hours, if needed. Patient should [...] 10/14/20 8:26:00 EST, [id number] fill upon patient request if the prescription is... Start Date: 10/14/20 Status: Ordered famotidine 20 mg oral tablet 20 mg, 1, tablet, By Mouth, 2 times a day, # 60 tablet, Refills 0, Tot. Refills 0, Maintenance, 06/17/20 15:15:00 EDT, Route to Pharmacy Electronically, [facility]/pharmacy #[id number], 165, cm, 06/17/20 15:10:00EDT, Height, 117, [...] 8 Refills, Maintenance, 03/05/20 16:59:00 EDT, Tablet, [facility]/pharmacy #[id number], 1 tablet By Mouth Daily, 165, cm, 02/27/19 7:33:00 EDT, Height, 117, kg, 10/14/19 23:49:00 EST, Dry Weight Start Date: 03/05/20 Status: Ordered Tums 500 mg oral tablet, chewable 500 mg, 1, tablet, Chew, 3 times a day, PRN, # 30 tablet, Refills 0, Tot. Refills 0, Maintenance, for control of stomach acid, 09/16/20 19:17:00 EST, Route to Pharmacy Electronically, [facility]/pharmacy #[id number], Partial fill upon patient [...] 1 Oxygen Saturation [94-100 %] 100 % (01/01/21 3:46 AM) Pulse Rate [55-90 bpm] 90 bpm (01/01/21 3:46 AM) Blood Pressure [90-138/55-84 mm Hg] 123/ 79mm Hg (01/01/21 3:46 AM) Respiratory Rate [16-30 br/min] 18 br/mi n (01/01/21 3:46 AM) Temperature [96.8-100.4 DegF] 98.2 DegF (01/01/21 3:46 AM) Mode of Delivery (Oxygen) Room air (01/01/21 3:46 AM) Blood pressure sites Arm, right (01/01/21 3:46 AM) Temperature Route Oral (01/01/21 3:46 AM) Social History Social History Type Response Smoking Status Never (less than 100 in lifetime) entered on: 04/08/20 Sex
--- OUTSIDE RECORDS SUMMARY | 2024-05-16 15:35 | XMS_ITS | Continuity of Care Document ---
Author Organization [facility] Address [address] [place] [address]- Care Team Providers Care Grinding Supervisor Name Role Phone Bruno DOS SANTOS, Arron Dash Primary Care Physician Encounter [facility] Date(s): 08/25/22 - 09/01/22 [facility] [address] [place], [place] [address] Attending Physician: Toyin DOS SANTOS, Donovan Andrea Referring Physician: Sarah Beth Pimentel DO Allergies, [...] 0 Refills, Maintenance, 08/23/22 19:44:00 EST, Tablet, [facility]/pharmacy #[id number], Partial fill upon patient request if the prescription is for a schedule II opioid drug., 165, cm,... Start Date: 08/23/22 Status: Ordered ibuprofen 600 mg oral tablet 600 mg, 1, tablet, By Mouth, Every 6 hours, # 50 tablet, Refills 0, Tot. Refills 0, Maintenance, 08/23/22 19:48:00 EST, Route to Pharmacy Electronically, [facility]/pharmacy #[id number], Partial fill upon patientrequest if the prescription is for a schedule II op... Start Date: 08/23/22 Status: Ordered MiraLax oral powder for reconstitution = 17 Gm, By Mouth, Daily, dissolve in water before taking, # 255 Gm, 0 Refills, Maintenance, 08/23/22 19:45:00 EST, REC Powder, [facility]/pharmacy #[id number], Partial fill upon patient request if the prescription is for a schedule II opioid drug., 17 Gm By Mouth... Start Date: 08/23/22 Status: Ordered Nexplanon 68 mg subcutaneous implant 1 each = 68 mg, Subcutaneous Infusion, Once, Inserted 08/23/22 Lot [id number] Exp 07/28/24, 0 Refills,Maintenance, 08/23/22 19:16:00 EST, Partial fill upon patient request if the prescription is for a schedule II opioid drug. Start Date: 08/23/22 Status: Ordered oxyCODONE 5 mg oral tablet 5 mg, 1, tablet, By Mouth, Every 6 hours, PRN, # 10 tablet, Refills 0, Tot. Refills 0, Maintenance,as needed for pain, 08/23/22 19:48:00 EST, Route to Pharmacy Electronically, [facility]/pharmacy #[id number], Partial fill upon [...] Team Personnel Name: Triny Son RN Position: [facility] PCO RN Member Role: Primary Care Nurse Name: Jennifer Penny RN Position: [facility] RN Member Role: Primary Care Nurse Name: Wanda Man RN Position: [facility] OB RN Member Role: Primary Care Nurse Name: Aurelio Ravi DO Position: [facility] DIP UNIT OPERATOR MD Member Role: Lifetime DIP UNIT OPERATOR Physician Address: Address: [address] [place] [address] Pipe [place] [address]- Name: Sisi Interiano RN Position: [facility] RN Member Role: Primary Care Nurse Name: Arron Carr MD Position: [facility] Outreach Member Role: PCP Address: Address: [address] [place] [address]- Name: Emeka Chong RN Position: [facility] RN Member Role: Primary Care Nurse Name: Jasmin Mosqueda RN Position: [facility] OB RN Member Role: Primary Care Nurse Name: Jane Palomares RN Position: [facility] OB RN Member Role: Primary Care Nurse Name: Leena Friend RN Position: [facility] OB RN Member Role: Primary Care Nurse Care Team Related Persons Name: FRANCISCA REYES Address: home [address] [place] [address] Name: BERKLEY REYES Address: [facility] Name: LEVAR ZARATE Address: home [address] [place] [address] Name: JUNIOR ELIANA Address: [place] [address] Name: CAROLE CHUNG Address: [address] Address: home [address] [place] [address] [place] Name: TRACY CHUNG Address: [address] Address: [address] [address] [place] Name: LIS JAMA Address: [address] Address: home [address] [address] [place] Name: AKIRA JAMA Address: [address] Address: home [address] [place] [address] [place] Name: BERKLEY AVENDANO Address: home [address] [address] Name: JENNIFER BEARDEN
--- OUTSIDE RECORDS SUMMARY | 2024-05-16 15:35 | XMS_ITS | Continuity of Care Document ---
Author Organization [facility] Address [address] [place] [address]- Care Team Providers Care Bookbinding Machine Operator Name Role Phone Not on Staff, PCP Primary Care Physician Unavail able Encounter [facility] Date(s): 01/25/22 - 02/24/22 [facility] [address] [address]- Allergies, Adverse Reactions, Alerts Substance Reaction Severity [...] give 325mg per patient preference and re-dose [id number] within 4 hours, if needed. Patient should [...] 10/14/20 8:26:00 EST, [id number] Partial fill upon patient request if the prescription is... Start Date: 10/14/20 Status: Ordered famotidine 20 mg oral tablet 20 mg, 1, tablet, By Mouth, 2 times a day, # 60 tablet, Refills 0, Tot. Refills 0, Maintenance, 02/08/22 20:18:00 EDT, [id number], 162, cm, 02/08/22 20:06:00EDT, Height, 115.5, kg, 02/08/22 19:58:00 EDT, Dry... Start Date: 02/08/22 Stop Date: 03/10/22 Status: Ordered ferrous sulfate 325 mg oral tablet 1 tablet = 325 mg, By Mouth, Daily, # 90 tablet, 3 Refills, Maintenance, 02/10/22 14:01:00 EDT, Tablet, [facility]/pharmacy #[id number], Partial fill upon patient request if the prescription is for a schedule II opioid drug., 162, cm, 02/08/22 20:06:00 EDT, Height... Start Date: 02/10/22 Status: Ordered metoclopramide 5 mg oral tablet 1 tablet, By Mouth, 2 times a day, for 30 days, # 60 tablet, 0 Refills, Physician Stop, [facility] STORE [id number], 162, cm, 02/08/22 20:06:00 EDT, Height, 115.5, kg, 02/08/22 19:58:00 EDT, Dry Weight Start Date: 02/10/22 Stop Date: 03/12/22 Status: Ordered naproxen 500 mg oral delayed release tablet 1 tablet = 500 mg, By Mouth, 2 times a day, # 60 tablet, 0 Refills, Maintenance, 06/14/21 16:52:00 EDT, EC Tablet, [facility]/pharmacy #[id number], Partial fill upon patient request if the prescription is for a schedule II opioid drug., 163, cm, 10/14/20 16:15:00... Start Date: 06/14/21 Status: Ordered Multivitamins with Folic Acid 1 mg oral tablet 1 tablet, By Mouth, Daily, # 90 tablet, 3 Refills, Maintenance, 01/25/22 15:06:00 EDT, Tablet, [facility]/pharmacy #[id number], Partial fill upon patient [...] 09/16/20 19:17:00 EST, Route to Pharmacy Electronically, [facility]/pharmacy #[id number], Partial fill upon patient request if the prescr... Start Date: 09/16/20 Status: Ordered Tylenol Extra Strength 500 mg oral tablet 1 tablet = 500 mg, By Mouth, Every 8 hours, PRN as needed for fever, # 30 tablet, 0 Refills, Maintenance, 06/14/21 16:52:00 EDT, Tablet, [facility]/pharmacy #[id number], Partial fill upon patient request if the prescription is for a schedule II opioid drug., 163,... Start Date: 06/14/21 Status: Ordered Unisom 25 mg oral tablet 1 tablet = 25 mg, By Mouth, Daily at bedtime, PRN for sleep, # 32 tablet, 0 Refills, Maintenance, 01/29/22 21:21:00 EDT, Tablet, [facility]/pharmacy #[id number], 162, cm, 01/20/22 0:10:00 [...]
--- OUTSIDE RECORDS SUMMARY | 2024-05-16 15:35 | XMS_ITS | Continuity of Care Document ---
Author Organization [facility] Address [address] [place] [address]- Care Team Providers Care Addiction Therapist Name Role Phone Bruno DOS SANTOS, Arron Dash Primary Care Physician Encounter [facility] Date(s): 06/06/22 - 09/28/[address] [address] Attending Physician: Not on Staff, [...] mg, Subcutaneous Infusion, Once, Inserted 08/23/22 Lot [id number] Exp 07/28/24, 0 Refills,Maintenance, 08/23/22 19:16:00 EST, [...] Team Personnel Name: Triny Son RN Position: [facility] PCO RN Member Role: Primary Care Nurse Name: Jennifer Penny RN Position: [facility] RN Member Role: Primary Care Nurse Name: Wanda Man RN Position: [facility] OB RN Member Role: Primary Care Nurse Name: Aurelio Ravi DO Position: [facility] DRY CHAIN WORKER MD Member Role: Lifetime DRY CHAIN WORKER Physician Address: Address: [address] [place], [place] [address]s [facility] [place] [address]- Name: Sisi Interiano RN Position: [facility] RN Member Role: Primary Care Nurse Name: Arron Carr MD Position: [facility] Outreach Member Role: PCP Address: Address: [address] [place] [address]- Name: Emeka Chong RN Position: [facility] RN Member Role: Primary Care Nurse Name: Jasmin Mosqueda RN Position: [facility] OB RN Member Role: Primary Care Nurse Name: Jane Palomares RN Position: [facility] OB RN Member Role: Primary Care Nurse Name: Leena Friend RN Position: [facility] OB RN Member Role: Primary Care Nurse Care Team Related Persons Name: FRANCISCA REYES Address: home [address] [place] [address] Name: BERKLEY REYES Address: home [place] Name: LEVAR ZARATE Address: home [address] [place] [address] Name: JUNIOR ELIANA Address: [place] [address] Name: CAROLE CHUNG Address: [address] Address: home [address] [place] [address] [place] Name: TRACY CHUNG Address: [address] Address: home [address] [facility] [address] [place] [address] [place] Name: LIS JAMA Address: [address] Address: [address] [address] [place] Name: AKIRA JAMA Address: [address] Address: home [address] [place] [address] [place] Name: BERKLEY AVENDANO Address: home [address] [address] Name: JENNIFER BEARDEN
--- OUTSIDE RECORDS SUMMARY | 2024-05-16 15:35 | XMS_ITS | Continuity of Care Document ---
Author Organization [facility] ter Address [address] [place] [address]- Care Team Providers Care Youth Care Worker Name Role Phone Arron Carr MD Primary Care Physician Encounter [facility] Date(s): 08/03/22 - 08/04/[address] [address] Discharge Disposition: A-D/C Home Attending Physician: Triny Steinberg MD Admitting Physician: Triny Steinberg MD Referring Physician: Triny Steinberg MD Allergies, Adverse Reactions, Alerts Substance Reaction [...] Replace Required Details, Route to Pharmacy Electronically, [facility]/pharmacy #[id number], Partial fill upon patient re... Start Date: 03/03/22 Status: Ordered ferrous sulfate 325 mg oral tablet 1 tablet = 325 mg, By Mouth, Daily, # 90 tablet, 3 Refills, Maintenance, 02/10/22 14:01:00 EDT, Tablet, [facility]/pharmacy #[id number], Partial fill upon patient request if the prescription is for a schedule II opioid drug., 162, cm, 02/08/22 20:06:00 EDT, Height... Start Date: 02/10/22 Status: Ordered metroNIDAZOLE 500 mg oral tablet 1 tablet = 500 mg, By Mouth, Every 12 hours, # 11 tablet, 0 Refills, Acute 08/09/22 0:00:00 EDT, 08/04/22 12:33:00 EDT, Tablet, [facility]/pharmacy #[id number], Partial fill upon patient request if the prescription is for a schedule II opioid drug., 165, cm, 08/03... Start Date: 08/04/22 Stop Date: 08/09/22 Status: Ordered Multivitamins with Folic Acid 1 mg oral tablet 1 tablet, By Mouth, Daily, # 90 tablet, 3 Refills, Maintenance, 01/25/22 15:06:00 EDT, Tablet, [facility]/pharmacy #[id number], Partial fill upon patient [...] 09/16/20 19:17:00 EST, Route to Pharmacy Electronically, [facility]/pharmacy #[id number], Partial fill upon patient request if the prescr... Start Date: 09/16/20 Status: Ordered Problem List Condition Confirmation Course Effective Dates Status [facility] at Informant History of suicidal ideation Confirmed Active Learning disability Confirmed Active Morbid obesity Confirmed Active Obesity, Morbid - BMI 47 Confirmed Active Personality disorder Confirmed Active Severe obesity Confirmed Active Other social stressor Confirmed Active Results Orders for Microbiology Reports Name Date Urine Culture (URINE CULTURE) 08/02/22 Microbiology Reports TEST:Urine Culture STATUS:Auth (Verified) BODY SITE: SOURCE:URINE COLLECTED DATE/TIME:08/02/22 8:53 PM Urine Culture SPECIMEN DESCRIPTION : URINE SPECIAL REQUESTS : NONE Reflexed from [id number] CULTURE : <10,000 COL/ML REPORT STATUS : FINAL 08/04/2022 Vital Signs Most recent to oldest [Reference Range]: 1 2 3 Height 165 cm (08/03/22 1:35 AM) Weight 127 kg (08/03/22 1:35 AM) 127 kg (08/03/22 12:17 AM) Oxygen Saturation [94-100 %] 97 % (08/04/22 10:35 AM) 100 % (08/02/22 7:59 PM) Pulse Rate [55-90 bpm] 99 bpm *H* (08/03/22 1:35 AM) Body Mass Index [18.5-24.99 kg/m2] 46.65 kg/m2 *>HHI* (08/03/22 1:35 AM) Blood Pressure [90-138/55-84 mm Hg] 106/62mm Hg (08/04/22 10:35 AM) 141/71mm Hg *H* (08/04/22 5:42 AM) 139/85mm Hg *H* (08/03/22 11:44 PM) Respiratory Rate [16-30 br/min] 16 br/min (08/04/22 10:35 AM) 18 br/min (08/03/22 3:05 PM) 18 br/min (08/03/22 1:35 AM) Temperature [96.8-100.4 DegF] 98.0 DegF (08/04/22 10:35 AM) 98.2 DegF (08/03/22 9:15 PM) 98.1 DegF (08/03/22 3:05 PM) Mode of Delivery (Oxygen) Room air (08/04/22 10:35 AM) Room air (08/02/22 7:59 PM) Blood pressure sites Arm, right (08/04/22 10:35 AM) Arm, right (08/03/22 3:05 PM) Arm, right (08/03/22 1:35 AM) Temperature Route Oral (08/04/22 10:35 AM) Oral (08/03/22 9:15 PM) Oral (08/03/22 3:05 PM) Dry Weight 127 kg (08/03/22 1:35 AM) Social History Social History Type Response Smoking Status Never (less than 100 in lifetime) entered on: 04/08/20 Sex Patient Care team information Personnel Name: Bruno DOS SANTOS, Arron Dash Address: Address: [address]
--- OUTSIDE RECORDS SUMMARY | 2024-05-16 15:35 | XMS_ITS | Continuity of Care Document ---
Author Organization [facility] Address [address] [place] [address]- Care Team Providers Care Tree Trimming Supervisor Name Role Phone Not on Staff, PCP Primary Care Physician Unavail able Encounter [facility] Date(s): 08/17/20 - 09/30/20 [facility] [address] [address] Attending Physician: Not on [...] 06/17/20 15:15:00 EDT, Route to Pharmacy Electronically, [facility]/pharmacy #[id number], 165, cm, 06/17/20 15:10:00EDT, Height, 117, kg, 10/14/19 23:49:00 EST, Dry We... Start Date: 06/17/20 Stop Date: 07/17/20 Status: Ordered Multivitamins with Folic Acid 1 mg oral tablet 1 tablet, By Mouth, Daily, # 30 tablet, 8 Refills, Maintenance, 03/05/20 16:59:00 EDT, Tablet, [facility]/pharmacy #[id number], 1 tablet By Mouth [...] tablet, 1 Refills, Maintenance, 05/20/20 16:24:00 EDT, [facility]/pharmacy #[id number], 165, cm, 05/20/20 15:09:00 [...]
== END 2024-05-16 15:33 | disposition home or self-care (01) ==
PROVIDERS: Emergency Provider Student in an Organized Health Care Education/Training Program
DX: K08.89 Other specified disorders of teeth and supporting structures (principal)
CPT/HCPCS: 99282; 99283

== ENCOUNTER 2025-07-08 13:14 | Emergency (ER) | payer MEDICAID, SELFPAY ==
--- NOTE | ~2025-07-08 | XR_ITS ---
EXAMINATION: XR LUMBOSACRAL SPINE CLINICAL INFORMATION: back pain COMPARISON: None available. TECHNIQUE: AP and lateral views FINDINGS: S-shaped curvature of the lumbar spine. Facet joint hypertrophy at L5-S1. No acute cortical disruption or malalignment. XR/XR lumbar spine 2-3V IMPRESSION: No acute fracture or listhesis. Mild spondylosis, L5-S1. Electronically signed by: Saurav Mcfadden MD 07/08/2025 02:28 PM EDT
--- NOTE | ~2025-07-08 | XR_ITS ---
EXAMINATION: XR THORACIC SPINE CLINICAL INFORMATION: back pain, hx of scoliosis COMPARISON: Correlated to Chest x-ray dated October 17, 2021. TECHNIQUE: AP and lateral views FINDINGS: Small Schmorl nodes with mild superior endplate compression deformity representing 20% volume loss in the likely T6 vertebral body. Endplate sclerosis and small marginal osteophyte formation at T11-T12. Mild S-shaped curvature of the mid thoracic spine. No lytic or blastic lesions. No acute cortical disruption or malalignment. XR/XR thoracic spine 3V IMPRESSION: Mild to moderate multilevel spondylosis and scoliosis, upper thoracic spine. Electronically signed by: Saurav Mcfadden MD 07/08/2025 02:41 PM EDT
[2025-07-08 13:54] VITALS: BP 145/75; PULSE 75; RESP 18; TEMP 36.7; O2SAT 99; BMI 54.5
--- NOTE | 2025-07-08 13:55 | ED_ITS ---
HPI - Back Pain/Injury General Chief Complaint: Back Pain/Injury Stated Complaint: Back pain Time Seen by Provider: 07/08/25 16:16 Source: patient and RN notes reviewed Mode of arrival: ambulatory Limitations: no limitations History of Present Illness ED Provider: Ella Ram PA-C HPI Narrative: This is a [id number]-female who presents to the ER with a complaint of acute on chronic back pain. Patient reports that she has a history of scoliosis, states that recently her pain has been worsening and would like to have imaging of her back. No fevers, chills, urinary symptoms or abdominal pain. Denies chance of . She denies any fevers, chills, chest pain, shortness for breath. No recent injury or trauma. No urinary symptoms. No saddle anesthesia. No numbness, tingling, or weakness. MD elicited complaint: back pain Pertinent past history: prior back pain Radiation: none Exacerbating factors: none Relieving factors: none Associated symptoms: denies other symptoms Related Data Previous Rx's ?Medication ?Instructions ?Recorded ibuprofen 800 mg tablet 800 mg PO Q8H PRN pain #30 t abs 04/03/21 penicillin V potassium 500 mg 1,000 mg (2 x 500 mg) PO BID 10 04/03/21 tablet days #40 tabs amoxicillin 875 mg tablet 875 mg PO BID #20 tabs 04/28 naproxen 500 mg tablet (Naprosyn) 500 mg PO BID #20 ta bs 04/28/21 ibuprofen 800 mg tablet 800 mg PO TID PRN pain #30 t abs 10/19/21 penicillin V potassium 500 mg 1,000 mg (2 x 500 mg) PO BID #40 10/19/21 tablet tabs amoxicillin 875 mg-potassium 1 tab PO BID 7 days #14 t abs 05/16/24 clavulanate 125 mg tablet morphine 15 mg immediate release 15 mg PO Q6H PRN pain (scale score 05/16/24 tablet 4-6) #10 tabs ondansetron 4 mg disintegrating 4 mg PO DAILY PRN naus ea and 05/16/24 tablet vomiting 5 days #7 tabs acetaminophen 500 mg tablet 1,000 mg (2 x 500 mg) PO Q 8H PRN 07/08/25 (Tylenol Extra Strength) pain #30 tabs naproxen 500 mg tablet 500 mg PO BID PRN pain #30 t abs 07/08/25 Allergies Allergy/AdvReac Type Severity Reaction Status Date / Time tramadol Allergy Dizziness Verified 07/08/25 13:58 Review of Systems Review of Systems: Constitutional : No Fever, No Chills ENT/Mouth : No sore throat, No Rhinorrhea Eyes: No Eye Pain, No Swelling, No Redness Cardiovascular : No Chest Pain, No SOB Respiratory : No Cough, No Sputum Gastrointestinal : No Nausea, No Vomiting, No Diarrhea, No abdominal Pain Genitourinary : No Dysuria, No Hematuria Musculoskeletal : No joint pain, No Myalgias, No Joint Swelling, +back pain Skin : No Skin Lesions, positive skin rash Neuro : No Weakness, No Numbness, No Headache All other systems reviewed and are negative Yes all other systems are reviewed and are negative Constitutional: Constitutional: Reports as per [facility] Past Medical History Medical History (Updated 07/09/25 @ 00:01 by Background Daemon) Other intervertebral disc degeneration, lumbar region with discogenic back pain only Tension-type headache, not intractable Scoliosis of thoracic spine Iron deficiency anemia Learning disability Personality disorder Morbid obesity No known health problems Surgical History No history of previous surgery Social History Social History Patient Tobacco Use Status: Never used Tobacco Advance Directives: No Advance Directives Information Provided: No Physical Exam Exam: Exam: General: Awake, alert, and oriented X3. No acute distress. HEENT: Normal inspection CVS: Normal heart rate and rhythm. Pulses normal. Respiratory: No respiratory distress Skin: Warm, dry, no rashes noted to exposed skin. Normal skin color. Normal skin turgor. Back: Patient has mild tenderness palpation along the midline T-spine, patient ambulatory steady gait. Strength 5/5 in lower extremities. Distal sensation circulation intact. Neuro: Oriented X 3. No motor deficit. No sensory deficit. Vital Signs: Vital Signs: Last Vital Signs Temp 98.0 F 07/08/25 17:28 Pulse 75 07/08/25 17:28 Resp 18 07/08/25 17:28 BP 145/75 H 07/08/25 17:28 Pulse Ox 99 07/08/25 17:28 O2 Del Method Room Air 07/08/25 17:28 BMI result Body Mass Index 54.5 Medical Decision Making Medical Decision Making MDM Narrative: This is a 35-year-old female who presents emergency department with concerns of back pain. Patient has a history of chronic back pain, and states that she has a history of scoliosis and has not had any x-rays therefore she is reporting to the emergency room as she wants her x-rays of her back to be performed today. She has mild tenderness palpation along the thoracic midline spine. Differential diagnoses include chronic back pain, muscle spasms, sciatica, strain. X-ray of her back revealing [id number] multilevel spondylosis and scoliosis in the upper thoracic spine. She does have small Schmorl nodes with mild superior endplate compression deformity representing 20% volume loss in the likely T6 vertebral body. Endplate sclerosis and small marginal osteophyte formation at T11-T12. This was discussed with the patient. She has been seen by a fisheries specialist 0 follow-up with them. Discussed strict return precautions, she has no red flag symptoms. Patient stable for discharge. Differential Diagnosis Differential Diagnoses: The differential diagnosis associated with the presentation includes See above Radiology Impression Discussion of test interpretation with radiology: I have reviewed the radiologist's reading. Radiologist Impression: EXAMINATION: XR THORACIC SPINE CLINICAL INFORMATION: back pain, hx of scoliosis COMPARISON: Correlated to Chest x-ray dated October 17, 2021. TECHNIQUE: AP and lateral views FINDINGS: Small Schmorl nodes with mild superior endplate compression deformity representing 20% volume loss in the likely T6 vertebral body. Endplate sclerosis and small marginal osteophyte formation at T11-T12. Mild S-shaped curvature of the mid thoracic spine. No lytic or blastic lesions. No acute cortical disruption or malalignment. XR/XR thoracic spine 3V IMPRESSION: Mild to moderate multilevel spondylosis and scoliosis, upper thoracic spine. Electronically signed by: Saurav Mcfadden MD 07/08/2025 02:41 PM EDT Dictated By: Saurav Glover MD EXAMINATION: XR LUMBOSACRAL SPINE CLINICAL INFORMATION: back pain COMPARISON: None available. TECHNIQUE: AP and lateral views FINDINGS: S-shaped curvature of the lumbar spine. Facet joint hypertrophy at L5-S1. No acute cortical disruption or malalignment. XR/XR lumbar spine 2-3V IMPRESSION: No acute fracture or listhesis. Mild spondylosis, L5-S1. Electronically signed by: Saurav Mcfadden MD 07/08/2025 02:28 PM EDT RP Dictated By: Saurav Glover MD Discharge Plan Discharge Clinical Impression: Scoliosis of thoracic spine, Schmorl nodes of thoracic region Patient Disposition: Home, Self-Care Instructions: Thoracic Disc Herniation (ED), Back Pain (ED) Additional Instructions: You were seen in the emergency department due to back pain. As discussed you do have degeneration in your spine, you also have evidence of a Schmorls Node A Schmorl's node is?a small herniation of the intervertebral disc material through the endplate of a vertebra.? The exact cause of Schmorl's nodes is unknown, but they are thought to be related to:? Trauma to the spine, Heavy lifting or physical exertion, and Weakening of the intervertebral discs with age.? Pathophysiology:? When the intervertebral disc material herniates through the endplate, it creates a small depression in the vertebra.?This depression can become filled with bone, forming a Schmorl's node.? Symptoms:? Most Schmorl's nodes are asymptomatic.?However, in some cases, they can cause pain, especially if they press on nerves or blood vessels.? Most Schmorl's nodes do not require treatment.?However, if they cause pain or other symptoms, treatment options may include:? Pain relievers, Physical therapy, and Surgery (in rare cases) Alternate between naproxen and Tylenol as needed. Gentle stretching, heat or ice can also help. Follow-up with your fisheries specialist. If any new or worsening symptoms occur including but not limited to chest pain, shortness of breath, numbness or tingling or weakness in your legs. Prescriptions: New naproxen 500 mg tablet 500 mg PO BID PRN (Reason: pain) Qty: 30 0RF acetaminophen [Tylenol Extra Strength] 500 mg tablet 1,000 mg PO Q8H PRN (Reason: pain) Qty: 30 0RF No Action penicillin V potassium 500 mg tablet 1,000 mg PO BID 10 Days Qty: 40 0RF ibuprofen 800 mg tablet 800 mg PO Q8H PRN (Reason: pain) Qty: 30 0RF naproxen [Naprosyn] 500 mg tablet 500 mg PO BID Qty: 20 0RF amoxicillin 875 mg tablet 875 mg PO BID Qty: 20 0RF penicillin V potassium 500 mg tablet 1,000 mg PO BID Qty: 40 0RF ibuprofen 800 mg tablet 800 mg PO TID PRN (Reason: pain) Qty: 30 0RF amoxicillin-pot clavulanate 875-125 mg tablet 1 tab PO BID 7 Days Qty: 14 0RF morphine 15 mg tablet 15 mg PO Q6H PRN (Reason: pain (scale score 4-6)) Qty: 10 0RF Rx Instructions: Partial Fill upon patient request. ondansetron 4 mg tablet,disintegrating 4 mg PO DAILY PRN (Reason: nausea and vomiting) 5 Days Qty: 7 0RF Interventions: ED Discharge Assessment Last Done: 07/08/25 17:28 Discharge Date/Time: 07/08/25 17:28 Print Language: Filipino
--- OUTSIDE RECORDS SUMMARY | 2025-07-08 17:14 | XMS_ITS | Clinical Summary ---
Author Organization [facility] Address [address] [place] [address] Phone Care Team Providers Care Presser And Shaper Knitted Goods Name Role Phone Rosalinda Cortes ERIN Primary Care Provider Allergies No known active allergies Medications cyclobenzaprine (FLEXERIL) 10 mg tablet Take 1 tablet (10 mg total) by mouth 3 (three) times a day if needed for muscle spasms. 60 tablet 01/28/2025 Active Active Problems No known active problems Encounters Date Type Department Care Team Description 04/18/2025 5:17 PM EDT - 04/18/2025 6:29 PM EDT Emergency [facility] Emergency [address] [place] [address] Chronic tension-type headache, not intractable (Primary Dx) Discharge Disposition: Home or Self Care from Last 3 Months Medical History Medical History Date Comments Learning disability DX:Learning disability Morbid obesity (CMS/HCC V24, CMS/HCC V28) DX:Morbid obesity ([facility]LY [facility]) Arthritis Anemia Social History Tobacco Use Types Packs/Day Years Used Date Smoking Tobacco: Former Smokeless Tobacco: Never Alcohol Use Standard Drinks/Week Comments Not Currently 0 (1 standard drink = 0.6 oz pur e alcohol) Comments Unknown Sex and Gender Information Value Date Recorded Sex Assigned at Not on file Legal Sex Female 4:29 AM EST Gender Identity Not on file Sexual Orientation Not on file Obstetrics History Last Filed Vital Signs Vital Sign Reading Time Taken Comments Blood Pressure 139/94 04/18/2025 6:00 PM EDT Pulse 80 04/18/2025 6:00 PM EDT Temperature 36.7 C (98.1 F) 04/18/2025 3:40 PM EDT Respiratory Rate 16 04/18/2025 6:00 PM EDT Oxygen Saturation 100% 04/18/2025 6:00 PM EDT Inhaled Oxygen Concentration - - Weight 129 kg (284 lb) 04/18/2025 3:40 PM EDT Height 152.4 cm (5') 04/18/2025 3:40 PM EDT Body Mass Index 55.46 04/18/2025 3:40 PM EDT Plan of Treatment Health Maintenance Due Date Last Done Comments HPV Vaccines (2 - 3-dose series) 12/11/2009 11/13/2009 Hepatitis B Vaccines (1 of 3 - 19+ 3-dose series) 01/15/2011 Cervical Cancer Screening: Pap Smear 01/15/2013 Hepatitis C Screening 09/11/2022 Social Influencers of Health Screening 09/11/2022 Depression Screening 10/09/2024 Influenza Vaccine (#1) 2025 , 08/25/2023, 07/16/2020, Additional history exists Cholesterol Screening (Lipid Panel) 12/17/2029 12/17/2024, 12/17/2024, 11/30/2023, Additional history exists DTaP,Tdap,and Td Vaccines (6 - Td or Tdap) 08/04/2032 08/04/2022, 03/22/2018, 02/21/2017, Additional history exists RSV Immunization Adult Patients (1 - 1-dose 75+ series) 01/15/2067 HIV Screening Completed 03/15/2019 COVID-19 Vaccine Completed 12/17/2024, , 10/17/2022, Additional history exists HIB Vaccines Aged Out No longer eligi ble based on patient's age to complete this topic Hepatitis A Vaccines Aged Out No long er eligible based on patient's age to complete this topic IPV Vaccines Aged Out No longer eligi ble based on patient's age to complete this topic MMR Vaccines Aged Out No longer eligi ble based on patient's age to complete this topic Meningococcal ACWY Vaccine Aged Out N o longer eligible based on patient's age to complete this topic Meningococcal B Vaccine Aged Out No l onger eligible based on patient's age to complete this topic Pneumococcal Vaccine: Pediatrics (0 to 5 Years) and At-Risk Patients (6 to 49 Years) Aged Out No longer eligible based on patient's age to complete this topic RSV Immunization Patients Under 20 months Aged Out No longer eligible based on patient's age to complete this topic Varicella Vaccines Aged Out No longer eligible based on patient's age to complete this topic Insurance MEDICAID - [place] Advance Directives Documents on File Type Date Recorded Patient Sled Maker Expl anation Health Care Decision (hx) 08/23/2013 AD PAREDES DIRECTIVE Health Care Decision (hx) 08/23/2013 AD PAREDES DIRECTIVE Health Care Decision (hx) 08/23/2013 AD PAREDES DIRECTIVE Health Care Decision (hx) 08/23/2013 AD PAREDES DIRECTIVE Health Care Decision (hx) 08/23/2013 AD PAREDES DIRECTIVE Health Care Decision (hx) 08/23/2013 AD PAREDES DIRECTIVE Health Care Decision (hx) 08/23/2013 AD PAREDES DIRECTIVE Health Care Decision (hx) 08/23/2013 AD PAREDES DIRECTIVE Health Care Decision (hx) 08/23/2013 AD PAREDES DIRECTIVE Health Care Decision (hx) 08/23/2013 AD PAREDES DIRECTIVE Health Care Decision (hx) 08/23/2013 AD PAREDES DIRECTIVE Health Care Decision (hx) 08/23/2013 AD PAREDES DIRECTIVE Health Care Decision (hx) 08/23/2013 AD PAREDES DIRECTIVE Health Care Decision (hx) 08/23/2013 AD PAREDES DIRECTIVE Health Care Decision (hx) 08/23/2013 AD PAREDES DIRECTIVE Health Care Decision (hx) 08/23/2013 AD PAERDES DIRECTIVE Health Care Decision (hx) 08/23/2013 AD PAREDES DIRECTIVE Health Care Decision (hx) 08/23/2013 AD PAREDES DIRECTIVE Health Care Decision (hx) 08/23/2013 AD PAREDES DIRECTIVE Health Care Decision (hx) 08/23/2013 AD PAREDES DIRECTIVE Care Teams Presser And Shaper Knitted Goods Relationship Specialty Start Date End Date Rosalinda Cortes FNP [facility] [place] [address] PCP - General Family Medicine 02/24/25
--- OUTSIDE RECORDS SUMMARY | 2025-07-08 17:14 | XMS_ITS | Encounter Summary ---
Author Organization [facility] Address [address] [place] [address] Care Team Providers Care Edge Stitcher Name Role Phone Rosalinda Cortes IT SOFTWARE ENGINEER-C Primary Care Provider [phone] Encounter Details Date Type Department Care Team (Late st Contact Info) Description 01/02/2025 Interim Notes [facility] [address] [place] [address] Rosalinda Cortes FNP-C [address] [place] [address] Social History Tobacco Use Types Packs/Day Years Used Date Smoking Tobacco: Never Passive Smoke Exposure: Never Smokeless Tobacco: Never Alcohol Use Standard Drinks/Week Comments Never 0 (1 standard drink = 0.6 oz pur e alcohol) Social Connections Answer Date Recorded Social Connections and Isolation 1 01/30/2024 Financial Resource Strain Answer Date R ecorded Financial Resource Strain 2 2023 Stress Answer Date Recorded Stress 1 01/30/2024 Physical Activity Answer Date Recorded Physical Activity 0 05/27/2019 Food Insecurity Answer Date Recorded Food 2 01/30/2024 Transportation Needs Answer Date Record ed Transportation 1 01/30/2024 Housing Stability Answer Date Recorded Housing 1 01/30/2024 Safety and Environment Answer Date Pelon rded Safety 1 01/30/2024 Utilities Answer Date Recorded Utilities 1 01/30/2024 Employment Answer Date Recorded Stress 0 12/27/2021 Comments No Sex and Gender Information Value Date Recorded Sex Assigned at Female 03/15/2019 10:59 AM PDT Legal Sex Female 11:53 AM PDT Gender Identity Female 03/15/2019 10:59 AM PDT Sexual Orientation Straight 04/30/2019 11 :58 AM PDT documented as of this encounter Plan of Treatment Upcoming Encounters Date Type Department Care Team (Late st Contact Info) Description 07/11/2025 2:40 PM EDT Office Visit [facility] [address] [place] [address] Shiloh Valadez FNP [address] [place] [address] documented as of this encounter Visit Diagnoses Not on filedocumented in this encounter Additional Health Concerns Assessment Noted Time PHQ-9 Depression Total Score: 0 12/18/19 4:02 PM PDT A Depression follow-up plan has been documented for the patient 11/18/2022 1:35 PM PST documented as of this encounter Care Teams Edge Stitcher Relationship Specialty Start Date End Date Rosalinda Cortes FNP-C [address] [place] [id number] PCP - General Internal Medicine 07/11/23 07/07/25 documented as of this encounter
--- OUTSIDE RECORDS SUMMARY | 2025-07-08 17:14 | XMS_ITS | Clinical Summary ---
Author Organization [facility] Address [address] [place] [address] Care Team Providers [facility] Manager Name Role Phone Unavailable Primary Care Provider Unavailabl e Source Comments PLEASE NOTE, if this patient is a minor, it may be UNLAWFUL to discuss sensitive information that is contained in these records (such as FAMILY PLANNING, MENTAL HEALTH or SUBSTANCE ABUSE) with the minor patient's parent or other person without the patient's specific authorization.[facility] Allergies No known active allergies Medications albuterol HFA 90 mcg/actuation inhalerIndication s:PICKETT (dyspnea on exertion) Inhale 2 Puffs into the lungs every 4 to 6 (four to six) hours as needed for shortness of breath 6.7 g 1 02/17/20 23 Active loratadine (CLARITIN) 10 mg tabletIndications :Itchy eyes Take 1 Tablet by mouth once daily as needed for allergies 90 Tablet 3 05/11/20 23 Active melatonin 3 mg tabletIndications :Insomnia, unspecified type Take 1 Tablet by mouth nightly at bedtime as needed for sleep 90 Tablet 2 09/25/20 24 Active prazosin (MINIPRESS) 1 mg capsule TAKE 1 CAPSULE BY MOUTH EVERY NIGHT AT BEDTIME FOR NIGHTMARES 10/15/19 25 Active lamoTRIgine (LAMICTAL) 25 mg tablet Take 25 mg by mouth once daily 10/15/19 25 Active ferrous sulfate 325 mg (65 mg iron) tabletIndications :Iron deficiency anemia secondary to inadequate dietary iron intake Take 1 Tablet by mouth 2 (two) times daily with a meal 180 Tablet 1 10/23/19 25 Active pediatric multivitamin chewable tabletIndications :Takes daily multivitamins Place 1 Tablet into mouth, chew and swallow once daily Flintstones if available. 180 Tablet 1 12/18/19 25 Active pregabalin (LYRICA) 150 mg capsule Take 150 mg by mouth 2 (two) times daily. 01/10/20 25 Active calcium carbonate-vitamin D3 600 mg-10 mcg (400 unit) tabletIndications :Osteopenia, unspecified location,Pain in thoracic spine Take 1 Tablet by mouth 2 (two) times daily. 180 Tablet 3 02/26/20 25 Active MISCELLANEOUS MEDICAL SUPPLY MISCIndications:S coliosis of thoracic spine, unspecified scoliosis type,Degeneration of intervertebral disc of lumbar region with discogenic back pain,Morbid obesity by miscellaneous route daily Please dispense 1 shower grab bar for lifetime use. 1 Each 1 04/17/20 25 Active MISCELLANEOUS MEDICAL SUPPLY MISCIndications:S coliosis of thoracic spine, unspecified scoliosis type,Degeneration of intervertebral disc of lumbar region with discogenic back pain,Morbid obesity by miscellaneous route daily Please dispense 1 shower chair for lifetime use. 1 Each 1 04/17/20 25 Active meloxicam (MOBIC) 15 mg tabletIndications :Pain in thoracic spine,Mid back pain, chronic Take 1 Tablet by mouth once daily. 90 Tablet 04/29/20 25 Active amitriptyline (ELAVIL) 25 mg tablet Take 25 mg by mouth nightly at bedtime. 04/24/20 25 Active indomethacin (INDOCIN) 25 mg capsule Take 25 mg by mouth 2 (two) times daily with a meal. 04/18/20 25 Active acetaminophen (TYLENOL) 500 mg tabletIndications :Mid back pain, chronic,Pain in thoracic spine Take 1 Tablet by mouth every 4 to 6 (four to six) hours NEEDED FOR CHRONIC PAIN!!. 120 Tablet 1 05/12/20 25 Active diclofenac sodium (VOLTAREN) 1 % gelIndications:Sc oliosis of thoracic spine, unspecified scoliosis type,Degeneration of intervertebral disc of lumbar region with discogenic back pain,Morbid obesity APPLY 2 G TOPICALLY 2 (TWO) TIMES DAILY. 100 g 1 06/04/20 25 Active cyclobenzaprine (FLEXERIL) 10 mg tabletIndications :Pain in thoracic spine,Mid back pain, chronic Take 1 Tablet by mouth 3 (three) times daily as needed for muscle spasms. 90 Tablet 06/13/20 25 Active naproxen (NAPROSYN) 500 mg tabletIndications :Acute pain of left knee Take 1 Tablet by mouth 2 (two) times daily with a meal. 90 Tablet 1 06/17/20 25 Active traMADoL (ULTRAM) 50 mg tabletIndications :Scoliosis of thoracic spine, unspecified scoliosis type,Degeneration of intervertebral disc of lumbar region with discogenic back pain,Morbid obesity Take 1 Tablet by mouth nightly at bedtime as needed (for severe pain). Max Daily Amount: 50 mg 10 Tablet 06/26/20 25 Active naproxen (NAPROSYN) 500 mg tabletIndications :Scoliosis of thoracic spine, unspecified scoliosis type,Degeneration of intervertebral disc of lumbar region with discogenic back pain,Episodic tension-type headache, not intractable Take 1 Tablet by mouth 2 (two) times daily with a meal. 90 Tablet 1 04/08/20 25 025 Discontin ued(Reord er (E-Cancel Not Sent)) traMADoL (ULTRAM) 50 mg tabletIndications :Scoliosis of thoracic spine, unspecified scoliosis type,Degeneration of intervertebral disc of lumbar region with discogenic back pain,Morbid obesity Take 1 Tablet by mouth nightly at bedtime as needed (for severe pain). Max Daily Amount: 50 mg 10 Tablet 05/15/20 25 025 Discontin ued(Reord er (E-Cancel Not Sent)) cyclobenzaprine (FLEXERIL) 10 mg tabletIndications :Pain in thoracic spine,Mid back pain, chronic Take 1 Tablet by mouth 3 (three) times daily as needed for muscle spasms. 90 Tablet 05/20/20 25 025 Discontin ued(Reord er (E-Cancel Not Sent)) traMADoL (ULTRAM) 50 mg tabletIndications :Scoliosis of thoracic spine, unspecified scoliosis type,Degeneration of intervertebral disc of lumbar region with discogenic back pain,Morbid obesity Take 1 Tablet by mouth nightly at bedtime as needed (for severe pain). Max Daily Amount: 50 mg 10 Tablet 06/13/20 25 025 Discontin ued(Reord er (E-Cancel Not Sent)) naproxen (NAPROSYN) 500 mg tabletIndications :Scoliosis of thoracic spine, unspecified scoliosis type,Degeneration of intervertebral disc of lumbar region with discogenic back pain,Episodic tension-type headache, not intractable Take 1 Tablet by mouth 2 (two) times daily with a meal. 90 Tablet 1 06/13/20 25 025 Discontin ued(Reord er (E-Cancel Not Sent)) Hospital, Clinic, or Other Facility Administered Medication Ordered Dose Route Frequency Start Date End Date Status medroxyPROGESTERone (Depo-Provera) injection 150 mgIndications:Depo-Provera contraceptive status 150 mg IM Once 10/23/2024 Acti ve Active Problems Problem Noted Date Diagnosed Date Degeneration of intervertebr al disc of lumbar region with discogenic back pain 12/25/2024 Scoliosis of thoracic spine 10/24/2024 Episodic tension-type headache, not intractable 10/24/2024 On Depo-Provera for contraception 02/23/2024 Overview (02/23/2024): Start 02/23/24 Food insecurity 01/30/2024 Financial difficulties 01/30/2024 Personality disorder 11/18/2022 Learning disability 11/18/2022 Iron deficiency anemia 11/18/2022 Morbid obesity 03/15/2019 Resolved Problems Problem Noted Date Diagnosed Date Resolved Date Dichorionic diamniotic twin gestation 11/18/2022 11/18/2022 Anemia of 11/18/2022 11/18/19 23 Gastroesophageal reflux dise ase without esophagitis 11/18/2022 11/18/2022 Slow transit constipation 11/18/2022 Developmental delay 07/23/2019 11/18/19 23 Closed fracture of left proximal tibia 03/15/2019 11/18/2022 Assessment & Plan (03/19/2019 10:09 AM EDT): [facility]19 CT Ext Lower W/O contrast Left: Better visualized than on the preceding radiographs is a comminuted, intra-articular fracture of the proximal tibia, with impaction of the tibiofermoral articular surfaces and multiple depressed fragments in the tibial plateau. Encounters Date Type Department Care Team Description 06/20/2025 Results Follow-Up [facility] [address] [place] [address] Penny Mcclain PA-C 06/17/2025 2:40 PM EDT Office Visit [facility] [address] [place] [address] Penny Mcclain PA-C 05/30/2025 Interim Notes [address] [address] Negar Weldon 05/22/2025 11:20 AM EDT Office Visit [address] [address] Rosalinda Cortes FNP-C 05/22/2025 Interim Notes [address] [phone] Gloria Perera [place] 04/30/2025 8:40 AM EDT Telemedicine Visit [address] [address] Rosalinda Cortes FNP-C 04/21/2025 Interim Notes [address] [address] Jody Ro RN 04/21/2025 Interim Notes [address] [address] [address] 04/17/2025 11:20 AM EDT Office Visit [address] [address] Rosalinda Cortes FNP-C from Last 3 Months Immunizations Immunization Administration Dates Next Due Flu, Preservative Free 08/25/2023 HPV, QUADRIVALENT 11/13/2009 INFLUENZA, SEASONAL, INJECTABLE 07/16/2020,09/02 Influenza (FLUBLOK),recombinant,injectable,pres ervative Free 07/13/2024 Influenza, Intradermal, Quad rivalent, Preservative Free 12/13/2017 Influenza, Whole 07/18/2012,07/15/2009 MODERNA COVID-19 VACCINE BIV ALENT, BLUE CAP, 6M+ 10/17/2022 Moderna COVID-19 (Spikevax), Mrna, Lnp-s, Pf, 50 Mcg/0.5 Ml, 12yr+ 12/17/2024,08/25/2023 PFIZER COVID VACCINE, PURPLE CAP, 12+ 08/02/2021 ,07/12/2021 TDAP 08/04/2022, 8,02/21/2017,2013,08/28/2012 Family History Medical History Relation Name Comments No Known Problems Father No Known Problems Mother Relation Name Status Comments Father Alive Mother Alive Social History Tobacco Use Types Packs/Day Years Used Date Smoking Tobacco: Never Passive Smoke Exposure: Never Smokeless Tobacco: Never Tobacco Cessation:Counseling Given: Not Answered Alcohol Use Standard Drinks/Week Comments Never 0 [...] Safety and Environment Answer Date Pelon rded How often does anyone, inclu ding family and friends, physically hurt you? 1 02/25/2025 Utilities Answer Date Recorded Utilities 1 01/30/2024 Employment Answer Date Recorded Stress 0 12/27/2021 Comments No Sex and Gender Information Value Date Recorded Sex Assigned at Female 03/15/2019 10:59 AM PDT Legal Sex Female 11:53 AM PDT Gender Identity Female 03/15/2019 10:59 AM PDT Sexual Orientation Straight 04/30/2019 11 :58 AM PDT Last Filed Vital Signs Vital Sign Reading Time Taken Comments Blood Pressure 128/76 06/17/2025 1:16 PM EDT Pulse 79 06/17/2025 1:16 PM EDT Temperature 36.6 C (97.9 F) 06/17/2025 1:16 PM EDT Respiratory Rate 18 06/17/2025 1:16 PM EDT Oxygen Saturation 99% 06/17/2025 1:16 PM EDT Inhaled Oxygen Concentration - - Weight 128.4 kg (283 lb) 06/17/2025 1:16 PM EDT Height 165.1 cm (5' 5 ) 06/17/2025 1:16 PM EDT Body Mass Index 47.09 06/17/2025 1:16 PM EDT Plan of Treatment Upcoming Encounters Date Type Department Care Team (Late st Contact Info) Description 07/11/2025 2:40 PM EDT Office Visit [facility] [address] [place] [address] Shiloh Valadez, HYDRAULIC ENGINEER [address] [place] [address] Health Maintenance Due Date Last Done Comments HPV Screening 1992 Urine Drug Screen 1992 Imm-HPV (2 - 3-dose series) 12/11/2009 11/13/2009 Cervical Cancer Screening 08/13/2023 Pap + HPV 08/13/2023 Pap Smear 08/13/2023 08/13/2020 [id number] INJ 01/31/2025 11/08/2024 Imm-Influenza (#1) 2025 07/13/2024, 1 10/25/2022, 07/16/2020, Additional history exists Annual Wellness (Adult): Indicated (All Coverage) 12/17/2025 12/17/2024, 11/30/2023, 11/18/2022 Anxiety Screening 02/25/2026 02/25/2025 Relationship Safety Screening/Counseling 02/25/2026 02/25/2025, 01/30/2024, 11/14/2023, Additional history exists Hypertension Screening (#1) 06/17/2026 Tobacco Screening 06/17/2026 06/17/2025, , 11/14/2023, Additional history exists Lipid Screening 12/18/2027 12/17/2024, 11/10, 11/18/2022, Additional history exists Imm-DTaP/Tdap/Td (6 - Td or Tdap) 08/04/2032 08/04/2022, 03/22/2018, 02/21/2017, Additional history exists Hepatitis C Screening Completed 03/15/2019 Alcohol and Drug Screen Completed 12/18/19, 11/30/2023, 11/14/2023, Additional history exists Depression Annual Screen Completed 12/17/2024, 03/2024 HIV Screening Completed 12/17/2024, 03/15/2019 [id number] Completed 12/17/2024, 08/09, 10/17/2022, Additional history exists Syphilis Screening Discontinued 12/17/2024 Cervical Ablation/Cold-Knife Conization Discontinued Cervical Cryotherapy Discontinued Colposcopy Discontinued Endometrial Biopsy Discontinued Excision/Leep Discontinued HPV Genotyping Discontinued Imm-Hepatitis B Discontinued Vaginal Pap Discontinued Vulvoscopy Discontinued Procedures Procedure Name Priority Date/Time Associated Diagnosis Comments IMAGING SCANNED DOCUMENT 06/18/2025 3:00 AM EDT XR--LEFT KNEE 3 VIEWS Routine 06/18/2025 3:00 AM EDT Acute pain of left knee OTHER ORDERS SCANNED DOCUMENT 05/23/2025 3:00 AM EDT OTHER ORDERS SCANNED DOCUMENT 04/15/2025 3:00 AM EDT HIV 1/2 AG & AB W/RFLX (4TH GEN) Routine 12/17/2024 4:27 PM EDT Screening examination for STI RPR (MONITOR) W/REFL TITER Routine 12/17/2024 4:27 PM EDT Screening examination for STI LIPID PANEL Routine 12/17/2024 4:27 PM EDT Routine general medical examination at a health care facility PAP SMEAR Routine 08/13/2020 HEPATITIS A,B,C PANEL Routine 03/15/2019 2:52 PM EDT Hepatitis vaccination status unknown from Last 3 Months or Most Recently Relevant to Health Maintenance Results * XR--LEFT KNEE 3 VIEWS (06/18/2025 3:00 AM EDT) 06/18/2025 3:00 AM EDT [facility] - 06/20/2025 9:46 AM EDT IMPRESSION: Deformity of the proximal tibia suggesting a mildly impacted fracture of the metaphysis. I would favor an old finding, but it is difficult to exclude an acute injury. Consider further evaluation with CT. Or MRI Prominent degenerative changes. Probable small joint effusion. Jim Olea MD Signed by Jim Olea MD Read by: JIM OLEA II, MD Reviewed and Electronically Signed by: JIM OLEA II, MD [facility] - 06/20/2025 9:46 AM EDT Original Report PROCEDURE: XR LEFT KNEE 3 views INDICATION: Left knee pain. TECHNIQUE: Three views (four images) of the left knee. COMPARISON: None Available. FINDINGS: Deformity of the proximal tibia suggesting a mildly impacted fracture of the metaphysis. I would favor an old finding, but it is difficult to exclude an acute injury. Bony structures otherwise appear intact. Prominent degenerative changes with joint space narrowing and osteophytes. No soft tissue abnormality is seen. There is a probable small joint effusion. Procedure Note Default, [facility] Provider - 06/20/2025 Original Report PROCEDURE: XR LEFT KNEE 3 views INDICATION: Left knee pain. TECHNIQUE: Three views (four images) of the left knee. COMPARISON: None Available. FINDINGS: Deformity of the proximal tibia suggesting a mildly impacted fracture of the metaphysis. I would favor an old finding, but it is difficult to exclude an acute injury. Bony structures otherwise appear intact. Prominent degenerative changes with joint space narrowing and osteophytes. No soft tissue abnormality is seen. There is a probable small joint effusion. IMPRESSION: IMPRESSION: Deformity of the proximal tibia suggesting a mildly impacted fracture of the metaphysis. I would favor an old finding, but it is difficult to exclude an acute injury. Consider further evaluation with CT. Or MRI Prominent degenerative changes. Probable small joint effusion. Jim Olea MD Signed by Jim Olea MD Read by: JIM OLEA II, MD Reviewed and Electronically Signed by: JIM OLEA II, MD Penny Mcclain PA-C [facility] Edited Resul t - Final [facility] Corporate Office [address], [address] [place] [address], [place] [phone] * IMAGING SCANNED DOCUMENT (06/18/2025 3:00 AM EDT) 06/18/2025 3:00 AM EDT Penny Mcclain PA-C [facility] Final Result * OTHER ORDERS SCANNED DOCUMENT (05/23/2025 3:00 AM EDT) Only the most recent of2 resultswithin the time period is included. 05/23/2025 3:00 AM EDT [facility] Provider Default SCAN OTHER ORDERS Final Re sult * HIV 1/2 AG & AB W/RFLX (4TH GEN) (12/17/2024 4:27 PM EDT) HIV AG/AB, 4TH GEN NON-REAC TIVE NON-REAC TIVE [facility] Comment: HIV-1 antigen and HIV-1/HIV-2 antibodies were not detected. There is no laboratory evidence of HIV infection. PLEASE NOTE: This information has been disclosed to you from records whose confidentiality may be protected by state law. If your state requires such protection, then the state law prohibits you from making any further disclosure of the information without the specific written consent of the person to whom it pertains, or as otherwise permitted by law. A general authorization for the release of medical or other information is NOT sufficient for this purpose. For additional information please refer to http://education.[employer].Outsmart/faq/WBY610 (This link is being provided for informational/ educational purposes only.) The performance of this assay has not been clinically validated in patients less than 2 years old. Blood Blood / Unknown 12/17/2024 4 :27 PM EDT 12/17/2024 4:28 PM EDT Narrative [employer] [facility] - 12/19/2024 9:56 AM EDT FASTING:NO Rosalinda Masseyri HYDRAULIC ENGINEER-C LAB - BLOOD DRAW Final Re sult Performing Organization Address [facility] de Phone Number [employer] [address] [address], [employer] [address] [address] * RPR (MONITOR) W/REFL TITER (12/17/2024 4:27 PM EDT) [facility] RPR (MONITOR) W/REFL TITER NON-REACT ÁNGEL NON-REACT ÁNGEL [employer] [facility] Blood Blood / Unknown 12/17/2024 4 :27 PM EDT 12/17/2024 4:28 PM EDT Narrative [employer] [facility] - 12/19/2024 9:56 AM EDT FASTING:NO Rosalinda Masseyri HYDRAULIC ENGINEER-C LAB - BLOOD DRAW Final Re sult Performing Organization Address [facility] de Phone Number [employer] [address] [address], [employer] [address] [address] * (ABNORMAL) LIPID PANEL (12/17/2024 4:27 PM EDT) [facility] CHOLESTEROL, TOTAL 98 <200 mg/dL [employer] [facility] HDL CHOLESTEROL 37(L) > OR = 50 mg/dL [employer] [facility] TRIGLYCERIDES 90 <150 mg/dL [employer] [facility] LDL-CHOLESTEROL 44 99 mg/dL (calc) [employer] [facility] Comment: Reference range: <100 Desirable range <100 mg/dL for primary prevention; <70 mg/dL for patients with CHD or diabetic patients with > or = 2 CHD risk factors. LDL-C is now calculated using the Jose calculation, which is a validated novel method providing better accuracy than the Friedewald equation in the estimation of LDL-C. Brannon DEL ROSARIO et al. KOTA. 2013;310(19): 9960-1535 (http://education.[employer].Outsmart/faq/AKQ168) CHOL/HDLC RATIO 2.6 <5.0 (calc) [employer] [facility] NON-HDL CHOLESTEROL 61 <130 mg/dL (calc) [employer] [facility] Comment: For patients with diabetes plus 1 major ASCVD risk factor, treating to a non-HDL-C goal of <100 mg/dL (LDL-C of <70 mg/dL) is considered a therapeutic option. Blood Blood / Unknown 12/17/2024 4 :27 PM EDT 12/17/2024 4:28 PM EDT Narrative [facility] [employer] [facility] - 12/19/2024 9:56 AM EDT FASTING:NO Rosalinda Cortes HYDRAULIC ENGINEER-C LAB - BLOOD DRAW Final Re sult Performing Organization Address City/[facility]/ZIP Co de Phone Number [employer] [facility] [address] [address], [place] [employer] [address] [address] * PAP SMEAR (08/13/2020) PAP SMEAR INTERPRETATION NORMAL NORMAL [facility] 08/13/2020 Impressions [facility] - 08/13/2020 10:02 AM EST Negative for squamous intraepithelial lesion and malignancy Fungal organisms morphologically consistent with charlie spp Provider [facility] - PATHOLOGY AND CYTOLOGY AMB ULATORY Final Result Performing Organization Address [facility] Co de Phone Number [facility] [address] [place] [address], * (ABNORMAL) HEPATITIS A,B,C PANEL (03/15/2019 2:52 PM EDT) HEPATITIS B SURFACE ANTIBODY POSITIVE(A) NEGATIVE [facility] HEPATITIS B SURFACE ANTIGEN NEGATIVE NEGATIVE [facility] Comment: Over the counter supplements containing high doses of biotin may interfere with this assay. If interference is suspected, patients shoud be retested after refraining from biotin supplements for 72 hours. HEPATITIS C VIRUS DIAGNOSTIC NEGATIVE NEGATIVE [facility] HEPATITIS A ANTIBODY TOTAL NEGATIVE NEGATIVE [facility] Comment: Over the counter supplements containing high doses of biotin may interfere with this assay. If interference is suspected, patients shoud be retested after refraining from biotin supplements for 72 hours. HEPATITIS B CORE ANTIBODY NEGATIVE NEGATIVE [facility] Blood specimen (specimen) Blood / Unknown 03/15/2019 2:52 PM EDT 03/15/2019 2:55 PM EDT Narrative [facility] - 03/15/2019 7:23 PM EDT [employer], [place] [address] Director Of State - Jayashree Marcum MD PT ID [id number] ORD# [id number] Cheri Veras PA-C LAB - BLOOD DRAW Edited Result - Final [facility] [place] [address], from Last 3 Months or Most Recently Relevant to Health Maintenance Insurance [address] [employer]
[2025-07-08 17:28] VITALS: BP 145/75; PULSE 75; RESP 18; TEMP 36.7; O2SAT 99
== END 2025-07-08 17:28 | disposition home or self-care (01) ==
PROVIDERS: Emergency Provider Emergency Medicine
DX: M41.34 Thoracogenic scoliosis, thoracic region (principal); M47.817 Spondylosis without myelopathy or radiculopathy, lumbosacral region
CPT/HCPCS: 72072; 72100; 99282; 99283

== ENCOUNTER → 2025-07-08 13:57 | Outpatient (BNV) | payer MEDICAID, SELFPAY | PROVIDERS: Visit Provider Radiology Diagnostic Radiology | DX: M47.817 Spondylosis without myelopathy or radiculopathy, lumbosacral region (principal); M47.814 Spondylosis without myelopathy or radiculopathy, thoracic region; M41.35 Thoracogenic scoliosis, thoracolumbar region | CPT/HCPCS: 72072; 72100 ==